=== PATIENT | female | born 1970 | race Caucasian/White ===

== ENCOUNTER → 2021-01-18 10:48 | Outpatient (CLI) | payer OTHER, SELFPAY ==
[2021-01-18 15:15] LABS: Absolute Lymphocyte Count 1.33 X10^3/uL (0.83-4.51); Absolute Neutrophil Count 3.1 X10^3/uL (2.0-7.7); Basophil# 0.05 X10^3/uL; Eosinophil# 0.17 X10^3/uL; Eosinophils% 3.4 % (0-5); Hematocrit 44.2 % (37-47); Hemoglobin 14.8 g/dL (12.0-15.0); Lymphocyte # 1.33 X10^3/ul (0.83-4.51); Lymphocyte % 26.8 % (19-41); Mean Corp Hgb Conc 33.5 g/dL (32-36); Mean Corpuscular Hgb 28.4 pg (27.0-32.0); Mean Corpuscular Volume 84.8 fL (81-99); Monocyte# 0.35 X10^3/uL; Monocyte% 7.1 % (0-10); NRBC Flagged by Analyzer 0 % (0-5); Neutrophil # 3.05 X10^3/uL (2.7-7.7); Neutrophil % 61.5 % (47-70); Platelet Count 230 K/mm3 (150-450); RBC Distribution Width CV 12.6 % (11.6-14.6); RBC Distribution Width SD 38.3 fl (35.1-43.9); Red Blood Count 5.21 M/mm3 (4.2-5.4)
== END ==
PROVIDERS: Referring Provider Internal Medicine Pulmonary Disease; Visit Provider Internal Medicine Pulmonary Disease
DX: G47.09 Other insomnia (principal); R53.83 Other fatigue
CPT/HCPCS: 36415; 85025

== ENCOUNTER → 2021-02-22 10:28 | Outpatient (CLI) | payer OTHER, SELFPAY ==
--- NOTE | 2021-02-22 10:31 | RAD_ITS ---
EXAM: XR CHEST, 2 VIEWS CLINICAL INDICATION: HYPOXEMIA TECHNIQUE: Frontal and lateral views of the chest. This report was created using [employer] report generation technology. COMPARISON: None. FINDINGS: LUNGS AND PLEURAL SPACES: Unremarkable. No consolidation or edema. No pneumothorax. No effusion. HEART: Unremarkable. Cardiac silhouette not enlarged. MEDIASTINUM: Central airways and mediastinal contour are unremarkable. BONES/JOINTS: Unremarkable. SOFT TISSUES: Unremarkable. RAD/Chest PA and Lateral IMPRESSION: No radiographic evidence of acute cardiopulmonary disease. Electronically Signed: Jerzy Mckeon MD at 3:34 EST Tel , Service support ,
== END ==
PROVIDERS: Referring Provider Internal Medicine Pulmonary Disease; Visit Provider Internal Medicine Pulmonary Disease
DX: R06.02 Shortness of breath (principal)
CPT/HCPCS: 71046

== ENCOUNTER 2021-03-23 11:20 | Outpatient (CLI) | payer OTHER, SELFPAY | END 2021-03-23 23:59 | disposition short-term general hospital (02) | PROVIDERS: Referring Provider Internal Medicine Pulmonary Disease; Visit Provider Internal Medicine Pulmonary Disease | DX: U07.1 COVID-19 (principal) | CPT/HCPCS: 87635; C9803; U0003; U0005 ==

== ENCOUNTER 2021-03-24 09:10 | Outpatient (CLI) | payer OTHER, SELFPAY ==
[2021-03-24 09:24] VITALS: BP 133/81; PULSE 126; RESP 18; TEMP 37.1; O2SAT 97; BMI 32.1
[2021-03-24 10:22] VITALS: BP 104/71; PULSE 101; RESP 16; TEMP 37.4; O2SAT 100
[2021-03-24 11:09] VITALS: BP 111/72; PULSE 102; RESP 16; TEMP 37.3; O2SAT 97
== END 2021-03-24 23:59 | disposition home or self-care (01) ==
LOC: MS3OUT 09:10 → MS3 09:11
PROVIDERS: Referring Provider Internal Medicine Pulmonary Disease; Visit Provider Internal Medicine Pulmonary Disease
DX: U07.1 COVID-19 (principal)
CPT/HCPCS: J7050; M0243; Q0240

== ENCOUNTER 2021-03-26 21:52 | Emergency (ER) | payer OTHER, SELFPAY ==
[2021-03-26 21:53] VITALS: BP 76/64; PULSE 96; RESP 15; TEMP 36.3; O2SAT 93; BMI 33.2
[2021-03-26 22:11] VITALS: BP 103/89; PULSE 92; RESP 22; O2SAT 92; O2SAT 95
--- NOTE | 2021-03-26 22:36 | CT_ITS ---
STUDY: CTA CHEST REASON FOR EXAM: Female, 50 years old patient with hypoxia. RADIATION DOSAGE (If Supplied By Facility): CTDIvol = ( 13.73 ) mGy, DLP = ( 498.80 ) mGycm TECHNIQUE: The examination was performed with the intravenous administration of 100 mL of Isovue-370. Post-processing of the angiographic images was performed, with multiplanar reformation and 3D reconstruction. Individualized dose optimization techniques were used for this CT. COMPARISON: None. FINDINGS: Normal enhancement of the main pulmonary artery and right and left pulmonary arteries. Normal enhancement of the bilateral peripheral pulmonary arteries. There is no demonstrated pulmonary embolism. Normal thoracic aorta and visualized great vessels. There is no demonstrated aortic dissection. Normal heart and pericardium. Normal mediastinum. There are mildly prominent right-sided lymph nodes. Normal visualized trachea and bronchi. The lungs are under expanded. There are multifocal areas of airspace consolidation and groundglass attenuation primarily within the periphery of the lower lobes. There is also patchy ground glass attenuation within the upper lobes Normal pleura. Normal chest wall structures. There are degenerative changes of thoracic spine. There is hepatic steatosis. CT/CTA Chest W/WO Contrast IMPRESSION: 1. No CTA demonstrated pulmonary embolism or arterial dissection. 2. Bilateral multifocal pneumonia. Electronically Signed: Kia Lewis MD at 0:16 EST , Service support ,
--- NOTE | 2021-03-26 22:37 | EKG12_ITS ---
Test Reason : SOB Blood Pressure : / mmHG Vent. Rate : 090 BPM Atrial Rate : 090 BPM P-R Int : 160 ms QRS Dur : 070 ms QT Int : 352 ms P-R-T Axes : 020 025 030 degrees QTc Int : 430 ms Normal sinus rhythm Low voltage QRS Borderline ECG Confirmed by MELANY MEIER, ELIF ([id number]), acquisition editor SIERRA MABRY ([id number]) on 03/31/2021 11:26:35 AM Referred By: KAILEY Confirmed By:ELIF MOSLEY MD
[2021-03-26] MEDS: dexAMETHasone 10 MG/ML Vial IV (23:04)
[2021-03-26 23:07] VITALS: BP 111/62; PULSE 97; RESP 22; O2SAT 96
--- NOTE | 2021-03-26 23:08 | EX.ED.DYSGE1 ---
HPI History of Present Illness Chief Complaint: Cough Narrative Narrative: Patient is a 50-year-old female who is approximately 7 days into her Covid diagnosis. She states that she developed the illness from her who is also positive. She states she has no history of lung disorder or smoking history or need for supplemental oxygen. She reports she did receive her monoclonal antibody therapy 2 days ago. She states that today she was feeling increased shortness of breath and placed a pulse ox on her finger at home and it was reading only 75 to 80%. She states she readjusted the machine but the reading was still low and secondary to this comes to the hospital for evaluation. PFSH PFS Medical History no medical history Home Medications guaifenesin [Mucinex] 1,200 mg PO Q12H PRN 03/24/21 [History Last Taken Unknown] mirtazapine 7.5 mg PO QHS PRN 03/26/21 [History Last Taken Unknown] dexamethasone [Decadron] 6 mg PO DAILY 10 Days #10 tab 03/27/21 [Rx Last Taken Unknown] Allergy/AdvReac Type Severity Reaction Status Date / Time cephalexin Allergy Hives Verified 03/26/21 22:18 Surgical History no surgical history Social History Smoking Status: Never smoker [facility] ED Constitutional Constitutional ED: Denies chills or fever(s) ENT ENT ED: Reports rhinorrhea and sore throat Cardiovascular Cardiovascular: Denies chest pain, palpitations or racing heartbeat Respiratory/Chest Respiratory/Chest: Reports cough and dyspnea Gastrointestinal Gastrointestinal: Denies abdominal pain, diarrhea, nausea or vomiting Genitourinary Genitourinary ED: Denies dysuria Musculoskeletal Musculoskeletal: Reports myalgias Integumentary Denies rash Neurologic Neurologic: Reports weakness; Denies headache(s) Hematologic/Lymphatic Hematologic/Lymphatic: Denies easy bleeding or easy bruising EXAM Physical Exam Const Vital Signs: 03/26/21 21:53 03/26/21 22:11 03/26/21 23:07 Temperature 97.4 F L Temperature Source Temporal Pulse Rate 96 92 97 Respiratory Rate 15 22 H 22 H Respiratory Effort Normal Non-Labored Respiratory Depth Normal Respiratory Pattern Tachypnea Blood Pressure 76/64 L 103/89 H 111/62 Blood Pressure Mean 68 93 78 Pulse Ox 93 92 96 Oxygen Delivery Method Room Air Room Air Room Air 03/27/21 01:10 Temperature Temperature Source Pulse Rate Respiratory Rate 18 Respiratory Effort Respiratory Depth Respiratory Pattern Blood Pressure 134/80 H Blood Pressure Mean 98 Pulse Ox 97 Oxygen Delivery Method Room Air Positive well nourished and well developed General Appearance ED: well developed HEENT Reports moist mucous membranes HEENT Narrative: Cobblestoning the posterior pharynx consistent with sinus drainage but no tongue or lip swelling no oral lesions no airway edema or compromise Eyes PERRL and EOMs intact bilaterally Neck supple and no JVD Neck Narrative: Positive anterior cervical lymphadenopathy noted Resp normal respiratory effort Resp Narrative: Breath sounds are diminished throughout with diffuse rhonchi noted. However no nasal flaring retractions tachypnea or accessory muscle use Cardio regular rate and regular rhythm GI normal to inspection, nondistended, normoactive bowel sounds, non-tender, non-distended and no masses Auscultation: normoactive bowel sounds Palpation: soft Extremity normal to inspection Extremity Narrative: No asymmetric edema no pitting edema negative Homans' sign bilaterally Neuro oriented x3 and CN's II-XII intact bilaterally Sensorium / Orientation: alert Motor Exam: strength 5/5 throughout Psych mental status grossly normal Skin no rashes or lesions noted MDM MDM MDM Narrative Medical decision making narrative: Patient arrived to the ER afebrile and was satting 93 to 95% on room air. She has known Covid and is approximately 7 days into her illness. With her report of a pulse ox in the 70s to 80s at home I did elect to perform a CT scan to check for Covid pneumonia and pulmonary embolus as well as cardiac damage. The blood work showed a normal troponin with normal sinus rhythm EKG. she has no anemia or signs of acute kidney damage. Her CTA reveals no PE but does show bilateral multifocal infiltrates consistent with Covid. The patient was ambulated and her pulse ox went from 95% down to 94% on room air. Therefore at this time as she is not hypoxic at rest or with ambulation and she does not have pulmonary emboli or signs of cardiac damage I do not feel she needs to be kept in the hospital and is safe for discharge. Lab Data Attestation: I reviewed the patient's lab results. Labs: Laboratory Results - last 24 hr 03/26/21 03/26/21 03/26/21 23:00 23:00 23:00 WBC 3.2 L RBC 4.26 Hgb 12.2 Hct 35.7 L MCV 83.8 MCH 28.6 MCHC 34.2 RDW Std Deviation 38.9 RDW Coeff of Jaylen 12.7 Plt Count 190 MPV 8.8 Immature Gran % (Auto) 2.200 H Neut % (Auto) 63.5 Lymph % (Auto) 26.2 [place] % (Auto) 7.2 Eos % (Auto) 0.6 Baso % (Auto) 0.3 Absolute Neuts (auto) 2.0 Absolute Lymphs (auto) 0.84 Nucleated RBC % 0.6 PT 12.9 INR 1.0 APTT 28.2 Sodium 139 Potassium 3.3 L Chloride 103 Carbon Dioxide 29.0 Anion Gap 7 BUN 11 Creatinine 0.69 Estim Creat Clear Calc 84.23 Est GFR (MDRD) Af Amer 116 Est GFR (MDRD) Non-Af 96 BUN/Creatinine Ratio 15.9 Glucose 99 Calcium 8.7 Magnesium 2.2 Troponin I High Sens 7 Radiography Diagnostic Testing: Clinical Impression(s) from Imaging Studies Chest CTA 03/26/21 22:36 IMPRESSION: 1. No CTA demonstrated pulmonary embolism or arterial dissection. 2. Bilateral multifocal pneumonia. Electronically Signed: Kia Lewis MD at 0:16 EST , Service support , Discharge Plan Triage Chief Complaint: Cough ED Provider: Jerzy Miller Dx/Rx/DC Orders Clinical Impression: Pneumonia due to 2019 novel coronavirus Prescriptions: New dexamethasone [Decadron] 6 mg tablet 6 mg PO DAILY 10 Days Qty: 10 RF: 0 No Action guaifenesin [Mucinex] 600 mg Tablet Extended Release 12hr 1,200 mg PO Q12H PRN (Reason: Congestion) RF: 0 mirtazapine 7.5 mg tablet 7.5 mg PO QHS PRN (Reason: Insomnia) RF: 0 Primary Care Provider: Care Physician,No Primary Referrals: Louise Ortega MD [STAFF PHYSICIAN] - 3-5 Days if not improving Care Physician,No Primary [Primary Care Provider] - Disposition Disposition: Home, Self Care Discharge Date/Time: 03/27/21 01:16
[2021-03-26 23:28] LABS: Partial Thromboplast Time 28.2 Seconds (24.1-36.2); Prothrombin Time (Protime)PT. 12.9 SECONDS (11.7-14.9)
[2021-03-26 23:32] LABS: Anion Gap 7 (5-15); BUN 11 mg/dL (7-18); BUN/Creat Ratio 15.9 RATIO (10-20); Calcium,Total 8.7 mg/dL (8.5-10.1); Chloride 103 mmol/L (98-107); Creatinine, Serum 0.69 mg/dL (0.55-1.02); EST Glomerular Filtration Rate 96 mL/min (>60); Est Glom Filt Rate - Afr Amer 116 mL/min (>60); Estimated Creatinine Clearance 84.23 ml/min; Glucose 99 mg/dL (74-106); Magnesium 2.2 mg/dL (1.6-2.6); Potassium 3.3 mmol/L (3.5-5.1); Sodium Level 139 mmol/L (136-145); Troponin-I HS 7 pg/mL (3.0-54.0)
[2021-03-26 23:35] LABS: Absolute Lymphocyte Count 0.84 X10^3/uL (0.83-4.51); Basophil# 0.01 X10^3/uL; Basophil% 0.3 % (0-1); Eosinophil# 0.02 X10^3/uL; Eosinophils% 0.6 % (0-5); Hematocrit 35.7 % (37-47); Hemoglobin 12.2 g/dL (12.0-15.0); Lymphocyte # 0.84 X10^3/ul (0.83-4.51); Lymphocyte % 26.2 % (19-41); Mean Corp Hgb Conc 34.2 g/dL (32-36); Mean Corpuscular Hgb 28.6 pg (27.0-32.0); Mean Corpuscular Volume 83.8 fL (81-99); Mean Platelet Vol. 8.8 fl (6.2-12.0); Monocyte# 0.23 X10^3/uL; Monocyte% 7.2 % (0-10); NRBC Flagged by Analyzer 0.6 % (0-5); Neutrophil # 2.04 X10^3/uL (2.7-7.7); Neutrophil % 63.5 % (47-70); POSITIVE MORPHOLOGY YES; Platelet Count 190 K/mm3 (150-450); RBC Distribution Width CV 12.7 % (11.6-14.6); RBC Distribution Width SD 38.9 fl (35.1-43.9); Red Blood Count 4.26 M/mm3 (4.2-5.4); White Blood Count 3.2 K/mm3 (4.4-11.0)
[2021-03-27 00:42] VITALS: O2SAT 95
[2021-03-27 01:10] VITALS: BP 134/80; RESP 18; O2SAT 97
[2021-03-27 01:29] LABS: Differential Indicated SCAN CRITERIA MET
== END 2021-03-27 01:16 | disposition home or self-care (01) ==
PROVIDERS: Emergency Provider Emergency Medicine; Visit Provider Emergency Medicine
DX: U07.1 COVID-19 (principal); J12.82 Pneumonia due to coronavirus disease 2019; R06.02 Shortness of breath
CPT/HCPCS: 71275; 80048; 83735; 84484; 85025; 85610; 85730; 93005; 96374; 99282; J7040; Q9967

== ENCOUNTER 2021-04-12 10:04 | Outpatient (CLI) | payer OTHER, SELFPAY ==
--- NOTE | 2021-04-12 10:08 | RAD_ITS ---
EXAM: XR CHEST, 2 VIEWS : 1970 CLINICAL INDICATION: COVID TECHNIQUE: Frontal and lateral views of the chest. This report was created using [employer] report generation technology. COMPARISON: 02/22/2021 FINDINGS: LUNGS AND PLEURAL SPACES: Unremarkable. No consolidation or edema. No pneumothorax. No effusion. HEART: Unremarkable. Cardiac silhouette not enlarged. MEDIASTINUM: Central airways and mediastinal contour are unremarkable. BONES/JOINTS: Unremarkable. SOFT TISSUES: Unremarkable. RAD/Chest PA and Lateral IMPRESSION: No radiographic evidence of acute cardiopulmonary disease. at 1813 Reported and signed by: Peña Lal MD Electronically Signed: Peña Lal MD at 18:12 EST Tel , Service support ,
== END 2021-04-12 23:59 | disposition short-term general hospital (02) ==
LOC: MTRAD 10:05
PROVIDERS: PCP Nurse Practitioner Primary Care; Referring Provider Internal Medicine Pulmonary Disease; Visit Provider Internal Medicine Pulmonary Disease
DX: U07.1 COVID-19 (principal)
CPT/HCPCS: 71046

== ENCOUNTER 2021-12-15 11:00 | Outpatient (RCR) | payer OTHER, SELFPAY | END 2021-12-17 23:59 | LOC: NS 11:00 | PROVIDERS: PCP Nurse Practitioner Primary Care; Referring Provider Nurse Practitioner Primary Care; Visit Provider Nurse Practitioner Primary Care | DX: Z71.3 Dietary counseling and surveillance (principal); E66.9 Obesity, unspecified; Z68.34 Body mass index [BMI] 34.0-34.9, adult | CPT/HCPCS: 97802; 97803 ==

== ENCOUNTER 2022-01-03 09:52 | Outpatient (RCR) | payer OTHER, SELFPAY | END 2022-01-17 23:59 | LOC: NS 09:52 | PROVIDERS: PCP Nurse Practitioner Primary Care; Referring Provider Nurse Practitioner Primary Care; Visit Provider Nurse Practitioner Primary Care | DX: Z71.3 Dietary counseling and surveillance (principal); E66.9 Obesity, unspecified; Z68.34 Body mass index [BMI] 34.0-34.9, adult | CPT/HCPCS: 97803 ==

== ENCOUNTER → 2022-01-26 | Outpatient (CLI) | payer OTHER, SELFPAY ==
--- NOTE | 2022-01-26 11:14 | RAD_ITS ---
STUDY: X-RAY - LUMBAR SPINE REASON FOR EXAM: Female, 51 years old. Bilateral hip pain. TECHNIQUE: 5 view(s) of the lumbar spine were obtained. COMPARISON: None FINDINGS: Normal lumbar lordosis. Mild rotatory levoscoliosis. There is a normal alignment of the vertebrae. Diffuse facet sclerosis. Diffuse intervertebral disc space narrowing with small osteophytes, most marked at L2-3 and L3-4. Phleboliths and calcified uterine fibroids. RAD/L/S Spine Min 4 Views IMPRESSION: Levoscoliosis with diffuse mild lumbosacral spondylosis. Uterine fibroids. No acute abnormality, evidence of erosive changes or fusion. Electronically Signed: Kt Garcia, at 15:55 EST ,
--- NOTE | 2022-01-26 11:29 | RAD_ITS ---
STUDY: X-RAY - PELVIS AND BILATERAL HIPS REASON FOR EXAM: Female, 51 years old. Pain. TECHNIQUE: AP view of the pelvis.? 2 views of the right hip, and 2 views of the left hip were obtained. COMPARISON: None. FINDINGS: There is a non-specific bowel gas pattern. Calcified fibroids. Phleboliths. Mild bilateral SI joint arthrosis. Normal bilateral superior and inferior pubic rami. Normal pubic symphysis. Normal bilateral ischial tuberosities. Normal visualized right femoral head. Normal right acetabulum. Normal right hip joint. Normal visualized left femoral head. Normal left acetabulum. Normal left hip joint. 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 Calcified fibroids. No acute abnormality, evidence of erosive changes or fusion. Electronically Signed: Kt Garcia, at 15:43 EST ,
== END | disposition home or self-care (01) ==
PROVIDERS: PCP Nurse Practitioner Primary Care; Referring Provider Nurse Practitioner Primary Care; Visit Provider Nurse Practitioner Primary Care
DX: M25.551 Pain in right hip (principal)
CPT/HCPCS: 72110; 73521

== ENCOUNTER 2022-02-07 08:30 | Outpatient (RCR) | payer OTHER, SELFPAY | END 2022-02-16 23:59 | LOC: NS 08:30 | PROVIDERS: PCP Nurse Practitioner Primary Care; Referring Provider Nurse Practitioner Primary Care; Visit Provider Nurse Practitioner Primary Care | DX: Z71.3 Dietary counseling and surveillance (principal); E66.9 Obesity, unspecified; Z68.34 Body mass index [BMI] 34.0-34.9, adult | CPT/HCPCS: 97803 ==

== ENCOUNTER 2022-03-01 10:28 | Outpatient (RCR) | payer OTHER, SELFPAY | END 2022-03-19 23:59 | LOC: NS 10:28 | PROVIDERS: PCP Nurse Practitioner Primary Care; Referring Provider Nurse Practitioner Primary Care; Visit Provider Nurse Practitioner Primary Care | DX: Z71.3 Dietary counseling and surveillance (principal); E66.9 Obesity, unspecified; Z68.34 Body mass index [BMI] 34.0-34.9, adult | CPT/HCPCS: 97803 ==

== ENCOUNTER 2022-04-12 11:00 | Outpatient (RCR) | payer OTHER, SELFPAY | END 2022-04-19 23:59 | LOC: NS 11:00 | PROVIDERS: PCP Nurse Practitioner Primary Care; Referring Provider Nurse Practitioner Primary Care; Visit Provider Nurse Practitioner Primary Care | DX: Z71.3 Dietary counseling and surveillance (principal); E66.9 Obesity, unspecified; Z68.34 Body mass index [BMI] 34.0-34.9, adult | CPT/HCPCS: 97803 ==

== ENCOUNTER 2022-05-02 10:02 | Outpatient (RCR) | payer OTHER, SELFPAY | END 2022-05-17 23:59 | LOC: NS 10:02 | PROVIDERS: PCP Nurse Practitioner Primary Care; Referring Provider Nurse Practitioner Primary Care; Visit Provider Nurse Practitioner Primary Care | DX: Z71.3 Dietary counseling and surveillance (principal); E66.9 Obesity, unspecified; Z68.34 Body mass index [BMI] 34.0-34.9, adult | CPT/HCPCS: 97803 ==

== ENCOUNTER 2022-06-13 10:00 | Outpatient (RCR) | payer OTHER, SELFPAY ==
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
--- NOTE | 2022-10-28 13:53 | HP.PT.NRP ---
Patient Information Patient Information: TELMA SCHULER was seen in my office for initial evaluation on 06/06/22. The following Plan of Care was established for this patient: POC Established Initial Frequency: 1x/Week Initial Duration: 4-6 Weeks Anticipated Interventions Patient/Client Instruction: Educate patient on: Condition and Plan of Care For the Purpose of:: To decrease pain, To improve muscle performance and motor function, To reduce risk of recurrence and To improve safety For the Purpose of:: To increase tolerance to activity/condition/position, To improve ability of physical actions for home/community/work/leisure and To improve gait and locomotor functions Last Seen Last Seen: This patient was last seen in our office 06/13/22. Pertinent comments regarding their Physical therapy will appear below: Pt seen 3 visits of POC and was 80% better. she was to f/u one month later but did not schedule or attend. At this point, i will discontinue her as it has been months since last attended session. At this point I will be discontinuing this patient from physical therapy. I would be happy to see this patient again in the future if found appropriate by the physician. Thank you! Larry Lucero, DPT, OCS, CSCS Balance/Gait/Functional tests Balance/Special Test Scores Functional Gait Assessment Score: 29 % Disability: 3.3400 CATSIB Score (Max score 120 seconds): 120 Dizziness Score: 52
== END 2022-06-13 19:00 | disposition home or self-care (01) ==
LOC: PT 10:00
PROVIDERS: PCP Nurse Practitioner Primary Care; Referring Provider Physician Assistant Medical; Visit Provider Physician Assistant Medical
DX: R42 Dizziness and giddiness (principal)
CPT/HCPCS: 97162; 97530

== ENCOUNTER 2022-10-05 17:01 | Emergency (ER) | payer OTHER, SELFPAY ==
[2022-10-05 17:03] VITALS: BP 140/95; PULSE 113; RESP 17; TEMP 36.6; O2SAT 99; BMI 31.4
--- NOTE | 2022-10-05 17:31 | EX.ED.VIS.HA ---
HPI History of Present Illness Chief Complaint: Headache Informant: patient Onset/Context/Timing Onset: Yesterday Context: Gradual Timing: Waxes and wanes Narrative Narrative: Patient presents secondary to migraine symptoms. She was diagnosed with vestibular migraines earlier this year. Late last evening she started to get migraine symptoms. She woke at 6:00 this morning with migraine and took 2 migraine Excedrin tabs. After taking a nap she felt the headache was better, however she continues to have some motion sickness symptoms with near syncope. She states she has had this in the past with her migraines. She denies chest pain or palpitations. She has had nausea but no vomiting. She had paresthesias in the bilateral arms and hands earlier today but that is resolved at this time. [facility] Medical History (Updated 10/05/22 @ 19:[address] Karla Doherty MD) Vestibular migraine Home Medications guaifenesin 600 mg tablet, extended release 12 hr (Mucinex) 1,200 mg PO Q12H PRN Congestion 03/24/21 [History Last Taken Unknown] mirtazapine 7.5 mg tablet 7.5 mg PO QHS PRN Insomnia 03/26/21 [History Last Taken Unknown] dexamethasone 6 mg tablet (Decadron) 6 mg PO DAILY 10 days #10 tabs 03/27/21 [Rx Last Taken Unknown] Allergy/AdvReac Type Severity Reaction Status Date / Time cephalexin Allergy Hives Verified 10/05/22 17:03 Social History Smoking Status: Never smoker ROS ROS ED Constitutional Constitutional ED: Denies chills or fever(s) Eyes Eyes: Denies change in vision or discharge from eye(s) ENT ENT ED: Denies discharge from eye(s), rhinorrhea or sore throat Cardiovascular Cardiovascular: Denies chest pain or palpitations Respiratory/Chest Respiratory/Chest: Denies cough or dyspnea Gastrointestinal Gastrointestinal: Reports nausea; Denies abdominal pain or vomiting Genitourinary Genitourinary ED: Denies dysuria Musculoskeletal Musculoskeletal: Denies back pain or extremity pain Integumentary Denies Abrasions or rash Neurologic Neurologic: Reports headache(s) and paresthesias; Denies weakness Psychiatric Psychiatric: Denies anxiety or depression Allergic/Immunologic Allergic/Immunologic ED: Denies lip swelling or urticaria EXAM Physical Exam Const Vital Signs: 10/05/22 17:03 Temperature 97.8 F Temperature Source Temporal Pulse Rate 113 H Respiratory Rate 17 Blood Pressure 140/95 H Blood Pressure Mean 110 Pulse Ox 99 Oxygen Delivery Method Room Air Positive well nourished and well developed General Appearance ED: well developed HEENT Reports moist mucous membranes Eyes PERRL and EOMs intact bilaterally Neck no lymphadenopathy Resp normal respiratory effort and clear to auscultation bilaterally Cardio regular rate and regular rhythm GI non-tender Extremity normal to inspection Neuro oriented x3 and no sensory deficits noted Motor Exam: strength 5/5 throughout Psych mental status grossly normal MDM MDM MDM Narrative Medical decision making narrative: Patient was given Toradol, Compazine, Benadryl, IV fluids. 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 EKG Initial EKG: Attestation: I personally reviewed and interpreted this EKG as follows: Interpretation: Sinus Rhythm (Sinus 81 with no acute ischemia.) Treatment and Re-Evaluation Narrative: On repeat evaluation patient feels much improved. She was able to ambulate down the [place] to the restroom and back without feeling dizzy. She will be discharged home with her at this time. Discharge Plan Triage Chief Complaint: Headache ED Provider: Karla Doherty Dx/Rx/DC Orders Clinical Impression: Migraine Instructions: ED, Migraine (Classical) Prescriptions: No Action guaifenesin [Mucinex] 600 mg Tablet Extended Release 12hr 1,200 mg PO Q12H PRN (Reason: Congestion) mirtazapine 7.5 mg tablet 7.5 mg PO QHS PRN (Reason: Insomnia) dexamethasone [Decadron] 6 mg tablet 6 mg PO DAILY 10 Days Qty: 10 0RF Primary Care Provider: Ada Martinez NP Referrals: Ada Martinez NP, OCCUPATIONAL HEALTH AND SAFETY OFFICER-C [Primary Care Provider] - As Needed Disposition Disposition: Home, Self Care
[2022-10-05] MEDS: proCHLORPERazine 10 MG/2 ML Vial IV (17:37)
[2022-10-05] MEDS: DiphenhydrAMINE 50 MG/ML Syringe 25 MG IV (17:37)
[2022-10-05] MEDS: 0.9% Normal Saline 1,000 ML 999 ML IV (17:37)
[2022-10-05] MEDS: Ketorolac 30 MG/ML Syringe IV (17:37)
== END 2022-10-05 19:46 | disposition home or self-care (01) ==
PROVIDERS: Emergency Provider Emergency Medicine; PCP Nurse Practitioner Primary Care; Visit Provider Emergency Medicine
DX: G43.909 Migraine, unspecified, not intractable, without status migrainosus (principal); R55 Syncope and collapse
CPT/HCPCS: 93005; 96361; 96374; 96375; 99284; J7030

== ENCOUNTER 2022-12-12 20:13 | Emergency (ER) | payer OTHER, SELFPAY ==
[2022-12-12] VITALS (23 sets, daily range): BP systolic 51–158; BP diastolic 17–110; PULSE 66–91; RESP 12–20; TEMP 36.3; O2SAT 98–100; BMI 30.9
--- NOTE | 2022-12-12 20:37 | RAD_ITS ---
We are attempting to reach an attending provider to discuss findings. An addendum with communication details will be sent when the communication is complete. INDICATION: chest pain EXAMINATION/TECHNIQUE: X-RAY - XR Chest 1 View COMPARISON: 04/12/2021 FINDINGS: LINES/DEVICES: None. LUNGS: No consolidation, edema or effusion. No pneumothorax. MEDIASTINUM AND CARDIOVASCULAR STRUCTURES: Cardiac silhouette not enlarged. Central airways and mediastinal contour are unremarkable. BONES AND SOFT TISSUES: No acute bony abnormality. Extensive free air below the diaphragm. RAD/Chest 1 View (Portable) IMPRESSION: Pneumoperitoneum. Possible perforated viscus if there is been no recent abdominal surgery. No acute cardiopulmonary disease. Electronically Signed: Julio Ch MD at 21:05 EDT ,
--- NOTE | 2022-12-12 21:19 | ED.VIS.CHEST ---
HPI History of Present Illness Chief Complaint: Chest Pain [facility] Medical History Chronic vertigo Duodenitis without mention of hemorrhage Esophagitis Essential (primary) hypertension Fibromyalgia Hx of spinal stenosis Sleep apnea Vestibular migraine Home Medications guaifenesin 600 mg tablet, extended release 12 hr (Mucinex) 1,200 mg PO Q12H PRN Congestion 03/24/21 [History Last Taken Unknown] calcium carbonate 600 mg calcium (1,500 mg) tablet 1,200 mg PO DAILY 12/06/22 [History Last Taken Unknown] coenzyme Q10 60 mg tablet 100 mg PO DAILY 12/06/22 [History Last Taken Unknown] diazepam 5 mg tablet 5 mg PO Q6H PRN 12/06/22 [History Last Taken Unknown] duloxetine 30 mg capsule,delayed release 60 mg PO DAILY 12/06/22 [History Last Taken Unknown] loratadine 10 mg tablet (Allergy Relief (loratadine)) 10 mg PO DAILY PRN 12/06/22 [History Last Taken Unknown] riboflavin (vitamin B2) 100 mg tablet 100 mg PO BID 12/06/22 [History Last Taken Unknown] sumatriptan succinate 50 mg tablet 100 mg PO PRN 12/06/22 [History Last Taken Unknown] zolpidem 6.25 mg tablet,extended release,multiphase (Ambien CR) 6.25 mg PO QHS 12/06/22 [History Last Taken Unknown] fluticasone propionate 50 mcg/actuation nasal spray,suspension 1 spray intranasal BID PRN 12/07/22 [History Last Taken Unknown] gabapentin 100 mg capsule mg PO QHS 12/07/22 [History Last Taken Unknown] Allergy/AdvReac Type Severity Reaction Status Date / Time cephalexin Allergy Hives Verified 12/12/22 21:02 topiramate [From Topamax] AdvReac Intermediate headaches/d Verified 12/12/22 21:02 izziness Family History (Updated 12/07/22 @ 09:07 by Luba Barry RN) Mother Hypertension Grandfather Heart disease Grandmother Heart disease Social History (Updated 12/07/22 @ 09:08 by Luba Barry RN) Smoking Status: Never smoker alcohol intake: never substance use type: does not use caffeine: Yes (energy drinks) Type: other EXAM Physical Exam Const Vital Signs: 12/12/22 20:14 12/12/22 21:02 12/12/22 21:03 Temperature 97.3 F L Temperature Source Oral Pulse Rate 91 Respiratory Rate 15 Respiratory Effort Normal Non-Labored Blood Pressure 134/87 H Blood Pressure Mean 102 Pulse Ox 100 98 Oxygen Delivery Method Room Air Room Air 12/12/22 21:36 12/12/22 22:00 12/12/22 23:11 Temperature Temperature Source Pulse Rate 81 83 68 Respiratory Rate 14 16 14 Respiratory Effort Blood Pressure 137/110 H 137/110 H 131/91 H Blood Pressure Mean 119 119 104 Pulse Ox Oxygen Delivery Method Room Air Room Air Room Air MDM MDM MDM Narrative Medical decision making narrative: HISTORY OF PRESENT ILLNESS: 51-year-old female here with concern for chest pain. She states she developed cute onset epigastric/chest pain just prior to arrival. She notes pain radiates to both shoulders into her upper abdomen notes pain is exacerbated by movement. She further states she had no history of abdominal surgeries. No vomiting. No nausea. Last bowel movement yesterday. No melena medic easier. She still passing gas. She denies any urinary complaints. The patient denies recent surgery in the last 4 weeks or immobilization in the last 3 days, denies previous diagnosis of DVT or PE, hemoptysis, unilateral leg swelling or malignancy with treatment the last 6 months or palliative. No estrogen use noted. Patient denies sudden onset of pain, no tearing sensation, no migratory symptoms, no new numbness, weakness or loss of sensation. Patient denies family history or personal history of Connective tissue disorders (Marfan's Syndrome, Lionel Danlos etc) REVIEW OF SYSTEMS: Pertinent positives: Abdominal pain, chest pain Pertinent negatives: Syncope PHYSICAL EXAM: Nursing triage notes reviewed, Vital signs reviewed Constitutional: please see mdm HENT: MMM Eyes: Pupils equal round and reactive to light, Extraocular muscles intact Neck: No stridor, no JVD, full neck ROM Lungs: Clear to auscultation, No wheezing or rales. No increased work of breathing, no conversational dyspnea, no accessory muscle use, no nasal flaring. No respiratory distress noted Heart: Regular rate and rhythm, No murmurs, No rubs and No gallops, 2+ distal pulses (radial, femoral, posterior tibial) in all extremities Abdomen: Soft, mild diffuse tenderness, there is no rigidity, rebound or guarding, no obvious peritoneal signs, no palpable pulsatile abdominal masses, no auscultated abdominal bruit : No CVAT Extremities: No edema Neuro: No focal neurological deficits, cranial nerves II through XII intact, 5/5 strength in all extremities. Intact sensation to light touch in all extremities, 2+ reflexes bilateral patella tendons. Normal gait. No ataxia. Skin: No rash or lesions noted MEDICAL DECISION MAKING: Chief Complaint: Epigastric abdominal pain, chest pain External records reviewed: Last ED visit in September 2022 for migraine, no abdominal surgical history Factors affecting care: Fibromyalgia, hypertension, vertigo and migraine Social determinants of health: Denies smoking drinking alcohol use History obtained from others: Patient's Consults: General surgery here at [place] Dr. Johnston. General Surgery at [facility] (Dr. Jimenez). Surgical ICU (Dr. Joel) MDM Narrative: Patient was initially hemodynamically stable, afebrile, I considered the following differential diagnosis: ACS, arrhythmia, anemia, PE, pancreatitis, intra-abdominal pathologies as perforation, obstruction ALL IMAGES (IF OBTAINED) HAVE BEEN PERSONALLY REVIEWED AND INTERPRETED BY MYSELF. Chest x-ray was read and interpreted myself with no obvious intrathoracic pathology however there was free air under the diaphragm concerning for perforated viscus. EKG with normal sinus rhythm, normal axis, no intervals, no STEMI CT scan showed evidence of a perforated gastrum, as well as concerning thickening for malignancy Troponin is negative, no evidence of myocardial ischemia x2 BMP without evidence of significant electrolyte abnormalities, no anion gap, no acute kidney injury. LFTs show no evidence of hepatobiliary pathology. The amalgamation the patient's labs images were concerning for perforated viscus. Given report of abnormal gastric as well as diaphragmatic thickening our surgeon Dr. Johnston recommended transferring the patient to higher level of care he mentioned [facility] as a potential destination. I called [facility] and spoke to Dr. Jimenez (general surgery) who agreed except the patient to the surgical ICU patient is here in the emergency department awaiting a bed. She is hemodynamically stable but in guarded condition. She was treated with IV Zosyn for antimicrobial prophylaxis, IV fluids, Zofran and morphine. Patient family updated. The patient and/or family, caregivers express understanding. The patient and/or family, caregivers agrees with the plan. Shared decision making: I will have a discussion with the patient and or visitors regarding risk/benefits of further testing or admission. They will be made aware of of the risk/benefits inherent in this decision they will be given the opportunity to voice understanding. Total critical care time today provided was at least 60 minutes. This excludes separately billable procedures. Critical care time (if documented) is secondary to the patient having high probability of clinically significant/life threatening deterioration in the patient's condition which required my urgent intervention. Impression: 1. Perforated viscus 2. Acute abdominal pain Dispo: Transfer to [facility] Lab Data Labs: Laboratory Results - last 24 hr 12/12/22 12/12/22 12/12/22 20:35 20:35 21:30 WBC Cancelled 6.3 Corrected WBC Cancelled RBC Cancelled 4.66 Hgb Cancelled 13.3 Hct Cancelled 41.2 MCV Cancelled 88.4 MCH Cancelled 28.5 MCHC Cancelled 32.3 RDW Std Deviation Cancelled 42.8 RDW Coeff of Jaylen Cancelled 13.3 Plt Count Cancelled 253 MPV Cancelled 9.5 Immature Gran % (Auto) Cancelled 0.300 Neut % (Auto) Cancelled 61.0 Lymph % (Auto) Cancelled 25.0 [place] % (Auto) Cancelled 8.8 Eos % (Auto) Cancelled 4.1 Baso % (Auto) Cancelled 0.8 Absolute Neuts (auto) Cancelled 3.9 Absolute Lymphs (auto) Cancelled 1.58 Total Counted Cancelled Neutrophils % (Manual) Cancelled Band Neutrophils % Cancelled Lymphocytes % (Manual) Cancelled Monocytes % (Manual) Cancelled Eosinophils % (Manual) Cancelled Basophils % (Manual) Cancelled Metamyelocytes % Cancelled Myelocytes % Cancelled Promyelocytes % Cancelled Blast Cells % Cancelled Plasma Cell % (Manual) Cancelled Other Cells % Cancelled Nucleated RBC % Cancelled 0 Nucleated RBCs/100 WBC Cancelled Differential Comment Cancelled Diff Path Review Cancelled Hypersegmented Neuts Cancelled Atypical Lymphocytes Cancelled Reactive Lymphocytes Cancelled Smudge Cells Cancelled Toxic Granulation Cancelled Toxic Vacuolation Cancelled Dohle Bodies Cancelled Regan Rods Cancelled Platelet Estimate Cancelled Plt Morphology Comment Cancelled RBC Morphology Cancelled Cancelled Polychromasia Cancelled Hypochromasia Cancelled Poikilocytosis Cancelled Basophilic Stippling Cancelled Anisocytosis Cancelled Microcytosis Cancelled Macrocytosis Cancelled Spherocytes Cancelled Sickle Cells Cancelled Target Cells Cancelled Tear Drop Cells Cancelled Ovalocytes Cancelled Stomatocytes Cancelled [place] Bodies Cancelled Amairani Cells Cancelled Bite Cells Cancelled Crenated Cell Cancelled Acanthocytes (Spur) Cancelled Rouleaux Cancelled Schistocytes Cancelled Sodium 139 Potassium 4.7 Chloride 107 Carbon Dioxide 28.0 Anion Gap 4 L BUN 23 H Creatinine 0.95 Estim Creat Clear Calc 57.95 Est GFR (MDRD) Af Amer 79 Est GFR (MDRD) Non-Af 66 BUN/Creatinine Ratio 24.2 H Glucose 95 Calcium 9.1 Total Bilirubin Direct Bilirubin AST ALT Alkaline Phosphatase Troponin I High Sens 4 Total Protein Albumin Globulin Lipase Blood Type Antibody Screen 12/12/22 12/12/22 12/12/22 21:58 22:21 22:58 WBC Corrected WBC RBC Hgb Hct MCV MCH MCHC RDW Std Deviation RDW Coeff of Jaylen Plt Count MPV Immature Gran % (Auto) Neut % (Auto) Lymph % (Auto) [place] % (Auto) Eos % (Auto) Baso % (Auto) Absolute Neuts (auto) Absolute Lymphs (auto) Total Counted Neutrophils % (Manual) Band Neutrophils % Lymphocytes % (Manual) Monocytes % (Manual) Eosinophils % (Manual) Basophils % (Manual) Metamyelocytes % Myelocytes % Promyelocytes % Blast Cells % Plasma Cell % (Manual) Other Cells % Nucleated RBC % Nucleated RBCs/100 WBC Differential Comment Diff Path Review Hypersegmented Neuts Atypical Lymphocytes Reactive Lymphocytes Smudge Cells Toxic Granulation Toxic Vacuolation Dohle Bodies Regan Rods Platelet Estimate Plt Morphology Comment RBC Morphology Polychromasia Hypochromasia Poikilocytosis Basophilic Stippling Anisocytosis Microcytosis Macrocytosis Spherocytes Sickle Cells Target Cells Tear Drop Cells Ovalocytes Stomatocytes [place] Bodies [place] Cells Bite Cells Crenated Cell Acanthocytes (Spur) Rouleaux Schistocytes Sodium Potassium Chloride Carbon Dioxide Anion Gap BUN Creatinine Estim Creat Clear Calc Est GFR (MDRD) Af Amer Est GFR (MDRD) Non-Af BUN/Creatinine Ratio Glucose Calcium Total Bilirubin 0.30 Direct Bilirubin 0.10 AST 18 ALT 30 Alkaline Phosphatase 73 Troponin I High Sens 4 Total Protein 7.5 Albumin 3.8 Globulin 3.7 Lipase 34 Blood Type Cancelled A POSITIVE Antibody Screen Cancelled NEGATIVE Radiography Diagnostic Testing: Clinical Impression(s) from Imaging Studies Chest X-Ray 12/12/22 20:37 IMPRESSION: Pneumoperitoneum. Possible perforated viscus if there is been no recent abdominal surgery. No acute cardiopulmonary disease. Electronically Signed: Julio Ch MD at 21:05 EDT , ADDENDUM: 12/12/222125 IMPRESSION: Pneumoperitoneum. Possible perforated viscus if there is been no recent abdominal surgery. No acute cardiopulmonary disease. N.B. : The above Results were Read Back by Julio Ch MD to Spike Galan MD, and understanding confirmed on 12/12/2022 21:20:03 (ET). Electronically Signed: Julio Ch MD at 21:05 EDT , Abdomen CT 12/12/22 21:20 IMPRESSION: 1. Large amount of free intraperitoneal air in the abdomen. 2. No significant diverticulosis or evidence of diverticulitis or appendicitis. 3. Suspicion of perforated ulcer or mass involving the gastric fundus adjacent to the diaphragm, there is irregular wall thickening of the gastric fundus measuring at least 2.1 cm craniocaudal by 1.3 cm, with adjacent irregular soft tissue stranding and gas bubbles between the fundus and the diaphragm. 4. Trace perisplenic fluid. 5. No intrapelvic fluid. 6. Uterine fibroids. 7. 3.1 cm presumed left ovarian cyst. Not particularly suspicious by size criteria, presumed perimenopausal patient. 8. Suspicion of small fat-containing ovarian right 1.2 cm dermoid, not well seen. Electronically Signed: Ophelia Barboza MD at 23:08 EDT , ADDENDUM: 12/12/22 2321 IMPRESSION: 1. Large amount of free intraperitoneal air in the abdomen. 2. No significant diverticulosis or evidence of diverticulitis or appendicitis. 3. Suspicion of perforated ulcer or mass involving the gastric fundus adjacent to the diaphragm, there is irregular wall thickening of the gastric fundus measuring at least 2.1 cm craniocaudal by 1.3 cm, with adjacent irregular soft tissue stranding and gas bubbles between the fundus and the diaphragm. 4. Trace perisplenic fluid. 5. No intrapelvic fluid. 6. Uterine fibroids. 7. 3.1 cm presumed left ovarian cyst. Not particularly suspicious by size criteria, presumed perimenopausal patient. 8. Suspicion of small fat-containing ovarian right 1.2 cm dermoid, not well seen. N.B. : The above Results were Read Back by Ophelia Barboza MD to Dr. Spike Sinha MD, and understanding confirmed on 12/12/2022 23:14:39 (ET). Electronically Signed: Ophelia Barboza MD at 23:08 EDT , Pelvis CT 12/12/22 21:21 IMPRESSION: 1. Large amount of free intraperitoneal air in the abdomen. 2. No significant diverticulosis or evidence of diverticulitis or appendicitis. 3. Suspicion of perforated ulcer or mass involving the gastric fundus adjacent to the diaphragm, there is irregular wall thickening of the gastric fundus measuring at least 2.1 cm craniocaudal by 1.3 cm, with adjacent irregular soft tissue stranding and gas bubbles between the fundus and the diaphragm. 4. Trace perisplenic fluid. 5. No intrapelvic fluid. 6. Uterine fibroids. 7. 3.1 cm presumed left ovarian cyst. Not particularly suspicious by size criteria, presumed perimenopausal patient. 8. Suspicion of small fat-containing ovarian right 1.2 cm dermoid, not well seen. Electronically Signed: Ophelia Barboza MD at 23:23 EDT , Discharge Plan Triage Chief Complaint: Chest Pain ED Provider: Spike Sinha Dx/Rx/DC Orders Prescriptions: No Action gabapentin 100 mg capsule PO QHS diazepam 5 mg tablet 5 mg PO Q6H PRN duloxetine 30 mg capsule,delayed release(DR/EC) 60 mg PO DAILY Patient Comments: TAKE 1 CAPSULE BY MOUTH ONCE DAILY zolpidem [Ambien CR] 6.25 mg tablet,ext release multiphase 6.25 mg PO QHS coenzyme Q10 60 mg tablet 100 mg PO DAILY riboflavin (vitamin B2) 100 mg tablet 100 mg PO BID calcium carbonate 600 mg calcium (1,500 mg) tablet 1,200 mg PO DAILY sumatriptan succinate 50 mg tablet 100 mg PO PRN Patient Comments: TAKE 1 TABLET BY MOUTH NEEDED AT ONSET OF HEADACHE MAY REPEAT AFTER 2 HOURS loratadine [Allergy Relief (loratadine)] 10 mg tablet 10 mg PO DAILY PRN fluticasone propionate 50 mcg/actuation spray,suspension 1 spray intranasal BID PRN guaifenesin [Mucinex] 600 mg Tablet Extended Release 12hr 1,200 mg PO Q12H PRN (Reason: Congestion) Primary Care Provider: Ada Martinez NP Referrals: Ada Martinez NP, [employer] [Primary Care Provider] -
[2022-12-12 21:20] LABS: Anion Gap 4 (5-15); BUN 23 mg/dL (7-18); BUN/Creat Ratio 24.2 RATIO (10-20); Calcium,Total 9.1 mg/dL (8.5-10.1); Chloride 107 mmol/L (98-107); Creatinine, Serum 0.95 mg/dL (0.55-1.02); EST Glomerular Filtration Rate 66 mL/min (>60); Est Glom Filt Rate - Afr Amer 79 mL/min (>60); Estimated Creatinine Clearance 57.95 ml/min; Glucose 95 mg/dL (74-106); Potassium 4.7 mmol/L (3.5-5.1); Sodium Level 139 mmol/L (136-145); Troponin-I HS (w/2H Reflex) 4 pg/mL (3.0-54.0)
--- NOTE | 2022-12-12 21:20 | CT_ITS ---
We are attempting to reach an attending provider to discuss findings. An addendum with communication details will be sent when the communication is complete. EXAM: CT ABDOMEN AND PELVIS WITH INTRAVENOUS CONTRAST CLINICAL INDICATION: free air under the diaphragm TECHNIQUE: Helically acquired images were obtained of the abdomen and pelvis with intravenous contrast. This CT exam was performed using one or more of the following dose reduction techniques: automated exposure control, adjustment of the mA and/or kV according to patient size, and/or use of iterative reconstruction technique. CONTRAST: IV 100mL Isovue-370 RADIATION DOSE: CTDIvol = 21.65 mGy, DLP = 1664.98 mGy-cm. COMPARISON: No relevant prior studies available. FINDINGS: LOWER THORAX: Minimal atelectasis in the lung bases. No posterior mediastinal pneumatosis is visible. No cardiomegaly. No significant pericardial effusion. ABDOMEN: LIVER: Large amount of free intraperitoneal air anterior to the liver, throughout the upper-mid abdomen, and several small additional bubbles near the gastric fundus and mid left hemidiaphragm, a few bubbles around the liver, multiple bubbles at the anterior lower abdomen. GALLBLADDER AND BILE DUCTS: Unremarkable. No calcified gallstones. No gallbladder distention or wall edema. No intra- or extrahepatic biliary ductal dilation. PANCREAS: Unremarkable. No focal cystic or solid mass. SPLEEN: Trace fluid spleen. ADRENALS: Unremarkable. No nodules. KIDNEYS AND URETERS: Unremarkable opacified ureters and ureteral jets in the bladder on delayed scan through the pelvis. Normal renal size and position. No hydronephrosis. STOMACH AND BOWEL: No significant diverticular disease is seen. PELVIS: APPENDIX: Mildly dense inspissated material in the appendix but it otherwise contains gas with no surrounding free air in proximal appendix 5 mm sagittal images, mid appendix 5 mm. BLADDER: See above. REPRODUCTIVE: Calcified uterine fibroids, at least 2 or 3, the largest roughly 2.3 cm. ABDOMEN and PELVIS: INTRAPERITONEAL SPACE: See above. BONES/JOINTS: Cystic structure of roughly 3.1 cm x 1.9 cm x 2.2 cm in the left iliac fossa, presumably ovarian cyst, it appears fairly simple. No suspicious lytic or blastic abnormality. SOFT TISSUES: Moderate stool in much of the ascending and descending colon. Moderate gas redundant sigmoid. Moderate stool in the rectum. Some soft tissue stranding between the thickened irregular posterior gastric fundus and the adjacent diaphragm may indicate perforated ulcer or mass. No discrete abdominal or pelvic wall hernia. VASCULATURE: Unremarkable. Abdominal aorta is non-dilated. LYMPH NODES: Unremarkable. No enlarged lymph nodes. OTHER FINDINGS: Marked disc space narrowing at L3-4, milder disc space narrowing at L4-5 and L5-S1. No evidence of high-grade spinal stenosis. CT/Abdomen WITH IV Contrast IMPRESSION: 1. Large amount of free intraperitoneal air in the abdomen. 2. No significant diverticulosis or evidence of diverticulitis or appendicitis. 3. Suspicion of perforated ulcer or mass involving the gastric fundus adjacent to the diaphragm, there is irregular wall thickening of the gastric fundus measuring at least 2.1 cm craniocaudal by 1.3 cm, with adjacent irregular soft tissue stranding and gas bubbles between the fundus and the diaphragm. 4. Trace perisplenic fluid. 5. No intrapelvic fluid. 6. Uterine fibroids. 7. 3.1 cm presumed left ovarian cyst. Not particularly suspicious by size criteria, presumed perimenopausal patient. 8. Suspicion of small fat-containing ovarian right 1.2 cm dermoid, not well seen. Electronically Signed: Ophelia Barboza MD at 23:08 EDT ,
--- NOTE | 2022-12-12 21:21 | CT_ITS ---
EXAM: CT ABDOMEN AND PELVIS WITH INTRAVENOUS CONTRAST CLINICAL INDICATION: free air under the diaphragm TECHNIQUE: Helically acquired images were obtained of the abdomen and pelvis with intravenous contrast. This CT exam was performed using one or more of the following dose reduction techniques: automated exposure control, adjustment of the mA and/or kV according to patient size, and/or use of iterative reconstruction technique. CONTRAST: IV 100mL Isovue-370 RADIATION DOSE: CTDIvol = 21.65 mGy, DLP = 1664.98 mGy-cm. COMPARISON: No relevant prior studies available. FINDINGS: LOWER THORAX: Minimal atelectasis in the lung bases. No posterior mediastinal pneumatosis is visible. No cardiomegaly. No significant pericardial effusion. ABDOMEN: LIVER: Unremarkable. GALLBLADDER AND BILE DUCTS: Unremarkable. No calcified gallstones. No gallbladder distention or wall edema. No intra- or extrahepatic biliary ductal dilation. PANCREAS: Unremarkable. No focal cystic or solid mass. SPLEEN: Trace perisplenic fluid. ADRENALS: Unremarkable. No nodules. KIDNEYS AND URETERS: Unremarkable opacified ureters and ureteral jets in the bladder on delayed scan through the pelvis. Normal renal size and position. No hydronephrosis. STOMACH AND BOWEL: No significant diverticular disease is seen. PELVIS: APPENDIX: Mildly dense inspissated material in the appendix but it otherwise contains gas with no surrounding free air in proximal appendix 5 mm sagittal images, mid appendix 5 mm. BLADDER: See above. REPRODUCTIVE: Calcified uterine fibroids, at least 2 or 3, the largest roughly 2.3 cm. Cystic structure of roughly 3.1 cm x 1.9 cm x 2.2 cm in the left iliac fossa, presumably ovarian cyst, it appears fairly simple. Small fat density possible dermoid in the right adnexa. ABDOMEN and PELVIS: INTRAPERITONEAL SPACE: Large amount of free intraperitoneal air anterior to the liver, throughout the upper-mid abdomen, and several small additional bubbles near the gastric fundus and mid left hemidiaphragm, a few bubbles around the liver, multiple bubbles at the anterior lower abdomen. Trace perisplenic fluid. BONES/JOINTS: Degenerative spine changes. No suspicious lytic or blastic abnormality. SOFT TISSUES: Moderate stool in much of the ascending and descending colon. Moderate gas redundant sigmoid. Moderate stool in the rectum. Some soft tissue stranding between the thickened irregular posterior gastric fundus and the adjacent diaphragm may indicate perforated ulcer or mass. No discrete abdominal or pelvic wall hernia. VASCULATURE: Unremarkable. Abdominal aorta is non-dilated. LYMPH NODES: Unremarkable. No enlarged lymph nodes. OTHER FINDINGS: Marked disc space narrowing at L3-4, milder disc space narrowing at L4-5 and L5-S1. No evidence of high-grade spinal stenosis. CT/Pelvis WITH IV Contrast IMPRESSION: 1. Large amount of free intraperitoneal air in the abdomen. 2. No significant diverticulosis or evidence of diverticulitis or appendicitis. 3. Suspicion of perforated ulcer or mass involving the gastric fundus adjacent to the diaphragm, there is irregular wall thickening of the gastric fundus measuring at least 2.1 cm craniocaudal by 1.3 cm, with adjacent irregular soft tissue stranding and gas bubbles between the fundus and the diaphragm. 4. Trace perisplenic fluid. 5. No intrapelvic fluid. 6. Uterine fibroids. 7. 3.1 cm presumed left ovarian cyst. Not particularly suspicious by size criteria, presumed perimenopausal patient. 8. Suspicion of small fat-containing ovarian right 1.2 cm dermoid, not well seen. Electronically Signed: Ophelia Barboza MD at 23:23 EDT ,
[2022-12-12 21:52] LABS: Absolute Lymphocyte Count 1.58 X10^3/uL (0.83-4.51); Absolute Neutrophil Count 3.9 X10^3/uL (2.0-7.7); Basophil# 0.05 X10^3/uL; Basophil% 0.8 % (0-1); Eosinophil# 0.26 X10^3/uL; Eosinophils% 4.1 % (0-5); Hematocrit 41.2 % (37-47); Hemoglobin 13.3 g/dL (12.0-15.0); Lymphocyte # 1.58 X10^3/ul (0.83-4.51); Mean Corp Hgb Conc 32.3 g/dL (32-36); Mean Corpuscular Hgb 28.5 pg (27.0-32.0); Mean Corpuscular Volume 88.4 fL (81-99); Mean Platelet Vol. 9.5 fl (6.2-12.0); Monocyte# 0.56 X10^3/uL; Monocyte% 8.8 % (0-10); NRBC Flagged by Analyzer 0 % (0-5); Neutrophil # 3.86 X10^3/uL (2.7-7.7); Platelet Count 253 K/mm3 (150-450); RBC Distribution Width CV 13.3 % (11.6-14.6); RBC Distribution Width SD 42.8 fl (35.1-43.9); Red Blood Count 4.66 M/mm3 (4.2-5.4); White Blood Count 6.3 K/mm3 (4.4-11.0)
[2022-12-12 22:25] LABS: Lipase 34 U/L (13-75)
[2022-12-12 22:40] LABS: AST(SGOT) 18 U/L (15-37); Alanine Aminotransfer ALT/SGPT 30 U/L (13-56); Albumin, Serum 3.8 g/dL (3.2-5.0); Alkaline Phosphatase 73 U/L (45-117); Globulin 3.7 g/dL (2.2-4.2); Protein, Total 7.5 g/dL (6.4-8.2)
[2022-12-12 22:44] LABS: Reflex Troponin-HS? (from REC) Y
[2022-12-12 23:29] LABS: Troponin-I HS 4 pg/mL (3.0-54.0)
[2022-12-13] VITALS (12 sets, daily range): BP systolic 119–145; BP diastolic 83–91; PULSE 65–88; RESP 11–21; O2SAT 98
[2022-12-13] MEDS: Ondansetron 4 MG/2 ML Vial IV (00:07)
[2022-12-13] MEDS: Piperacil/Tazobactam 4.5 GM in 0.9% Normal Saline (100mL MB+) 100 ML IV (00:07)
[2022-12-13] MEDS: Morphine 4 MG/ML Syringe IV (00:08)
[2022-12-13] MEDS: 0.9% Normal Saline (500mL Bag) 500 ML 999 ML IV (00:08)
== END 2022-12-13 01:45 | disposition short-term general hospital (02) ==
PROVIDERS: Emergency Provider Emergency Medicine; PCP Nurse Practitioner Primary Care; Visit Provider Emergency Medicine
DX: R07.9 Chest pain, unspecified (principal); R10.9 Unspecified abdominal pain; I10 Essential (primary) hypertension; R42 Dizziness and giddiness; G43.909 Migraine, unspecified, not intractable, without status migrainosus; M79.7 Fibromyalgia; R19.8 Other specified symptoms and signs involving the digestive system and abdomen
CPT/HCPCS: 71045; 72193; 74160; 80048; 80076; 83690; 84484; 85025; 86850; 86900; 86901; 93005; 96365; 96375; 99285; Q9967; A4216; J2405

== ENCOUNTER → 2023-01-06 | Outpatient (CLI) | payer OTHER, SELFPAY ==
--- NOTE | 2023-01-06 12:51 | ECHOD_ITS ---
Reason For Study: SYNCOPE AND COLLAPSE Procedure This was a 2D Doppler, Color Flow transthoracic echocardiogram. Exam performed in department. Left Ventricle Normal size and thickness. Apical false tendon noted. The left ventricular ejection fraction is 60 %. Stage 1 diastolic dysfunction. Right Ventricle Normal right ventricle. Atria The left and right atria are normal. Mitral Valve Trivial mitral valve insufficiency. Tricuspid Valve Trivial tricuspid valve insufficiency. Unable to estimate RV systolic pressure due to insufficient tricuspid regurgitant envelope. Aortic Valve Trisinus/trileaflet aortic valve. Pulmonic Valve The pulmonic valve is not well visualized. Trivial pulmonic valve insufficiency. Great Vessels Normal sized aortic root. Pericardium/Pleural No pericardial effusion. MMode/2D Measurements & Calculations LVIDd: 4.1 cm IVSd: 0.59 cm Ao root diam: 2.9 cm LVIDs: 2.8 cm LVPWd: 0.77 cm RVDd: 2.9 cm FS: 33.1 % LAV(MOD-bp): 36.8 ml LVAd ap4: 23.8 cm2 SV(MOD-sp4): 37.2 ml LAV(MOD-bp) Indexed: 20.0 ml/m2 LVLd ap4: 7.4 cm LAV(MOD-sp2): 32.7 ml EDV(MOD-sp4): 62.1 ml LAV(MOD-sp4): 36.5 ml EDV(sp4-el): 64.9 ml LVAs ap4: 13.0 cm2 LVLs ap4: 5.6 cm ESV(MOD-sp4): 24.8 ml ESV(sp4-el): 25.4 ml EF(MOD-sp4): 60.0 % EF(sp4-el): 60.9 % SV(sp4-el): 39.5 ml LA A4 area: 15.8 cm2 LA dimension(2D): 3.0 cm RA A4 area: 12.7 cm2 Time Measurements MV dec time: 0.20 sec Doppler Measurements & Calculations MV E max wojciech: 55.7 cm/sec Lat Peak E' Wojciech: 11.6 cm/sec Med Peak E' Wojciech: 9.1 cm/sec MV A max wojciech: 74.5 cm/sec E/E' lat: 4.8 E/E' med: 6.1 MV E/A: 0.75 Ao V2 max: 118.5 cm/sec LV V1 max: 88.6 cm/sec PA V2 max: 88.8 cm/sec Ao max P.6 mmHg LV V1 max P.1 mmHg TR max wojciech: 219.0 cm/sec TR max P.2 mmHg ECHO/Echo Complete Interpretation Summary The left ventricular ejection fraction is 60 %. Stage 1 diastolic dysfunction. Ordering Physician: Daniel Trotter Referring Physician: DEMI ORTIZ Performed By: Erinn Renteria RDCS
== END | disposition home or self-care (01) ==
LOC: CVS 12:50
PROVIDERS: PCP Nurse Practitioner Primary Care; Referring Provider Internal Medicine Cardiovascular Disease; Visit Provider Internal Medicine Cardiovascular Disease
DX: R42 Dizziness and giddiness (principal); R55 Syncope and collapse; I10 Essential (primary) hypertension; G47.30 Sleep apnea, unspecified
CPT/HCPCS: 93225; 93226; 93306

== ENCOUNTER → 2023-03-03 | Outpatient (CLI) | payer OTHER, SELFPAY ==
--- NOTE | 2023-03-03 12:00 | RAD_ITS ---
EXAM: XR CERVICAL SPINE, 4 OR 5 VIEWS CLINICAL INDICATION: CERVICAL PAIN TECHNIQUE: Frontal, lateral and bilateral oblique views of the cervical spine. COMPARISON: No relevant prior studies available. FINDINGS: VERTEBRAE: Loss of the normal cervical lordosis which may be due to muscle spasm or head positioning. No acute fracture or subluxation. Mild narrowing of the right C5-6 and left C6-7 neural foramina related to uncinate joint hypertrophy. DISC SPACES: Disc space narrowing and bony hypertrophy noted at the C5-6 and C6-7 levels. SOFT TISSUES: Normal. No prevertebral soft tissue widening. LUNG APICES: Clear. RAD/Cerv Spine 4 or 5 Views IMPRESSION: No acute fracture or subluxation. Spondylosis as described. Electronically Signed: Hay Hummel MD at 16:54 EST ,
== END | disposition home or self-care (01) ==
LOC: MTRAD 11:54
PROVIDERS: PCP Nurse Practitioner Adult Health; Referring Provider Clinical Nurse Specialist Adult Health; Visit Provider Clinical Nurse Specialist Adult Health
DX: M50.30 Other cervical disc degeneration, unspecified cervical region (principal)
CPT/HCPCS: 72050

== ENCOUNTER 2023-05-10 05:50 | Emergency (ER) | payer OTHER, SELFPAY ==
[2023-05-10 05:51] VITALS: BP 142/85; PULSE 107; RESP 16; TEMP 36.8; O2SAT 99; BMI 33.9
[2023-05-10 05:53] VITALS: BP 142/85; PULSE 110; RESP 19; TEMP 36.8; O2SAT 99
--- NOTE | 2023-05-10 06:35 | US_ITS ---
HISTORY: Abdominal pain, severe nausea. TECHNIQUE: Watson scale and color doppler imaging was performed of the right upper quadrant. 63 images. COMPARISON: CT 12/12/2022. FINDINGS: LIVER: 17.6 cm in length. Mildly echogenic without focal lesion demonstrated. No intrahepatic ductal dilatation. MAIN PORTAL VEIN: Patent with hepatopedal flow. COMMON BILE DUCT: 3 mm in diameter. GALLBLADDER: No gallstones. 2 mm wall thickness, within normal limits. No pericholecystic fluid. Sonographic Lepe sign negative. PANCREAS: Not well visualized due to overlying bowel gas. RIGHT KIDNEY: 10.7 cm in length with a cortical thickness of 1.3 cm. No hydronephrosis or gross renal mass demonstrated. US/Gallbladder IMPRESSION: No sonographic evidence of cholelithiasis. Mild hepatomegaly with hepatic steatosis. Electronically Signed: Cristine Rider MD at 8:43 EST ,
--- OUTSIDE RECORDS SUMMARY | 2023-05-10 06:43 | XMS RPT_ITS | CCD ---
Author Name Unknown Address [address] [place] [address] Organization [facility] Care Team Providers Care Laboratory Chief Name Role Phone [employer]IT SALES LEADER-SONAR WATCHSTANDER, DEMI Primary Care Physician Manisha Parks Primary Care Provider Se[employer]IT SALES LEADER.SONAR WATCHSTANDER, Demi Primary Care Provider MISTY DÍAZ, DR CARTER Attending Unavailable SEFFENS [employer]IT SALES LEADER-SONAR WATCHSTANDER, DEMI Primary Care Unavai lable DR EMMA JAY DO Referring Unavailable CINDY REVELES MD Attending Unavailable SEFFENS [employer]IT SALES LEADER-SONAR WATCHSTANDER, DEMI Primary Care Unavai lable [employer]ENS [employer]IT SALES LEADER-SONAR WATCHSTANDER, DEMI Attending Unavai lable [employer]ENS [employer]IT SALES LEADER-SONAR WATCHSTANDER, DEMI Primary Care Unavai lable SE[employer]IT SALES LEADER-SONAR WATCHSTANDER, DEMI Attending Unavai lable SEFFENS [employer]IT SALES LEADER-SONAR WATCHSTANDER, DEMI Primary Care Unavai lable SE[employer]IT SALES LEADER-SONAR WATCHSTANDER, DEMI Attending Unavai lable SEFFENS [employer]IT SALES LEADER-SONAR WATCHSTANDER, DEMI Primary Care Unavai lable [employer]IT SALES LEADER-SONAR WATCHSTANDER, DEMI Attending Unavai lable [employer]IT SALES LEADER-SONAR WATCHSTANDER, DEMI Primary Care Unavai lable [employer]IT SALES LEADER-SONAR WATCHSTANDER, DEMI Primary Care Unavai lable LUBA MONROE Attending Unavailabl LUBA Rowland Referring Unavailabl e VANESSA DRAKE Admitting Unavailable VANESSA DRAKE Attending Unavailable ANGEL, DEMI Primary Care Unavailable LUBA MONROE Referring Unavailable LUBA MONROE Attending Unavailable SEERWIN, DEMI Primary Care Unavailable LUBA MONROE Attending Unavailable SEFFENS, DEMI Primary Care Unavailable TOSHIA LUBA Attending Unavailable SEFFENS, DEMI Referring Unavailable SEFFENS, DEMI Primary Care Unavailable SEFFENS, DEMI Primary Care Unavailable LESLI HARRIS Referring Unavailable ORALIA HEREDIA Attending Unavailable CB LIZARRAGA Admitting Unavailable SEFFENS, DEMI Primary Care Unavailable ORALIA HEREDIA Referring Unavailable Magalie Bustillo Attending Unavailable SEFFENS, DEMI Primary Care Unavailable TOSHIA LUBA Attending Unavailable SEFFENS, DEMI Primary Care Unavailable REINA MONTOYA Attending Unavailable SEFFENS, DEMI Primary Care Unavailable LUBA MONROE Referring Unavailable LUBA MONROE Attending Unavailable SEFFENS, DEMI Primary Care Unavailable Allergies Allergy Classification Reported Allergen(s) Allergy Type Date of Onset Reaction(s) Facility (20 sources) Cephalexin; Translations: [cephalexin] Drug Allergy 8 Eruption of skin (disorder), GI Upset [facility] (3 sources) topiramate; Translations: [topiramate] Drug Allergy 3 Dizziness (finding), Other: See Comments [facility] Medications Current Medications Medication Drug Class(es) Dates Sig (Normalized) Sig (Original) Budesonide (20 sources) Corticosteroid Start: 05-10-2021 budesonide 0.5 mg/2 mL inhalation suspension 0 Refill(s) Start Date: 05/10/21 Status: Ordered Completed/Discontinued Medications Medication Drug Class(es) Dates Sig (Normalized) Sig (Original) Ca carb-Ca gluc-Mg ox-Mg gluco (CALCIUM MAGNESIUM) 500 mg calcium -250 mg tab (8 sources) Ca carb-Ca gluc- Mg ox-Mg gluco (CALCIUM MAGNESIUM) 500 mg calcium -250 mg tab Take by mouth. 500 mg at night 0 Active Problems Active Problems Problem Classification Problem Date Documented Da te Episodic/Chronic Abdominal pain (4 sources) Right upper quadrant pain 05-06-2022 Episodic Acute and chronic tonsillitis (1 source) Amygdalolith 05-16-2022 Chronic Gastroduodenal ulcer (except hemorrhage) (1 source) Chronic or unspecified gastric ulcer with perforation; Translations: [Gastric perforation (HCC)] Onset: 12-13-2022 Chronic Genitourinary symptoms and ill-defined conditions (20 sources) Genuine stress incontinence; Translations: [Stress incontinence (female) (male)] Onset: 05-21-2021 Chronic Headache; including migraine (14 sources) Migraine; Translations: [Migraine without aura, not refractory ] Onset: 11-16-2022 05-10-2021 Chronic Menstrual disorders (20 sources) Disorder of female genital organs; Translations: [Irregular menstruation, unspecified] Onset: 01-21-2010 01-21-2010 Chronic Nausea and vomiting (1 source) Nausea; Translations: [Nausea] Episodic Other connective tissue disease (4 sources) H/O: musculoskeletal disease 01-26-2022 Episodic Other connective tissue disease (1 source) Musculoskeletal symptom; Translations: [Other symptoms and signs involving the musculoskeletal system] Episodic Other gastrointestinal disorders (4 sources) Diarrhea 11-12-2021 Episodic Other gastrointestinal disorders (1 source) Pneumoperitoneum; Translations: [Other specified disorders of peritoneum] Onset: 12-14-2022 12-14-2022 Episodic Other nutritional; endocrine; and metabolic disorders (5 sources) Body mass index 30+ - obesity 05-10-2021 Chronic Other screening for suspected conditions (not mental disorders or infectious disease) (1 source) Patient encounter status; Translations: [Encounter for screening for malignant neoplasm of colon] Episodic Prolapse of female genital organs (20 sources) Midline cystocele; Translations: [Cystocele, midline] Onset: 05-21-2021 Chronic Residual codes; unclassified (5 sources) Sleep apnea 05-10-2021 Chronic Spondylosis; intervertebral disc disorders; other back problems (2 sources) Neck pain; Translations: [Cervicalgia] Episodic Syncope (1 source) Syncope and collapse; Translations: [Near syncope] Onset: 09-16-2022 Episodic Past or Other Problems Problem Classification Problem Date Documented Da te Episodic/Chronic Benign neoplasm of uterus (20 sources) Uterine leiomyoma; Translations: [Leiomyoma of uterus, unspecified] Onset: 01-21-2010 01-21-2010 Episodic Conditions associated with dizziness or vertigo (8 sources) Dizziness; Translations: [Dizziness and giddiness] Onset: 09-16-2022 Episodic Esophageal disorders (20 sources) Esophagitis; Translations: [Esophagitis, unspecified] Onset: 05-24-2012 05-24-2012 Episodic Gastritis and duodenitis (20 sources) Acute gastritis; Translations: [Acute gastritis without bleeding] Onset: 05-24-2012 05-24-2012 Episodic Results Test Name Value Interpretation Reference Range Facil ity Vital Signs Date Time Vital Sign Value Performing Clinician Amador robertson 11-16-2022 11:08-0400 Body weight 79.38 kg Lubaluisa Gastoner PA-C Work Phone: [facility] 11-16-2022 11:08-0400 Diastolic blood pressure 77 mm[Hg] Luba Queener PA-C Work Phone: [facility] 11-16-2022 11:08-0400 Heart rate 94 /min Luba Queener PA-C Work Phone: [facility] 11-16-2022 11:08-0400 Respiratory rate 16 /min Luba Queener PA-C Work Phone: [facility] 11-16-2022 11:08-0400 SaO2% (BldA) [Mass fraction] 99 % Luba Queener PA-C Work Phone: [facility] 11-16-2022 11:08-0400 Systolic blood pressure 111 mm[Hg] Luba Queener PA-C Work Phone: [facility] 07-27-2022 12:19-0400 Body weight 79.38 kg Luba Queener PA-C Work Phone: [facility] 07-27-2022 12:19-0400 Diastolic blood pressure 88 mm[Hg] Luba Queener PA-C Work Phone: [facility] 07-27-2022 12:19-0400 Heart rate 92 /min Luba Queener PA-C Work Phone: [facility] 07-27-2022 12:19-0400 Respiratory rate 18 /min Luba Queener PA-C Work Phone: [facility] 07-27-2022 12:19-0400 SaO2% (BldA) [Mass fraction] 99 % Luba Queener PA-C Work Phone: [facility] 07-27-2022 12:19-0400 Systolic blood pressure 132 mm[Hg] Luba Gastoner PA-C Work Phone: [facility] 05-31-2022 10:39-0400 Body temperature 98.29 [degF] Luba Queener PA-C Work Phone: [facility] 05-31-2022 10:39-0400 Body weight 81.38 kg Luba Queener PA-C Work Phone: [facility] 05-31-2022 10:39-0400 Diastolic blood pressure 82 mm[Hg] Luba Gastoner PA-C Work Phone: [facility] 05-31-2022 10:39-0400 Heart rate 93 /min Luba Queener PA-C Work Phone: [facility] 05-31-2022 10:39-0400 Respiratory rate 18 /min Luba Queener PA-C Work Phone: [facility] 05-31-2022 10:39-0400 SaO2% (BldA) [Mass fraction] 99 % Luba Gastoner PA-C Work Phone: [facility] 05-31-2022 10:39-0400 Systolic blood pressure 113 mm[Hg] Luba Gastoner PA-C Work Phone: [facility] 05-18-2022 09:31-0500 Body temperature 98.49 [degF] Luba Gastoner PA-C Work Phone: [facility] 05-18-2022 09:31-0500 Body weight 82.1 kg Luba Queener PA-C Work Phone: [facility] 05-18-2022 09:31-0500 Respiratory rate 18 /min Luba Queener PA-C Work Phone: [facility] 05-18-2022 09:31-0500 SaO2% (BldA) [Mass fraction] 98 % Luba Gastoner PA-C Work Phone: [facility] 07-30-2021 09:10-0400 Diastolic blood pressure 74 mm[Hg] Alicia Guerrero MD Work Phone: [facility] 07-30-2021 09:10-0400 Heart rate 57 /min Alicia Guerrero MD Work Phone: [facility] 07-30-2021 09:10-0400 Respiratory rate 16 /min Alicia Guerrero MD Work Phone: [facility] 07-30-2021 09:10-0400 SaO2% (BldA) [Mass fraction] 97 % Alicia Guerrero MD Work Phone: [facility] 07-30-2021 09:10-0400 Systolic blood pressure 111 mm[Hg] Alicia Guerrero MD Work Phone: [facility] 07-30-2021 07:39-0400 Body temperature 97.7 [degF] Alicia Guerrero MD Work Phone: [facility] 07-30-2021 07:39-0400 Body weight 88.5 kg Alicia Guerrero MD Work Phone: [facility] Encounters Encounter Date Encounter Type Care Provider Facility Start: 04-14-2023 End: 04-14-2023 ambulatory [facility] Facility:[facility] Start: 12-23-2022 Telephone encounter Gurdeep Torrez RN NOC Procedures Date Procedure Procedure Detail Performing Clinician Start: 12-13-2022 Antibody screen [facility] Plan of Treatment Date Care Activity Detail Author Start: 07-31-2031 Colonoscopy COLONOSCOPY [facility] Start: 07-31-2031 COLORECTAL CANCER SCREENING COLORECTAL CANCER SCREENING [facility] Start: 04-26-2026 HPV TESTING HPV TESTING [facility] Start: 04-26-2026 PAP TESTING PAP TESTING [facility] Start: 12-15-2025 Diabetes Screening Diabetes Screening [facility] Start: 11-18-2022 Influenza vaccination [facility] Start: 07-30-2022 Colonoscopy COLONOSCOPY [facility] Start: 07-30-2022 COLORECTAL CANCER SCREENING COLORECTAL CANCER SCREENING [facility] Start: 04-26-2022 Mammography [facility] Start: 03-20-2022 DEPRESSION ASSESSMENT DEPRESSION ASSESSMENT [facility] Start: 11-18-2021 Influenza vaccination [facility] Start: 2020 SHINGRIX VACCINE (1 of 2) SHINGRIX VACCINE (1 of 2) [facility] Start: 11-18-2020 Influenza vaccination INFLUENZA (#1) [facility] Start: 11-24-2016 Lipid 1996 panel - Serum or Plasma Lipid Screening [facility] Start: 11-24-2016 LIPID SCREEN LIPID SCREEN [facility] Start: 12-21-2015 COLOGUARD (FIT-DNA) COLOGUARD (FIT-DNA) [facility] Start: 12-21-2015 Colonoscopy COLONOSCOPY [facility] Start: 12-21-2015 COLORECTAL CANCER SCREENING COLORECTAL CANCER SCREENING [facility] Start: 12-21-[address] COLONOGRAPHY [facility] Start: 12-21-2015 DIABETES SCREEN DIABETES SCREEN [facility] Start: 12-21-2015 FECAL OCCULT BLOOD FECAL OCCULT BLOOD [facility] Start: 12-21-2015 SIGMOIDOSCOPY SIGMOIDOSCOPY [facility] Start: 1989 Urine microalbumin profile [facility] Start: 1988 HEPATITIS C SCREENING HEPATITIS C SCREENING [facility] Start: 1988 HIV SCREENING HIV SCREENING [facility] Start: 1982 Adult depression screening assessment DEPRESSION SCREENING [facility] Start: 12-21-1975 COVID-19 VACCINE (#1) COVID-19 VACCINE (#1) [facility] Start: 12-21-1975 COVID-19 VACCINE (1) COVID-19 VACCINE (1) [facility] Start: 06-21-1971 COVID-19 VACCINE (#1) COVID-19 VACCINE (#1) [facility] Start: 1970 HEPATITIS B (1 of 3 - 3-dose series) HEPATITIS B (1 of 3 - 3-dose series) [facility] Start: 1970 Hepatitis B Vaccine (1 of 3 - 3-dose series) Hepatitis B Vaccine (1 of 3 - 3-dose series) [facility] Cardiovascular funct ion eval w/tilt table w/mntr TILT TABLE EVALUATION Cardiology Routine Postural dizziness with presyncope Ordered: 07/27/2022 [facility] Work Phone: Payers Date Payer Category Payer Private Health Insurance RAVIN[employer] OAP [id number] 2020-Present [phone] [address] [place] [address] Open Access [id number] 2020 Private Health Insurance [employer]IN[employer] O[employer] [id number] 2020-Present [phone] [address] [place] [address] Open Access [id number] 2020 Private Health Insurance [id number] 1970 Unknown [id number] 1970 Unknown [id number] 1970 Unknown [id number] 1970 Unknown [id number] 1970 Unknown [id number] 1970 Unknown [id number] 1970 Unknown [id number] Social History Date Type Detail Facility Start: 05-10-2021 End: 05-18-2022 Never smoked tobacco (finding) [facility] Sex Assigned At [facility] Start: 04-26-2021 End: 11-16-2022 Alcohol intake Current non-drinker of alcohol (finding) [facility] Start: 09-10-2015 History SDOH Alcohol Comment Non-drinker [facility] Start: 1970 Sex Assigned At Not on file C [facility] Start: 05-22-2021 End: 07-30-2021 Exposure to SARS-CoV-2 (event) Not sure [facility] Work Phone: Start: 05-18-2022 Tobacco use and exposure Smokeless tobacco non-user [facility] Start: 07-27-2022 End: 12-13-2022 History of Social function [facility] Start: 07-27-2022 End: 12-13-2022 Tobacco use panel [facility] Adult Depression Screening Assessment 4 [facility] How hard is it for y ou to pay for the very basics like food, housing, medical care, and heating Not very hard [facility] (I/We) worried debra er (my/our) food would run out before (I/we) got money to buy more. Never true [facility] In the past 12 month s, was there a time when you were not able to pay the mortgage or rent on time? No [facility] Functional Status Date Assessment Result Facility 05-27-2022 Functional Status Home Living Ad ditional Information Objective: Cardiovascular Screen: BP:102/70 HR: 92 BPM O2 sat: 94% Observation: Mild excess thoracic kyphosis. Mild forward head posture Cervical AROM: Flex: mod loss Ext: min loss Retraction: min loss Rotation: R: min loss L: mod loss Thoracic AROM: Flex: no loss Ext: mod loss Rotation: R: mod loss L: mod loss MMT: see chart Special Tests: Negative hoffmans and negative inverted supinator sign bilat. Sensation: grossly intact and symmetrical light touch bilat UE's Reflexes1+ bilat biceps and triceps Other: [facility] Clinical Notes 06-11-2021 to 04-14-2023 Telephone Encounter - Gurdeep Torrez RN - 12/23/2022 10:07 AM EDTPatient Luba Buckley PA-C - 11/16/2022 11:03 AM EDTTelephone Encounter - Manisha Toribio - 09/27/2022 1:39 PM EDT Note Date & Type Note Facility 04-14-2023 Note HNO ID: [id number] Author: ROSETTE HALLMAN MA Service: ? Author Type: Entry Level Machine Operator Type: Progress Notes Filed: 04/14/2023 13:34 Note Text: Hepatitis B Vaccine(1 of 3 - 3-dose series) Never done Covid-19 Vaccine(1) Never done Hepatitis C Screening Never done HIV Screening Never done DTaP,Tdap,Td Vaccine(1 - Tdap) Never done Lipid Screening due on 11/24/2016 Shingrix Vaccine(1 of 2) Never done Mammogram Screening due on 04/26/2022 Influenza Vaccine(1) Never done Depression Assessment Never done Last 3 Encounter BP Readings: Date: BP: 04/14/2023 102/78 04/14/2023 110/79 12/12/2022 118/81 No results found for: LDL HBA1C: No results found for: HBA1C No results found for: UALBCR , UPROT , UCR , UCRR , UALB Diabetic Foot and Retinal Eye Exam not Overdue [facility] 04-14-2023 Note HNO ID: [id number] Author: LUBA MONROE PA-C Service: ? Author Type: Physician Risk Control Product Liability Director Type: Progress Notes Filed: 04/14/2023 13:34 Note Text: [facility] Follow up CC: Headache Follow up Last Visit: 11/16/22 ASSESSMENT/PLAN: 1. Vestibular migraine - ICD9: 346.80, ICD10: G43.809 (primary diagnosis) 2. Chronic migraine without aura without status migrainosus, not intractable - ICD9: 346.70, ICD10: G43.709 Patient notes continued improvement with her headaches, about 4-8 headaches a month. Usually well controlled with Imitrex or Excedrin. However, primary concern today is worsening of her motion sickness especially when driving. States that the Cymbalta was originally very effective in managing this, but it seems to be worsening to the point. Previously did discuss starting gabapentin patient like to try this now. Patient also notes that she will be switching from second shift to first shift and is concerned about changing her sleeping schedule. Discussed that gabapentin may also help with regulating her sleep, patient is eager to try this. Discussed starting with 100 mg at night and slowly increasing as needed to 3 times a day. Discussed common side effects andpatient is agreeable we will continue Cymbalta 60 mg as well. Regarding abortive therapy, patient is comfortable with Imitrex 100 mg and Excedrin as needed for headaches. Patient having less than 8 headaches a month on average, well controlled with these abortive therapies. No new symptoms of headaches, no red flag signs or symptoms that would warrant additional imaging at this time. 3. Positional lightheadedness - ICD9: 780.4, ICD10: R42 4. Lightheaded - ICD9: 780.4, ICD10: R42 Patient was severe bout of positional lightheadedness causing presyncope as month. Was sent to the ER, work-up was negative. Notes that her lightheadedness with position changes significantly improved since last appointment. Tilt table test was negative. However, due to patient's vague presyncope sensation, will have her see cardiology to rule out any cardiac cause of patient's symptoms include arrhythmia. Patient agreeable will schedule that appointment. Patient denying any palpitations or chest pain, no shortness of breath. Agreeable to treatment plan of care at this time, all questions were answered. Patient to follow-up in 4 months or sooner should any symptoms change or worsen. Luba Monroe PA-C Plan: All options for treatment discussed. Preventative:Cymbalta and Gabapentin Abortive: Imitrex Follow-up: 4 months Today: Patient is here for headache/migraine follow up. Last seen 11/16/22 for vestibular migraines. Still endorsing motion sickness when driving. Cymbalta was originally very helpful. 4-8 REYNA a month. Started gabapentin 100mg tid. Mavatart message reporting dizziness on 02/21/23 and seeing cardiology with no etiology, gabapentin may be causing dizziness. Switched to maxalt as well. Since last visit headaches have improved. She was admitted on 12/13/22 for gastric irritation due to NSAID use. Doing well since discharge, not taking NSAIDs regularly. Since last visit, headaches have continued to improve. Getting about 2-3 migraines a month and notes overall severity of the headaches has decreased as well. Only gets nausea with severe migraines, not regularly. Attributes this change to medications, elimination diet and switching her shift to first shift. Notes that she is currently gluten-free right now and feels this is really helped her, next week she is trying to decrease her dairy intake. No new symptoms or concerns. Notes that she did have a period where she was very motion sick in the car for about a week, took Dramamine and yaw with improvement in this. 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 Still getting episodes of dizziness on a daily basis, but is less severe. Again, only when in the car and denies any room spinning dizziness or lightheaded feeling. Is only taking the gabapentin at night as it caused her to be dizzy throughout the day. Does note that since taking it she no longer gets headaches at nighttime. Was given Maxalt for abortive and notes this is not beneficial. Has been taking Tylenol and Benadryl for rescue. Also noting some left-sided neck pain, did receive an injection for this without any benefit. Has follow-up for this scheduled. Current Headache treatment Preventative: Cymbalta 60mg, Gabapentin Abortive: Maxalt 10mg Medications effective? no # of doses of abortive medications per month: few Total headache days per month: 2 per month Total headache attacks per month: 2 per month Headache free days: Yes Duration of attacks: 15 min to hours. Severity of headaches? Less severe Location: moves all over. Some tightness in the left shoulders Aura: None Accompanying (more content not included)... [facility] 04-14-2023 Note HNO ID: [id number] Author: REINA MONTOYA APRN.SONAR WATCHSTANDER Service: ? Author Type: Nurse Practitioner Type: Progress Notes Filed: 04/14/2023 07:38 Note Text: Chacha is a 52 year old who presents for an annual gynecologic exam with complaints, burning and itching after intercourse for the past several months. Postmenopausal: Yes since age 48 HRT use: No. Last Pap: 05/03/2021 normal HPV: 04/29/2021 negative History of abnormal pap: Yes 2014 ASCUS Last mammogram: 2021 normal History of abnormal mammogram: No Sexually active: Yes Patient concerns for STD exposure: No. Pain with intercourse: Yes, during and after Postcoital bleeding: No Hot flashes: Yes Night sweats: No Vaginal dryness: Yes, lubricant use Exercise: walking OB History T0 L2 SAB0 IAB0 Ectopic0 Multiple0 Live Births0 Card Hanger History LMP: 01/08/2018, Postmenopausal Age at Menarche: Age at First : Age at Menopause: Card Hanger History Comments: Sexual Activity: Yes; Male; HAD VASECTOMY Contraception: Vasectomy PAST MEDICAL HISTORY Diagnosis Date Abdominal pain, left upper quadrant Duodenitis without mention of hemorrhage Esophagitis, unspecified Fibroids Hypertension Irregular menstrual bleeding Menopausal and postmenopausal disorder Menopause Other malaise and fatigue fibramyalgia PAST SURGICAL HISTORY Procedure Laterality Date COLONOSCOPY 07/30/2021 repeat in 10 years COLONOSCOPY FLX DX W/COLLJ SPEC WHEN PFRMD 06/23/2008 EMBOLIZATION UTERINE FIBROID 03/20/2010 ENDOMETRIAL BIOPSY 12/01/2009 Irregular Menstrual Bleeding and Fibroids ESOPHAGOGASTRODUODENOSCOPY TRANSORAL DIAGNOSTIC 05/24/2012 EGD FAMILY HISTORY Problem Relation Age of Onset Hyperlipidemia Mother Stroke Maternal Grandmother Hyperlipidemia Maternal Grandmother other (Heart disease) Maternal Grandmother other (Cancer - other) Maternal Grandmother Hypertension Maternal Grandfather Cancer Paternal Grandfather BONE No Known Problems Daughter No Known Problems Son SOCIAL HISTORY Social History Tobacco Use Smoking status: Never Smokeless tobacco: Never Vaping Use Vaping Use: Never used Substance Use Topics Alcohol use: No Comment: Non-drinker Drug use: No REVIEW OF SYSTEMS Abdomen: No abdominal pain, nausea, vomiting, diarrhea, or constipation. No bloating, early satiety, indigestion, or increased flatulence. Bladder: No dysuria, gross hematuria, urinary frequency, urinary urgency, or incontinence Breast: No breast lumps, nipple d/c, overlying skin changes, redness or skin retraction Allergies and current medication updated:Yes EXAM: BP 102/78 Ht 5' 3 (1.60m) Wt 190 lb (86.2kg) LMP 01/08/2018 BMI 33.67 kg/(m2). GENERAL: pleasant, female in no apparent distress HEENT: Normocephalic, atraumatic, mucus membranes moist, and no lesions NECK: Supple, full range of motion, no adenopathy, and thyroid normal DERMATOLOGY: Normal, without lesions, non-icteric, and non-hirsute BREAST: soft, non-tender, symmetric, no dominant mass, normal nipple-areolar complex, no lymphadenopathy, and no nipple discharge CHEST: Normal inspiratory effort ABDOMEN: soft, non-tender, and no masses PELVIC: external genitalia normal, normal Bartholin's glands, urethra, [place]'s glands, no vulvar lesions, no cervical lesions, good vaginal support, physiologic discharge present, normal appearing perineal body and perianal region + mild atrophy BIMANUAL: uterus normal size, shape and consistency, no adnexal masses, and non-tender RECTOVAGINAL: deferred. NEURO: alert and oriented x3,exam grossly non-focal EXTREMITIES: normal ASSESSMENT/PLAN: 1) Health maintenance: Pap/HPV up to date 2021. Deferred until 2026. Mammogram ordered Nutrition, exercise and routine health maintenance exams reviewed. Calcium/Vitamin D supplementation information provided. Colon cancer screening: Up to date TSH/lipids/glucose: followed by PCP 2) Follow up one year or sooner as needed PROBLEM Vaginal itching - ICD9: 698.1, ICD10: N89.8 Vaginal burning - ICD9: 625.8, ICD10: N94.9 Vaginal atrophy - ICD9: 627.3, ICD10: N95.2 - JHOANA/TRICHOMONAS NAAT - BACTERIAL VAGINOSIS NAAT - ESTRADIOL 0.01% (0.1 MG/GRAM) VAGINAL CREAM - R/B/A reviewed. Local absorption reviewed - Reviewed atrophy and its symptoms - Follow up in 4-6 weeks to evaluate efficacy Reina Montoya APRN.SONAR WATCHSTANDER Medical Decision Making: Problems: Moderate: New problem with uncertain prognosis Data: Unique test(s) ordered: 1 Risk: Low: Low risk from testing/treatment Moderate: Drug management Medical Decision Making Level: 4 - Moderate [facility] 12-31-2022 Note HNO ID: [id number] Author: Note, Interface Service: ? Author Type: ? Type: Progress Notes Filed: 12/31/2022 1:55 AM Note Text: Epic Scheduled Downtime: 12/31/2022 1:00:00 AM to 12/31/2022 1:28:00 AM [facility] 12-23-2022 Miscellaneous Notes PATIENT INFORMATION Record ID: [id number] Patient Name: [facility]: [facility] [place]: [facility] [place] Attending: Oralia Heredia Center: General Surgery INSTRUCTIONS SN to remind patient of appointment date, time, location All Clear All Clear SURVEY INFORMATION Medical/Nurse Risk Control Product Liability Director: Gurdeep Torrez 1. Your discharge instructions are important in guiding you through the recovery process. Is there anything I could help you clarify on your discharge instructions? (Standard Question) No, All clear 2. Do you have a follow up appointment related to your hospital stay scheduled within the next 30 days? (Standard Question) Yes 3. Do you have any of the following new symptoms related to your wound?; Creamy white or foul smelling drainage Increasing redness or swelling, Increasing pain (Red Flag Question) No, no concerns at all 4. Are you tolerating your pain with your current medication? (Red Flag Question) Yes, I can tolerate my pain 5. Many patients have concerns about their medications once they are home. Do you have any questions about getting or taking your medications? (Standard Question) No 6. Do you have any new or different symptoms? (Standard Question) No documented in this encounter [facility] 12-15-2022 Note HNO ID: [id number] Author: Vera Trujillo RN Service: Care Management Author Type: Registered Nurse Type: Care Mgt Progress Note Filed: 12/15/2022 1:27 PM Note Text: CARE MANAGEMENT DISCHARGE NOTE SERVICE DATE: 12/15/2022 SERVICE TIME: 1:25 PM LOS: 2 days Needs Prior to Discharge: Ready for Discharge DISCHARGE PLAN Date/Time: Today, 12/16 Disposition: home Transport: family Other Concerns: Discharge has been confirmed for today. No CM facilitated needs have currently been identified for this patient. Please contact CM if discharge needs/concerns arise. SIGNATURE: Vera Trujillo RN PATIENT NAME: Chacha Contreras DATE: December 15, 2022 TIME: 1:25 PM PAGER/CONTACT #: [phone] [facility] 12-15-2022 Note HNO ID: [id number] Author: Ashley Vidal MD Service: General Surgery Author Type: Resident Type: Progress Notes Filed: 12/15/2022 8:52 AM Note Text: GENERAL SURGERY PROGRESS NOTE PATIENT NAME: Chacha Contreras AGE: [age] year old : 1970 SEX: female Subjective NAEON Afebrile, hemodynamically stable Continues to feel better No nausea/vomiting Objective VITAL SIGNS: BP 106/71 Pulse 81 Temp (Src) 98 (Oral) Resp 22 Ht 5' 3.504 (1.61m) Wt 182 lb 1.6 oz (82.6kg) SpO2 98% LMP 01/08/2018 BMI 31.75 kg/(m2). O2 Therapy: Room Air, Liters: 1 PHYSICAL EXAM: GENERAL: Resting comfortably, not in acute distress. CARDIOVASCULAR: Regular rate and rhythm. LUNG: Nonlabored respirations on RA, no accessory muscle use, good respiratory effort. ABDOMEN: Soft, non-tender, non-distended LABS: CBC, Coags, BMP, Mg, Phos Recent Labs 12/15/22 0036 12/14/22 0004 12/13/22 0326 WBC 7.02 5.52 7.34 HB 12.9 12.2 12.6 HCT 38.6 38.1 36.4 PLT 215 199 226 INR 1.1 1.0 1.1 APTT 21.8* 24.2 -- NA 143 143 143 K 4.2 4.1 3.9 CHLOR 107* 106* 108* CO2 24 20* 24 BUN 10 12 17 CREAT 0.85 0.92 0.89 GLUC 89 82 91 CA 9.4 8.9 9.0 MG 1.9 2.3 1.9 P 3.8 5.0* 3.2 Liver Function, Amylase, AND Lipase Recent Labs 12/15/22 0036 12/14/22 0004 12/13/22 0326 TPROT 6.7 6.2* 6.4 ALB 3.9 3.8* 4.0 ALT 15 15 18 AST 23 18 18 ALKPHOS 63 63 61 TBILI 0.4 0.4 0.4 I/O PAST 24HRS: Intake/Output Summary (Last 24 hours) at 12/15/2022 0852 Last data filed at 12/14/20221999 Gross per 24 hour Intake 1480 ml Output 1900 ml Net -420 ml LINE, DRAINS AND AIRWAY: Lines, Drains, and Airways Line Duration Peripheral 12/13/22 0400 [facility] Right Forearm 20 Gauge 2 days Peripheral 12/13/22 0430 [facility] Left Forearm 20 Gauge 2 days SURGERY/PROCEDURE: * Surgery not found * Assessment/Plan Ms. Contreras is a 51 year old female with a PMHx of vestibular migraines, fibromyalgia that was transferred to [facility] due to concern of pneumoperitoneum. CT scan at OSH demonstrated large amount free intraperitoneal air with suspicion of perforated ulcer or mass involving gastric fundus adjacent to the diaphragm. Spoke with radiology today who confirmed there was no fundal mass or obvious source of perforation on her most recent imaging. Her abdominal exam is completely benign at this time. EGD on 12/13 revealed Grade B Esophagitis, Normal stomach, No evidence of perforation. And No evidence of mass in fundus, Duodenal bulb erosions. Normal D2. Pt tolerating clear liquid diet without issues. -Advance to GIS, may DC if patient tolerates diet -Continue PPI PO daily Plan to be discussed with Staff, MD Ashley Kidd MD General Surgery, PGY-1 Personal Pager/ Service Pager: [phone] (Acute Care Surgery) For weekday evenings (6PM-6AM) or weekends/holidays, please page [phone] (Night Float) [facility] 12-15-2022 Note HNO ID: [id number] Author: Víctor Castro MD Service: Critical Care Author Type: Fellow Type: Progress Notes Filed: 12/15/2022 8:29 AM Note Text: Attestation signed by Leslie Ardon MD at 12/15/2022 3:26 PM SURGICAL ICU STAFF ADDENDUM I have reviewed and verified the recent history and physical examination obtained and documented by the resident physician and I personally participated in the dorsey components. I have discussed the case and management of the patient's care, exclusive of separately billed procedures which fulfilled the standards for LEVEL 2. Pt admitted with spontaneous pneumoperitoneum. CT with gastric wall thickening. Workup with EGD, UGI series negative for gastric perforation/ mass Over last 48 hrs, pt is HD stable, no abdominal pain, non peritonitic. Labs - no leucocytosis, no lactic acidosis Plan -tolerating diet. Continue GI soft diet Continue PPI Discharge home, FOLLOW UP PER SURGICAL TEAM SIGNATURE: Leslie Yang MD DATE: 12/15/2022 TIME: 3:18 PM SERVICE DATE: 12/15/2022 SERVICE TIME: 8:29 AM SURGICAL INTENSIVE CARE UNIT PROGRESS NOTE BRIEF HPI: 51 year old female transferred from [facility] with concern for gastric perforation. History of vestibular migraines on duloxetine. Remote history of uterine fibroids s/p embolization. Presented 12/12/22 with acute onset of left then right shoulder pain and crushing chest pain. LA evaluation noncontributory. CXR demonstrated large amounts of free air under the diaphragm. CT A/P with the same, also demonstrating irregular wall thickening of the gastric fundus. Afebrile, hemodynamics and respiration stable. Currently has minimal pain. Started on piperacillin-tazobactam and IV fluid resuscitation at [facility]. On admission to [facility] SICU, still remarkably stable. Zosyn continued and started on fluconazole for UGI perforation. 12/14: NAEON. Patient states she is feeling better today. 12/15: NAEON: currently eating GIS breakfast Subjective INTERVAL EVENTS: Improved Objective MEDICATIONS: Current medications and allergies reviewed. Recommended/planned medication changes discussed in detail in the A/P section below. Please refer to [facility] for list of inpatient medications. VITAL SIGNS: BP 120/65 Pulse 67 Temp 36.7 ?C (98 ?F) (Oral) Resp 13 Ht 161.3 cm (5' 3.5 ) Wt 82.6 kg (182 lb 1.6 oz) LMP 01/08/2018 SpO2 98% BMI 31.75 kg/m? Current Weight: Weight: 82.6 kg (182 lb 1.6 oz) Admission Weight: Weight: 82.6 kg (182 lb 1.6 oz) Physical Exam Vitals and nursing note reviewed. Constitutional: General: She is not in acute distress. Appearance: Normal appearance. She is not ill-appearing, toxic-appearing or diaphoretic. HENT: Head: Normocephalic and atraumatic. Eyes: General: No scleral icterus. Right eye: No discharge. Left eye: No discharge. Extraocular Movements: Extraocular movements intact. Cardiovascular: Rate and Rhythm: Normal rate and regular rhythm. Heart sounds: Normal heart sounds. Pulmonary: Effort: Pulmonary effort is normal. Breath sounds: Normal breath sounds. Abdominal: General: Abdomen is flat. Bowel sounds are normal. There is no distension. Palpations: Abdomen is soft. There is no mass. Tenderness: There is no abdominal tenderness. Skin: General: Skin is warm and dry. Neurological: Mental Status: She is alert. Psychiatric: Mood and Affect: Mood normal. Behavior: Behavior normal. DATA: Diagnostic tests reviewed for today's visit: Most recent labs and imaging results. ICU Checklist Last Documented/Reviewed time: 12/14/2022 12:25 PM A= Assess, Prevent, Manage Pain Pain adequately controlled?: Yes C= Choice of Sedation and Analgesia RASS at Goal?: Yes B= Both Spontaneous Awakening and Breathing Trials Ventilator: None D= Delirium: Assess, Prevent and Manage ICU Delirium Status: CAM Negative - no action required Sleep adequate?: Yes Restraint Status: None E= Early Mobility/Excercise ICU Mobility: ICU Mobility-Pt Has Been Out of Bed: Yes F= Family Engagement and Empowerment ICU plan of care visit at bedside in last 24 hours: Yes, Provider, RN, Patient/ designee ICU Disposition: ICU Disposition- Is Patient Clinically Ready to Transfer to [facility] or SDU?: Yes, transfer to SDU or RNF today Discharge Planning: To be determined Prevention: Line Status: None Downing Status: None Pressure Injury Status: None GI/Stress Ulcer Prophylaxis: PPI Nutrition is at Goal: Advancing to goal VTE Prophylaxis: Chemoprophylaxis: No chemoprophylaxis Mechanical Prophylaxis: Knee high SCD No Chemoprop (more content not included)... [facility] 12-14-2022 Note HNO ID: [id number] Author: Maykel Alberto DO Service: Critical Care Author Type: Resident Type: Progress Notes Filed: 12/14/2022 12:33 PM Note Text: Attestation signed by Leslie Ardon MD at 12/14/2022 1:45 PM SURGICAL ICU STAFF ADDENDUM I have reviewed and verified the recent history and physical examination obtained and documented by the resident physician and I personally participated in the dorsey components. I have discussed the case and management of the patient's care, exclusive of separately billed procedures which fulfilled the standards for LEVEL 2. Pt admitted with spontaneous pneumoperitoneum. CT with gastric wall thickening Workup with EGD, UGI series negative for gastric perforation/ mass Pt remains HD stable, no pain, abdomen exam benign ad non peritonitic. Labs stable without leucocytosis, no lactic acidosis Plan - Dc Antibiotics, continue PPI CLD, advance diet as tolerated Monitor for change in abdominal exam or vitals. Stable for transfer to floor Ambulate, IS SIGNATURE: Leslie Yang MD DATE: 12/14/2022 TIME: 1:32 PM SERVICE DATE: 12/14/2022 SERVICE TIME: 12:32 PM SURGICAL INTENSIVE CARE UNIT PROGRESS NOTE BRIEF HPI: 51 year old female transferred from [facility] with concern for gastric perforation. History of vestibular migraines on duloxetine. Remote history of uterine fibroids s/p embolization. Presented 12/12/22 with acute onset of left then right shoulder pain and crushing chest pain. LA evaluation noncontributory. CXR demonstrated large amounts of free air under the diaphragm. CT A/P with the same, also demonstrating irregular wall thickening of the gastric fundus. Afebrile, hemodynamics and respiration stable. Currently has minimal pain. Started on piperacillin-tazobactam and IV fluid resuscitation at [facility]. On admission to [facility] SICU, still remarkably stable. Zosyn continued and started on fluconazole for UGI perforation. 12/14: NAEON. Patient states she is feeling better today. Subjective INTERVAL EVENTS: Improved Objective MEDICATIONS: Current medications and allergies reviewed. Recommended/planned medication changes discussed in detail in the A/P section below. Please refer to [facility] for list of inpatient medications. VITAL SIGNS: BP 113/70 Pulse 92 Temp 36.6 ?C (97.9 ?F) (Oral) Resp 19 Ht 161.3 cm (5' 3.5 ) Wt 82.6 kg (182 lb 1.6 oz) LMP 01/08/2018 SpO2 96% BMI 31.75 kg/m? Current Weight: Weight: 82.6 kg (182 lb 1.6 oz) Admission Weight: Weight: 82.6 kg (182 lb 1.6 oz) Physical Exam Vitals and nursing note reviewed. Constitutional: General: She is not in acute distress. Appearance: Normal appearance. She is not ill-appearing, toxic-appearing or diaphoretic. HENT: Head: Normocephalic and atraumatic. Eyes: General: No scleral icterus. Right eye: No discharge. Left eye: No discharge. Extraocular Movements: Extraocular movements intact. Cardiovascular: Rate and Rhythm: Normal rate and regular rhythm. Heart sounds: Normal heart sounds. Pulmonary: Effort: Pulmonary effort is normal. Breath sounds: Normal breath sounds. Abdominal: General: Abdomen is flat. Bowel sounds are normal. There is no distension. Palpations: Abdomen is soft. There is no mass. Tenderness: There is no abdominal tenderness. Skin: General: Skin is warm and dry. Neurological: Mental Status: She is alert. Psychiatric: Mood and Affect: Mood normal. Behavior: Behavior normal. DATA: Diagnostic tests reviewed for today's visit: Most recent labs and imaging results. ICU Checklist Last Documented/Reviewed time: 12/14/2022 12:25 PM A= Assess, Prevent, Manage Pain Pain adequately controlled?: Yes C= Choice of Sedation and Analgesia RASS at Goal?: Yes B= Both Spontaneous Awakening and Breathing Trials Ventilator: None D= Delirium: Assess, Prevent and Manage ICU Delirium Status: CAM Negative - no action required Sleep adequate?: Yes Restraint Status: None E= Early Mobility/Excercise ICU Mobility: ICU Mobility-Pt Has Been Out of Bed: Yes F= Family Engagement and Empowerment ICU plan of care visit at bedside in last 24 hours: Yes, Provider, RN, Patient/ designee ICU Disposition: ICU Disposition- Is Patient Clinically Ready to Transfer to [facility] or SDU?: Yes, transfer to SDU or [facility] today Discharge Planning: To be determined Prevention: Line Status: None Downing Status: None Pressure Injury Status: None GI/Stress Ulcer Prophylaxis: PPI Nutrition is at Goal: Advancing to goal VTE Prophylaxis: Chemoprophylaxis: No chemoprophylaxis Mechanical Prophylaxis: Knee (more content not included)... [facility] 12-14-2022 Note HNO ID: [id number] Author: Ashley Vidal MD Service: General Surgery Author Type: Resident Type: Progress Notes Filed: 12/15/2022 8:51 AM Note Text: GENERAL SURGERY PROGRESS NOTE PATIENT NAME: Chacha Contreras AGE: [age] year old : 1970 SEX: female Subjective NAEON Afebrile, hemodynamically stable Continues to feel better No nausea/vomiting Objective VITAL SIGNS: BP 126/70 Pulse 66 Temp (Src) 97.9 (Oral) Resp 16 Ht 5' 3.504 (1.61m) Wt 182 lb 1.6 oz (82.6kg) SpO2 98% LMP 01/08/2018 BMI 31.75 kg/(m2). O2 Therapy: Nasal Cannula, Liters: 1 PHYSICAL EXAM: GENERAL: Resting comfortably, not in acute distress. CARDIOVASCULAR: Regular rate and rhythm. LUNG: Nonlabored respirations on RA, no accessory muscle use, good respiratory effort. ABDOMEN: Soft, non-tender, non-distended LABS: CBC, Coags, BMP, Mg, Phos Recent Labs 12/14/22 0004 12/13/22 0326 WBC 5.52 7.34 HB 12.2 12.6 HCT 38.1 36.4 PLT 199 226 INR 1.0 1.1 APTT 24.2 -- NA 143 143 K 4.1 3.9 CHLOR 106* 108* CO2 20* 24 BUN 12 17 CREAT 0.92 0.89 GLUC 82 91 CA 8.9 9.0 MG 2.3 1.9 P 5.0* 3.2 Liver Function, Amylase, AND Lipase Recent Labs 12/14/22 0004 12/13/22 0326 TPROT 6.2* 6.4 ALB 3.8* 4.0 ALT 15 18 AST 18 18 ALKPHOS 63 61 TBILI 0.4 0.4 I/O PAST 24HRS: Intake/Output Summary (Last 24 hours) at 12/14/2022 0549 Last data filed at 12/13/20221999 Gross per 24 hour Intake 836 ml Output 2850 ml Net -2013 ml LINE, DRAINS AND AIRWAY: Lines, Drains, and Airways Line Duration Peripheral 12/13/22 0400 [facility] Right Forearm 20 Gauge 1 day Peripheral 12/13/22 0430 [facility] Left Forearm 20 Gauge 1 day SURGERY/PROCEDURE: * Surgery not found * Assessment/Plan Ms. Contreras is a 51 year old female with a PMHx of vestibular migraines, fibromyalgia that was transferred to [facility] due to concern of pneumoperitoneum. CT scan at OSH demonstrated large amount free intraperitoneal air with suspicion of perforated ulcer or mass involving gastric fundus adjacent to the diaphragm. Spoke with radiology today who confirmed there was no fundal mass or obvious source of perforation on her most recent imaging. Her abdominal exam is completely benign at this time. EGD on 12/13 revealed Grade B Esophagitis, Normal stomach, No evidence of perforation. And No evidence of mass in fundus, Duodenal bulb erosions. Normal D2. Pt tolerating clear liquid diet without issues. -Advance to CLD -Continue PPI PO daily Plan to be discussed with Staff, MD Ashley Kidd MD General Surgery, PGY-1 Personal Pager/ Service Pager: [phone] (Acute Care Surgery) For weekday evenings (6PM-6AM) or weekends/holidays, please page [phone] (Night Float) [facility] 12-13-2022 Note Q3 Patient Name: Chacha Contreras Procedure Date: 12/13/2022 4:13 PM Date of : 1970 Admit Type: Inpatient Age: 51 Gender: Female Note Status: Finalized Attending MD: Magalie Bustillo MD Procedure: Upper GI endoscopy Indications: Abnormal CT of the GI tract Providers: Magalie Bustillo MD Referring Physician: Oralia Heredia (Referring MD) Medicines: Fentanyl 50 micrograms IV, Midazolam 2 mg IV, Benzocaine spray Complications: No immediate complications. Requesting Provider: Procedure: Pre-Anesthesia Assessment: - ASA Grade Assessment: II - A patient with mild systemic disease. After obtaining informed consent, the endoscope was passed under direct vision. Throughout the procedure, the patient's blood pressure, pulse, and oxygen saturations were monitored continuously. The Endoscope was introduced through the mouth, and advanced to the second part of duodenum. The upper GI endoscopy was accomplished without difficulty. The patient tolerated the procedure well. Moderate Sedation: The administration of moderate sedation was initiated at 16:20 PM. Moderate (conscious) sedation was administered by the endoscopy nurse and supervised by the endoscopist. The patient's oxygen saturation, heart rate, blood pressure and response to care were monitored. Findings: The Z-line was regular and was found 35 cm from the incisors. LA Grade B (one or more mucosal breaks greater than 5 mm, not extending between the tops of two mucosal folds) esophagitis with no bleeding was found. The entire examined stomach was normal. There is no endoscopic evidence of mucosal abnormalities, ulceration or mass in the entire examined stomach. A few erosions without bleeding were found in the first portion of the duodenum and in the second portion of the duodenum. Impression: - Z-line regular, 35 cm from the incisors. - LA Grade B erosive esophagitis with no bleeding. - Normal stomach. - Duodenal erosions without bleeding. - No specimens collected. Estimated Blood Loss: Estimated blood loss: none. Recommendation: - Advance diet as tolerated today. - Patient has a contact number available for emergencies. The signs and symptoms of potential delayed complications were discussed with the patient. Return to normal activities tomorrow. Written discharge instructions were provided to the patient. Procedure Code(s): --- Professional --- 28787, Esophagogastroduodenoscopy, flexible, transoral; diagnostic, including collection of specimen(s) by brushing or washing, when performed (separate procedure) CPT copyright 2020 [employer]. All rights reserved. Attending Participation: I was present and participated during the entire procedure, including non-dorsey portions. I was present and participated during the entire procedure, including non-dorsey portions, and during the administration and monitoring of Moderate Sedation. Scope In: 4:17:49 PM Scope Out: 4:23:56 PM MD Magalie Escalante MD 12/13/2022 4:26:11 PM This report has been signed electronically by Magalie Bustillo MD Number of Addenda: 0 Note Initiated On: 12/13/2022 4:13 PM [facility] 12-13-2022 Note HNO ID: [id number] Author: Vera Trujillo RN Service: Care Management Author Type: Registered Nurse Type: Care Mgt Initial Assessment Filed: 12/13/2022 11:06 AM Note Text: CARE MANAGEMENT: ASSESSMENT AND DISCHARGE PLAN SERVICE DATE: December 13, 2022 SERVICE TIME: 11:01 AM PCP: Demi Ortiz NP, [employer] SALES [employer]IT SALES LEADER.SONAR WATCHSTANDER Primary Contact: Extended Emergency Contact Information Primary Emergency Contact: Eyal Contreras Address: [address] [place] [address] [facility] Mobile Relation: Spouse Secondary Emergency Contact: Hari Wong Relation: Father Curriculum Advisory Teacher needed? No Admission Status: Inpatient Insurance Provider: [employer] OAP Discharge Planning requested by: Per Department Practice Potential Transition Plans To Be Determined;Home Advance Directives Current Advance Directive: None Nurse Head Attempted to Assist with AD Completion: Yes Action: Education Provided Current Living Arrangements and Support Lives with: Spouse/significant other Type of Residence: Mobile Home Does the patient have to climb stairs at home?: Yes Support: Spouse/significant other How do you manage to accomplish the following: Independent: Transportation to [facility]/community;Ambulatio n;Bathe/Shower;Dress;Meals/Meal Prep;Going to the bathroom;Medication Management Current Services/Equipment Current Post-Acute Service(s): None Discharge Planning Patient Goal(s): General wellness [place] of Choice Explained: [place] of [place] Given: No Reason Not Given: No placements necessary Are you interested in bedside delivery of your medications? Yes Discharge Planning Participant(s): Spouse/significant other Patient/Family Comments: Caregiver Assessment: Caregiver is ready, willing and able to meet the patient's needs as recommended by the inter-professional team: No Caregiver needed Transport at Discharge: Transportation Arrangements: Car Needs Prior to Discharge: Needs Prior to Discharge: To Be Determined;OT/PT Evaluation Post-Acute Discharge Plan: Per EMR, 51 year old female transferred from [facility] with concern for gastric perforation. History of vestibular migraines on duloxetine. Remote history of uterine fibroids s/p embolization. Presented 12/12/22 with acute onset of left then right shoulder pain and crushing chest pain. LA evaluation noncontributory. CXR demonstrated large amounts of free air under the diaphragm. CT A/P with the same, also demonstrating irregular wall thickening of the gastric fundus. Afebrile, hemodynamics and respiration stable. Currently has minimal pain. Started on piperacillin-tazobactam and IV fluid resuscitation at [facility]. On admission to [facility] SICU, still remarkably stable. Zosyn continued and started on fluconazole for UGI perforation. CM met with patient at the bedside today. Introduced myself and explained my role as the CM. Patient was alert and oriented and willing to participate in CM assessment. Mrs. Contreras tells CM that she was independent with ADLs and iADLs prior to admission. Patient lives in a mobile home located in [place], [place] with her spouse Eyal. Patient is not active with home care and does not require use of DME at home. Patient is employed and drives. Skilled needs and final dispo are TBD pending course of hospitalization. Patients spouse Eyal will provide discharge transport. CM will continue to follow this patient for transition of care/discharge planning. SIGNATURE: Vera Trujillo RN PATIENT NAME: Chacha Contreras DATE: December 13, 2022 TIME: 11:01 AM CONTACT #: [phone] [facility] 12-13-2022 Note HNO ID: [id number] Author: Bailey Bai RT(R) Service: Radiology Author Type: Technologist Type: Progress Notes Filed: 12/13/2022 10:57 AM Note Text: Radiology Service Progress Note PATIENT NAME: Chacha Contreras DATE OF SERVICE: December 13, 2022 TIME: 10:57 AM PATIENT IDENTITY VERIFICATION COMPLETED USING TWO (2) IDENTIFIERS: Name and Date of confirmed by patient verbally. FALL SCREENING: Has the patient had 2 falls in the last year or 1 fall with injury or currently using an Ambulatory Assistive Device (Walker, Cane, Wheelchair, Crutches, etc.)? Inpatient: Screened on floor PATIENT GENDER DATA: Female. status: : No status: N/A PATIENT RELEVANT IMPLANT DATA REVIEWED: Yes RADIOLOGY DEPARTMENT: General X-ray: Exam(s) Completed: GI/ Procedure(s): UGI w/ water soluble contrast. PERIPHERAL IV DATA: Not applicable SIGNED BY: RT Kevan(R) December 13, 2022 10:57 AM [facility] 12-13-2022 Note HNO ID: [id number] Author: Juan Shields MD Service: General Surgery Author Type: Resident Type: Progress Notes Filed: 12/13/2022 8:50 AM Note Text: GENERAL SURGERY PROGRESS NOTE PATIENT NAME: Chacha Contreras AGE: [age] year old : 1970 SEX: female Subjective Patient continues to deny any worsening abdominal pain Denies any nausea/vomiting Afebrile, hemodynamically stable She did mention she had a left lower back nerve ablation at an outside facility last Monday (12/09) and developed her acute pain 3 days later Objective VITAL SIGNS: BP 120/59 Pulse 86 Temp (Src) 99.9 (Oral) Resp 24 Ht 5' 3.504 (1.61m) Wt 182 lb 1.6 oz (82.6kg) SpO2 96% LMP 01/08/2018 BMI 31.75 kg/(m2). O2 Therapy: Room Air PHYSICAL EXAM: GENERAL: Resting comfortably, not in acute distress. CARDIOVASCULAR: Regular rate and rhythm. LUNG: Nonlabored respirations on RA, no accessory muscle use, good respiratory effort. ABDOMEN: Soft, non-tender, non-distended LABS: CBC, Coags, BMP, Mg, Phos Recent Labs 12/13/22 0326 WBC 7.34 HB 12.6 HCT 36.4 PLT 226 INR 1.1 NA 143 K 3.9 CHLOR 108* CO2 24 BUN 17 CREAT 0.89 GLUC 91 CA 9.0 MG 1.9 P 3.2 Liver Function, Amylase, AND Lipase Recent Labs 12/13/22 0326 TPROT 6.4 ALB 4.0 ALT 18 AST 18 ALKPHOS 61 TBILI 0.4 I/O PAST 24HRS: Intake/Output Summary (Last 24 hours) at 12/13/2022 0839 Last data filed at 12/13/2022 0700 Gross per 24 hour Intake -- Output 800 ml Net -800 ml LINE, DRAINS AND AIRWAY: Lines, Drains, and Airways Line Duration Peripheral Left Antecubital 20 Gauge -- days Peripheral 12/13/22 0400 [facility] Right Forearm 20 Gauge <1 day Peripheral 12/13/22 0430 [facility] Left Forearm 20 Gauge <1 day SURGERY/PROCEDURE: * Surgery not found * Assessment/Plan Ms. Contreras is a 51 year old female with a PMHx of vestibular migraines, fibromyalgia that was transferred to [facility] due to concern of pneumoperitoneum. CT scan at OSH demonstrated large amount free intraperitoneal air with suspicion of perforated ulcer or mass involving gastric fundus adjacent to the diaphragm. Spoke with radiology today who confirmed there was no fundal mass or obvious source of perforation on her most recent imaging. Her abdominal exam is completely benign at this time. - Discuss with MIS team regarding potential EGD given that her last one was over 30 years ago. Will consider potential biopsy if needed. -Rest of care per SICU Plan to be discussed with Staff, MD Juan Kidd MD General Surgery, PGY-1 Personal Pager/ Service Pager: [phone] (Acute Care Surgery) For weekday evenings (6PM-6AM) or weekends/holidays, please page [phone] (Night Float) [facility] 11-16-2022 Note HNO ID: [id number] Author: Luba Monroe PA-C Service: ? Author Type: Physician Risk Control Product Liability Director Type: Progress Notes Filed: 11/16/2022 12:19 PM Note Text: [facility] for General Neurology Follow up CC: Headache Follow up Last Visit: 07/27/22 Impression: Migraine: 1.1 Migraine without aura Patient with significant improvement in her dizziness and headaches after titrating up to Cymbalta 60 mg. Does note that it seems to wear off after 3 weeks every month, unclear etiology as to this. Discussed that it is unlikely that this is the medication or some sort of metabolism issue as patient suspected, suspect this may be some sort of hormonal issue or external trigger. Patient also taking Imitrex as needed for headache, but states that she does not want a waste it so she waits until the headache has progressed and is severe. Patient has not yet been on Cymbalta for 3 months, discussed continue this medication for at least 3 months and reassessing. Discussed that because this was so beneficial for her dizziness, may add an additional medication onto her current regiment, considering gabapentin as many of her headaches start in the neck. Also discussed Botox and injectables, patient would like to hold off on this for now. Regarding abortive therapy, discussed that it is important to take with the onset of headache, patient agrees understands, when she does take it she does not get full benefit and will increase to 100 mg. Patient also endorsing some lightheadedness, notes history of severe low blood pressure in the past, chronic for many years. Lightheadedness comes on with laughing, long periods of standing, and occasionally with quick position changes. Will obtain tilt table test to evaluate for any orthostatic hypotension or delayed orthostatic hypertension. Recent MRA of the head and neck was without any signs of occlusion or stenosis. Instructed patient to continue with water intake, increase salt, wear compression, as well as have slow transitions from sitting to standing. No history of diabetes, no signs of neuropathy on exam. Patient agrees and understands. Discussed red flag signs and symptoms that would warrant emergent evaluation emergency department, patient agrees and understands. Patient to follow-up in 3 months or sooner should any symptoms change or worsen. Patient agreeable to treatment plan of care at this time, questions were answered. Plan: All options for treatment discussed. Preventative: Cymbalta 60 mg Abortive: Imitrex 100 mg Follow-up: 3 months Today: Patient is here for headache/migraine follow up. Cymbalta helped and was having 8-12 headaches a month. New lightheadedness reported at last appointment- tilt was normal. MRA of the head and neck were normal. LH is positional in nature. Discussed starting gabapenitn as well but deferred. Did have a severe episode of lightheadedness and went to ER. EKG was normal and labs were WNL. Since last visit headaches have continued to improve. Patient does recall the episode of lightheadedness she had when she went to the ER, has not had any of those episodes since. Notes that her primary concern today is generalized motion sickness when she is driving. This was her original concern when she was originally seen and notes that it is slowly worsening and going back to what it was. Notes that the Cymbalta originally was very helpful with this symptom, but it slowly seems to be going back. Notes that it will fluctuate, some days better than others. Has not been missing work from this. States that she is no longer getting lightheaded with standing. Describes it more of a motion sick feeling with occasional presyncope. Notes that she did increase her water intake and she does not drink as much water her symptoms feel worse. Patient denies any palpitations or chest pain. Notes that she is having about 1-2 headaches a week. Takes Imitrex and this usually helps, but when it does not she takes Excedrin. No new symptoms with headaches, otherwise stable. Current Headache treatment Preventative: Cymbalta 60mg Abortive: Imitrex 100mg Medications effective? sometimes # of doses of abortive medications per month: 8 Total headache days per month: 4-8 Total headache attacks per month: 4-8 Headache free days: Yes Duration of attacks: full day Severity of headaches? moderate Location: neck, temples either side. Aura: None Accompanying symptoms: photophobia, phonophobia, nausea, vertigo. Quality:sharp and dull. Worse with activity: Yes Pain today: 0/10 Triggers: bright lights, odors, sleep- too little, fasting/hunger, and dehydration. Prodrome:none. Tobacco Use: No. Alcohol Use: No Caffeine:Yes: 20 ounces in a week Water- 60+ ounces Prior Therapies Topamax Cymbalta Imitrex The patient's prior records were reviewed including and lab testing, imaging, and procedures done (more content not included)... [facility] 11-16-2022 Instructions Luba Monroe PA-C - 11/16/2022 11:44 AM EDT Start taking Gabapentin 100mg three times a day along with cymbalta 60mg for symptoms Take imitrex as needed (let me know if you want to switch) Consult to cardiology Follow up in 4 months documented in this encounter [facility] 11-16-2022 History of Presen t illness Narrative Images from the original note were not included. [facility] for General Neurology Follow up CC: Headache Follow up Last Visit: 07/27/22 Impression: Migraine: 1.1 Migraine without aura Patient with significant improvement in her dizziness and headaches after titrating up to Cymbalta 60 mg. Does note that it seems to wear off after 3 weeks every month, unclear etiology as to this. Discussed that it is unlikely that this is the medication or some sort of metabolism issue as patient suspected, suspect this may be some sort of hormonal issue or external trigger. Patient also taking Imitrex as needed for headache, but states that she does not want a waste it so she waits until the headache has progressed and is severe. Patient has not yet been on Cymbalta for 3 months, discussed continue this medication for at least 3 months and reassessing. Discussed that because this was so beneficial for her dizziness, may add an additional medication onto her current regiment, considering gabapentin as many of her headaches start in the neck. Also discussed Botox and injectables, patient would like to hold off on this for now. Regarding abortive therapy, discussed that it is important to take with the onset of headache, patient agrees understands, when she does take it she does not get full benefit and will increase to 100 mg. Patient also endorsing some lightheadedness, notes history of severe low blood pressure in the past, chronic for many years. Lightheadedness comes on with laughing, long periods of standing, and occasionally with quick position changes. Will obtain tilt table test to evaluate for any orthostatic hypotension or delayed orthostatic hypertension. Recent MRA of the head and neck was without any signs of occlusion or stenosis. Instructed patient to continue with water intake, increase salt, wear compression, as well as have slow transitions from sitting to standing. No history of diabetes, no signs of neuropathy on exam. Patient agrees and understands. Discussed red flag signs and symptoms that would warrant emergent evaluation emergency department, patient agrees and understands. Patient to follow-up in 3 months or sooner should any symptoms change or worsen. Patient agreeable to treatment plan of care at this time, questions were answered. Plan: All options for treatment discussed. Preventative: Cymbalta 60 mg Abortive: Imitrex 100 mg Follow-up: 3 months Today: Patient is here for headache/migraine follow up. Cymbalta helped and was having 8-12 headaches a month. New lightheadedness reported at last appointment- tilt was normal. MRA of the head and neck were normal. LH is positional in nature. Discussed starting gabapenitn as well but deferred. Did have a severe episode of lightheadedness and went to ER. EKG was normal and labs were WNL. Since last visit headaches have continued to improve. Patient does recall the episode of lightheadedness she had when she went to the ER, has not had any of those episodes since. Notes that her primary concern today is generalized motion sickness when she is driving. This was her original concern when she was originally seen and notes that it is slowly worsening and going back to what it was. Notes that the Cymbalta originally was very helpful with this symptom, but it slowly seems to be going back. Notes that it will fluctuate, some days better than others. Has not been missing work from this. States that she is no longer getting lightheaded with standing. Describes it more of a motion sick feeling with occasional presyncope. Notes that she did increase her water intake and she does not drink as much water her symptoms feel worse. Patient denies any palpitations or chest pain. Notes that she is having about 1-2 headaches a week. Takes Imitrex and this usually helps, but when it does not she takes Excedrin. No new symptoms with headaches, otherwise stable. Current Headache treatment Preventative: Cymbalta 60mg Abortive: Imitrex 100mg Medications effective? sometimes # of doses of abortive medications per month: 8 Total headache days per month: 4-8 Total headache attacks per month: 4-8 Headache free days: Yes Duration of attacks: full day Severity of headaches? moderate Location: neck, temples either side. Aura: None Accompanying symptoms: photophobia, phonophobia, nausea, vertigo. Quality:sharp and dull. Worse with activity: Yes Pain today: 0/10 Triggers: bright lights, odors, sleep- too little, fasting/hunger, and dehydration. Prodrome:none. Tobacco Use: No. Alcohol Use: No Caffeine:Yes: 20 ounces in a week Water- 60+ ounces Prior Therapies Topamax Cymbalta Imitrex The patient's prior records were reviewed including and lab testing, imaging, and procedures done since their last visit with me. Review of symptoms including constitutional, eyes, ENT, neck, respiratory, cardiovascular, GI, , musculoskeletal, hematologic, oncologic, endocrine, and psychiatric categories is unchanged. No new details in the family history or social history were offered by the patient. PAST MEDICAL HISTORY Diagnosis Date Abdominal pain, left upper quadrant Duodenitis without mention of hemorrhage Esophagitis, unspecified Fibroids Hypertension Irregular menstrual bleeding Menopausal and postmenopausal disorder Menopause Other malaise and fatigue fibramyalgia PAST SURGICAL HISTORY Procedure Laterality Date COLONOSCOPY 07/30/2021 repeat in 10 years COLONOSCOPY FLX DX W/COLLJ SPEC WHEN PFRMD 06/23/2008 EMBOLIZATION UTERINE FIBROID 03/20/2010 ENDOMETRIAL BIOPSY 12/01/2009 Irregular Menstrual Bleeding and Fibroids ESOPHAGOGASTRODUODENOSCOPY TRANSORAL DIAGNOSTIC 05/24/2012 EGD ALLERGIES Allergen Reactions Cephalexin cramping in stomach Current Medications: zolpidem (AMBIEN CR) 6.25 mg CR tablet Take 6.25 mg by mouth at bedtime as needed. DULoxetine (CYMBALTA) 60 mg capsule Take 1 capsule by mouth once daily. coenzyme Q10 (COENZYME Q-10) 100 mg cap capsule Take 100 mg by mouth once daily. riboflavin, vitamin B2, (VITAMIN B2) 100 mg tab Take 100 mg by mouth twice daily. calcium carbonate (CALTRATE) 600 mg calcium (1,500 mg) tab Take 1,200 mg by mouth. Ca carb-Ca gluc-Mg ox-Mg gluco (CALCIUM MAGNESIUM) 500 mg calcium -250 mg tab Take by mouth. 500 mg at night SUMAtriptan (IMITREX) 100 mg tablet Take 1 tablet by mouth as needed. No more than 10 doses a month loratadine (CLARITIN) 10 mg tablet Take 10 mg by mouth as needed. topiramate (TOPAMAX) 25 mg tablet Take 25 mg by mouth once daily. (Patient not taking: Reported on 05/31/2022) topiramate (TOPAMAX) 25 mg tablet 25 mg(1 tab) at bed x 2 wks, then 50 mg at bed(2 tabs) x 2 wks, then 75 mg at bed(3 tabs) x 2 wks (Patient not taking: Reported on 05/31/2022) topiramate (TOPAMAX) 100 mg tablet Take 1 tablet by mouth daily at bedtime. (Patient not taking: Reported on 05/31/2022) ondansetron (ZOFRAN) 8 mg tablet Take 1 tablet by mouth once daily as needed for nausea/vomiting (for nausea.). (Patient not taking: Reported on 07/27/2022) budesonide (PULMICORT) 0.5 mg/2 mL nebulizer solution (Patient not taking: Reported on 05/18/2022) Mirtazapine (REMERON) 7.5 mg tablet Studies to Review: Tilt table test * FINAL IMPRESSIONS * - The test was completed per protocol at 30 minutes of 70 degree tilt. - Systolic blood pressures increased from 114 mmHg at start to 132 mmHg at end of tilt. - Diastolic blood pressures increased from 73 mmHg at start to 80 mmHg at end of tilt. - Blood pressure upon return to supine position was 121/64 mmHg. - Heart rates remained stable from 87 bpm at start to 85 bpm at end of tilt. - Heart rate upon return to supine position was 70 bpm. - ECGs showed: NO asystole was seen. - Patient signs/symptoms included: LIGHTHEADED. - Syncope/impending syncope was NOT induced. - Overall: The test is negative for syncope. Overall stable blood pressures and heart rates were seen during upright tilt. New Health Issues: No New Social History: No New Family History: Mother with possible dementia REVIEW OF SYSTEMS: Sleep: Ambien, transitioning to first shift Mood: normal, Energy: Normal - stable, Stress: High GENERAL:No weight loss, malaise or fevers. HEENT:no changes to hearing or vision NECK:negative for neck pain, swelling. RESPIRATORY: Negative for cough, wheezing or shortness of breath. CARDIOVASCULAR: Negative for chest pain, leg swelling or palpitations. GASTROINTESTINAL: Negative for abdominal discomfort, blood in stools or black stools or change in bowel habits GENITOURINARY: No history of dysuria, frequency or incontinence MUSKULOSKELETAL: Negative for joint pain or swelling, back pain or muscle pain. SKIN:Negative for lesions, rash, and itching. HEMATOLOGIC/LYMPHATIC/IMMUNOLOGI C:Negative for prolonged bleeding, bruising easily or swollen nodes. ENDOCRINE: Negative for cold or heat intolerance, polyuria, polydipsia NEUROLOGIC:See HPI PHYSICAL EXAMINATION: BP 111/77 Pulse 94 Resp 16 Wt 79.4 kg (175 lb) LMP 01/08/2018 SpO2 99% BMI 30.51 kg/m General: well appearing, in no acute distress, alert, HEENT: Normocephalic/atraumatic., Skin: Color, texture, turgor normal. No rashes or lesions, Lungs: breathing comfortably, Neurological Examination: Cognition: The patient is alert and oriented times three Lucid and organized in conversation Able to tell detailed medical hx Speech is Normal in fluency volume and clarity Content and Syntax: Normal Comprehension: Normal, able to follow several step commands Cranial Nerves: Pupils are equal and reactive to light. Pupils normal in size Extraocular movements are grossly intact Good saccades and pursuits No nystagmus Hearing intact Good upgaze Facial, motor is symmetric No dysarthria SCM and trapezius are full. Shoulder shrug intact Normal tone and strength. Normal coordination. DTRs not tested Normal gait. Impression: ASSESSMENT/PLAN: 1. Vestibular migraine - ICD9: 346.80, ICD10: G43.809 (primary diagnosis) 2. Chronic migraine without aura without status migrainosus, not intractable - ICD9: 346.70, ICD10: G43.709 Patient notes continued improvement with her headaches, about 4-8 headaches a month. Usually well controlled with Imitrex or Excedrin. However, primary concern today is worsening of her motion sickness especially when driving. States that the Cymbalta was originally very effective in managing this, but it seems to be worsening to the point. Previously did discuss starting gabapentin patient like to try this now. Patient also notes that she will be switching from second shift to first shift and is concerned about changing her sleeping schedule. Discussed that gabapentin may also help with regulating her sleep, patient is eager to try this. Discussed starting with 100 mg at night and slowly increasing as needed to 3 times a day. Discussed common side effects and patient is agreeable we will continue Cymbalta 60 mg as well. Regarding abortive therapy, patient is comfortable with Imitrex 100 mg and Excedrin as needed for headaches. Patient having less than 8 headaches a month on average, well controlled with these abortive therapies. No new symptoms of headaches, no red flag signs or symptoms that would warrant additional imaging at this time. 3. Positional lightheadedness - ICD9: 780.4, ICD10: R42 4. Lightheaded - ICD9: 780.4, ICD10: R42 Patient was severe bout of positional lightheadedness causing presyncope as month. Was sent to the ER, work-up was negative. Notes that her lightheadedness with position changes significantly improved since last appointment. Tilt table test was negative. However, due to patient's vague presyncope sensation, will have her see cardiology to rule out any cardiac cause of patient's symptoms include arrhythmia. Patient agreeable will schedule that appointment. Patient denying any palpitations or chest pain, no shortness of breath. Agreeable to treatment plan of care at this time, all questions were answered. Patient to follow-up in 4 months or sooner should any symptoms change or worsen. Luba Monroe PA-C Plan: All options for treatment discussed. Preventative:Cymbalta and Gabapentin Abortive: Imitrex Follow-up: 4 months I spent a total of 40 minutes on the date of the service which included preparing to see the patient, [id number] patient care, completing clinical documentation, obtaining and/or reviewing separately obtained history, performing a medically appropriate examination, counseling and educating the patient/family/caregiver, and ordering medications, tests, or procedures. Luba Monroe PA-C General Neurology [address] [place] [address]. [id number] Appointment: [phone] documented in this encounter [facility] 10-19-2022 Miscellaneous Notes MC message sent to pt to let her know she can come to the office to pick her forms up from -October 20. Isadora Wharton LPN documented in this encounter [facility] 10-05-2022 Miscellaneous Notes JESS 07/27/22 with MQ NOV 11/16/22 with MQ Refill 05/31/22 with qty: 30 and 3 refills Isadora Wharton LPN JESS Assessment/Plan Impression: Migraine: 1.1 Migraine without aura Patient with significant improvement in her dizziness and headaches after titrating up to Cymbalta 60 mg. Does note that it seems to wear off after 3 weeks every month, unclear etiology as to this. Discussed that it is unlikely that this is the medication or some sort of metabolism issue as patient suspected, suspect this may be some sort of hormonal issue or external trigger. Patient also taking Imitrex as needed for headache, but states that she does not want a waste it so she waits until the headache has progressed and is severe. Patient has not yet been on Cymbalta for 3 months, discussed continue this medication for at least 3 months and reassessing. Discussed that because this was so beneficial for her dizziness, may add an additional medication onto her current regiment, considering gabapentin as many of her headaches start in the neck. Also discussed Botox and injectables, patient would like to hold off on this for now. Regarding abortive therapy, discussed that it is important to take with the onset of headache, patient agrees understands, when she does take it she does not get full benefit and will increase to 100 mg. Patient also endorsing some lightheadedness, notes history of severe low blood pressure in the past, chronic for many years. Lightheadedness comes on with laughing, long periods of standing, and occasionally with quick position changes. Will obtain tilt table test to evaluate for any orthostatic hypotension or delayed orthostatic hypertension. Recent MRA of the head and neck was without any signs of occlusion or stenosis. Instructed patient to continue with water intake, increase salt, wear compression, as well as have slow transitions from sitting to standing. No history of diabetes, no signs of neuropathy on exam. Patient agrees and understands. Discussed red flag signs and symptoms that would warrant emergent evaluation emergency department, patient agrees and understands. Patient to follow-up in 3 months or sooner should any symptoms change or worsen. Patient agreeable to treatment plan of care at this time, questions were answered. Plan: All options for treatment discussed. Preventative: Cymbalta 60 mg Abortive: Imitrex 100 mg Follow-up: 3 months documented in this encounter [facility] 09-27-2022 Miscellaneous Notes The provider's template changed. The patient needs to come in 15 minutes sooner than she was scheduled. The appointment was changed and is correct. Left the patient a voice message and sent 3dplusme message about the time change. documented in this encounter [facility] 09-14-2022 Miscellaneous Notes Respirator form completed and faxed to [facility]. Sent for scanning. documented in this encounter [facility] 08-23-2022 Miscellaneous Notes Form completed and faxed back to number provided. Isadora Wharton LPN Type of form: Physical Therapy Orders Form received via fax When form is completed, Fax form to Mateo Wilcox at [phone] Form has been forwarded to Physician Desk: SAE Pedroza OCCA documented in this encounter [facility] 07-27-2022 Note HNO ID: [id number] Author: Luba Monroe PA-C Service: ? Author Type: Physician Risk Control Product Liability Director Type: Progress Notes Filed: 07/27/2022 1:33 PM Note Text: [facility] Follow up CC: Headache Follow up Last Visit: 05/31/22 ASSESSMENT/PLAN: 1. Vestibular migraine - ICD9: 346.80, ICD10: G43.809 (primary diagnosis) 2. Chronic migraine without aura without status migrainosus, not intractable - ICD9: 346.70, ICD10: G43.709 Patient with persistent vestibular migraines. At last appointment, started Topamax, but patient did not tolerate this well and had severe brain fog. She stopped this medication, also tried meclizine and Benadryl for abortive therapies for her symptoms. These abortive therapies were not effective. At this time, discussed other preventatives including SSRIs, TCAs, beta-blockers and patient states that she does have history of constipation and would like to refrain from dribbling, does have history of low blood pressure and would like to refrain from beta-blockers. We will try Cymbalta taper to 60 mg for preventative measures for her vestibular migraines. Regarding abortive therapy, patient without any history of stroke or heart attack, does not smoke and is not on estrogen therapy. We will start sumatriptan 50 mg for abortive therapy, discussed common side effects, discussed taking this with onset of symptoms and to not take more than 10 doses in a month. Patient acknowledges and understands these instructions and side effects. Previous imaging reassuring, no new red flag signs or symptoms to warrant further imaging at this time. Red flag signs and symptoms that would warrant emergent evaluation emergency department were discussed, patient agrees and understands. Patient follow-up in 2 months or sooner should any symptoms change or worsen. We will fill out [facility] paperwork. Luba Monroe PA-C Today: Patient is here for headache/migraine follow up. Since last visit headaches have significantly improved. Patient states that her dizziness and headaches have significantly improved since starting Cymbalta, titrating up to 60 mg. States that her dizziness has fully resolved, and she now only suffers from 8-12 migraines a month. Headaches are associated with photophobia, phonophobia, osmophobia, nausea and neck pain. Had tried and failed physical therapy in the past, still doing at home exercises with mild to moderate improvement. Still, believes that most of her headaches start from the neck, very in locations. No side effects with the medications, but notes that after about 3 weeks with each new bottle of Cymbalta, she has more dizziness and believes its not working as well. Patient is not menstruating, does have occasional hot flashes. Patient also endorsing some episodes of lightheadedness, this is a new. States that she feels as if she is going to pass out, this only occurs when sitting or standing, occasionally with quick position changes. Denies any actual syncope but states she is been close. Notes that she has had this issue for a long time, has noted low blood pressures in the past, as low as 50 mmHg systolic. Drinks more than 60 ounces of water a day, but does not salt her foods. No leg swelling, no signs of neuropathy, no paresthesias, no weakness. She notes that this lightheaded sensation lasts for seconds, estimating about 10 seconds, and is relieved with sitting and resting. She notes other triggers include laughing and being excited. Recent MRA of the head and neck were without any signs of stenosis or occlusion. Patient does not eat big meals, not worse after eating. Denies any palpitations. Denies any falls, no bowel bladder incontinence, no saddle anesthesia. Current Headache treatment Preventative: cymbalta 60mg Abortive: Imitrex 50mg Medications effective? yes # of doses of abortive medications per month: 9 Total headache days per month: 8-12 Total headache attacks per month: 8-12 Headache free days: Yes Duration of attacks: One hour to all day Severity of headaches? -02/26 Location: move all over. Aura: None Accompanying symptoms: photophobia, phonophobia, osmophobia, nausea, language disturbance, confusion, neck pain. Quality:sharp, dull, throbbing, aching , and pressure. Worse with activity: No Pain today: 10 Triggers: sitting in certain positions, chemicals. Prodrome:none. Tobacco Use: No. Alcohol Use: No Caffeine:Yes: tramaine chan Prior Therapies Topamax Cymbalta Imitrex The patient's prior records were reviewed including and lab testing, imaging, and procedures done since their last visit with me. Review of symptoms including constitutional, eyes, ENT, neck, respiratory, cardiovascular, GI, , musculoskeletal, hematologic, oncologic, endocrine, and psychiatric categories is unchanged. No new details in the family history or social history were offered by (more content not included)... [facility] 07-27-2022 Instructions Luba Monroe PA-C - 07/27/2022 1:12 PM EDT Tilt table test Increase imitrex to 100mg, take with ONSET of headache When feeling light headed find seating or pull arms and legs together, keep up water intake, increase salt, compression stocking. Follow up in three months documented in this encounter [facility] 07-27-2022 History of Presen t illness Narrative Images from the original note were not included. [facility] Follow up CC: Headache Follow up Last Visit: 05/31/22 ASSESSMENT/PLAN: 1. Vestibular migraine - ICD9: 346.80, ICD10: G43.809 (primary diagnosis) 2. Chronic migraine without aura without status migrainosus, not intractable - ICD9: 346.70, ICD10: G43.709 Patient with persistent vestibular migraines. At last appointment, started Topamax, but patient did not tolerate this well and had severe brain fog. She stopped this medication, also tried meclizine and Benadryl for abortive therapies for her symptoms. These abortive therapies were not effective. At this time, discussed other preventatives including SSRIs, TCAs, beta-blockers and patient states that she does have history of constipation and would like to refrain from dribbling, does have history of low blood pressure and would like to refrain from beta-blockers. We will try Cymbalta taper to 60 mg for preventative measures for her vestibular migraines. Regarding abortive therapy, patient without any history of stroke or heart attack, does not smoke and is not on estrogen therapy. We will start sumatriptan 50 mg for abortive therapy, discussed common side effects, discussed taking this with onset of symptoms and to not take more than 10 doses in a month. Patient acknowledges and understands these instructions and side effects. Previous imaging reassuring, no new red flag signs or symptoms to warrant further imaging at this time. Red flag signs and symptoms that would warrant emergent evaluation emergency department were discussed, patient agrees and understands. Patient follow-up in 2 months or sooner should any symptoms change or worsen. We will fill out [facility] paperwork. Luba Monroe PA-C Today: Patient is here for headache/migraine follow up. Since last visit headaches have significantly improved. Patient states that her dizziness and headaches have significantly improved since starting Cymbalta, titrating up to 60 mg. States that her dizziness has fully resolved, and she now only suffers from 8-12 migraines a month. Headaches are associated with photophobia, phonophobia, osmophobia, nausea and neck pain. Had tried and failed physical therapy in the past, still doing at home exercises with mild to moderate improvement. Still, believes that most of her headaches start from the neck, very in locations. No side effects with the medications, but notes that after about 3 weeks with each new bottle of Cymbalta, she has more dizziness and believes its not working as well. Patient is not menstruating, does have occasional hot flashes. Patient also endorsing some episodes of lightheadedness, this is a new. States that she feels as if she is going to pass out, this only occurs when sitting or standing, occasionally with quick position changes. Denies any actual syncope but states she is been close. Notes that she has had this issue for a long time, has noted low blood pressures in the past, as low as 50 mmHg systolic. Drinks more than 60 ounces of water a day, but does not salt her foods. No leg swelling, no signs of neuropathy, no paresthesias, no weakness. She notes that this lightheaded sensation lasts for seconds, estimating about 10 seconds, and is relieved with sitting and resting. She notes other triggers include laughing and being excited. Recent MRA of the head and neck were without any signs of stenosis or occlusion. Patient does not eat big meals, not worse after eating. Denies any palpitations. Denies any falls, no bowel bladder incontinence, no saddle anesthesia. Current Headache treatment Preventative: cymbalta 60mg Abortive: Imitrex 50mg Medications effective? yes # of doses of abortive medications per month: 9 Total headache days per month: 8-12 Total headache attacks per month: 8-12 Headache free days: Yes Duration of attacks: One hour to all day Severity of headaches? -02/26 Location: move all over. Aura: None Accompanying symptoms: photophobia, phonophobia, osmophobia, nausea, language disturbance, confusion, neck pain. Quality:sharp, dull, throbbing, aching , and pressure. Worse with activity: No Pain today: 03/29 Triggers: sitting in certain positions, chemicals. Prodrome:none. Tobacco Use: No. Alcohol Use: No Caffeine:Yes: mountain dew Prior Therapies Topamax Cymbalta Imitrex The patient's prior records were reviewed including and lab testing, imaging, and procedures done since their last visit with me. Review of symptoms including constitutional, eyes, ENT, neck, respiratory, cardiovascular, GI, , musculoskeletal, hematologic, oncologic, endocrine, and psychiatric categories is unchanged. No new details in the family history or social history were offered by the patient. PAST MEDICAL HISTORY Diagnosis Date Abdominal pain, left upper quadrant Duodenitis without mention of hemorrhage Esophagitis, unspecified Fibroids Hypertension Irregular menstrual bleeding Menopausal and postmenopausal disorder Menopause Other malaise and fatigue fibramyalgia PAST SURGICAL HISTORY Procedure Laterality Date COLONOSCOPY 07/30/2021 repeat in 10 years COLONOSCOPY FLX DX W/COLLJ SPEC WHEN PFRMD 06/23/2008 EMBOLIZATION UTERINE FIBROID 03/20/2010 ENDOMETRIAL BIOPSY 12/01/2009 Irregular Menstrual Bleeding and Fibroids ESOPHAGOGASTRODUODENOSCOPY TRANSORAL DIAGNOSTIC 05/24/2012 EGD ALLERGIES Allergen Reactions Cephalexin cramping in stomach Current Medications: coenzyme Q10 (COENZYME Q-10) 100 mg cap capsule Take 100 mg by mouth once daily. riboflavin, vitamin B2, (VITAMIN B2) 100 mg tab Take 100 mg by mouth twice daily. calcium carbonate (CALTRATE) 600 mg calcium (1,500 mg) tab Take 1,200 mg by mouth. Ca carb-Ca gluc-Mg ox-Mg gluco (CALCIUM MAGNESIUM) 500 mg calcium -250 mg tab Take by mouth. 500 mg at night SUMAtriptan (IMITREX) 50 mg tablet Take 1 tablet by mouth as needed. at onset of headache. May repeat after 2 hours. DULoxetine (CYMBALTA) 60 mg capsule Take 1 capsule by mouth once daily. loratadine (CLARITIN) 10 mg tablet Take 10 mg by mouth as needed. DULoxetine (CYMBALTA) 30 mg capsule Take 1 capsule by mouth once daily. (Patient not taking: Reported on 07/27/2022) topiramate (TOPAMAX) 25 mg tablet Take 25 mg by mouth once daily. (Patient not taking: Reported on 05/31/2022) topiramate (TOPAMAX) 25 mg tablet 25 mg(1 tab) at bed x 2 wks, then 50 mg at bed(2 tabs) x 2 wks, then 75 mg at bed(3 tabs) x 2 wks (Patient not taking: Reported on 05/31/2022) topiramate (TOPAMAX) 100 mg tablet Take 1 tablet by mouth daily at bedtime. (Patient not taking: Reported on 05/31/2022) ondansetron (ZOFRAN) 8 mg tablet Take 1 tablet by mouth once daily as needed for nausea/vomiting (for nausea.). (Patient not taking: Reported on 07/27/2022) budesonide (PULMICORT) 0.5 mg/2 mL nebulizer solution (Patient not taking: Reported on 05/18/2022) Mirtazapine (REMERON) 7.5 mg tablet Studies to Review: No New Health Issues: No New Social History: No New Family History: No REVIEW OF SYSTEMS: Sleep: Insomnia, Mood: normal, Energy: Normal - stable, Stress: Normal GENERAL:No weight loss, malaise or fevers. HEENT:no changes to hearing or vision NECK:negative for neck pain, swelling. RESPIRATORY: Negative for cough, wheezing or shortness of breath. CARDIOVASCULAR: Negative for chest pain, leg swelling or palpitations. GASTROINTESTINAL: Negative for abdominal discomfort, blood in stools or black stools or change in bowel habits GENITOURINARY: No history of dysuria, frequency or incontinence MUSKULOSKELETAL: Negative for joint pain or swelling, back pain or muscle pain. SKIN:Negative for lesions, rash, and itching. HEMATOLOGIC/LYMPHATIC/IMMUNOLOGI C:Negative for prolonged bleeding, bruising easily or swollen nodes. ENDOCRINE: Negative for cold or heat intolerance, polyuria, polydipsia NEUROLOGIC:See HPI PHYSICAL EXAMINATION: BP 132/88 Pulse 92 Resp 18 Wt 79.4 kg (175 lb) LMP 01/08/2018 SpO2 99% BMI 30.51 kg/m General: well appearing, in no acute distress, alert, HEENT: Normocephalic/atraumatic., Skin: Color, texture, turgor normal. No rashes or lesions, Lungs: breathing comfortably, Neurological Examination: Cognition: The patient is alert and oriented times three Lucid and organized in conversation Able to tell detailed medical hx Speech is Normal in fluency volume and clarity Content and Syntax: Normal Comprehension: Normal, able to follow several step commands Cranial Nerves: Pupils are equal and reactive to light. Pupils normal in size Extraocular movements are grossly intact Good saccades and pursuits No nystagmus Hearing intact Good upgaze Visual santiago are full to confrontation. Facial, motor and sensory exam is symmetric Equal v1,V2, V3 Tongue is in midline. No tongue fasciculation. Palate is upgoing bilaterally SCM and trapezius are full. Shoulder shrug intact Normal tone and strength. Normal coordination. DTRs are intact and symmetric bilaterally. Normal gait. Sensory exam normal to pinprick, temperature, vibration Impression: Migraine: 1.1 Migraine without aura Patient with significant improvement in her dizziness and headaches after titrating up to Cymbalta 60 mg. Does note that it seems to wear off after 3 weeks every month, unclear etiology as to this. Discussed that it is unlikely that this is the medication or some sort of metabolism issue as patient suspected, suspect this may be some sort of hormonal issue or external trigger. Patient also taking Imitrex as needed for headache, but states that she does not want a waste it so she waits until the headache has progressed and is severe. Patient has not yet been on Cymbalta for 3 months, discussed continue this medication for at least 3 months and reassessing. Discussed that because this was so beneficial for her dizziness, may add an additional medication onto her current regiment, considering gabapentin as many of her headaches start in the neck. Also discussed Botox and injectables, patient would like to hold off on this for now. Regarding abortive therapy, discussed that it is important to take with the onset of headache, patient agrees understands, when she does take it she does not get full benefit and will increase to 100 mg. Patient also endorsing some lightheadedness, notes history of severe low blood pressure in the past, chronic for many years. Lightheadedness comes on with laughing, long periods of standing, and occasionally with quick position changes. Will obtain tilt table test to evaluate for any orthostatic hypotension or delayed orthostatic hypertension. Recent MRA of the head and neck was without any signs of occlusion or stenosis. Instructed patient to continue with water intake, increase salt, wear compression, as well as have slow transitions from sitting to standing. No history of diabetes, no signs of neuropathy on exam. Patient agrees and understands. Discussed red flag signs and symptoms that would warrant emergent evaluation emergency department, patient agrees and understands. Patient to follow-up in 3 months or sooner should any symptoms change or worsen. Patient agreeable to treatment plan of care at this time, questions were answered. Plan: All options for treatment discussed. Preventative: Cymbalta 60 mg Abortive: Imitrex 100 mg Follow-up: 3 months I spent a total of 45 minutes on the date of the service which included preparing to see the patient, [id number] patient care, completing clinical documentation, obtaining and/or reviewing separately obtained history, performing a medically appropriate examination, counseling and educating the patient/family/caregiver, and ordering medications, tests, or procedures. Luba Monroe PA-C General Neurology [address] [place] [address]. [id number] Appointment: [phone] documented in this encounter [facility] 07-20-2022 Miscellaneous Notes Spoke with the patient and scheduled an appointment with the provider. Will offer appointment to pt for next week to discuss. Isadora Wharton LPN Please see other TC dated 07-19-22. Isadora Wharton LPN documented in this encounter [facility] 06-03-2022 Miscellaneous Notes [facility] returned call and provided fax [phone]. OV notes faxed as requested and patient notified through . ELISA Gardner TC to [facility] to get fax number to send OV notes. Left VM to return call. Will wait for return call. ELISA Gardner documented in this encounter [facility] 06-02-2022 Miscellaneous Notes Orders sent to [facility] per patients request. Steph Stallworth LPN documented in this encounter [facility] 06-01-2022 Miscellaneous Notes [employer] message sent to pt regarding questions about tests. Vestibular test order sent to [facility]. Isadora Wharton LPN documented in this encounter [facility] 05-31-2022 Note HNO ID: [id number] Author: Luba Monroe PA-C Service: ? Author Type: Physician Risk Control Product Liability Director Type: Progress Notes Filed: 05/31/2022 12:50 PM Note Text: ESTABLISHED PATIENT VISIT Last visit: 05/18/22 Assessment AND Plan: Chacha Contreras is a 51 year old right-handed female with a history of esophagitis. Her examination demonstrates rightward nystagmus on exam, negative hints exam. Tenderness to the bilateral paraspinals, tenderness to the bilateral trapezius muscles. Patient diaphoretic on exam, no fever appreciated, patient notes that she is having a hot flash. Patient with over 1 month of lightheadedness/dizziness, difficult to describe. History of vertigo in the past, unlike this. Chronic history of migraines, headaches have worsened and are approximately presents with lightheaded exacerbations 50% of the time. Also associated with nausea. Triggers for exacerbations are similar to migrainous triggers including bright lights, weather changes, not sleeping enough, etc. MRI of the brain without any intracranial abnormality, MRA of the head and neck without any vascular etiology of patient's symptoms. Patient has been evaluated by ENT, was not believed to be an inner ear issue. Patient did have audiology testing, per patient this was normal. Patient did not receive any vestibular battery testing, will send referral for this testing to identify if in fact her symptoms are secondary to a central versus peripheral cause. At this time, patient is likely experiencing vestibular migraines. She has been on Topamax for 2 weeks, but only 25 mg, will increase this dose by taper up to 100 mg. Instructions of this taper as well as common side effects were discussed with patient and . Patient without any history of kidney stones, glaucoma. Additionally, discussed using supplements to both decrease headaches and vestibular symptoms, including magnesium, B2, co-Q10. Discussed common side effects of the supplements, patient and agree and understand this. Discussed abortive therapies including Benadryl, meclizine and patient will try this. Did discuss the use of benzodiazepines, patient deferred this at this time because she does not want to be too fatigued to work. Patient also with some nausea, no history of heart rhythm abnormality, will prescribe Zofran to take as needed for nausea. Additionally, patient with increase in her migraine headaches, headaches stemming from the neck and radiating forward. Patient notes some musculoskeletal pain, will refer to physical therapy for further management of this. Discussed red flag signs and symptoms that would warrant emergent evaluation in the emergency department, patient agrees and understands this. Patient and agreeable to treatment plan of care at this time, all questions have been answered. Patient to follow-up in 3 months or sooner should any symptoms change or worsen. CHIEF COMPLAINT: follow up HISTORY OF PRESENT ILLNESS: Chacha Contreras is a 51 year old female, There were no vitals taken for this visit. with a PMH significant for esophagitis. Patient presents for follow-up, last seen in the office 05-20-2022. Patient with history and presentation consistent with vestibular migraines. She was started on Topamax at last visit, but did not tolerate this well and had significant side effects. Notes that she has had almost daily episodes of severe dizziness, motion sickness with occasional headaches. She has not yet had vestibular battery testing, ordered at last appointment. Has been going to physical therapy, notes that she is going Monday. Patient denies any new symptoms, otherwise doing well. Does need her FMLA paperwork filled out, unsure of how many days she needs. Patient does note history of constipation, does have low blood pressure. Past therapies: Topiramate- brain fog REVIEW OF SYSTEMS GENERAL:No weight loss, malaise or fevers. HEENT:Negative for frequent or significant headaches, No changes in hearing or vision, no nose bleeds or other nasal problems NECK:Negative for lumps, goiter, pain and significant neck swelling RESPIRATORY: Negative for cough, wheezing or shortness of breath. CARDIOVASCULAR: Negative for chest pain, leg swelling or palpitations. GASTROINTESTINAL: Negative for abdominal discomfort, blood in stools or black stools or change in bowel habits GENITOURINARY: No history of dysuria, frequency or incontinence MUSCULOSKELETAL: Negative for joint pain or swelling, back pain or muscle pain. NEUROLOGIC:Negative for focal numbness or weakness, headaches and dizziness or syncope, vision changes, speech/languag changes - EXCEPT that as per HPI above. SKIN:Negative for lesions, rash, and itching. PSYCHIATRIC: Negative for sleep disturbance, mood disorder and recent psychosocial stressors. HEMATOLOGIC/LYMPHATIC/IMMUNOLOGI C:Negative for prolonged bleeding, bruising easily or sw (more content not included)... [facility] 05-31-2022 Instructions Luba Monroe PA-C - 05/31/2022 10:54 AM EDT Preventative: Start Cymbalta 30 mg daily for 4 weeks then 60 mg daily, common side effects that may occur are nausea, sleepiness, headache, and sometimes paradoxically depression. Abortive: Sumatriptan 50mg take with the start of your symptoms (can take up to two pills in one day, no more than 10 doses in a month) Vestibular battery testing Follow up in 3 months documented in this encounter [facility] 05-31-2022 History of Presen t illness Narrative ESTABLISHED PATIENT VISIT Last visit: 05/18/22 Assessment & Plan: Chacha Contreras is a 51 year old right-handed female with a history of esophagitis. Her examination demonstrates rightward nystagmus on exam, negative hints exam. Tenderness to the bilateral paraspinals, tenderness to the bilateral trapezius muscles. Patient diaphoretic on exam, no fever appreciated, patient notes that she is having a hot flash. Patient with over 1 month of lightheadedness/dizziness, difficult to describe. History of vertigo in the past, unlike this. Chronic history of migraines, headaches have worsened and are approximately presents with lightheaded exacerbations 50% of the time. Also associated with nausea. Triggers for exacerbations are similar to migrainous triggers including bright lights, weather changes, not sleeping enough, etc. MRI of the brain without any intracranial abnormality, MRA of the head and neck without any vascular etiology of patient's symptoms. Patient has been evaluated by ENT, was not believed to be an inner ear issue. Patient did have audiology testing, per patient this was normal. Patient did not receive any vestibular battery testing, will send referral for this testing to identify if in fact her symptoms are secondary to a central versus peripheral cause. At this time, patient is likely experiencing vestibular migraines. She has been on Topamax for 2 weeks, but only 25 mg, will increase this dose by taper up to 100 mg. Instructions of this taper as well as common side effects were discussed with patient and . Patient without any history of kidney stones, glaucoma. Additionally, discussed using supplements to both decrease headaches and vestibular symptoms, including magnesium, B2, co-Q10. Discussed common side effects of the supplements, patient and agree and understand this. Discussed abortive therapies including Benadryl, meclizine and patient will try this. Did discuss the use of benzodiazepines, patient deferred this at this time because she does not want to be too fatigued to work. Patient also with some nausea, no history of heart rhythm abnormality, will prescribe Zofran to take as needed for nausea. Additionally, patient with increase in her migraine headaches, headaches stemming from the neck and radiating forward. Patient notes some musculoskeletal pain, will refer to physical therapy for further management of this. Discussed red flag signs and symptoms that would warrant emergent evaluation in the emergency department, patient agrees and understands this. Patient and agreeable to treatment plan of care at this time, all questions have been answered. Patient to follow-up in 3 months or sooner should any symptoms change or worsen. CHIEF COMPLAINT: follow up HISTORY OF PRESENT ILLNESS: Chacha Contreras is a 51 year old female, There were no vitals taken for this visit. with a PMH significant for esophagitis. Patient presents for follow-up, last seen in the office 05-20-2022. Patient with history and presentation consistent with vestibular migraines. She was started on Topamax at last visit, but did not tolerate this well and had significant side effects. Notes that she has had almost daily episodes of severe dizziness, motion sickness with occasional headaches. She has not yet had vestibular battery testing, ordered at last appointment. Has been going to physical therapy, notes that she is going Monday. Patient denies any new symptoms, otherwise doing well. Does need her FMLA paperwork filled out, unsure of how many days she needs. Patient does note history of constipation, does have low blood pressure. Past therapies: Topiramate- brain fog REVIEW OF SYSTEMS GENERAL:No weight loss, malaise or fevers. HEENT:Negative for frequent or significant headaches, No changes in hearing or vision, no nose bleeds or other nasal problems NECK:Negative for lumps, goiter, pain and significant neck swelling RESPIRATORY: Negative for cough, wheezing or shortness of breath. CARDIOVASCULAR: Negative for chest pain, leg swelling or palpitations. GASTROINTESTINAL: Negative for abdominal discomfort, blood in stools or black stools or change in bowel habits GENITOURINARY: No history of dysuria, frequency or incontinence MUSCULOSKELETAL: Negative for joint pain or swelling, back pain or muscle pain. NEUROLOGIC:Negative for focal numbness or weakness, headaches and dizziness or syncope, vision changes, speech/languag changes - EXCEPT that as per HPI above. SKIN:Negative for lesions, rash, and itching. PSYCHIATRIC: Negative for sleep disturbance, mood disorder and recent psychosocial stressors. HEMATOLOGIC/LYMPHATIC/IMMUNOLOGI C:Negative for prolonged bleeding, bruising easily or swollen nodes. ENDOCRINE: Negative for cold or heat intolerance, polyuria, polydipsia and goiter. The remainder of the ROS was reviewed and is negative. LAB/IMAGING: Those performed since patient's last visit have been reviewed. None since last visit MEDICATIONS: ondansetron (ZOFRAN) 8 mg tablet Take 1 tablet by mouth once daily as needed for nausea/vomiting (for nausea.). loratadine (CLARITIN) 10 mg tablet Take 10 mg by mouth as needed. SUMAtriptan (IMITREX) 50 mg tablet Take 1 tablet by mouth as needed. at onset of headache. May repeat after 2 hours. DULoxetine (CYMBALTA) 30 mg capsule Take 1 capsule by mouth once daily. DULoxetine (CYMBALTA) 60 mg capsule Take 1 capsule by mouth once daily. topiramate (TOPAMAX) 25 mg tablet Take 25 mg by mouth once daily. (Patient not taking: Reported on 05/31/2022) topiramate (TOPAMAX) 25 mg tablet 25 mg(1 tab) at bed x 2 wks, then 50 mg at bed(2 tabs) x 2 wks, then 75 mg at bed(3 tabs) x 2 wks (Patient not taking: Reported on 05/31/2022) topiramate (TOPAMAX) 100 mg tablet Take 1 tablet by mouth daily at bedtime. (Patient not taking: Reported on 05/31/2022) budesonide (PULMICORT) 0.5 mg/2 mL nebulizer solution (Patient not taking: Reported on 05/18/2022) Mirtazapine (REMERON) 7.5 mg tablet HISTORIES PAST MEDICAL HISTORY Diagnosis Date Abdominal pain, left upper quadrant Duodenitis without mention of hemorrhage Esophagitis, unspecified Fibroids Hypertension Irregular menstrual bleeding Menopausal and postmenopausal disorder Menopause Other malaise and fatigue fibramyalgia FAMILY HISTORY Problem Relation Age of Onset Hyperlipidemia Mother Stroke Maternal Grandmother Hyperlipidemia Maternal Grandmother other (Heart disease) Maternal Grandmother other (Cancer - other) Maternal Grandmother Hypertension Maternal Grandfather Cancer Paternal Grandfather BONE No Known Problems Daughter No Known Problems Son SOCIAL HISTORY Social History Tobacco Use Smoking status: Never Smokeless tobacco: Never Vaping Use Vaping Use: Never used Substance Use Topics Alcohol use: No Comment: Non-drinker Drug use: No PHYSICAL EXAMINATION BP 113/82 Pulse 93 Temp 36.8 C (98.3 F) Resp 18 Wt 81.4 kg (179 lb 6.4 oz) LMP 01/08/2018 SpO2 99% BMI 31.28 kg/m GENERAL EXAM: General appearance: NAD, pleasant. HEENT: NC/AT, nasal congestion absent, no oral lesions, membranes moist. NECK: No masses, supple. Lungs: Breathing comfortably Extr: Moves all extremities without difficulty Skin: Cool to touch. No rash. NEUROLOGICAL EXAM: General: Awake, alert, oriented x3 (person,place,time), speech fluent, no dysarthria; comprehension, naming, repetition intact. Short and half-way memory intact. CN: PERRL, EOMI and with 3-4 beat nystagmus with rightward gaze, VFF to confrontation, facial sensation and strength are normal and symmetric, hearing is intact to finger rub bilaterally, palate and tongue movements are intact and symmetric. SCM and trapezius strength normal. Motor: Normal tone, bulk and strength (5/5) bilaterally (throughout extremities x4). Reflexes: 2/4 and symmetric Coordination: FNF intact. No tremors. Sensation: LT No evidence of neglect. Gait: Narrow based and stable with normal stride and arm swing. Difficulty with tandem, leaned to left. Romberg normal. Assessment and Plan: ASSESSMENT/PLAN: 1. Vestibular migraine - ICD9: 346.80, ICD10: G43.809 (primary diagnosis) 2. Chronic migraine without aura without status migrainosus, not intractable - ICD9: 346.70, ICD10: G43.709 Patient with persistent vestibular migraines. At last appointment, started Topamax, but patient did not tolerate this well and had severe brain fog. She stopped this medication, also tried meclizine and Benadryl for abortive therapies for her symptoms. These abortive therapies were not effective. At this time, discussed other preventatives including SSRIs, TCAs, beta-blockers and patient states that she does have history of constipation and would like to refrain from dribbling, does have history of low blood pressure and would like to refrain from beta-blockers. We will try Cymbalta taper to 60 mg for preventative measures for her vestibular migraines. Regarding abortive therapy, patient without any history of stroke or heart attack, does not smoke and is not on estrogen therapy. We will start sumatriptan 50 mg for abortive therapy, discussed common side effects, discussed taking this with onset of symptoms and to not take more than 10 doses in a month. Patient acknowledges and understands these instructions and side effects. Previous imaging reassuring, no new red flag signs or symptoms to warrant further imaging at this time. Red flag signs and symptoms that would warrant emergent evaluation emergency department were discussed, patient agrees and understands. Patient follow-up in 2 months or sooner should any symptoms change or worsen. We will fill out [facility] paperwork. Luba Monroe PA-C I spent a total of 30 minutes on the date of the service which included preparing to see the patient, [id number] patient care, completing clinical documentation, obtaining and/or reviewing separately obtained history, performing a medically appropriate examination, counseling and educating the patient/family/caregiver, and ordering medications, tests, or procedures. This document has been created with the use of voice recognition technology. It may contain inaccuracies: (e.g. misspellings, inaccurate syntax or word sense) that have escaped review. documented in this encounter [facility] 05-25-2022 Miscellaneous Notes Brain fog is a common side effect of topiramate, patient can stop this medication if not tolerated and we can discuss other medication options at follow up appointment. Thank you. TC back to patient who verbalizes understanding and will stop taking the Topamax. Pt now scheduled for OV with provider in soonest available appointment. ELISA Gardner TC to patient to give providers message below: Please call patient and have her schedule a follow up with me if she would like to discuss other treatment options. If she is not tolerating the topiramate, she can stop this medication. If she is taking anything over 25mg, she will need to taper geo n by 25mg a week. Thank you. Patient states she is currently taking 25 mg. She was instructed to take 25 mg for two weeks and then slowly move up to 100 mg. Patient is asking if as she is on the medication longer and takes larger doses will the brain fog dissipate. If so, she would like to try staying on the medication. However if this is not the case, she would like to try other options. Please advise. Thank you. ELISA Gardner Please call patient and let her know the supplements and topiramate will take 4-6 weeks to work, topiramate can also cause brain fog. If she has any new symptoms associated with her headache or worst headache of her life she should go to the emergenc y department. Thank you. Luba Monroe PA-C Pt called and is notified of providers message and instructions. Pt voices understanding. She wanted to know if there is anything else she could add or if the brain fog will decrease. She was asking if there was anything else to switched to that would decrease the nausea and brain fog. She was also asking if this goes beyond FMLA is there anything the provider could do or write, so she wouldn't lose her job. Please call and advise. Bailey Díaz RN Pt called in and reports she was diagnosed with vestibular migraines. She states she has started all the medications and supplements the provider told her to and she feels not different.She reports she started the Magnesium , started the Tramadol and another med Monday. She states she still feels nauseous and has the headache. She states she hasn't oneyda to work last week or this week. Now she has brain fog as well. She says she has tried taking Dramamine. She is asking if she needs to give it more time, or what else she should do, but she feels like she should be able to be getting back to work by now. Please call and advise. documented in this encounter [facility] 05-20-2022 Miscellaneous Notes Received disc in office for transfer of images to chart 05/20/22. Will forward via blue envelope to [facility] radiology ATTN: Kacie. Please send back to patient's home by mail. Isadora Wharton LPN documented in this encounter [facility] 05-18-2022 Note HNO ID: [id number] Author: Luba Monroe PA-C Service: ? Author Type: Physician Risk Control Product Liability Director Type: Progress Notes Filed: 05/18/2022 12:45 PM Note Text: Neurology Outpatient Clinic Date: May 18, 2022 Patient Name: Chacha Contreras Referring provider: Demi Ortiz NP [address] [place] [address] Consult requested for dizziness by Demi Ortiz CNP. Recommendations will be communicated via shared medical record or US mail. Primary provider: Demi Ortiz NP [address] [place] [address] Reason for Evaluation: Dizziness Subjective HPI Chacha Contreras is a 51 year old right-handed female with history of esophagitis who presents for evaluation of dizziness. Demi Ortiz NP, [employer] SAL[employer] LEAD[employer] WATCHSTANDER is the PCP and referring provider. Chart review: Patient with chronic dizziness, treated with vestibular therapy, no relief. Recently started on Topiramate 25mg. Patient presents for evaluation of dizziness onset April 09 2022. This has been continuous, will fluctuate in nature. She describes the sensation as an unsteadiness, lightheadedness however with no presyncope, syncope. She notes that she had vertigo in June 2021, did experience room spinning with that, but this quickly resolved and she has not had recurrence with this. Fall this sensation has been continuous, she will get exacerbations with moving her head, mostly to the left, driving, lights, flashing lights, and weather changes. She notes that she may have worsening of her dizziness/lightheadedness with exertion, but it is not brought on with any Valsalva. Associated with the symptoms she has increased fatigue, increase in her migraines, fullness around the ears but denies any outright ear pain. These exacerbations can last anywhere from a few minutes to many hours. She was started on Topamax by her primary care, but only tried 25 mg, did not notice any improvement, however was only trying this for a few weeks. She has also tried Dramamine, but notes that it makes her too fatigued. Has tried Benadryl without any improvement as well as meclizine. She has tried a benzodiazepine, and while this worked, it made her too fatigued and unable to work. Through primary care, she has had audiology testing, this was normal. She saw ENT 3 weeks ago, no diagnosis was made and was told that it was not due to her inner ear. She has been through vestibular therapy, with no improvement in her symptoms. Patient does note some occasional blurred vision, did have a dilated exam without any abnormalities visualized. Patient denies any double vision, vision loss, hearing changes. Patient reports a history of migraine headaches in the past, would typically get these once a week and will resolve with Excedrin Migraine. Now she notes she gets headaches every few days with associated photophobia, phonophobia, nausea. The headache typically starts from the neck and radiates across the head, typically on the right side. These headaches can last half hour to many hours. Not brought on by Valsalva, not brought on with exertion, not positional. They are similar to previous migraines, however they have just increased in occurrence. She has never been on any preventative in the past for her headaches. Patient does note some associated neck pain, worse with her headaches. 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 Patient drinks 60 ounces of water a day, drinks less than 8 ounces of coffee in a day. Denies any substance use, no alcohol use. Do you have to be up to have the dizziness or can you have the dizziness when seated or lying down? Any position Do you feel like things are moving in when you know they are actually still? Maybe slightly Do you have otalgia? no Do you have tinnitus? Yes, chronic Do you get dizzy turning your head? Not always Do you have trouble with dizziness getting up from a chair or from a seat? Not consistently Have you had falls? no Is there any vision change with the dizziness? EYEs check Monday- adjusting glasses, does feel blurry occasionally, no other associated symptoms Do you have headache associated with the dizziness? Yes, not always Have you had hearing loss with your dizziness: no Onset with valsalva: no (canal dehiscence), may be with exertion Worse in crowds, end of day or standing: no Nausea: not always associated but does have new nausea Labs/Imaging (only interpretations not imaging) MRI brain W and WO 05/10/22 Normal other than mastoid effusions noted MRA brain and carotid W and WO 05/10/22 Normal Medications: Current Outpatient Medications Medication Sig Dispense Refill loratadine (CLARITIN) 10 mg tablet Take 10 mg by mouth as needed. topiramate (TOPAMAX) 25 mg tablet Take 25 mg by mouth once daily. topiramate (TOPAMAX) 25 mg tab (more content not included)... [facility] 05-18-2022 Instructions Luba Monroe PA-C - 05/18/2022 10:15 AM EST Preventative: Topiramate taper noted below Topamax Dosing Schedule Take at bedtime Increase dose every 2 weeks until goal dose of 100 mg Stop at any dose that reasonably treats headache Week 1-2: 25 mg each evening (1 tab) Week 3-4: 50 mg each evening (2 tabs) Week 5-6: 75 mg each evening (3 tabs) SNAKER NEW SCRIPT 100 mg each evening (1 tab) Potential side effects: numbness and tingling, kidney stones (calcium phosphate) word finding difficulties and other cognitive side effects, loss off appetite, change in taste with sodas or reversible glaucoma. . If you develop numbness and tinglng , buy Potassium 99 mg over the counter and use 1 or 2 /day. Abortive: Benadryl as needed. Zofran 8mg as needed for nausea Vestibular battery testing Get disc of MRI and MRA and send to neurology Physical therapy for neck pain Follow up in three months Headache Preventive Treatment: Please keep in mind that it takes 4-6 weeks for the medication to start working well and 2-3 months at the appropriate dose before deciding if it will be useful or not. If it is not helping at all by this time, then we will discuss other medications to try. Supplements may take 3-6 months until you see full effect. Natural supplements: Magnesium Oxide 500 mg at bed Coenzyme Q10 300 mg in AM Vitamin B2- 200 mg twice a day Feverfew 50 mg twice a day Vitamins and herbs that show potential Magnesium: Magnesium (250 mg twice a day or 500 mg at bed) has a relaxant effect on smooth muscles such as blood vessels. Individuals suffering from frequent or daily headache usually have low magnesium levels which can be increase with daily supplementation of 400-750 mg. Three trials found 40-90% average headache reduction when used as a preventative. Magnesium also demonstrated the benefit in menstrually related migraine. Magnesium is part of the messenger system in the serotonin cascade and it is a good muscle relaxant. It is also useful for constipation which can be a side effect of other medications used to treat migraine. Good sources include nuts, whole grains, and tomatoes. Magnesium comes in many different forms: Magnesium glycinate is a good choice for those with a sensitive stomach who have gastrointestinal side effects such as diarrhea with other forms of magnesium. It is anecdotally also helpful with anxiety and sleep. Magnesium threonate also has low risk of gastrointestinal side effects and anecdotally helpful with cognitive function and brain fog symptoms. Magnesium malate has low gastrointestinal side effects and is reportedly more energizing and anecdotally often helpful in fibromyalgia and chronic fatigue syndrome. Magnesium citrate is one of the most studied, popular, and well-absorbed forms of magnesium. It can also be mixed easily with liquids if you can't take pills. However, it comes with a higher risk of diarrhea and gastrointestinal side effects, although this could be helpful for those with constipation. Magnesium oxide is also well studied, cheap, and often used for heartburn and indigestion. However, it is not well absorbed and can have some laxative side effects as well, so can also be helpful for constipation. Riboflavin (vitamin B 2) 200 mg twice a day. This vitamin assists nerve cells in the production of ATP a principal energy storing molecule. It is necessary for many chemical reactions in the body. There have been at least 3 clinical trials of riboflavin using 400 mg per day all of which suggested that migraine frequency can be decreased. All 3 trials showed significant improvement in over half of migraine sufferers. The supplement is found in bread, cereal, milk, meat, and poultry. Most Americans get more riboflavin than the recommended daily allowance, however riboflavin deficiency is not necessary for the supplements to help prevent headache. Feverfew: Feverfew is a common garden herb [place] to [place] and popular in [place] as a treatment for disorders typically controlled by aspirin. The mechanism of action is unknown but is believed to be related to a chemical called parthenolide which helps the body use serotonin more effectively. Serotonin helps prevent migraine and assists with resolution when it occurs. Parthenolide also inhibits the release of histamine which is linked to pain and inflammation. Consistency of active ingredients in different products can be a problem. Some formulations don't have the active ingredient (parthenolide) that prevents migraine. A parthenolide content of 0.2% is generally recommended. Typical dosage is one capsule 3 times a day. Coenzyme Q10: This is present in almost all cells in the body and is critical component for the conversion of energy. Recent studies have shown that a nutritional supplement of CoQ10 can reduce the frequency of migraine attacks by improving the energy production of cells as with riboflavin. Doses of 150 mg twice a day have been shown to be effective. Melatonin: Increasing evidence shows correlation between melatonin secretion and headache conditions. Melatonin supplementation has decreased headache intensity and duration. It is widely used as a sleep aid. Sleep is natures way of dealing with migraine. A dose of 3 mg is recommended to start for headaches including cluster headache. Higher doses up to 15 mg has been reviewed for use in Cluster headache and have been used. The rationale behind using melatonin for cluster is that many theories regarding the cause of Cluster headache center around the disruption of the normal circadian rhythm in the brain. This helps restore the normal circadian rhythm. Yaw: Yaw has a small amount of antihistamine and anti-inflammatory action which may help headache. It is primarily used for nausea and may aid in the absorption of other medications. HEADACHE DIET: Foods and beverages which may trigger migraine Note that only 20% of headache patients are food sensitive. You will know if you are food sensitive if you get a headache consistently 20 minutes to 2 hours after eating a certain food. Only cut out a food if it causes headaches, otherwise you might remove foods you enjoy! What matters most for diet is to eat a well balanced healthy diet full of vegetables and low fat protein, and to not miss meals. Chocolate, other sweets ALL cheeses except cottage and cream cheese Dairy products, yogurt, sour cream, ice cream Liver Meat extracts (Bovril, Marmite, meat tenderizers) Meats or fish which have undergone aging, fermenting, pickling or smoking. These include: Hotdogs,salami,Lox,sausage, mortadellas,smoked salmon, pepperoni, Pickled wong Pods of broad kiran ([place] Helenian beans, Serbian pea pods, Yi (rebeka) beans, yang and navy beans Ripe avocado, ripe banana Yeast extracts or active yeast preparations such as Walker's or Teddy's (commercial bakes goods are permitted) Tomato based foods, pizza (lasagna, etc.) MSG (monosodium glutamate) is disguised as many things; look for these common aliases: Monopotassium glutamate Autolysed yeast Hydrolysed protein Sodium caseinate flavorings all natural preservatives Nutrasweet Avoid all other foods that convincingly provoke headaches. Headache Prevention Strategies: 1. Maintain a headache diary; learn to identify and avoid triggers. Common triggers include: Emotional triggers: Emotional/Upset family or friends Emotional/Upset occupation Business reversal/success Anticipation anxiety Crisis-serious Post-crisis periodNew job/position Physical triggers: Vacation Day Weekend Strenuous Exercise High Altitude Location New Move Menstrual Day Physical Illness Oversleep/Not enough sleep Weather changes Light: Photophobia or light sesnitivity treatment involves a balance between desensitization and reduction in overly strong input. Use dark polarized glasses outside, but not inside. Avoid bright or fluorescent light, but do not dim environment to the point that going into a normally lit room hurts. Consider FL-41 tint lenses, which reduce the most irritating wavelengths without blocking too much light. These can be obtained at [employer] or [employer]: see list above. 2. Limit use of acute treatments (zqjt-vye-reorjkj medications, triptans, etc.) to no more than 2 days per week or 10 days per month to prevent medication overuse headache (rebound headache). 3. Follow a regular schedule (including weekends and holidays): Don't skip meals. Eat a balanced diet. 8 hours of sleep nightly. Minimize stress. Exercise 30 minutes per day. Being overweight is associated with a 5 times increased risk of chronic migraine. Keep well hydrated and drink 6-8 glasses of water per day. 4. Initiate non-pharmacologic measures at the earliest onset of your headache. Rest and quiet environment. Relax and reduce stress. [id number] is a free ke that can instruct you on some simple relaxtion and breathing techniques. Http://[employer].Zulu is a free website that provides teaching videos on relaxation. Also, there are many apps that can be downloaded for mindful relaxation. An ke called YOGA NIDRA will help walk you through mindfulness. Cold compresses. 5. Don't wait!! Take the maximum allowable dosage of prescribed medication at the first sign of migraine. 6. Compliance: Take prescribed medication regularly as directed and at the first sign of a migraine. 7. Communicate: Call your physician when problems arise, especially if your headaches change, increase in frequency/severity, or become associated with neurological symptoms (weakness, numbness, slurred speech, etc.). 8. Headache/pain management therapies: Consider various complementary methods, including medication, behavioral therapy, psychological counselling, biofeedback, massage therapy, acupuncture, dry needling, and other modalities. Such measures may reduce the need for medications. Counseling for pain management, where patients learn to function and ignore/minimize their pain, seems to work very well. 9. Recommend changing family's attention and focus away from patient's headaches. Instead, emphasize daily activities. If first question of day is 'How are your headaches/Do you have a headache today?', then patient will constantly think about headaches, thus making them worse. Goal is to re-direct attention away from headaches, toward daily activities and other distractions. 10. Helpful Websites: www.AmericanHeadacheSociety.org www.migrainetrust.org www.headaches.org www.migraine.org.uk www.achenet.org 11. HEADACHE EXPECTATIONS: There are many types of headaches, and only a rare few in which complete relief can be expected. In general, there is no cure for headache, especially migraine based headaches. There is nothing available that completely prevents headaches from occurring, breaking through, or having periodic flare-ups and fluctuations. Regardless of what you are using on a daily basis for prevention, episodic headaches should still be expected, and periods where frequency may escalate and fluctuate are unavoidable. There is no quick fix for most headaches. Furthermore, the longer you have had high frequency headaches (such as chronic daily headache), the longer it will likely take to expect any improvement. In fact, some people will never improve, regardless of how many medications or other treatments we try. Our treatment strategy is to evaluate for possible causes of your headache, although testing is usually always normal, even in cases of daily continuous headaches for years. Most types of headache such as migraine are electrical brain disorders (similar to how epilepsy is an electrical brain disorders). Therefore, there is no testing that will reveal this dysfunctional electrical circuitry such on MRI, or other testing. We try to find a medication that may help lessen the frequency and/or severity of your headaches. The goal is not to completely stop them from happening, although if that happens, great! Different people respond to different medications, and some people just don't respond to anything, so it's usually a matter of trying different options. We can not predict if or when exactly you will respond to a treatment that we provide. Preventive headache medications take 4-6 weeks to start working, and 2-3 months to see full effect, assuming you reach an effective dose. Therefore, calling or messaging frequently because you have a headache flare prior to the 3 month jamin is unlikely to change anything, and unfortunately there is nothing available that will expedite this, so please try to avoid this. Our recommendation will generally be to give it adequate time first. If you are unable to wait it out for medications to work, we can also try IV infusions for some temporary relief. O In general, the best that preventive medications or other treatments (including Botox) are able to offer in migraine management (variable in other headache types) is a 50% improvement in frequency and/or severity of headache. That is our goal, and any additional benefit is considered a bonus. Some people do significantly better than this, others do not get close to this. Therefore, if your headaches are not improving by at least 3 months on your preventive strategy, contact us and we can discuss further adjustments. Keep in mind that complete headache cure is not a realistic expectation. Our Team: The nursing staff, and medical assistants are a major part of YOUR TREATMENT TEAM and will be handling your phone calls, 3dplusme Messages and inquiries, if any. Unless explicitly told otherwise at the time of your office visit, your study results and ensuing treatment plans will be released via 3dplusme and discussed during your follow-up appointment. Faraday Bicycleshart: Please ask the schedulers to give you an activation code. The main way of communication is by [employer] rather than phone lines, so if you have not signed up, please do so. Faraday Bicycleshart is also the way that you can review your labs and testing. We are not able to contact everyone to tell them results are normal. If you do not hear back from us regarding testing you have had, it should be considered normal or within normal range. If you have any questions about the results, you are free to message us. [employer]hart is meant for simple questions regarding medications, possible side effects, or other simple straight forward questions in limited sentences, rather than multiple paragraphs of discussion. [employer] is not meant for, or efficient for these complex questions, extensive questions, extensive medication adjustments, complex new symptoms or concerns. These issues beyond simple questions require a follow up visit with myself, one of our physician assistants, nurse practitioners, or a Virtual Visit via computer or smart phone, as detailed further down. Refills: Please pay attention to when your refills will need to be renewed. Due to the volume of phone calls daily, this could potentially take a few days, although we certainly try to honor your refill requests as soon as we can. You should call at least 1 week in advance of needing a refill to ensure you do not run out of medication. Keep in mind that refill requests on Fridays may not be filled until the following week. In regards to blood work, testing, and radiology reports these are released automatically to the patients. We do not comment on most testing on [employer] in a message or commentary unless there is a concern. You will not receive a message from me of the result unless there is a specific concern of the result I need you to address further in care with us or your primary medical team. Make sure to check your my chart email or ke. As an international referral center for syncope, autonomic dysfunction, general neurology, headache care, neuromuscular disease, and other related conditions, seeing patients from across the world, we do not have the resource of time or staffing to address inquiries for accommodations. As such, we do not provide or complete requests for work accommodations, FMLA, disability, or other such forms. We recommend seeking guidance through your primary care provider for these requests. We are happy to provide our office notes from your visits and other tests or evaluations performed through our clinic, which can be made available upon request to assist you with this process. documented in this encounter [facility] 05-18-2022 History of Presen t illness Narrative Images from the original note were not included. Neurology Outpatient Clinic Date: May 18, 2022 Patient Name: Chacha Contreras Referring provider: Demi Ortiz NP [address] [facility] [id number] Consult requested for dizziness by Demi Ortiz CNP. Recommendations will be communicated via shared medical record or US mail. Primary provider: Demi Ortiz NP [address] [place] [address] Reason for Evaluation: Dizziness Subjective HPI Chacha Contreras is a 51 year old right-handed female with history of esophagitis who presents for evaluation of dizziness. Demi Ortiz NP, [employer] SALES LEADER.ROSIO is the PCP and referring provider. Chart review: Patient with chronic dizziness, treated with vestibular therapy, no relief. Recently started on Topiramate 25mg. Patient presents for evaluation of dizziness onset April 09 2022. This has been continuous, will fluctuate in nature. She describes the sensation as an unsteadiness, lightheadedness however with no presyncope, syncope. She notes that she had vertigo in June 2021, did experience room spinning with that, but this quickly resolved and she has not had recurrence with this. Fall this sensation has been continuous, she will get exacerbations with moving her head, mostly to the left, driving, lights, flashing lights, and weather changes. She notes that she may have worsening of her dizziness/lightheadedness with exertion, but it is not brought on with any Valsalva. Associated with the symptoms she has increased fatigue, increase in her migraines, fullness around the ears but denies any outright ear pain. These exacerbations can last anywhere from a few minutes to many hours. She was started on Topamax by her primary care, but only tried 25 mg, did not notice any improvement, however was only trying this for a few weeks. She has also tried Dramamine, but notes that it makes her too fatigued. Has tried Benadryl without any improvement as well as meclizine. She has tried a benzodiazepine, and while this worked, it made her too fatigued and unable to work. Through primary care, she has had audiology testing, this was normal. She saw ENT 3 weeks ago, no diagnosis was made and was told that it was not due to her inner ear. She has been through vestibular therapy, with no improvement in her symptoms. Patient does note some occasional blurred vision, did have a dilated exam without any abnormalities visualized. Patient denies any double vision, vision loss, hearing changes. Patient reports a history of migraine headaches in the past, would typically get these once a week and will resolve with Excedrin Migraine. Now she notes she gets headaches every few days with associated photophobia, phonophobia, nausea. The headache typically starts from the neck and radiates across the head, typically on the right side. These headaches can last half hour to many hours. Not brought on by Valsalva, not brought on with exertion, not positional. They are similar to previous migraines, however they have just increased in occurrence. She has never been on any preventative in the past for her headaches. Patient does note some associated neck pain, worse with her headaches. 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 Patient drinks 60 ounces of water a day, drinks less than 8 ounces of coffee in a day. Denies any substance use, no alcohol use. Do you have to be up to have the dizziness or can you have the dizziness when seated or lying down? Any position Do you feel like things are moving in when you know they are actually still? Maybe slightly Do you have otalgia? no Do you have tinnitus? Yes, chronic Do you get dizzy turning your head? Not always Do you have trouble with dizziness getting up from a chair or from a seat? Not consistently Have you had falls? no Is there any vision change with the dizziness? EYEs check Monday- adjusting glasses, does feel blurry occasionally, no other associated symptoms Do you have headache associated with the dizziness? Yes, not always Have you had hearing loss with your dizziness: no Onset with valsalva: no (canal dehiscence), may be with exertion Worse in crowds, end of day or standing: no Nausea: not always associated but does have new nausea Labs/Imaging (only interpretations not imaging) MRI brain W and WO 05/10/22 Normal other than mastoid effusions noted MRA brain and carotid W and WO 05/10/22 Normal Medications: Current Outpatient Medications Medication Sig Dispense Refill loratadine (CLARITIN) 10 mg tablet Take 10 mg by mouth as needed. topiramate (TOPAMAX) 25 mg tablet Take 25 mg by mouth once daily. topiramate (TOPAMAX) 25 mg tablet 25 mg(1 tab) at bed x 2 wks, then 50 mg at bed(2 tabs) x 2 wks, then 75 mg at bed(3 tabs) x 2 wks 84 tablet 0 topiramate (TOPAMAX) 100 mg tablet Take 1 tablet by mouth daily at bedtime. 30 tablet 3 ondansetron (ZOFRAN) 8 mg tablet Take 1 tablet by mouth once daily as needed for nausea/vomiting (for nausea.). 15 tablet 3 budesonide (PULMICORT) 0.5 mg/2 mL nebulizer solution (Patient not taking: Reported on 05/18/2022) Mirtazapine (REMERON) 7.5 mg tablet No current facility-administered medications for this visit. ROS ROS: Her ROS was positive for that mentioned in the HPI. Otherwise a 10-point ROS was completed and was negative. ALLERGIES Allergen Reactions Cephalexin cramping in stomach Past Medical History: PAST MEDICAL HISTORY Diagnosis Date Abdominal pain, left upper quadrant Duodenitis without mention of hemorrhage Esophagitis, unspecified Fibroids Hypertension Irregular menstrual bleeding Menopausal and postmenopausal disorder Menopause Other malaise and fatigue fibramyalgia Family History: FAMILY HISTORY Problem Relation Age of Onset Hyperlipidemia Mother Stroke Maternal Grandmother Hyperlipidemia Maternal Grandmother other (Heart disease) Maternal Grandmother other (Cancer - other) Maternal Grandmother Hypertension Maternal Grandfather Cancer Paternal Grandfather BONE No Known Problems Daughter No Known Problems Son Also includes: sibling with brain tumor (benign). 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 Head: Normocephalic Pulm: Breathing comfortably Neck: Supple full range of motion, no midline tenderness. Patient with tenderness to the paraspinals bilaterally, tenderness to the trapezius muscles bilaterally. Psych: Cooperative, appropriate affect Skin: Patient with diaphoresis throughout, no fever noted Neurological Examination: Mental Status: Alert and Oriented to Place, Person, Time and Situation and Patient follows commands.. Language: Is intact to Comprehension, Fluency and Repetition Cranial Nerves: CNII: Visual acuity normal, visual santiago full to confrontation CNIII, IV, : Pupils equal, round and reactive to light, full extraoccular movements, with horizontal nystagmus with rightward gaze. Negative HINTS CN V: Facial sensation intact bilaterally to fine touch CN VII: Facial muscles symmetric and strong CN VIII: Hears finger rub well bilaterally CN IX: Gag Reflex not examined CN X: Palate elevates symmetrically CN XI: Full strength shoulder shrug bilaterally CN XII: Tongue protrusion full and midline Non-Dilated Fundiscopic Examination: No papilledema Motor Exam: Tone - Normal Tone noted in all extremities Bulk - Normal bulk noted in all muscles tested. Inspection - Normal, no fasciculations or tremors noted. Power: MUSCLES Upper Extremity RIGHT LEFT Deltoid 5/5 5/5 Biceps 5/5 5/5 Triceps 5/5 5/5 Wrist Extension 5/5 5/5 Wrist Flexion 5/5 5/5 Finger Flexion 5/5 5/5 Finger Extension 5/5 5/5 Finger Abd 5/5 5/5 Finger Add 5/5 5/5 MUSCLES Lower Extremity RIGHT LEFT Hip Flexion 5/5 5/5 Hip Extension 5/5 5/5 BiFem (Knee Flex) 5/5 5/5 Quads (Knee Ext) 5/5 5/5 Gastroc (Plantflx) 5/5 5/5 TibAnt (Dorsiflx) 5/5 5/5 FlxHLong (Toe Flex) 5/5 5/5 ExtHLong (Toe Ext) 5/5 5/5 Sensory Examination Sensation is intact to light touch Reflexes Right Left Bicep 2/4 2/4 Tricep 2/4 2/4 BrRad 2/4 2/4 Knee 2/4 1/4 Ankle 2/4 2/4 Coordination: finger-to- nose-finger intact bilaterally and [id number] intact bilaterally. Gait: Patient's gait is normal, can heel and toe walk and can tandem walk Romberg: Negative DATA REVIEWED Actual films/image/tracing reviewed and summarized as follows: MRI/MRA brain and carotid. Old records reviewed and summarized as follows: Primary care Assessment/Plan Assessment & Plan: Chacha Contreras is a 51 year old right-handed female with a history of esophagitis. Her examination demonstrates rightward nystagmus on exam, negative hints exam. Tenderness to the bilateral paraspinals, tenderness to the bilateral trapezius muscles. Patient diaphoretic on exam, no fever appreciated, patient notes that she is having a hot flash. Patient with over 1 month of lightheadedness/dizziness, difficult to describe. History of vertigo in the past, unlike this. Chronic history of migraines, headaches have worsened and are approximately presents with lightheaded exacerbations 50% of the time. Also associated with nausea. Triggers for exacerbations are similar to migrainous triggers including bright lights, weather changes, not sleeping enough, etc. MRI of the brain without any intracranial abnormality, MRA of the head and neck without any vascular etiology of patient's symptoms. Patient has been evaluated by ENT, was not believed to be an inner ear issue. Patient did have audiology testing, per patient this was normal. Patient did not receive any vestibular battery testing, will send referral for this testing to identify if in fact her symptoms are secondary to a central versus peripheral cause. At this time, patient is likely experiencing vestibular migraines. She has been on Topamax for 2 weeks, but only 25 mg, will increase this dose by taper up to 100 mg. Instructions of this taper as well as common side effects were discussed with patient and . Patient without any history of kidney stones, glaucoma. Additionally, discussed using supplements to both decrease headaches and vestibular symptoms, including magnesium, B2, co-Q10. Discussed common side effects of the supplements, patient and agree and understand this. Discussed abortive therapies including Benadryl, meclizine and patient will try this. Did discuss the use of benzodiazepines, patient deferred this at this time because she does not want to be too fatigued to work. Patient also with some nausea, no history of heart rhythm abnormality, will prescribe Zofran to take as needed for nausea. Additionally, patient with increase in her migraine headaches, headaches stemming from the neck and radiating forward. Patient notes some musculoskeletal pain, will refer to physical therapy for further management of this. Discussed red flag signs and symptoms that would warrant emergent evaluation in the emergency department, patient agrees and understands this. Patient and agreeable to treatment plan of care at this time, all questions have been answered. Patient to follow-up in 3 months or sooner should any symptoms change or worsen. Chacha was seen today for new patient. Diagnoses and all orders for this visit: Dizziness - VESTIBULAR TEST BATTERY Nausea - ondansetron (ZOFRAN) 8 mg tablet; Take 1 tablet by mouth once daily as needed for nausea/vomiting (for nausea.). Cervicalgia - CONSULT TO PHYSICAL THERAPY; Future Chronic migraine without aura without status migrainosus, not intractable Other orders - topiramate (TOPAMAX) 25 mg tablet; 25 mg(1 tab) at bed x 2 wks, then 50 mg at bed(2 tabs) x 2 wks, then 75 mg at bed(3 tabs) x 2 wks - topiramate (TOPAMAX) 100 mg tablet; Take 1 tablet by mouth daily at bedtime. She should return to see me in 3 months. I spent a total of 55 minutes on the date of the service which included preparing to see the patient, [id number] patient care, completing clinical documentation, obtaining and/or reviewing separately obtained history, performing a medically appropriate examination, counseling and educating the patient/family/caregiver, and ordering medications, tests, or procedures. Luba Monroe PA-C [facility] Neurology This document has been created with the use of voice recognition technology. It may contain inaccuracies: (e.g. misspellings, inaccurate syntax or word sense) that have escaped review. documented in this encounter [facility] 07-30-2021 Nurse Note Pt received in PACU. Pt slightly drowsy, but awake. Denies pain or nausea. Abd soft and non distended. Estella Macias RN documented in this encounter [facility] 07-30-2021 History and physical note UPDATED PROCEDURAL SEDATION HISTORY AND PHYSICAL EXAMINATION SERVICE DATE: 07/30/2021 SERVICE TIME: 8:22 PHYSICAL EXAM MUST BE COMPLETED ON ADMISSION PROCEDURE: colonoscopy, possible biopsies Procedure Indications: screening for colon cancer The History and Physical (completed in the past 30 days) has been reviewed and the patient has been examined. The contents accurately reflect the patient's condition with the following additions or revisions since the H&P was completed. ASA Class: ASA Class:: Patient with mild systemic disease Examination indicates no changes. AIRWAY: Airway Visualization of Uvula: Yes Mouth opening greater than 2 fingerbreadths: Yes Neck Full Range of Motion: Yes LUNGS: Lungs clear to auscultation CARDIAC: Regular rhythm,Regular rate Provisional Diagnosis/Treatment Plan: colonoscopy, possible biopsies SEDATION GOAL: Moderate This H&P can be found in the Electronic Medical Record . SIGNATURE: Alicia Guerrero MD PATIENT NAME: Chacha Contreras DATE: July 30, 2021 TIME: 8:23 AM HISTORY AND PHYSICAL Chacha Contreras 1970 REFERRING PHYSICIAN: Manisha Bateman APRN.SONAR WATCHSTANDER CHIEF COMPLAINT: No chief complaint on file. HPI: The patient is a 50 year old female presents for screening for colon cancer via colonoscopy The patient denies blood in stools, denies abdominal pain, and denies changes in bowel habits. The patient notes no colon cancer in immediate family. The patient has had previous colonoscopy > 10 y ago. PAST MEDICAL HISTORY Diagnosis Date Abdominal pain, left upper quadrant Duodenitis without mention of hemorrhage Esophagitis, unspecified Fibroids Hypertension Irregular menstrual bleeding Menopausal and postmenopausal disorder Menopause Other malaise and fatigue fibramyalgia PAST SURGICAL HISTORY Procedure Laterality Date COLONOSCOPY FLX DX W/COLLJ SPEC WHEN PFRMD 06/23/08 EMBOLIZATION UTERINE FIBROID 03/2010 ENDOMETRIAL BIOPSY 12/01/2009 Irregular Menstrual Bleeding and Fibroids ESOPHAGOGASTRODUODENOSCOPY TRANSORAL DIAGNOSTIC 05/24/2012 EGD Current Outpatient Medications Medication Sig budesonide (PULMICORT) 0.5 mg/2 mL nebulizer solution Mirtazapine (REMERON) 7.5 mg tablet loratadine (CLARITIN) 10 mg tablet Take 10 mg by mouth. ALLERGIES: Cephalexin PERSONAL HISTORY: Social History Tobacco Use Smoking status: Never Smoker Smokeless tobacco: Never Used Vaping Use Vaping Use: Never used Substance Use Topics Alcohol use: No Comment: Non-drinker Drug use: No FAMILY HISTORY Problem Relation Age of Onset Hyperlipidemia Mother Stroke Maternal Grandmother Hyperlipidemia Maternal Grandmother other (Heart disease) Maternal Grandmother other (Cancer - other) Maternal Grandmother Hypertension Maternal Grandfather Cancer Paternal Grandfather BONE No Known Problems Daughter No Known Problems Son REVIEW OF SYSTEMS: General - denies fevers HEENT - denies trauma/infections Resp - denies coughing up blood, denies breathing difficulties Cardiac - denies chest pain GI - denies abdominal pain, denies blood in stools, denies vomiting up of blood - denies blood in urine Endocrine - denies diabetes Psych - denies hallucinations PHYSICAL EXAMINATION: General: The patient is 50 year old female, well nourished, well hydrated in no acute distress. The patient is oriented to time, place, and person. VITALS: Blood pressure 136/86, pulse 73, temperature 36.5 C (97.7 F), temperature source Temporal Artery, resp. rate 16, weight 88.5 kg (195 lb 1.7 oz), last menstrual period 01/08/2018, SpO2 96 %. Body mass index is 34.02 kg/m . General WD/WN WF in no apparent distress, alert and oriented Head Normocephalic. EOM intact with sclera clear. Mouth with mucus membranes moist. Neck - supple with no jugular venous distention noted. Trachea is midline. Lungs clear to auscultation. Normal breath sounds. No rales/rhonchi/wheezing noted. Heart normal heart sounds. No rubs/clicks/murmurs noted. Regular rate. Abdomen soft and benign. Extremities no pitting edema noted. Skin Normal skin integrity. Neurological non focal Psych calm and appropriate Impression: screening for colon cancer, Discussion/Plan/Recommendations: I have discussed the above with the patient. I have offered colonoscopy possible biopsies I have explained the procedure to the patient. I have counseled the patient as to the risks of the procedure, including but not limited to: infection, bleeding, injury to any intrabdominal organs such as liver/spleen, perforation of the GI tract, inability to complete the procedure, complications of anesthesia, etc. the patient understands. The patient was offered a surgery/procedure at a [facility] facility. The provider and patient have discussed in detail the risk of exposure to and/or potential harm posed by the COVID-19 virus with having a surgery/procedure at this time versus the risk of delaying the surgery/procedure. It is not possible to know either the risk of delaying the surgery or procedure or chance of getting an infection with perfect accuracy, but a joint decision was made between the patient and the provider to proceed at this time with the scheduled surgery/procedure. The patient wishes to proceed. I have answered all questions to the patient s satisfaction and the patient has no further questions. Alicia Guerrero MD documented in this encounter [facility] 06-15-2021 History of Presen t illness Narrative Episode Visit Count: 4 Therapist That Will Oversee The Plan Of Care: Marly Walker Start of Care Date: 05/21/21 Onset Date: 05/21/16 Patient Identified by Name and Date of : Yes [facility] PHYSICAL THERAPY TREATMENT NOTE ASSESSMENT: Chacha Contreras tolerated the session with no issues. She demonstrated improvements in ability to empty bladder. The patient will continue to benefit from ongoing skilled physical therapy to progress toward set goals. PLAN FOR NEXT VISIT: reassessment SUBJECTIVE: Patient Reason for Visit: Pt reports good compliance with HEP, minimal UI, not much change the past couple days. Pt reports no difficulty emptying bladder. Pain: Pain Pain Level: 0 Post Treatment Pain Post Treatment Pain Level: 0 OBJECTIVE MEASURES WITH LEVEL OF FUNCTION: Pelvic Floor Incomplete emptying: No Daytime Frequency (hours): 4 TREATMENT: Therapeutic Exercise: 1: kegal holds, 7sec hold with 3sec rest, 1x10 2: posterior pelvic tilt, 1x10 3: *posterior pelvic tilt with alternating marches, 2x10 4: *prone hip extension, 2x10 each 5: *quadruped TA bracing, 2x10 6: Reviewed functional kegals Skilled Intervention: Patient was educated in proper exercise technique and purpose for exercises. Reviewed and educated patient on additions/changes for home exercise program as above (*). Skilled judgment was provided in selection of appropriate interventions. Provided written instruction for home exercise program to facilitate proper performance and compliance. Billing Therapeutic Exercise Treatment Minutes: 42 Total Treatment Time Minutes (timed and untimed codes) : 42 Marly Walker PT documented in this encounter [facility] 06-11-2021 History of Presen t illness Narrative Episode Visit Count: 3 Therapist That Will Oversee The Plan Of Care: Marly Walker Start of Care Date: 05/21/21 Onset Date: 05/21/16 Patient Identified by Name and Date of : Yes [facility] PHYSICAL THERAPY TREATMENT NOTE ASSESSMENT: Chacha Contreras tolerated the session with no issues. She demonstrated some improvements in urinary incontinence and ability to empty bladder per patient report. The patient will continue to benefit from ongoing skilled physical therapy to progress toward set goals. PLAN FOR NEXT VISIT: continue to progress exercises SUBJECTIVE: Patient Reason for Visit: Pt reports slight improvement in UI, happens a little less often. Pt reports less volume of leakage, feels less wet by the end of the day. Pt reports some improvement in emptying bladder. Pt reports good compliance with HEP. Pain: Pain Pain Level: 0 Post Treatment Pain Post Treatment Pain Level: 0 OBJECTIVE MEASURES WITH LEVEL OF FUNCTION: Pelvic Floor Incomplete emptying: Sometimes ( better ) Urgency: No Daytime Frequency (hours): 4 TREATMENT: Therapeutic Exercise: 1: kegal holds, 6sec hold with 3sec rest, 1x10 2: bridge with glute activation, 1x10 3: *posterior pelvic tilt, 2x10 4: *clamshells, 2x10 each 5: *sidelying hip abduction, 2x10 each Skilled Intervention: Patient was educated in proper exercise technique and purpose for exercises. Reviewed and educated patient on additions/changes for home exercise program as above (*). Skilled judgment was provided in selection of appropriate interventions. Provided written instruction for home exercise program to facilitate proper performance and compliance. Billing Therapeutic Exercise Treatment Minutes: 39 Total Treatment Time Minutes (timed and untimed codes) : 39 Marly Walker PT documented in this encounter [facility] Evaluation + Plan note Future Appointments Appointment Date:08/09/2021 09:00:00 AM Scheduled Provider:DEMI ORTIZ Location:[facility] [place] Appointment Type:PC OV Follow Up Diagnostic Tests PendingCortisol Drawn in AM 05/22/21 [facility] Evaluation + Plan note Future Appointments Appointment Date:05/16/2022 09:00:00 AM Scheduled Provider:DEMI ORTIZ Location:[facility] [place] Appointment Type: Wellness Annual Future Scheduled TestsMRA Head w/ + w/o Contrast 05/06/22MRA Neck w/ + w/o Contrast 05/06/22MRI Brain w/ + w/o Contrast 05/06/22 [facility] Evaluation + Plan note Future Appointments Appointment Date:05/16/2022 09:00:00 AM Scheduled Provider:DEMI ORTIZ Location:[facility] [place] Appointment Type:PC Wellness Annual [facility] Evaluation + Plan note Future Appointments Appointment Date:01/06/2023 10:30:00 AM Scheduled Provider:DEMI ORTIZ Location:[facility] [place] Appointment Type:PC OV Follow Up [facility] documented in this encounter [facility] note* Diagnosis Stress incontinence- Primary Female stress incontinence Cystocele, midline [facility] Diagnosis Special screening for malignant neoplasms, colon documented in this encounter [facility] note* Diagnosis Dizziness- Primary Dizziness and giddiness Nausea Nausea alone Cervicalgia Chronic migraine without aura without status migrainosus, not intractable Chronic migraine without aura, without mention of intractable migraine without mention of status migrainosus documented in this encounter [facility] note* Diagnosis Vestibular migraine- Primary Chronic migraine without aura without status migrainosus, not intractable Chronic migraine without aura, without mention of intractable migraine without mention of status migrainosus documented in this encounter [facility] note* Diagnosis Postural dizziness with presyncope- Primary [facility] Vestibular migraine- Primary Lightheaded Dizziness and giddiness Positional lightheadedness Dizziness and giddiness Chronic migraine without aura without status migrainosus, not intractable Chronic migraine without aura, without mention of intractable migraine without mention of status migrainosus documented in this encounter [facility] course Narrative No data available for this section [facility] Hospital Discharge instructions No data available for this section [facility] Progress note No data available for this section [facility] Reason for referral (narrative)* Outpatient Procedure (Routine) - Closed Specialty Diagnoses / Procedures Referred By Josias muse Referred To Contact [facility] Diagnoses Special screening for malignant neoplasms, colon Procedures COLONOSCOPY SCREENING COLONOSCOPY FLX DX W/COLLJ SPEC WHEN Manisha Chávez APRN.CNP [address] [place] [address] [facility] Disease [address] [place] [address] Referral ID Status Reason Start Date Expiration Date V isits Requested Visits Authorized Closed Auto-Generate d Referral 04/26/2021 04/26/2022 1 1 [facility] for visit Narrative* Outpatient Procedure (Routine) - Closed Specialty Diagnoses / Procedures Referred By Josias muse Referred To Contact [facility] Diagnoses Special screening for malignant neoplasms, colon Procedures COLONOSCOPY SCREENING COLONOSCOPY FLX DX W/COLLJ SPEC WHEN Manisha Chávez APRN.CNP [address] [place] [address] [address] Referral ID Status Reason Start Date Expiration Date V isits Requested Visits Authorized Closed Auto-Generate d Referral 04/26/2021 04/26/2022 1 1 [facility] Medications Administered Section Inactive Administered Medications - up to 3 most recent administrations Medication Order MAR Action Action Date Dose Rate Site diphenhydrAMINE 12.5-50 mg injection (BENADRYL) 12.5-50 mg, INTRAVENOUS, DIRECTED, Starting on Mon07/30/21 at 0830, Until Mon07/30/21 at 1229, DOSING DIRECTED BY PHYSICIAN FOR PROCEDURAL SEDATION ONLY, Intraprocedure Given 07/30/2021 8:28 AM EDT 50 mg fentaNYL 50 mcg/mL 25-100 mcg injection (SUBLIMAZE) 25-100 mcg, INTRAVENOUS, DIRECTED, Starting on Mon07/30/21 at 0830, Until Mon07/30/21 at 1229, DOSING DIRECTED BY PHYSICIAN FOR PROCEDURAL SEDATION ONLY, Intraprocedure Given 07/30/2021 8:26 AM EDT 50 mcg lactated ringers iv infusion 75 mL/hr, INTRAVENOUS, CONTINUOUS, Starting on Mon07/30/21 at 0800, Until Mon07/30/21 at 0852, Preprocedure New Bag/Syringe/Art le 07/30/2021 7:47 AM EDT 75 mL/hr 75 mL/hr Hand, Right midazolam (PF) 1-5 mg injection (VERSED) 1-5 mg, INTRAVENOUS, DIRECTED, Starting on Mon07/30/21 at 0830, Until Mon07/30/21 at 1229, DOSING DIRECTED BY PHYSICIAN FOR PROCEDURAL SEDATION ONLY, Intraprocedure Given 07/30/2021 8:26 AM EDT 3 mg Advance Directives No Advanced Directives Records FoundDocuments on File Type Date Recorded 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 Advance Directive(s) 07/30/2021 7:23 AM Advance Directive(s) 07/12/2021 7:20 PM Reason for Referral Specialty Diagnoses / Procedures Referred By Josias muse Referred To Contact Cardiology Diagnoses Lightheaded Positional lightheadedness Procedures CONSULT TO CARDIOLOGY OFFICE/OUTPATIENT [facility] 60-74 MINUTES Luba Monroe PA-C [address] [place] [id number] Referral ID Status Reason Start Date Expiration Date Visits Requested Visits Authorized [id number] Authorized PCP Requested Referral 11/16/2022 11/16/2023 1 1 Specialty Diagnoses / Procedures Referred By Josias muse Referred To Contact [facility] Diagnoses Cervicalgia Procedures CONSULT TO PHYSICAL THERAPY PHYSICAL THERAPY EVALUATION [facility] 45 MINS Luba Monroe PA-C [address] [place] [address] [facility] [place] [address] [place] [address] Referral ID Status Reason Start Date Expiration Date Visits Requested Visits Authorized [id number] Pending Review Auto-Generat ed Referral 05/18/2022 05/18/2023 1 1 Summary Purpose Family History No Family History Records FoundNo Family History Records FoundNo Family History Records Found Additional Source Comments Source Comments (unrecognize d section and content) In the event this informatio n is protected by the Federal Confidentiality of Alcohol and Drug Abuse Patient Records regulations: The Federal rules restrict any use of the information to criminally investigate or prosecute any alcohol or drug abuse patient.[facility] the event this information is protected by the Federal Confidentiality of Alcohol and Drug Abuse Patient Records regulations: The Federal rules restrict any use of the information to criminally investigate or prosecute any alcohol or drug abuse patient.[facility] the event this information is protected by the Federal Confidentiality of Alcohol and Drug Abuse Patient Records regulations: The Federal rules restrict any use of the information to criminally investigate or prosecute any alcohol or drug abuse patient.[facility] the event this information is protected by the Federal Confidentiality of Alcohol and Drug Abuse Patient Records regulations: The Federal rules restrict any use of the information to criminally investigate or prosecute any alcohol or drug abuse patient.[facility] the event this information is protected by the Federal Confidentiality of Alcohol and Drug Abuse Patient Records regulations: The Federal rules restrict any use of the information to criminally investigate or prosecute any alcohol or drug abuse patient.[facility] the event this information is protected by the Federal Confidentiality of Alcohol and Drug Abuse Patient Records regulations: The Federal rules restrict any use of the information to criminally investigate or prosecute any alcohol or drug abuse patient.[facility] the event this information is protected by the Federal Confidentiality of Alcohol and Drug Abuse Patient Records regulations: The Federal rules restrict any use of the information to criminally investigate or prosecute any alcohol or drug abuse patient.[facility] the event this information is protected by the Federal Confidentiality of Alcohol and Drug Abuse Patient Records regulations: The Federal rules restrict any use of the information to criminally investigate or prosecute any alcohol or drug abuse patient.[facility] the event this information is protected by the Federal Confidentiality of Alcohol and Drug Abuse Patient Records regulations: The Federal rules restrict any use of the information to criminally investigate or prosecute any alcohol or drug abuse patient.[facility] the event this information is protected by the Federal Confidentiality of Alcohol and Drug Abuse Patient Records regulations: The Federal rules restrict any use of the information to criminally investigate or prosecute any alcohol or drug abuse patient.[facility] Hospital[facility] the event this information is protected by the Federal Confidentiality of Alcohol and Drug Abuse Patient Records regulations: The Federal rules restrict any use of the information to criminally investigate or prosecute any alcohol or drug abuse patient.[facility] Hospital[facility] the event this information is protected by the Federal Confidentiality of Alcohol and Drug Abuse Patient Records regulations: The Federal rules restrict any use of the information to criminally investigate or prosecute any alcohol or drug abuse patient.[facility] Hospital[facility] the event this information is protected by the Federal Confidentiality of Alcohol and Drug Abuse Patient Records regulations: The Federal rules restrict any use of the information to criminally investigate or prosecute any alcohol or drug abuse patient.[facility] Hospital[facility] the event this information is protected by the Federal Confidentiality of Alcohol and Drug Abuse Patient Records regulations: The Federal rules restrict any use of the information to criminally investigate or prosecute any alcohol or drug abuse patient.[facility] Hospital[facility] the event this information is protected by the Federal Confidentiality of Alcohol and Drug Abuse Patient Records regulations: The Federal rules restrict any use of the information to criminally investigate or prosecute any alcohol or drug abuse patient.[facility] Hospital[facility] the event this information is protected by the Federal Confidentiality of Alcohol and Drug Abuse Patient Records regulations: The Federal rules restrict any use of the information to criminally investigate or prosecute any alcohol or drug abuse patient.[facility] Hospital[facility] the event this information is protected by the Federal Confidentiality of Alcohol and Drug Abuse Patient Records regulations: The Federal rules restrict any use of the information to criminally investigate or prosecute any alcohol or drug abuse patient.[facility] Hospital[facility] the event this information is protected by the Federal Confidentiality of Alcohol and Drug Abuse Patient Records regulations: The Federal rules restrict any use of the information to criminally investigate or prosecute any alcohol or drug abuse patient.[facility] Hospital[facility] the event this information is protected by the Federal Confidentiality of Alcohol and Drug Abuse Patient Records regulations: The Federal rules restrict any use of the information to criminally investigate or prosecute any alcohol or drug abuse patient.[facility] HospitalIn the event this information is protected by the Federal Confidentiality of Alcohol and Drug Abuse Patient Records regulations: The Federal rules restrict any use of the information to criminally investigate or prosecute any alcohol or drug abuse patient.[facility] HospitalIn the event this information is protected by the Federal Confidentiality of Alcohol and Drug Abuse Patient Records regulations: The Federal rules restrict any use of the information to criminally investigate or prosecute any alcohol or drug abuse patient.[facility] HospitalIn the event this information is protected by the Federal Confidentiality of Alcohol and Drug Abuse Patient Records regulations: The Federal rules restrict any use of the information to criminally investigate or prosecute any alcohol or drug abuse patient.[facility] Reason for Visit (unrecogniz ed section and content) Specialty Diagnoses / Procedures Referred By Josias muse Referred To Contact [facility] Diagnoses Stress incontinence Cystocele, midline Procedures CONSULT TO PHYSICAL THERAPY PHYSICAL THERAPY EVALUATION HIGH COMPLEX 45 MINS Manisha Bateman APRN.SONAR WATCHSTANDER [address] [place] [address] [facility] [place] [address] [place] [place] [address] Referral ID Status Reason Start Date Expiration Date Visits Requested Visits Authorized [id number] Authorized Auto-Generat ed Referral 03/20/2021 03/19/2022 20 20 Reason Comments New Patient Reason Comments Received Outside Medical Records Transfe r disc to chart. Reason Comments Patient Update Patient Question Reason Comments Follow Up Reason Comments Follow Up Increased headaches averaging 2 a week, moving from Topamax to Cymbalta noticed that motion sickness was decreased but started experiencing increase motion sickness so increased form 30 mg to 60 mg and it helped, not is on the 60 mg ans is having motion sickness again, noticing more at the end of each month Reason Comments Forms Reason Comments Respirator Clearance Reason Comments Appointment Reason Onset Date Comments Refill Request 10/05/2022 Reason Comments Patient Update Reason Comments Follow Up Reason Comments Follow Up Phone Call All Clear Care Teams (unrecognized sec tion and content) Laboratory Chief Relationship Specialty Start Date End Date Manisha Parks [address] [facility] [address] [place] [address] PCP - General 06/18/03 Laboratory Chief Relationship Specialty Start Date End Date Manisha Parks [address] [facility] [address] [place] [address] PCP - General 06/18/03 Laboratory Chief Relationship Specialty Start Date End Date Demi Ortiz APRN.SONAR WATCHSTANDER [address] [place] [address] PCP - General Family Medicine 05/17/22 Laboratory Chief Relationship Specialty Start Date End Date Demi Ortiz APRN.SONAR WATCHSTANDER [address] [place] [address] PCP - General Family Medicine 05/17/22 Laboratory Chief Relationship Specialty Start Date End Date Demi Ortiz APRN.SONAR WATCHSTANDER [address] [place] [id number] PCP - General Family Medicine 05/17/22 Laboratory Chief Relationship Specialty Start Date End Date Demi Ortiz APRN.SONAR WATCHSTANDER [address] [place] [address] PCP - General Family Medicine 05/17/22 Laboratory Chief Relationship Specialty Start Date End Date Demi Ortiz APRN.SONAR WATCHSTANDER [address] [place] [address] PCP - General Family Medicine 05/17/22 Laboratory Chief Relationship Specialty Start Date End Date Demi Ortiz APRN.SONAR WATCHSTANDER [address] [place] [address] PCP - General Family Medicine 05/17/22 Laboratory Chief Relationship Specialty Start Date End Date Demi Ortiz APRN.SONAR WATCHSTANDER [address] [place] [address] PCP - General Family Medicine 05/17/22 Laboratory Chief Relationship Specialty Start Date End Date Demi Ortiz APRN.SONAR WATCHSTANDER [address] [place] [address] PCP - General Family Medicine 05/17/22 Laboratory Chief Relationship Specialty Start Date End Date Demi Ortiz APRN.SONAR WATCHSTANDER [address] [place] [address] PCP - General Family Medicine 05/17/22 Laboratory Chief Relationship Specialty Start Date End Date Demi Ortiz APRN.SONAR WATCHSTANDER [address] [place], [place] [id number] PCP - General Family Medicine 05/17/22 Laboratory Chief Relationship Specialty Start Date End Date Demi Ortiz APRN.CNP [address] [place] [address] PCP - General Family Medicine 05/17/22 Laboratory Chief Relationship Specialty Start Date End Date Demi Ortiz APRN.SONAR WATCHSTANDER [address] [place] [address] PCP - General Family Medicine 05/17/22 Laboratory Chief Relationship Specialty Start Date End Date Demi Ortiz APRN.CNP [address] [place] [address] PCP - General Family Medicine 05/17/22 Laboratory Chief Relationship Specialty Start Date End Date Demi Ortiz APRN.CNP [address] [place] [address] PCP - General Family Medicine 05/17/22 Care Team (unrecognized sect ion and content) Care Team Personnel Name: DEMI ORTIZ APRN-SONAR WATCHSTANDER Position: P4 Advanced Practice Nurse Member Role: Primary Care Physician Address: Address: [address] [place] [address]- Care Team Related Persons Name: EYAL CONTRERAS Care Team Personnel Name: DEMI ORTIZ APRN-SONAR WATCHSTANDER Position: P4 Advanced Practice Nurse Member Role: Primary Care Physician Address: Address: [address] [place] [address]- Care Team Related Persons Name: EYAL CONTRERAS Care Team Personnel Name: DEMI ORTIZ APRN-SONAR WATCHSTANDER Position: P4 Advanced Associate Media Planner Member Role: Primary Care Physician Address: Address: [address] [place] [address] [place] [address]- Care Team Related Persons Name: EYAL CONTRERAS INFORMATION SOURCE (unrecogn ized section and content) DATE CREATED AUTHOR AUTHOR'S KERRY ATION 09/17/2022 [facility] DATE CREATED AUTHOR AUTHOR'S ORGANIZ ATION 04/20/2023 [facility] FOR RECORDS PERTAINING TO PATIENTS WHO ARE OR HAVE BEEN ENROLLED IN A CHEMICAL DEPENDENCY/SUBSTANCEABUSE PROGRAM, SOME INFORMATION MAY BE OMITTED. This clinical summary was aggregated from multiple sources. Caution should be exercised in using it in the provision of clinical care. This summary normalizes information from multiple sources, and as a consequence, information in this document may materially change the coding, format and clinical context of patient data. In addition, data may be omitted in some cases. CLINICAL DECISIONS SHOULD BE BASED ON THE PRIMARY CLINICAL RECORDS. [employer] provides no warranty or guarantee of the accuracy or completeness of information in this document.
[2023-05-10 06:45] LABS: Absolute Lymphocyte Count 1.27 X10^3/uL (0.83-4.51); Basophil# 0.05 X10^3/uL; Eosinophil# 0.19 X10^3/uL; Eosinophils% 3.9 % (0-5); Hematocrit 46.6 % (37-47); Hemoglobin 15.1 g/dL (12.0-15.0); Lymphocyte # 1.27 X10^3/ul (0.83-4.51); Lymphocyte % 26.1 % (19-41); Mean Corp Hgb Conc 32.4 g/dL (32-36); Mean Corpuscular Hgb 28.5 pg (27.0-32.0); Mean Corpuscular Volume 88.1 fL (81-99); Mean Platelet Vol. 9.6 fl (6.2-12.0); Monocyte# 0.38 X10^3/uL; Monocyte% 7.8 % (0-10); NRBC Flagged by Analyzer 0 % (0-5); Neutrophil # 2.97 X10^3/uL (2.7-7.7); Platelet Count 252 K/mm3 (150-450); RBC Distribution Width CV 13.6 % (11.6-14.6); RBC Distribution Width SD 43.8 fl (35.1-43.9); Red Blood Count 5.29 M/mm3 (4.2-5.4); White Blood Count 4.9 K/mm3 (4.4-11.0)
[2023-05-10] MEDS: Ondansetron 4 MG/2 ML Vial IV (06:51)
[2023-05-10] MEDS: 0.9% Normal Saline (1000mL) 1,000 ML 999 ML IV (06:51)
[2023-05-10] MEDS: Morphine 4 MG/ML Syringe IV (06:52)
[2023-05-10 06:58] LABS: Red Blood Cells-Urine 0 SEEN /hpf (0-5); White Blood Cells 0 SEEN /hpf (0-5)
[2023-05-10 06:58] LABS: Anion Gap 7 (5-15); BUN 13 mg/dL (7-18); Calcium,Total 10.1 mg/dL (8.5-10.1); Chloride 110 mmol/L (98-107); Creatinine, Serum 1.08 mg/dL (0.55-1.02); EST Glomerular Filtration Rate 57 mL/min (>60); Est Glom Filt Rate - Afr Amer 68 mL/min (>60); Estimated Creatinine Clearance 63.64 ml/min; Glucose 92 mg/dL (74-106); Lipase 33 U/L (13-75); Potassium 3.8 mmol/L (3.5-5.1); Sodium Level 143 mmol/L (136-145)
[2023-05-10 06:59] LABS: Color, Urine Yellow (Yellow); Glucose, Dipstick Normal (Normal); Ketone-Dipstick Negative (Negative); Leukocyte Esterase-Dipstick Negative /ul (Negative); Nitrite-Dipstick Negative (Negative); Occult Blood-Urine Negative /ul (Negative); Protein-Dipstick Negative (Negative); Urine Bilirubin Dipstick Negative (Negative); Urine Clarity Clear (Clear); Urine Urobilinogen Normal (Normal)
[2023-05-10 07:05] LABS: AST(SGOT) 27 U/L (15-37); Alanine Aminotransfer ALT/SGPT 35 U/L (13-56); Albumin, Serum 3.8 g/dL (3.2-5.0); Alkaline Phosphatase 69 U/L (45-117); Bilirubin, Direct 0.12 mg/dL (0.00-0.30); Globulin 3.8 g/dL (2.2-4.2); Protein, Total 7.6 g/dL (6.4-8.2)
--- NOTE | 2023-05-10 07:08 | EX.ED.DYSGE1 ---
HPI History of Present Illness Chief Complaint: Abd Pain Informant: patient and family Narrative Narrative: Patient is a 52-year-old female with past medical history of hypertension fibromyalgia and vestibular migraine. She states over the past few years she has had intermittent bouts of abdominal pain with nausea and has had her gallbladder worked up with ultrasounds and HIDA scans that have not revealed any obvious cause of her symptoms. She states over the past 5 days she has been having increasing right upper quadrant midepigastric discomfort with worsening nausea. She states that the medication she takes to normally control her symptoms is no longer functioning and therefore the worsening symptoms comes in for evaluation. She states despite the severe nausea she is not having bouts of vomiting. She also denies any sick symptoms such as fevers or chills dysuria or diarrhea [facility] Medical History Chronic vertigo Duodenitis without mention of hemorrhage Esophagitis Essential (primary) hypertension Fibromyalgia Hx of spinal stenosis Sleep apnea Vestibular migraine Home Medications calcium carbonate 600 mg calcium (1,500 mg) tablet 1,200 mg PO DAILY 12/06/22 [History Last Taken Unknown] diazepam 5 mg tablet 5 mg PO Q6H PRN 12/06/22 [History Last Taken Unknown] riboflavin (vitamin B2) 100 mg tablet 100 mg PO BID 12/06/22 [History Last Taken Unknown] fluticasone propionate 50 mcg/actuation nasal spray,suspension 1 spray intranasal BID PRN 12/07/22 [History Last Taken Unknown] coenzyme Q10 100 mg tablet 100 mg PO DAILY 03/03/23 [History Last Taken Unknown] duloxetine 60 mg capsule,delayed release 60 mg PO DAILY 03/03/23 [History Last Taken Unknown] gabapentin 100 mg capsule 100 mg PO QHS 03/03/23 [History Last Taken Unknown] rizatriptan 10 mg tablet 10 mg PO ONCE PRN 03/03/23 [History Last Taken Unknown] zolpidem 6.25 mg tablet,extended release,multiphase (Ambien CR) 6.25 mg PO QHS PRN 03/03/23 [History Last Taken Unknown] ondansetron 4 mg disintegrating tablet 4 mg PO TID PRN nausea and vomiting #21 tabs 05/10/23 [Rx Last Taken Unknown] Allergy/AdvReac Type Severity Reaction Status Date / Time cephalexin Allergy Hives Verified 05/10/23 05:50 topiramate [From Topamax] AdvReac Intermediate headaches/d Verified 05/10/23 05:50 izziness Family History Mother Hypertension Grandfather Heart disease Grandmother Heart disease Surgical History History of uterine fibroid (~04/2010) Social History Smoking Status: Never smoker alcohol intake: never substance use type: does not use caffeine: Yes (energy drinks) Type: other ROS ROS ED Constitutional Constitutional ED: Denies chills or fever(s) Eyes Eyes: Denies change in vision ENT ENT ED: Denies rhinorrhea or sore throat Cardiovascular Cardiovascular: Denies chest pain Respiratory/Chest Respiratory/Chest: Denies cough or dyspnea Gastrointestinal Gastrointestinal: Reports abdominal pain and nausea; Denies diarrhea or vomiting Genitourinary Genitourinary ED: Denies dysuria or hematuria Musculoskeletal Musculoskeletal: Denies back pain or myalgias Integumentary Denies rash Neurologic Neurologic: Reports headache(s) Hematologic/Lymphatic Hematologic/Lymphatic: Denies easy bleeding or easy bruising EXAM Physical Exam Const Vital Signs: 05/10/23 05:51 05/10/23 05:53 Temperature 98.3 F 98.3 F Temperature Source Oral Oral Pulse Rate 107 H 110 H Respiratory Rate 16 19 H Blood Pressure 142/85 H 142/85 H Blood Pressure Mean 104 104 Pulse Ox 99 99 Oxygen Delivery Method Room Air Room Air Positive well nourished, well developed and obese General Appearance ED: well developed; Negative for pallor Nutritional Appearance: obese HEENT Reports moist mucous membranes HEENT Narrative: No signs of infection noted in the posterior pharynx No airway edema or compromise Eyes PERRL and EOMs intact bilaterally General Eye ED: Negative for scleral icterus Neck supple Neck Narrative: No nuchal rigidity or meningeal signs noted Resp normal respiratory effort and clear to auscultation bilaterally Cardio regular rhythm Rate: tachycardic and other Other Details: Tachycardic rate with regular rhythm. No murmurs rubs or gallops noted Radial and carotid pulses equal and symmetric GI non-distended GI Narrative: Abdomen is soft and nondistended with hyperactive bowel sounds. There is pain on palpation in the midepigastric and right upper quadrant region but greatest in the right upper quadrant. There is slight guarding at the site but negative Lepe sign. No pulsatile mass Auscultation: hyperactive bowel sounds Palpation: soft Back/Spine no CVA tenderness Extremity normal to inspection Neuro oriented x3, CN's II-XII intact bilaterally and no sensory deficits noted Sensorium / Orientation: alert Motor Exam: strength 5/5 throughout Psych mental status grossly normal Skin no rashes or lesions noted and skin turgor normal General Skin Exam: Negative for jaundice or pallor MDM MDM MDM Narrative Medical decision making narrative: Patient arrived to the ER mildly hypertensive otherwise with stable vitals. She reported intermittent abdominal discomfort and nausea for the past 5 days. Demential diagnosis is for biliary colic versus acute cholecystitis versus pancreatitis versus gastritis versus ileus versus gastroenteritis. As patient denies any sick symptoms concern for viral infection is low and I do not feel the need for influenza or COVID swab. Basic labs to be obtained to check for elevation to the lipase concerning for pancreatitis for potential UTI/pyelonephritis or blood for potential kidney stone. Laboratory studies revealed no elevation to the white count and liver enzymes are normal and lipase is normal as well going against pancreatitis. Patient is urine sample also shows no sign of infection and there is no blood present suggest kidney stone. After treatment with morphine and Zofran IV hydration the patient reported feeling better and had improvement and near resolution of symptoms. The ultrasound of her right upper quadrant revealed no signs of gallbladder wall thickening gallstones polyp or acute cholecystitis. Therefore at this time with overall negative workup stable vitals and improvement of symptoms I do not feel there is need for emergent general surgery consult. Patient can be discharged with symptomatic care and can follow-up with family doctor to discuss further outpatient testing such as repeat HIDA scan versus abdominal MRI versus referral to GI or general surgeon. History & Record Review Discussion w/independent historian: Patient Lab Data Attestation: I reviewed the patient's lab results. Labs: Laboratory Results - last 24 hr 05/10/23 05/10/23 06:04 06:54 WBC 4.9 RBC 5.29 Hgb 15.1 H Hct 46.6 MCV 88.1 MCH 28.5 MCHC 32.4 RDW Std Deviation 43.8 RDW Coeff of Jaylen 13.6 Plt Count 252 MPV 9.6 Immature Gran % (Auto) 0.200 Neut % (Auto) 61.0 Lymph % (Auto) 26.1 [place] % (Auto) 7.8 Eos % (Auto) 3.9 Baso % (Auto) 1.0 Absolute Neuts (auto) 3.0 Absolute Lymphs (auto) 1.27 Nucleated RBC % 0 Sodium 143 Potassium 3.8 Chloride 110 H Carbon Dioxide 26.0 Anion Gap 7 BUN 13 Creatinine 1.08 H Estim Creat Clear Calc 63.64 Est GFR (MDRD) Af Amer 68 Est GFR (MDRD) Non-Af 57 L BUN/Creatinine Ratio 12.0 Glucose 92 Calcium 10.1 Total Bilirubin 0.50 Direct Bilirubin 0.12 AST 27 ALT 35 Alkaline Phosphatase 69 Total Protein 7.6 Albumin 3.8 Globulin 3.8 Lipase 33 Urine Color Yellow Urine Clarity Clear Urine pH 8.0 Ur Specific [place] 1.010 Urine Protein Negative Urine Glucose (UA) Normal Urine Ketones Negative Urine Occult Blood Negative Urine Nitrite Negative Urine Bilirubin Negative Urine Urobilinogen Normal Ur Leukocyte Esterase Negative Urine RBC 0 SEEN Urine WBC 0 SEEN Ur Squamous Epith Cells 0-5 SEEN Urine Bacteria RARE Urine Mucus RARE Discharge Plan Triage Chief Complaint: Abd Pain ED Provider: Jerzy Miller Dx/Rx/DC Orders Clinical Impression: Intermittent right upper quadrant abdominal pain, Nausea Instructions: ED Abdominal Pain Unkn Cause Fem Prescriptions: New ondansetron 4 mg tablet,disintegrating 4 mg PO TID PRN (Reason: nausea and vomiting) Qty: 21 1RF No Action gabapentin 100 mg capsule 100 mg PO QHS diazepam 5 mg tablet 5 mg PO Q6H PRN riboflavin (vitamin B2) 100 mg tablet 100 mg PO BID calcium carbonate 600 mg calcium (1,500 mg) tablet 1,200 mg PO DAILY fluticasone propionate 50 mcg/actuation spray,suspension 1 spray intranasal BID PRN zolpidem [Ambien CR] 6.25 mg tablet,ext release multiphase 6.25 mg PO QHS PRN coenzyme Q10 100 mg tablet 100 mg PO DAILY duloxetine 60 mg capsule,delayed release(DR/EC) 60 mg PO DAILY rizatriptan 10 mg tablet 10 mg PO ONCE PRN Stand Alone Forms: ED Work / School Excuse Primary Care Provider: BRI ANGELA Referrals: BRI ANGELA CRNP [Primary Care Provider] - Activity Restrictions/Additional Instructions: Please follow-up with your family doctor to discuss potential repeat outpatient HIDA scan testing versus abdominal MRI or referral to a GI doctor or general surgeon to further assess the cause of your symptoms. You may take both the Phenergan which was called in later today and or the Zofran as needed for improved nausea control. Disposition Disposition: Home, Self Care
[2023-05-10 07:26] LABS: Bacteria RARE /hpf (None Seen); Mucous, Urine RARE /hpf (<or=2+); Squamous Epithelial Cells - UA 0-5 SEEN /hpf (5-10)
[2023-05-10 09:18] VITALS: BP 119/73; PULSE 79; RESP 18; TEMP 36.4; O2SAT 99
== END 2023-05-10 09:19 | disposition home or self-care (01) ==
PROVIDERS: Emergency Provider Emergency Medicine; PCP Nurse Practitioner Adult Health; Visit Provider Emergency Medicine
DX: R10.11 Right upper quadrant pain (principal); R11.0 Nausea; I10 Essential (primary) hypertension; M79.7 Fibromyalgia; R51.9 Headache, unspecified; E66.9 Obesity, unspecified
CPT/HCPCS: 76705; 80048; 80076; 81001; 83690; 85025; 96361; 96374; 96375; 99283; J7030; A4216; J2405

== ENCOUNTER → 2023-12-22 | Outpatient (CLI) | payer OTHER, SELFPAY ==
[2023-12-22 09:03] LABS: Erythrocyte Sedimentation Rate 8 mm/hr (0-30)
[2023-12-22 09:15] LABS: Absolute Lymphocyte Count 1.05 X10^3/uL (0.83-4.51); Absolute Neutrophil Count 2.9 X10^3/uL (2.0-7.7); Basophil# 0.05 X10^3/uL; Eosinophil# 0.25 X10^3/uL; Eosinophils% 5.2 % (0-5); Hematocrit 41.7 % (37-47); Hemoglobin 13.7 g/dL (12.0-15.0); Lymphocyte # 1.05 X10^3/ul (0.83-4.51); Mean Corp Hgb Conc 32.9 g/dL (32-36); Mean Corpuscular Hgb 29.1 pg (27.0-32.0); Mean Corpuscular Volume 88.5 fL (81-99); Mean Platelet Vol. 9.4 fl (6.2-12.0); Monocyte# 0.45 X10^3/uL; Monocyte% 9.4 % (0-10); NRBC Flagged by Analyzer 0 % (0-5); Neutrophil # 2.94 X10^3/uL (2.7-7.7); Neutrophil % 61.6 % (47-70); Platelet Count 239 K/mm3 (150-450); RBC Distribution Width CV 12.8 % (11.6-14.6); RBC Distribution Width SD 41.8 fl (35.1-43.9); Red Blood Count 4.71 M/mm3 (4.2-5.4); White Blood Count 4.8 K/mm3 (4.4-11.0)
[2023-12-22 09:33] LABS: ALB/GLOB Ratio 0.9 RATIO (0.9-2.4); AST(SGOT) 26 U/L (15-37); Alanine Aminotransfer ALT/SGPT 41 U/L (13-56); Albumin, Serum 3.5 g/dL (3.2-5.0); Alkaline Phosphatase 71 U/L (45-117); Anion Gap 2 (5-15); BUN 11 mg/dL (7-18); BUN/Creat Ratio 12.3 RATIO (10-20); CRP 4.27 mg/L (0.0-3.0); Calcium,Total 9.5 mg/dL (8.5-10.1); Chloride 111 mmol/L (98-107); EST Glomerular Filtration Rate 70 mL/min (>60); Est Glom Filt Rate - Afr Amer 85 mL/min (>60); Free T3 2.5 pg/mL (2.18-3.98); Globulin 3.7 g/dL (2.2-4.2); Glucose 68 mg/dL (74-106); LDH 181 U/L (84-246); Potassium 4.2 mmol/L (3.5-5.1); Protein, Total 7.2 g/dL (6.4-8.2); Sodium Level 141 mmol/L (136-145); T4 Free Direct 0.85 ng/dL (0.76-1.46); Thyroid Stim Hormone (TSH) 0.722 uIU/mL (0.358-3.740)
[2023-12-25 14:09] LABS: Anti-Centromere B Ab <0.2 AI (0.0-0.9); Anti-Chromatin 0.4 AI (0.0-0.9); Anti-Jo <0.2 AI (0.0-0.9); Anti-Scleroderma-70 AB <0.2 AI (0.0-0.9); Anti-dsDNA Ab <1 IU/mL (0-9); Beef <0.10 kU/L (Class 0); Chocolate <0.10 kU/L (Class 0); Codfish <0.10 kU/L (Class 0); Corn <0.10 kU/L (Class 0); Egg, Whole 0.21 kU/L (Class 0/I); Milk (Cow) <0.10 kU/L (Class 0); Mussels <0.10 kU/L (Class 0); Peanut 0.11 kU/L (Class 0/I); Pork <0.10 kU/L (Class 0); RNP Ab <0.2 AI (0.0-0.9); SJOGREN'S Anti-SS-A test < 0.2 AI (0.0-0.9); SJOGREN'S Anti-SS-B test < 0.2 AI (0.0-0.9); Salmon <0.10 kU/L (Class 0); Shrimp <0.10 kU/L (Class 0); Smith Ab <0.2 AI (0.0-0.9); Soybean <0.10 kU/L (Class 0); Tuna <0.10 kU/L (Class 0); Wheat <0.10 kU/L (Class 0)
[2023-12-26 09:09] LABS: ACCA 0 units (0-90); ALCA 55 units (0-60); AMCA 241 units (0-100); Albumin 3.9 g/dL (2.9-4.4); Alpha-1-Globulins 0.2 g/dL (0.0-0.4); Alpha-2-Globulins 0.7 g/dL (0.4-1.0); Cytoplasmic Ab (C-ANCA) <1:20 titer (Neg:<1:20); Endomysial Antibody IgA Negative (Negative); Immunoglobulin A 177 mg/dL (87-352); Immunoglobulin E 29 IU/mL (6-495); Immunoglobulin G 1069 mg/dL (586-1602); Immunoglobulin M 80 mg/dL (26-217); PROEL- TOTAL PROTEIN 6.8 g/dL (6.0-8.5); Perinuclear Ab (P-ANCA) <1:20 titer (Neg:<1:20); gASCA 28 units (0-50); t-Transglutaminase IgA <2 U/mL (0-3)
== END | disposition home or self-care (01) ==
LOC: LAB 08:29
PROVIDERS: PCP Nurse Practitioner Adult Health
DX: K58.9 Irritable bowel syndrome, unspecified (principal); K21.9 Gastro-esophageal reflux disease without esophagitis
CPT/HCPCS: 36415; 80053; 82784; 82785; 83516; 83615; 84165; 84439; 84443; 84481; 85025; 85652; 86003; 86005; 86036; 86037; 86140; 86225; 86235; 86255; 86334; 86671

== ENCOUNTER → 2023-12-29 | Outpatient (CLI) | payer OTHER, SELFPAY ==
[2024-01-01 02:07] LABS: Pancreatic Elastase, Fecal > 800 (>200)
[2024-01-02 17:07] LABS: Calprotectin, Stool 81 ug/g (0-120)
== END | disposition home or self-care (01) ==
LOC: LABSPEC 11:29
PROVIDERS: PCP Nurse Practitioner Adult Health
DX: K58.9 Irritable bowel syndrome, unspecified (principal); K21.9 Gastro-esophageal reflux disease without esophagitis
CPT/HCPCS: 82653; 83630; 83993

== ENCOUNTER → 2024-02-02 | Outpatient (CLI) | payer OTHER, SELFPAY ==
--- NOTE | 2024-02-02 10:16 | NM_ITS ---
CLINICAL: 53-year-old female with history of chronic nausea and early satiety. SEMI-SOLID PHASE 99m Tc SULFUR COLLOID GASTRIC EMPTYING STUDY COMPARISON: None available FINDINGS: The patient was administered 1.1 mCi of 99m Tc sulfur colloid mixed with oatmeal and consumed per os. Image acquisitions in the anterior-posterior projections were obtained for 60 minutes. There is prompt visualization of the stomach. There is no gastroesophageal reflux identified. First order kinetics are maintained throughout the duration of the acquisitions. The T ? linear fit was not calculable (> 150 minutes). (Normal: 12-56 minutes). NM/Gastric Emptying Study IMPRESSION: 1. ABNORMAL 99m Tc sulfur colloid semi-solid phase (oatmeal) gastric emptying imaging examination. A. There is delayed semi-solid phase gastric emptying compared to normal controls. (Marlys et al, J Nucl Med Tech 38: 186, 2010). Electronically Signed: Juan Stevenson DO at 10:47 EST ,
== END | disposition home or self-care (01) ==
LOC: NM 10:13
PROVIDERS: PCP Nurse Practitioner Adult Health
DX: K21.9 Gastro-esophageal reflux disease without esophagitis (principal); K58.9 Irritable bowel syndrome, unspecified
CPT/HCPCS: 78264; A9541

== ENCOUNTER 2024-02-09 05:21 | Day surgery (SDC) | payer OTHER, SELFPAY ==
[2024-02-09] VITALS (9 sets, daily range): BP systolic 84–112; BP diastolic 52–81; PULSE 75–86; RESP 16; TEMP 36.6–37; O2SAT 95–98; BMI 34.2
--- NOTE | 2024-02-09 06:29 | PCM.PRE.AN2 ---
ASA Classification* ASA Classification ASA Classification: 2 Assessment & Plan Anesthesia* Anesthesia Assessment Anesthesia Assessment: Discussed sedation and/or anesthesia options, risks, benefits, and alternatives with patient/parents/legal guardian/POA. Questions invited. The patient/parents/legal guardian/POA seems to understand and agrees to proceed with anesthesia plan. Reviewed the physical assessment, medical history, allergy history and patient home medications list prior to surgery/procedure/anesthetic and documented any changes. Performed airway and anesthesia risk assessments. Anesthesia Type Anesthesia Type: MAC History Source History Obtained from:: Patient and Chart Anesthesia Focused Assessment* Temperature: 97.8 F Pulse Rate: 86 Blood Pressure: 112/81 Respiratory Rate: 16 Pulse Ox: 95 Airway Assessment Mouth opens: >3 cm Mallampati Score: II Teeth Condition: Intact Neck Range of motion (ROM): Full ROM Focused Labs Anesthesia Preop lab: CBC WBC 4.8 K/mm3 (4.4-11.0) 12/22/23 08:34 RBC 4.71 M/mm3 (4.2-5.4) 12/22/23 08:34 Hgb 13.7 g/dL (12.0-15.0) 12/22/23 08:34 Hct 41.7 % (37-47) 12/22/23 08:34 Plt Count 239 K/mm3 (150-450) 12/22/23 08:34 CHEMISTRY Potassium 4.2 mmol/L (3.5-5.1) 12/22/23 08:34 Sodium 141 mmol/L (136-145) 12/22/23 08:34 Magnesium 2.2 mg/dL (1.6-2.6) 03/26/21 23:00 BUN 11 mg/dL (7-18) 12/22/23 08:34 Creatinine 0.90 mg/dL (0.55-1.02) 12/22/23 08:34 Glucose 68 mg/dL (74-106) L 12/22/23 08:34 TSH 0.722 uIU/mL (0.358-3.740) 12/22/23 08:34 COAG PT 12.9 SECONDS (11.7-14.9) 03/26/21 23:00 Pre-Assessment Diagnosis/Proposed Procedure Planned Operative Procedure(s): egd, cscope Anesthesia History Anesthesia History - human performance technologist: Anesthesia History - human performance technologist Hx Hospitalization Yes: stomach rupturing - 02/07/24 12:40 2022 Any Problems With Anesthesia No 02/07/24 12:40 Cholinesterase deficiency You/Your Family Experience No 02/07/24 12:40 fever (hyperthermia) with Relationship Recent Exposure to Contagious No 02/09/24 05:48 Disease Does patient have nerve No 02/07/24 12:40 stimulator Patient instructed to have device shut off --Does patient have Pacemaker No 02/09/24 05:48 or ICD? When Was Last Pacemaker Check QUESTION #4 FULL TEXT: You/Your Family Experience fever (hyperthermia) with Anesthesia Last Oral Intake Last Oral intake: Last Oral Intake NPO since 03:30 02/09/24 05:48 Meds taken in AM with sips of water? Meds patient instructed to take am of surgery PONV PONV - human performance technologist: PONV - human performance technologist Female Yes 02/07/24 12:40 HX of Motion Sickness Yes 02/07/24 12:40 HX of N/V After Surgery Yes 02/07/24 12:40 Non-Smoker Yes 02/07/24 12:40 Duration of Surgery greater No 02/07/24 12:40 than 60 minutes Number of Risk Factors 4 02/07/24 12:40 PONV Score Severe Risk 02/07/24 12:40 Height & Weight Height & Weight: Anesthesia: Height & Weight Height 5 ft 3 in 02/09/24 05:48 Weight: 87.6 kg 02/09/24 05:48 Body Mass Index (BMI) 34.2 02/09/24 05:48 Respiratory Assessment Respiratory Assessment - human performance technologist: Respiratory Tract Infection Hx - human performance technologist Hx Respiratory Tract Infection No 02/07/24 12:40 STOP Sleep Apnea STOP Sleep Apnea - human performance technologist: STOP Sleep Apnea - human performance technologist Hx Hypertension No 02/07/24 12:40 Hx Sleep Apnea Yes 02/07/24 12:40 CPAP Yes 02/07/24 12:40 BIPAP No 02/07/24 12:40 Do you snore loudly (louder than talking or can be heard Do you often feel tired/ fatigued/ sleepy during daytime? Has anyone observed you stop breathing during sleep? STOP Results Positive 02/07/24 12:40 QUESTION #5 FULL TEXT : Do you snore loudly (louder than talking or can be heard through closed doors)? 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 Specify any problems Hx of Preganancy in last 3 N/A 02/07/24 12:40 Months Nurse Filling Out Transfusion NBUCHER 02/07/24 12:40 & Questions: Date: 02/07/24 02/07/24 12:40 Time: 12:42 02/07/24 12:40 Patient unable to answer at this time (ie. confused, unrespo /Reproduction History /Reproductive History - human performance technologist: /Reproductive Hx- human performance technologist Hx Now No 02/07/24 12:40 Gestational Age (in weeks): EDC: Hx Hx Para Hx Section SAB No 02/07/24 12:40 PFSH Medical History History of echocardiogram Post-menopausal Wears glasses Depression Arthritis Fatty liver Easy bruising Restless legs Dietary restriction History of IBS Non-smoker CPAP (continuous positive airway pressure) dependence Cardiology follow-up encounter Chest pain Fibromyalgia Essential (primary) hypertension Esophagitis Duodenitis without mention of hemorrhage Sleep apnea Hx of spinal stenosis Chronic vertigo Vestibular migraine Home Medications ?Medication ?Instructions ?Recorded ?Last Taken ?Type diazepam 5 mg tablet 5 mg PO Q6H PRN migraines 12/06/22 Unknown History fluticasone propionate 50 1 spray intranasal BID PRN allergy 12/07/22 Unknown History mcg/actuation nasal symptoms spray,suspension coenzyme Q10 100 mg tablet 100 mg PO DAILY 03/03/23 Unknown History duloxetine 60 mg capsule,delayed 60 mg PO DAILY 03/03/23 Unknown History release zolpidem 6.25 mg tablet,extended 6.25 mg PO QHS PRN sleep 03/03/23 Unknown History release,multiphase (Ambien CR) ascorbic acid (vitamin C) 500 mg 500 mg PO QDAY 12/21/23 Unknown History tablet calcium carbonate 1,200 mg PO BID 12/21/23 Unknown History riboflavin (vitamin B2) 100 mg 100 mg PO QDAY 12/21/23 Unknown History tablet rimegepant 75 mg disintegrating 75 mg PO ONCE PRN migraine headache 12/21/23 Unknown History tablet prochlorperazine maleate 5 mg 5 mg PO BID PRN nausea and 12/22/23 Unknown Rx tablet vomiting #20 tabs rabeprazole 20 mg tablet,delayed 20 mg PO QDAY 12/22/23 Unknown History release ondansetron 4 mg disintegrating 4 mg PO TID PRN nausea and 12/29/23 Unknown Rx tablet vomiting #45 tabs Allergy/AdvReac Type Severity Reaction Status Date / Time cephalexin Allergy Hives Verified 02/09/24 05:49 topiramate (From Topamax) AdvReac Intermediate headaches/d Verified 02/09/24 05:49 izziness Family History Mother Hypertension Grandfather Heart disease Grandmother Heart disease Surgical History History of colonoscopy History of esophagogastroduodenoscopy (EGD) History of uterine fibroid (~04/2010) Social History Smoking Status: Never smoker alcohol intake: never substance use type: does not use caffeine: Yes (energy drinks) Type: other Review of Systems (Anesthesia) ROS Narrative System reviewed and no additional complaints, except as documented.
--- NOTE | 2024-02-09 06:30 | IMM_PTH ---
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 Fabian Mclean DO : 1970 BED: DIS: 02/09/2024 SPEC #: [id number] RECD: 02/09/24 13:52 STATUS: BREN REQ #: [id number] JAMESON: 02/09/24 06:[address]: Fabian Mclean DEPT: IMMUNOHISTOCHEMISTRY RECD BY: Scout Brar ENTERED: 02/09/24 13:52 SP TYPE: IMMUNO OTHR DR: DIEGO JUDGE Tissues: B - Gastric mucous membrane Procedures: H Pylori (initial) PHYSICIAN & INSTITUTION [place] [id number] SPECIMEN INFORMATION: Tissue Source: B- Gastric body biopsy Clinical Info: GE reflux disease, irritable bowel syndrome Specimen Number: [id number] CPT code: 36701 METHODOLOGY: Deparaffinized sections of prefer/formalin-fixed tissue or PAP/DQ stained slides are incubated with monoclonal/polyclonal antibodies/oligonucleotide probes. Localization is made via biotin free immunoperoxidase method. Appropriate controls are performed and reacted as expected. Results on target cell population are indicated in the following table: RESULTS: ANTIBODY / CLONE RESULT Block B H Pylori (polyclonal) negative These tests were developed and their performance characteristics determined by [facility]. They may not have been cleared or approved by the U.S. Food and Drug Administration. The FDA has determined that such clearance or approval is not necessary. The above immunohistochemical/dualISH markers are ordered and reviewed by the Pathologist. INTERPRETATION: B. Gastric body, biopsy: Negative for Helicobacter pylori organisms. 02/12/2024
--- NOTE | 2024-02-09 06:30 | EGD_PTH ---
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 Fabian Mclean DO : 1970 BED: DIS: 02/09/2024 SPEC #: [id number] RECD: 02/09/24 12:06 STATUS: BREN REED #: [id number] JAMESON: 02/09/24 06:[address]: Fabian Mclean DEPT: SURGICAL PATHOLOGY RECD BY: Scout Brar ENTERED: 02/09/24 12:07 SP TYPE: EGD BIOPSY OT DR: DIEGO JUDGE Tissues: A - Duodenum, NOS B - Gastric mucous membrane C - Ileum, NOS D - COLON BIOPSY Procedures: Surgery Specimen Level IV HEADER OPERATION: Colonoscopy, EGD biopsy PRE-OP DIAGNOSIS: GE reflux disease, irritable bowel syndrome TISSUE SUBMITTED: A- Duodenum biopsy, B- Gastric body biopsy, C- Terminal ileum biopsy,D- Random colon biopsy MICROSCOPIC DIAGNOSIS A. Duodenum, biopsy: No pathologic change. B. Gastric body, biopsy: Mild chronic gastritis. See comment. C. Terminal ileum, biopsy: No pathologic change. D. Colon, random biopsy: No significant pathologic change. See comment. 02/12/2024 COMMENT B. The results of immunohistochemistry for Helicobacter pylori will be reported separately ([id number]). D. Rare eosinophils and neutrophils are seen in glandular epithelium. The significance of this is unclear. Clinical correlation is suggested. MICROSCOPIC DESCRIPTION Slides are reviewed. GROSS DESCRIPTION A. Received in fixative is one container labeled with the patient's name and designated Duodenum biopsy. The specimen consists of multiple irregular fragments of light r[place] soft tissue that in aggregate measure 1.5 x 0.3 x 0.1 cm. The specimen is totally submitted in one cassette. B. Received in fixative is one container labeled with the patient's name and designated Gastric body biopsy. The specimen consists of multiple irregular fragments of light r[place] soft tissue that in aggregate measure 1.5 x 0.6 x 0.1 cm. The specimen is totally submitted in one cassette. C. Received in fixative is one container labeled with the patient's name and designated Terminal ileum biopsy. The specimen consists of one irregular fragment of light r[place] soft tissue that measures 0.4 x 0.3 x 0.1 cm. The specimen is totally submitted in one cassette. D. Received in fixative is one container labeled with the patient's name and designated Random colon biopsy. The specimen consists of multiple irregular fragments of light [place] soft tissue that in aggregate measure 2.0 x 0.5 x 0.1 cm. The specimen is totally submitted in one cassette. SJ.mr 02/09/2024 TC:2 CPT:23721w4
--- NOTE | 2024-02-09 06:44 | HP.PCM_ITS ---
History and Physical Date of Admission: 02/09/24 TELMA SCHULER, is a 53 F who presents to the office today for establishment with [facility] for complaints of increasing nausea and abdominal pain. She reports daily nausea and eats small meals due to early satiety and bloated feeling. She states that she avoids gluten due to it triggering headaches and migraines. Denies other food sensitivities that she's aware of. She reports having had an EGD this August 2023 and was told she has a small floating hiatal hernia and GERD. She was prescribed rabeprazole but has noticed that is much less effective now fo reducing heartburn. She reports her last colonoscopy was July 2022 where they only found a rectal fissure. She reports daily sm incomplete BMs, complete evacuation occurs every 1-3 days with hematochezia rarely. She denies difficulty chewing, swallowing, vomiting, and melena. She denies fever, chills, drinking from new water source, or recent travel. ROS Const Constitutional: Positive for anorexia, fatigue and headache(s); No fever(s) or weight change Eyes Eyes: No change in vision ENT ENT: Positive for headache(s); No abnormal hearing or difficulty swallowing Cardio Cardiology: Positive for leg pain with exertion; No chest pain at rest or chest pain with exertion Gastro GI: Positive for abdominal pain, bloating, change in bowel habits, constipation, diarrhea, heartburn, excessive flatus and nausea/dyspepsia; No belching, change in stool character, coffee ground emesis, cramping, difficulty swallowing, feeling full early, incontinent of stools, Vomiting blood/hematemesis, Blood in stool, loose stools, Black,tarry stools, pain with swallowing, vomiting or other Genitourinary-Female: No difficulty urinating Musc Musculoskeletal: Positive for joint pain, back pain, muscle cramps, numbness, stiffness, tingling, Arthritis, restless legs and leg pain with exertion Skin Skin: Positive for dry skin; No yellowing of the eye or itchy eyes Neuro Neurology: Positive for headache(s), numbness, tingling and restless legs; No abnormal hearing Psych Psychiatric: No anxiety, No depression and Positive for hyperactivity Endo Endocrine: Positive for fatigue and heat intolerance; No cold intolerance or weight change Aller/Imm Allergy/Immunologic: Positive for food intolerance (gluten); No itchy eyes Herson/Lymp Hematologic/Lymphatic: Positive for easy bruising; No easy bleeding Exam Const General: cooperative, healthy appearing, comfortable and no acute distress Nutritional Appearance: overweight Orientation: alert [facility] Head: normal to inspection Ears: hearing grossly normal bilaterally Nose: external nose normal Face and sinus: normal facial exam and face symmetric Eyes General: appearance normal, both eyes and all related structures Sclera: sclerae normal Neck Neck: normal visual inspection and full ROM Neck mass: No Chest Chest palpation & inspection: normal inspection of the chest Resp Effort & Inspection: normal respiratory effort, able to speak in complete sentences and symmetric chest movement Skin General: no rashes or lesions noted Neuro General: patient alert, patient awake and patient oriented x3 Cognition: normal cognition Speech: speech normal Gait: normal gait Extrem General: full ROM Psych Appearance: well kempt Mental Status: mental status grossly normal Mood: congruent mood Affect: normal affect Speech and Movement: speech and movement normal Attitude: cooperative Thought Process: normal Assessment and Plan Assessment and Plan (1) Gastroesophageal reflux disease: Status: Acute Qualifiers: Esophagitis presence: without esophagitis Qualified Code(s): K21.9 - Gastro-esophageal reflux disease without esophagitis Plan: TELMA SCHULER, is a 53 F who presents to the office today for establishment with [facility] for complaints of increasing nausea and abdominal pain. Differential diagnoses include: GERD, gastric motility dysfunction, colonic motility dysfunction, SIBO, IBS, IBD, celiac disease, food allergies. * GET for early satiety and increasing heartburn * blood for IBS/D, thyroid * stool for enzymes, inflammatory markers * continue rabeprazole * add prochlorperazine 5mg PO BID PRN breakthrough nausea following ondansetron * call with results * office follow-up in 6 months(2) IBS (irritable bowel syndrome): Status: Acute Qualifiers: Irritable bowel syndrome type: with both diarrhea and constipation Qualified Code(s): K58.2 - Mixed irritable bowel syndrome Orders: Orders Gastric Emptying Study Today K21.9 - Gastro-esophageal reflux disease without esophagitis, K58.9 - Irritable bowel syndrome, unspecified Allergen, Food Profile 14 Today K21.9 - Gastro-esophageal reflux disease without esophagitis, K58.9 - Irritable bowel syndrome, unspecified Celiac Disease Profile Today K21.9 - Gastro-esophageal reflux disease without esophagitis, K58.9 - Irritable bowel syndrome, unspecified CRP Today K21.9 - Gastro-esophageal reflux disease without esophagitis, K58.9 - Irritable bowel syndrome, unspecified Immunoglobulins G/A/M/E Today K21.9 - Gastro-esophageal reflux disease without esophagitis, K58.9 - Irritable bowel syndrome, unspecified DARIN Comprehensive Panel Today K21.9 - Gastro-esophageal reflux disease without esophagitis, K58.9 - Irritable bowel syndrome, unspecified LDH Today K21.9 - Gastro-esophageal reflux disease without esophagitis, K58.9 - Irritable bowel syndrome, unspecified ANCA Today K21.9 - Gastro-esophageal reflux disease without esophagitis, K58.9 - Irritable bowel syndrome, unspecified Erythrocyte Sed Rate Today K21.9 - Gastro-esophageal reflux disease without esophagitis, K58.9 - Irritable bowel syndrome, unspecified Calprotectin, Stool Today K21.9 - Gastro-esophageal reflux disease without esophagitis, K58.9 - Irritable bowel syndrome, unspecified Free T3 Today K21.9 - Gastro-esophageal reflux disease without esophagitis, K58.9 - Irritable bowel syndrome, unspecified Pancreatic Elastase, Fecal Today K21.9 - Gastro-esophageal reflux disease without esophagitis, K58.9 - Irritable bowel syndrome, unspecified CBC W/Diff, Automated Today K21.9 - Gastro-esophageal reflux disease without esophagitis, K58.9 - Irritable bowel syndrome, unspecified Stool Lactoferrin/WBC Today K21.9 - Gastro-esophageal reflux disease without esophagitis, K58.9 - Irritable bowel syndrome, unspecified IBD Expanded Profile Today K21.9 - Gastro-esophageal reflux disease without esophagitis, K58.9 - Irritable bowel syndrome, unspecified T4 Free Direct Today K21.9 - Gastro-esophageal reflux disease without esophagitis, K58.9 - Irritable bowel syndrome, unspecified ROGER + Protein Elect, Serum Today K21.9 - Gastro-esophageal reflux disease without esophagitis, K58.9 - Irritable bowel syndrome, unspecified Thyroid Stim Hormone (TSH) Today K21.9 - Gastro-esophageal reflux disease without esophagitis, K58.9 - Irritable bowel syndrome, unspecified Comprehensive Metabolic Profil Today K21.9 - Gastro-esophageal reflux disease without esophagitis, K58.9 - Irritable bowel syndrome, unspecified Medications: New rifaximin 550 mg PO TID 2 weeks 42 tabs 2RF IBS prochlorperazine maleate May take in 1 hour if ondansetron ineffective. 5 mg PO BID PRN 20 tabs 0RF nausea and vomiting I have examined the patient and the H&P has been reviewed. There are no clinical changes since date of exam.
--- NOTE | 2024-02-09 07:21 | OP.EGD_ITS ---
Patient Name: Chacha Contreras Procedure Date: 02/09/2024 6:27 AM Date of : 1970 Age: 53 Procedure: Upper GI endoscopy Indications: Epigastric abdominal pain Providers: Fabian Mclean DO Referring MD: Zeeshan Vaughn Medicines: Monitored Anesthesia Care Patient Profile: This is a 53 year old female. Refer to note in patient chart for documentation of history and physical. Patient has symptoms of chronic abdominal cramping, chronic abdominal distention, acute epigastric abdominal pain and chronic epigastric abdominal pain. Complications: No immediate complications. Procedure: Pre-Anesthesia Assessment: - Prior to the procedure, a History and Physical was performed, and patient medications and allergies were reviewed. The patient is competent. The risks and benefits of the procedure and the sedation options and risks were discussed with the patient. All questions were answered and informed consent was obtained. Patient identification and proposed procedure were verified by the physician in the pre-procedure area. Mental Status Examination: alert and oriented. Airway Examination: normal oropharyngeal airway and neck mobility. Respiratory Examination: clear to auscultation. CV Examination: normal. Prophylactic Antibiotics: The patient does not require prophylactic antibiotics. Prior Anticoagulants: The patient has taken no anticoagulant or antiplatelet agents except for NSAID medication. ASA Grade Assessment: II - A patient with mild systemic disease. After reviewing the risks and benefits, the patient was deemed in satisfactory condition to undergo the procedure. The anesthesia plan was to use monitored anesthesia care (MAC). Immediately prior to administration of medications, the patient was re-assessed for adequacy to receive sedatives. The heart rate, respiratory rate, oxygen saturations, blood pressure, adequacy of pulmonary ventilation, and response to care were monitored throughout the procedure. The physical status of the patient was re-assessed after the procedure. After obtaining informed consent, the endoscope was passed under direct vision. Throughout the procedure, the patient's blood pressure, pulse, and oxygen saturations were monitored continuously. The Colonoscope was introduced through the mouth, and advanced to the second part of duodenum. The upper GI endoscopy was accomplished without difficulty. The patient tolerated the procedure well. Scope In: 6:52:54 AM Scope Out: 6:58:40 AM Total Procedure Duration Time 0 hours 5 minutes 46 seconds Findings: The examined esophagus was normal. Patchy mildly erythematous mucosa without bleeding was found in the gastric body. Biopsies were taken with a cold forceps for histology. Verification of patient identification for the specimen was done. Estimated blood loss was minimal. Biopsies were taken with a cold forceps for Helicobacter pylori testing. Verification of patient identification for the specimen was done. Estimated blood loss: none. Patchy mildly erythematous mucosa without active bleeding and with no stigmata of bleeding was found in the duodenal bulb and in the first portion of the duodenum. Biopsies were taken with a cold forceps for histology. Verification of patient identification for the specimen was done. Estimated blood loss was minimal. Impression: - Normal esophagus. - Erythematous mucosa in the gastric body. Biopsied. - Erythematous duodenopathy. Biopsied. Recommendation: - Discharge patient to home. - Resume previous diet. - Continue present medications. - Await pathology results. Procedure Code(s): --- Professional --- 38581, Esophagogastroduodenoscopy, flexible, transoral; with biopsy, single or multiple CPT copyright 2021 [employer]. All rights reserved. The codes documented in this report are preliminary and upon education professional review may be revised to meet current compliance requirements. Fabian Mclean DO 02/09/2024 7:20:38 AM This report has been signed electronically. Number of Addenda: 0 Note Initiated On: 02/09/2024 6:27 AM
--- NOTE | 2024-02-09 07:21 | OP.CCLET_ITS ---
02/09/2024 Zeeshan Vaughn Re : Upper GI endoscopy procedure for Chacha Contreras Dear Shari This procedure was performed on Friday, February 09, 2024. My impressions and recommendations are as follows: Impressions : - Normal esophagus. - Erythematous mucosa in the gastric body. Biopsied. - Erythematous duodenopathy. Biopsied. Recommendations : - Discharge patient to home. - Resume previous diet. - Continue present medications. - Await pathology results. My findings are described in the full procedure note, which is enclosed. If I can be of further assistance, please feel free to contact me at . Sincerely, Fabian Mclean, 02/09/2024 7:20:38 AM This report has been signed electronically.
--- NOTE | 2024-02-09 07:23 | OP.COLON_ITS ---
Patient Name: Chacha Contreras Procedure Date: 02/09/2024 6:58 AM Date of : 1970 Age: 53 Procedure: Colonoscopy Indications: Clinically significant diarrhea of unexplained origin Providers: Fabian Mclean DO Referring MD: Zeeshan Vaughn Medicines: Monitored Anesthesia Care Patient Profile: This is a 53 year old female. Refer to note in patient chart for documentation of history and physical. Patient has symptoms of chronic abdominal cramping, chronic abdominal distention, acute epigastric abdominal pain and chronic epigastric abdominal pain. Last Colonoscopy: date unknown. Unable to locate last colonoscopy report. Complications: No immediate complications. Procedure: Pre-Anesthesia Assessment: - Prior to the procedure, a History and Physical was performed, and patient medications and allergies were reviewed. The patient is competent. The risks and benefits of the procedure and the sedation options and risks were discussed with the patient. All questions were answered and informed consent was obtained. Patient identification and proposed procedure were verified by the physician in the pre-procedure area. Mental Status Examination: alert and oriented. Airway Examination: normal oropharyngeal airway and neck mobility. Respiratory Examination: clear to auscultation. CV Examination: normal. Prophylactic Antibiotics: The patient does not require prophylactic antibiotics. Prior Anticoagulants: The patient has taken no anticoagulant or antiplatelet agents except for NSAID medication. ASA Grade Assessment: II - A patient with mild systemic disease. After reviewing the risks and benefits, the patient was deemed in satisfactory condition to undergo the procedure. The anesthesia plan was to use monitored anesthesia care (MAC). Immediately prior to administration of medications, the patient was re-assessed for adequacy to receive sedatives. The heart rate, respiratory rate, oxygen saturations, blood pressure, adequacy of pulmonary ventilation, and response to care were monitored throughout the procedure. The physical status of the patient was re-assessed after the procedure. After I obtained informed consent, the scope was passed under direct vision. Throughout the procedure, the patient's blood pressure, pulse, and oxygen saturations were monitored continuously. The Colonoscope was introduced through the anus and advanced to the terminal ileum. The colonoscopy was performed without difficulty. The patient tolerated the procedure well. The quality of the bowel preparation was adequate. The terminal ileum, ileocecal valve, appendiceal orifice, and rectum were photographed. Scope In: 7:00:13 AM Scope Withdrawal Time 0 hours 11 minutes 47 seconds Scope Out: 7:15:44 AM Total Procedure Duration Time 0 hours 15 minutes 31 seconds Findings: The perianal and digital rectal examinations were normal. The colon (entire examined portion) appeared normal. Biopsies for histology were taken with a cold forceps from the right colon, left colon and rectum for evaluation of microscopic colitis. Verification of patient identification for the specimen was done. Estimated blood loss was minimal. The terminal ileum appeared normal. Biopsies were taken with a cold forceps for histology. Verification of patient identification for the specimen was done. Estimated blood loss was minimal. Impression: - The entire examined colon is normal. Biopsied. - The examined portion of the ileum was normal. Biopsied. Recommendation: - Discharge patient to home. - Resume previous diet. - Continue present medications. - Await pathology results. - Repeat colonoscopy in 10 years for screening purposes. Procedure Code(s): --- Professional --- 65275, Colonoscopy, flexible; with biopsy, single or multiple CPT copyright 2021 [employer]. All rights reserved. The codes documented in this report are preliminary and upon a r collections rep review may be revised to meet current compliance requirements. Fabian Mclean DO 02/09/2024 7:23:20 AM This report has been signed electronically. Number of Addenda: 0 Note Initiated On: 02/09/2024 6:58 AM
--- NOTE | 2024-02-09 07:24 | OP.CCLET_ITS ---
02/09/2024 Zeeshan Vaughn Re : Colonoscopy procedure for Chacha Contreras Dear Shari This procedure was performed on Friday, February 09, 2024. My impressions and recommendations are as follows: Impressions : - The entire examined colon is normal. Biopsied. - The examined portion of the ileum was normal. Biopsied. Recommendations : - Discharge patient to home. - Resume previous diet. - Continue present medications. - Await pathology results. - Repeat colonoscopy in 10 years for screening purposes. My findings are described in the full procedure note, which is enclosed. If I can be of further assistance, please feel free to contact me at . Sincerely, Fabian Mclean, 02/09/2024 7:23:20 AM This report has been signed electronically.
--- NOTE | 2024-02-09 07:29 | PCM.POST.ANE ---
Anesthesia: Postop Eval I Current Vital Signs Temperature: 98.6 F Pulse Rate: 77 Blood Pressure: 96/55 Respiratory Rate: 16 Pulse Ox: 96 Oxygen Delivery Method: Room Air Assessment Airway patent: Yes Spontaneous unlabored respirations: Yes Mental status: Asleep nausea: No Vomiting: No Anesthesia Complication: No Fluid Hydration Crystalloid volume administer (ml): 75 Total IV fluid infused: 75 Progress Note Anesthesia document: Postop Eval 1 completed: Yes
--- NOTE | 2024-02-09 09:11 | PCM.POSTANE2 ---
Anesthesia Postop Eval I Sum Postop Eval Completion status Anesthesia document: Postop Eval 1 completed: Yes Anesthesia Postop Eval I Summary Anesthesia Postop Eval I Summary: Anesthesia Postop Eval I: Assessment Summary Airway patent Yes 02/09/24 07:30 [email or web address] Spontaneous unlabored Yes 02/09/24 07:30 [email or web address] respirations Mental status Asleep 02/09/24 07:30 [email or web address] nausea No 02/09/24 07:30 [email or web address] Vomiting No 02/09/24 07:30 [email or web address] Anesthesia Postop Eval I: Fluid Summary Crystalloid volume administer 75 02/09/24 07:30 [email or web address] (ml) Colloids volume administered ( ml) Blood Product volume administered (ml) Total IV fluid infused 75 02/09/24 07:30 [email or web address] Anesthesia Postop Eval I: Summary Notes Anesthesia Complication No 02/09/24 07:30 [email or web address] Anesthesia Complication Comment: Post-operative progress note Anesthesia: Postop Eval II Evaluation Mental status: Awake Pain Level: 0 nausea: No Vomiting: No
== END 2024-02-09 08:45 | disposition home or self-care (01) ==
LOC: EN 05:22 → AC 05:23
PROVIDERS: PCP Nurse Practitioner Adult Health; Referring Provider Nurse Practitioner Adult Health; Visit Provider Internal Medicine Gastroenterology
PROC: 0DJD8ZZ Inspection of Lower Intestinal Tract, Via Natural or Artificial Opening Endoscopic (ICD-10-PCS; CPT 45378; principal; 2024-02-09 06:25)
DX: K29.50 Unspecified chronic gastritis without bleeding (principal); K21.9 Gastro-esophageal reflux disease without esophagitis; K58.9 Irritable bowel syndrome, unspecified; E66.3 Overweight; Z68.34 Body mass index [BMI] 34.0-34.9, adult; F32.A Depression, unspecified; M79.7 Fibromyalgia; M19.90 Unspecified osteoarthritis, unspecified site; G47.30 Sleep apnea, unspecified; Z88.1 Allergy status to other antibiotic agents; Z87.19 Personal history of other diseases of the digestive system; Z79.899 Other long term (current) drug therapy
CPT/HCPCS: 43239; 45380; 88305; 88342; A4216; J2405

== ENCOUNTER → 2024-02-29 | Outpatient (CLI) | payer OTHER, SELFPAY ==
--- NOTE | 2024-02-29 07:48 | NM_ITS ---
CLINICAL: 53-year-old female with history of clinical gastroparesis. SOLID PHASE 99m Tc SULFUR COLLOID GASTRIC EMPTYING STUDY COMPARISON: Previous semisolid phase gastric emptying examination dated 02/02/2024 FINDINGS: The patient was administered 1.2 mCi of 99m Tc sulfur colloid mixed with egg and consumed per os. Image acquisitions in the anterior-posterior projections for a total of 233 minutes following meal consumption. There is prompt visualization of the stomach. There is no gastroesophageal reflux identified. First order kinetics are maintained throughout the duration of the acquisitions. The T ? linear fit was calculated to be 68.62 minutes, (Normal 65-110 minutes). 98.0 % emptying and 2.0 % retention are defined at 4 hours post meal ingestion. NM/Gastric Emptying Study - 4 HR IMPRESSION: 1. NORMAL 99m Tc sulfur colloid solid phase gastric emptying imaging examination. A. There is normal and preserved solid phase gastric emptying compared to normal controls with maintained first order kinetics throughout all components of the examination. (Marquis et al, Gastroenterology 77: 75, 1979 Scarlet et al, Semin Nucl Med 12: 116, 1981 Marga et al, SNM Procedure Guidelines Adult Solid Meal Gastric Emptying Study 3.0 [email or web address]). B. Greater than 90% emptying of the initial gastric contents at 4 hours post dose is consistent with normal solid phase gastric emptying which correlates with the results of the T ? emptying calculation. (Artur et al, J Nucl Med 48: 568, 2007). C. Overall compared to the previous semisolid gastric emptying examination dated 02/02/2024, there is current normal solid phase emptying as defined above. Electronically Signed: Juan Stevenson DO at 10:32 EST ,
== END | disposition home or self-care (01) ==
PROVIDERS: PCP Nurse Practitioner Adult Health; Referring Provider Internal Medicine Gastroenterology; Visit Provider Internal Medicine Gastroenterology
DX: K31.84 Gastroparesis (principal)
CPT/HCPCS: 78264; A9541

== ENCOUNTER → 2025-02-01 | Outpatient (CLI) | payer OTHER, SELFPAY ==
--- OUTSIDE RECORDS SUMMARY | 2025-02-01 07:19 | XMS RPT_ITS | CCD ---
Author Organization [facility] Care Team Providers Care Electronic Development Technician Name Role Phone ANGEL MARIE-ESME AVELARSIE Primary Care Physician Manisha Parks Primary Care Provider Angel CUSTOMER CARE SPECIALIST.ROSIO Demi Primary Care Provider VANESSA DRAKE Admitting Unavailable VANESSA DRAKE Attending Unavailable DEMI ORTIZ Primary Care Unavailable Angel ENAMEL BURNER, ENAMEL BURNER-C Demi Primary Care Provider FRANCINE Austin Attending Provider Unavail able Angel ENAMEL BURNER, ENAMEL BURNER-C Demi Referring Provider [phone] Dr. Daniel Trotter Attending Provider [phone] Mesfin ARCINIEGA, ENAMEL BURNER-C Eli Attending Provider Angel ARCINIEGA, ENAMEL BURNER-C Demi Primary Care Provider FRANCINE Austin Attending Provider Unavail able Angel ENAMEL BURNER, ENAMEL BURNER-C Demi Referring Provider [phone] Dr. Daniel Trotter Attending Provider Dr. Daniel Trotter Referring Provider Mesfin ARCINIEGA, ENAMEL BURNER-C Eli Attending Provider Gregory ENAMEL BURNER, ENAMEL BURNER-C Rodolfo Ellsworth Attending Provider [phone] DIEGO ANGELA Primary Care Provider Angel ENAMEL BURNER, ENAMEL BURNER-C Demi Referring Provider [phone] DIEGO ANGELA Primary Care Provider Angel CUSTOMER CARE SPECIALISTANGELA Demi Primary Care Provider MAST CUSTOMER CARE SPECIALIST-ADVICE NURSE, BRI Attending Unavailabl e MAST CUSTOMER CARE SPECIALIST-ADVICE NURSE, BRI Primary Care Unavailabl e Seffens CUSTOMER CARE SPECIALIST.ADVICE NURSE, Demi Primary Care Provider Gandhi, Mi Referring Unavailable MAST, BRI Primary Care Unavailable Gandhi, Mi Attending Unavailable Friend, Fabian Referring Unavailable MAST, BRI Primary Care Unavailable Friend, Fabian Attending Unavailable Gandhi, Mi Attending Unavailable MAST, BRI Referring Unavailable MAST, BRI Primary Care Unavailable MAST, BRI Referring Unavailable MAST, BRI Primary Care Unavailable Friend, Fabian Consulting Unavailable Friend, Fabian Attending Unavailable Gandhi, Mi Attending Unavailable MAST, BRI Primary Care Unavailable MAST, BRI Referring Unavailable MAST, BRI Referring Unavailable MAST, BRI Primary Care Unavailable Friend, Fabian Attending Unavailable MAST, BRI Primary Care Unavailable Gandhi, Mi Referring Unavailable Gandhi, Mi Attending Unavailable MAST, BRI Primary Care Unavailable Gandhi, Mi Referring Unavailable Gandhi, Mi Attending Unavailable MAST CUSTOMER CARE SPECIALIST-ADVICE NURSE, BRI Primary Care Physician ([phone]) MAST CUSTOMER CARE SPECIALIST-ADVICE NURSE, BRI Attending Unavailabl e MAST CUSTOMER CARE SPECIALIST-ADVICE NURSE, BRI Primary Care Unavailabl e MANISHA GASCA Attending Unavailable SEFFENS, DEMI Primary Care Unavailable MANISHA GASCA Referring Unavailable SEFFENS, DEMI Primary Care Unavailable LUBA MONROE Attending Unavailable SEFFENS, DEMI Primary Care Unavailable Allergies Allergy Classification Reported Allergen(s) Allergy Type Date of Onset Reaction(s) Facility (20 sources) Cephalexin; Translations: [cephalexin] Drug Allergy 8 Eruption of skin (disorder), GI Upset [facility] (20 sources) topiramate; Translations: [topiramate] Drug Allergy 3 Dizziness (finding), Other: See Comments [facility] (1 source) Cephalexin Drug Allergy 5 [facility] (1 source) topiramate Drug Allergy 5 [facility] Medications Current Medications Medication Drug Class(es) Dates Sig (Normalized) Sig (Original) Ascorbic Acid (1 source) Vitamin C Start: 03-24-2023 Vitamin C qDay, 0 Refill(s) Start Date: 03/24/23 Status: Ordered Repeat number: 1 atogepant (QULIPTA) 60 mg tablet (2 sources) Start: 11-22-2024 take 1 tablet by mouth once daily atogepant (QULIPTA) 60 mg tablet Indications: Migraine without aura and without status migrainosus, not intractable , Vestibular migraine Take 1 tablet by mouth once daily. 30 tablet 2 11/22/2024 Active Budesonide (20 sources) Corticosteroid Start: 05-10-2021 budesonide 0.5 mg/2 mL inhalation suspension 0 Refill(s) Start Date: 05/10/21 Status: Ordered Start: 04-19-2021 budesonide (PU LMICORT) 0.5 mg/2 mL nebulizer solution Ca carb-Ca gluc-Mg ox-Mg glu co (CALCIUM MAGNESIUM) 500 mg calcium -250 mg tab (20 sources) Ca carb-Ca gluc- Mg ox-Mg gluco (CALCIUM MAGNESIUM) 500 mg calcium -250 mg tab Take by mouth. 500 mg at night Active Ca carb-Ca gluc- Mg ox-Mg gluco (CALCIUM MAGNESIUM) 500 mg calcium -250 mg tab Take by mouth. 500 mg at night 0 Active Comment on above: Take by mouth. 500 m g at night Calcium (1 source) Phosphate Binder, Calcium Start: 05-10-2021 calcium (as carbonate) 600 mg oral tablet Dose : 1,200 mg = 2 tab(s), Oral, TIDM, 0 Refill(s) Start Date: 05/10/21 Status: Ordered calcium carbonate 1500 mg oral tablet (20 sources) Start: 03-24-2023 calcium (as carbonate) 600 mg oral tablet Dose : 1,200 mg = 2 tab(s), Oral, TIDM, 0 Refill(s) Start Date: 03/24/23 Status: Ordered Repeat number: 1 Start: 05-10-2021 calcium carbon ate (CALTRATE) 600 mg calcium (1,500 mg) tab Take 1,200 mg by mouth. 05/10/2021 Active Comment on above: Take 1,200 mg by [facility]. Co Q-10 100 mg oral capsule (1 source) Start: 03-24-2023 Co Q-10 100 mg oral capsule Dose : 100 mg = 1 cap(s), Oral, Daily, 0 Refill(s) Start Date: 03/24/23 Status: Ordered Repeat number: 1 CPAP (20 sources) CPAP daily at be dtime. Active CPAP daily at be dtime. 0 Active Comment on above: daily at bedtime. diazePAM 5 mg oral tablet (7 sources) Benzodiazepine Start: 12-06-2022 take 5 mg by mouth every six hours Diazepam Active 5 MG PO EVERY 6 HOURS December 05, 2022 11:00pm Start: 05-02-2022 diazePAM 5 mg oral tablet Dose : 5 mg = 1 tab(s), Oral, q6h, PRN Dizziness, 81.8 Start Date: 05/02/22 Status: Ordered DULoxetine 60 mg delayed release oral capsule (20 sources) Serotonin and Norepinephrine Reuptake Inhibitor Start: 10-22-2024 take 1 capsule by mouth once daily DULoxetine DR (CYMBALTA) 60 mg capsule Take 1 capsule by mouth once daily. 30 capsule 11 10/22/2024 Active Start: 03-03-2023 End: 10-17-2024 take 1 capsule by mouth once daily DULoxetine (CYMBALTA) 60 mg capsule Take 1 capsule by mouth once daily. 30 capsule 11 10/19/2023 10/17/2024 Discontinued Start: 12-06-2022 End: 03-03-2023 take 60 mg by mouth once daily Duloxetine Discontinued 60 MG PO DAILY December 05, 2022 11:00pm March 03, 2023 9:00am Start: 05-31-2022 End: 10-05-2022 take 1 capsule by mouth once daily DULoxetine (CYMBALTA) 30 mg capsule Take 1 capsule by mouth once daily. 30 capsule 0 05/31/2022 10/05/2022 Discontinued Start: 05-31-2022 End: 02-10-2023 take 1 capsule by mouth once daily DULoxetine (CYMBALTA) 60 mg capsule Take 1 capsule by mouth once daily. 30 capsule 3 02/13/2023 Active Comment on above: Take 1 capsule by mo uth once daily. estradiol 0.1 mg/ml vaginal cream (20 sources) Estrogen Start: 08-16-2024 estradiol 0.1 mg/g vaginal cream 0 Refill(s) Start Date: 08/16/24 Status: Ordered Repeat number: 1 Start: 06-14-2024 End: 08-16-2025 estradiol (ESTRACE) 0.01 % ( 0.1 mg/gram) vaginal cream Indications: Vaginal atrophy Use 1 g vaginally two times a week. 42.5 g 2 08/16/2024 08/16/2025 Active Start: 04-14-2023 End: 06-14-2024 estradiol (ESTRACE) 0.01 % ( 0.1 mg/gram) vaginal cream Indications: Vaginal itching , Vaginal burning , Vaginal atrophy Use 1 g vaginally once daily. Use daily for 2 weeks. Then twice a week. 42.5 g 4 04/14/2023 06/14/2024 Discontinued Comment on above: Use 1 g vaginally on ce daily. Use daily for 2 weeks. Then twice a week. fluticasone propionate 0.05 mg/actuat metered dose nasal spray (10 sources) Corticosteroid Start: 12-06-2022 End: 12-07-2022 Fluticasone Propionate Active 1 SPRAY INTRANASAL TWICE A DAY December 07, 2022 8:04am Start: 04-15-2022 End: 04-29-2022 take 1 dose nasal route twice daily fluticasone proprionate NASAL 50 mcg/ spray Dose = 1 spray(s), Nostril, each, BID, # 16 gram(s), 0 Refill(s), Pharmacy: [id number], 160.3, cm, 04/15/22 13:02:00 EST, Height Start Date: 04/15/22 Stop Date: 04/29/22 Status: Ordered gabapentin 100 mg oral capsule (19 sources) Anti-epileptic Agent Start: 12-07-2022 End: 03-03-2023 take 1 mg by mouth at bedtime Gabapentin Discontinued MG PO AT BEDTIME December 06, 2022 11:00pm March 03, 2023 9:03am Start: 11-16-2022 End: 08-16-2024 gabapentin (NEURONTIN) 100 m g capsule Take 1 capsule by mouth as directed for 90 days. 90 capsule 2 11/16/2022 08/16/2024 Discontinued Comment on above: Take 1 capsule by [facility] as directed for 90 days. magnesium oxide 400 mg oral tablet (1 source) Start: 02-21-20 22 take 1 mg by mouth once daily magnesium oxide 400 mg oral tablet mg = tab(s), Oral, qDay, 0 Refill(s) Start Date: 05/10/21 Status: Ordered metoclopramide 5 mg oral tablet (9 sources) Dopamine-2 Receptor Antagonist Start: 04-29-19 metoclopramide HCl (REGLAN) 5 mg tablet Take 5 mg by mouth. 04/29/2024 Active naproxen 500 mg oral tablet (3 sources) Nonsteroidal Anti-inflammatory Drug Start: 04-15-19 take 1 tablet by mouth twice daily as needed naproxen 500 mg oral tablet TAKE 1 TABLET BY MOUTH TWICE DAILY NEEDED FOR 10 DAYS Start Date: 04/15/22 Status: Ordered ondansetron 4 mg disintegrating oral tablet (20 sources) Serotonin-3 Receptor Antagonist Start: 05-10-19 take 4 mg by mouth three times daily Ondansetron Active 4 MG PO THREE TIMES A DAY May 10, 2023 7:49am Start: 05-18-2022 take 1 tablet by alee th once daily as needed for nausea ondansetron (ZOFRAN) 8 mg tablet Indications: Nausea Take 1 tablet by mouth once daily as needed for nausea/vomiting (for nausea.). 15 tablet 3 05/18/2022 Active Start: 05-02-2022 ondansetron 4 mg oral tablet, disintegrating Dose : 4 mg = 1 tab(s), Oral, q8h, PRN as needed for nausea/vomiting Start Date: 05/02/22 Status: Ordered Comment on above: Take 1 tablet by alee th once daily as needed for nausea/vomiting (for nausea.). RABEprazole sodium 20 mg delayed release oral tablet (19 sources) Proton Pump Inhibitor Start: 09-24-19 take 1 tablet by mouth once daily at dinner RABEprazole (ACIPHEX) 20 mg tablet TAKE 1 TABLET BY MOUTH BEFORE EVENING MEAL DAILY 09/24/2023 Active riboflavin 100 mg oral tablet (20 sources) Start: 03-24-19 24 take 1 tablet by mouth once daily riboflavin 100 mg oral tablet fwe tab(s), Oral, qDay, 0 Refill(s) Start Date: 03/24/23 Status: Ordered Repeat number: 1 Start: 12-06-2022 take 100 mg by mouth twice daily Riboflavin (Vitamin B2) Active 100 MG PO TWICE A DAY December 05, 2022 11:00pm Comment on above: Take 100 mg by mouth twice daily. rimegepant 75 mg disintegrating oral tablet (20 sources) Start: End: take 1 tablet by mouth once daily as needed rimegepant (NURTEC ODT) 75 mg disintegrating tablet Indications: Migraine without aura and without status migrainosus, not intractable , Vestibular migraine Take 1 tablet by mouth once daily as needed. 8 tablet 11 10/22/2024 10/22/2025 Active Start: 04-14-2023 End: 10-17-2024 take 1 tablet by mouth once daily as needed rimegepant (NURTEC ODT) 75 mg disintegrating tablet Indications: Migraine without aura and without status migrainosus, not intractable , Vestibular migraine Take 1 tablet by mouth once daily as needed. 8 tablet 2 06/25/2024 10/17/2024 Discontinued Comment on above: Take 1 tablet by alee th once daily as needed. rizatriptan 10 mg oral tablet (4 sources) Serotonin-1b and Serotonin-1d Receptor Agonist Start: 03-03-2023 take 10 mg by mouth once Rizatriptan Active 10 MG PO ONCE March 03, 2023 12:00am Start: 12-21-2022 take 1 tablet by alee th every two hours as needed for headache rizatriptan (MAXALT) 10 mg tablet Take 1 tablet (10 mg) by mouth as needed (at onset of headache. May repeat after 2 hours.). Do not exceed 20 mg per day. Do not take more than 10 doses in a month. 10 tablet 2 12/21/2022 Active Comment on above: Take 1 tablet (10 mg ) by mouth as needed (at onset of headache. May repeat after 2 hours.). Do not exceed 20 mg per day. Do not take more than 10 doses in a month. ubidecarenone 100 mg oral tablet (20 sources) Start: 03-03-2023 Coenzyme Q10 Active 100 MG PO DAILY March 03, 2023 12:00am coenzyme Q10 (CO ENZYME Q-10) 100 mg cap capsule Take 100 mg by mouth once daily. Active Comment on above: Take 100 mg by mouth once daily. Vitamin C 1000 mg oral tablet (1 source) Start: 05-10-2021 take 1 mg by mouth twice daily Vitamin C 1000 mg oral tablet mg = tab(s), Oral, BID, 0 Refill(s) Start Date: 05/10/21 Status: Ordered Vitamin D3 125 mcg (5000 intl units) oral capsule (1 source) Start: 05-10-2021 Vitamin D3 125 mcg (5000 intl units) oral capsule Dose : 125 mcg = 1 cap(s), Oral, qDay, # 100 cap(s), 0 Refill(s) Start Date: 05/10/21 Status: Ordered zolpidem tartrate 6.25 mg extended release oral tablet (8 sources) gamma-Aminobutyric Acid-ergic Agonist Start: 12-06-2022 End: 03-03-2023 take 1 tablet by mouth at bedtime Zolpidem (Ambien Cr) 6.25 mg tablet,ext release multiphase Active 6.25 MG PO AT BEDTIME March 03, 2023 9:02am Comment on above: Take 6.25 mg by mout h at bedtime as needed. Completed/Discontinued Medications Medication Drug Class(es) Dates Sig (Normalized) Sig (Original) Coenzyme Q10 (3 sources) Start: 12-06-2022 End: 03-03-2023 Coenzyme Q10 Discontinued 100 MG PO DAILY December 05, 2022 11:00pm March 03, 2023 8:59am Start: 12-06-2022 Coenzyme Q10 A ctive 100 MG PO DAILY December 06, 2022 12:00am dexamethasone 6 mg oral tablet (11 sources) Corticosteroid Start: 03-27-2021 End: 12-06-2022 take 1 tablet by mouth once daily Dexamethasone (Decadron) 6 mg tablet Discontinued 6 MG PO DAILY 10 March 27, 2021 12:00am December 06, 2022 1:08pm 12 hr guaiFENesin 600 mg extended release oral tablet (11 sources) Start: 03-24-2021 End: 03-03-2023 take 2 tablets by mouth every twelve hours, then take 1 tablet by mouth every twelve hours Guaifenesin (Mucinex) 600 mg Tablet Extended Release 12hr Discontinued 1200 MG PO Q12March 24, 2021 12:00am March 03, 2023 9:01am loratadine 10 mg oral tablet (20 sources) Start: 12-06-2022 End: 03-03-2023 take 1 tablet by mouth once daily Loratadine (Allergy Relief (Loratadine)) 10 mg tablet Discontinued 10 MG PO DAILY December 05, 2022 11:00pm March 03, 2023 9:01am Comment on above: Take 10 mg by mouth. Take 10 mg by mouth as needed. mirtazapine 7.5 mg oral tablet (20 sources) Start: 01-19-2021 End: 12-07-2022 take 7.5 mg by mouth at bedtime Mirtazapine Discontinued 7.5 MG PO AT BEDTIME March 26, 2021 12:00am December 07, 2022 8:04am MiscMED Miscellaneous Medication (5 sources) Start: 01-25-2022 MiscMED Miscellaneous Medication See Instructions, takes Turbo Power Super Immunity. Liquid. Takes a capful. Not sure on the dose., 0 Refill(s), 89.6 Start Date: 01/25/22 Status: Ordered Repeat number: 1 Start: 01-25-2022 MiscMED Miscel laneous Medication See Instructions, takes Turbo Power Super Immunity. Liquid. Takes a capful. Not sure on the dose., 0 Refill(s), 89.6 Start Date: 01/25/22 Status: Ordered prochlorperazine 10 mg oral tablet (4 sources) Phenothiazine Start: 05-02-2022 End: 05-07-2022 take 1 tablet by mouth three times daily Compazine use prochlorperazine Dose : 10 mg =, Oral, TID, # 18 tab(s), 0 Refill(s), Cephalgia Start Date: 05/02/22 Stop Date: 05/07/22 Status: Ordered End: 05-18-2022 take 1 tablet by mouth every six hours as needed prochlorperazine (COMPAZINE) 10 mg tablet Take 10 mg by mouth every 6 hours as needed. 0 05/18/2022 Discontinued Comment on above: Take 10 mg by mouth every 6 hours as needed. SUMAtriptan 50 mg oral tablet (20 sources) Serotonin-1b and Serotonin-1d Receptor Agonist Start: 12-06-2022 End: 03-03-2023 Sumatriptan Succinate Discontinued 100 MG PO December 06, 2022 1:00pm March 03, 2023 9:01am Start: 12-06-2022 End: 12-06-2022 Sumatriptan Succinate Discon tinued 50 MG PO December 05, 2022 11:00pm December 06, 2022 1:01pm Start: 07-27-2022 take 1 tablet by alee th every month as needed SUMAtriptan (IMITREX) 100 mg tablet Take 1 tablet by mouth as needed. No more than 10 doses a month 10 tablet 3 07/27/2022 Active Start: 05-31-2022 End: 07-27-2022 take 1 tablet by mouth every two hours as needed for headache SUMAtriptan 50 mg oral tablet TAKE 1 TABLET BY MOUTH NEEDED AT ONSET OF HEADACHE MAY REPEAT AFTER 2 HOURS Start Date: 07/04/22 Status: Ordered Comment on above: Take 1 tablet by alee th as needed. at onset of headache. May repeat after 2 hours. Take 1 tablet by alee th as needed. No more than 10 doses a month topiramate 100 mg oral tablet (20 sources) Start: 3 End: 3 take 1 tablet by mouth once daily at bedtime topiramate (TOPAMAX) 100 mg tablet Take 1 tablet by mouth daily at bedtime. 30 tablet 3 05/18/2022 11/16/2022 Discontinued Start: 05-06-2022 End: 11-16-2022 topiramate (TOPAMAX) 25 mg t ablet 25 mg(1 tab) at bed x 2 wks, then 50 mg at bed(2 tabs) x 2 wks, then 75 mg at bed(3 tabs) x 2 wks 84 tablet 0 05/18/2022 11/16/2022 Discontinued Comment on above: Take 25 mg by mouth once daily. 25 mg(1 tab) at bed x 2 wks, then 50 mg at bed(2 tabs) x 2 wks, then 75 mg at bed(3 tabs) x 2 wks Take 1 tablet by alee th daily at bedtime. traZODone hydrochloride 50 mg oral tablet (7 sources) Serotonin Reuptake Inhibitor Start: 3 End: 3 take 25 mg by mouth at bedtime Trazodone Discontinued 25 MG PO AT BEDTIME December 05, 2022 11:00pm December 07, 2022 8:05am Start: 01-25-2022 take 0.5 tablet by m outh once daily as needed traZODone 50 mg oral tablet TAKE 1/2 (ONE-HALF) TABLET BY MOUTH ONCE A DAY AT NIGHT NEEDED Start Date: 01/25/22 Status: Ordered Problems Active Problems Problem Classification Problem Date Documented Da te Episodic/Chronic Abdominal pain (7 sources) Right upper quadrant pain; Translations: [Right upper quadrant pain] Onset: 03-09-2024 05-06-2022 Episodic Acute and chronic tonsillitis (2 sources) Amygdalolith 05-16-2022 Chronic Conditions associated with dizziness or vertigo (16 sources) Dizziness; Translations: [Dizziness and giddiness] Onset: 09-16-2022 Episodic Esophageal disorders (1 source) Gastro-esophageal reflux disease without esophagitis; Translations: [Gastro-esophageal reflux disease without esophagitis] Onset: 02-29-2024 Chronic Essential hypertension (3 sources) Essential hypertension; Translations: [Essential (primary) hypertension] 12-06-2022 Chronic Genitourinary symptoms and ill-defined conditions (20 sources) Genuine stress incontinence; Translations: [Stress incontinence (female) (male)] Onset: 05-21-2021 Chronic Headache; including migraine (20 sources) Migraine; Translations: [Migraine without aura, not refractory ] Onset: 12-13-2022 05-10-2021 Chronic Menopausal disorders (4 sources) Genitourinary syndrome of menopause; Translations: [Other specified menopausal and perimenopausal disorders] Onset: 08-16-2024 05-26-2023 Chronic Menstrual disorders (20 sources) Disorder of female genital organs; Translations: [Irregular menstruation, unspecified] Onset: 01-21-2010 01-21-2010 Chronic Mycoses (1 source) Candidiasis; Translations: [Candidiasis, unspecified] 05-26-2023 Episodic Nausea and vomiting (3 sources) Nausea; Translations: [Nausea] Episodic Other connective tissue disease (5 sources) H/O: musculoskeletal disease 01-26-2022 Episodic Other connective tissue disease (1 source) Musculoskeletal symptom; Translations: [Other symptoms and signs involving the musculoskeletal system] Episodic Other connective tissue disease (3 sources) Fibromyalgia; Translations: [Fibromyalgia] 12-06-2022 Episodic Other disorders of stomach and duodenum (1 source) Gastroparesis; Translations: [Gastroparesis] Onset: 04-02-2024 Episodic Other disorders of stomach and duodenum (1 source) Gastroparesis syndrome 08-16-2024 Episodic Other female genital disorders (1 source) Pruritus of vagina; Translations: [Other specified noninflammatory disorders of vagina] 06-14-2024 Episodic Other female genital disorders (1 source) Burning sensation of vagina; Translations: [Other specified conditions associated with female genital organs and menstrual cycle] 06-14-2024 Episodic Other gastrointestinal disorders (1 source) Irritable bowel syndrome without diarrhea; Translations: [Irritable bowel syndrome, unspecified] Onset: 01-22-2024 Chronic Other gastrointestinal disorders (5 sources) Diarrhea 11-12-2021 Episodic Other nutritional; endocrine; and metabolic disorders (6 sources) Body mass index 30+ - obesity 05-10-2021 Chronic Prolapse of female genital organs (20 sources) Midline cystocele; Translations: [Cystocele, midline] Onset: 05-21-2021 Chronic Residual codes; unclassified (9 sources) Sleep apnea; Translations: [Sleep apnea, unspecified] 05-10-2021 Chronic Spondylosis; intervertebral disc disorders; other back problems (2 sources) Neck pain; Translations: [Cervicalgia] Episodic Syncope (8 sources) Syncope and collapse; Translations: [Near syncope] Onset: 09-16-2022 12-07-2022 Episodic Viral infection (11 sources) COVID-19; Translations: [Pneumonia due to COVID-19 virus] 04-04-2021 Episodic Past or Other Problems Problem Classification Problem Date Documented Da te Episodic/Chronic Benign neoplasm of uterus (20 sources) Uterine leiomyoma; Translations: [Leiomyoma of uterus, unspecified] Onset: 01-21-2010 01-21-2010 Episodic Esophageal disorders (20 sources) Esophagitis; Translations: [Esophagitis, unspecified] Onset: 05-24-2012 05-24-2012 Episodic Gastritis and duodenitis (20 sources) Acute gastritis; Translations: [Acute gastritis without bleeding] Onset: 05-24-2012 05-24-2012 Episodic Other gastrointestinal disorders (20 sources) Pneumoperitoneum; Translations: [Other specified disorders of peritoneum] Onset: 12-14-2022 12-14-2022 Episodic Other screening for suspected conditions (not mental disorders or infectious disease) (7 sources) Patient encounter status; Translations: [Encounter for screening for malignant neoplasm of colon] Onset: 05-26-2023 Episodic Unclassified (7 sources) Patient encounter status 08-16-2024 Results Test Name Value Interpretation Reference Range Facility CNOVon 11-22-2024 CNOV Office Visit ([facility] ) CHACHA CONTRERAS ([id number]) 1970 F Date Time Provider Department 11/22/24 3:00 PM LUBA MONROE [facility] During your visit today, we recorded the following information about you: Pulse Blood pressure Weight Height 100/minute 116/79 89.4 kg 1.619 m Luba Monroe PA-C 11/22/2024 3:34 PM Signed [facility] Follow up CC: Headache Follow up Last Visit: 10/06/23 ASSESSMENT/PLAN: 1. Vestibular migraine - ICD9: 346.80, ICD10: G43.809 (primary diagnosis) 2. Lightheaded - ICD9: 780.4, ICD10: R42 3. Positional lightheadedness - ICD9: 780.4, ICD10: R42 4. Chronic migraine without aura without status migrainosus, not intractable - ICD9: 346.70, ICD10: G43.709 Patient stable, getting a few to up to 5 migraines a month, tolerating the cymbalta 60mg well. Did not feel gabapentin was helpful, stopped this. Taking nurtec as needed with good relief. No new symptoms or concerns, needs FMLA every 6 months but has not had to use it this year. Will continue with current regimen and follow up annually, sooner if needed. Plan: All options for treatment discussed. Preventative:Cymbalta 60mg Abortive: Nurtec 75mg Follow-up: 1 year Today: PT is here for headache/migraine follow up. Noting feeling like she is going to pass out on 11/15/24 and having worsening vestibular sxs. Last seen on 10/06/23 for vestibular migraine. On cymbalta 60mg and nurtec. Getting 5 mild episodes a month. Since last visit headaches have worsened. Getting at least 8 migraines a month, using all of her Nurtec monthly. Also notes that she is getting episodic dizziness throughout the day as well. Describes a lightheaded dizzy feeling when she is working and moves too quickly. Will also come on at rest,, driving, watching television or walking. Typically lasts seconds but can occur multiple times throughout the day. Has gotten worse over the last few months, no known trigger that she can think of, no no reason this is gotten worse. Has tried Nurtec for it and does not seem to help. Not necessarily associate with any other symptom. Current Headache treatment Preventative: cymbalta 60mg Abortive: nurtec 75mg Medications effective? yes # of doses of abortive medications per month: 8 Total headache days per month: 8 per month Total headache attacks per month: 8 per month Headache free days: Yes but not free of symptoms. Duration of attacks: 60 min with nurtec Severity of headaches? Mild to moderate Location: all over. Aura: None Accompanying symptoms: photophobia, phonophobia, vertigo. . Quality:sharp and dull. Worse with activity: Yes Pain today: 0/10 Triggers: bright lights, odors, sleep- too little, fasting/hunger, and dehydration. . Prodrome:none. Tobacco Use: No. Alcohol Use: No Caffeine:Yes: 20 ounce bottle a week Prior Therapies Topamax Cymbalta Imitrex Gabapentin Maxalt Nurtec The patient's prior records were reviewed including [...] without mention of hemorrhage Esophagitis, unspecified Fibroids Gastroparesis GERD (gastroesophageal reflux disease) Irregular menstrual bleeding Menopausal and postmenopausal disorder Menopause Other malaise and fatigue fibramyalgia Sleep apnea Vestibular migraine PAST SURGICAL HISTORY Procedure Laterality Date COLONOSCOPY 07/30/2021 repeat in 10 years COLONOSCOPY FLX DX W/COLLJ SPEC WHEN PFRMD 06/23/2008 COLONOSCOPY SCREENING 2023 normal - repeat in [address] Mclean [facility] EMBOLIZATION UTERINE FIBROID 03/20/2010 ENDOMETRIAL BIOPSY 12/01/2009 Irregular Menstrual Bleeding and Fibroids ESOPHAGOGASTRODUODENOSCOPY TRANSORAL DIAGNOSTIC 05/24/2012 EGD ALLERGIES Allergen Reactions Cephalexin GI Upset cramping in stomach Tolerates piperacillin-tazobactam Topamax [Topiramate] Other: See Comments Intense dizziness Current Medications: DULoxetine DR (CYMBALTA) 60 mg capsule Take 1 capsule by mouth once daily. rimegepant (NURTEC ODT) 75 mg disintegrating tablet Take 1 tablet by mouth once daily as needed. metoclopramide HCl (REGLAN) 5 mg tablet Take 5 mg by mouth. estradiol (ESTRACE) 0.01 % (0.1 mg/gram) vaginal cream Use 1 g vaginally two times a week. RABEprazole (ACIPHEX) 20 mg tablet TAKE 1 TABLET BY MOUTH BEFORE EVENING MEAL DAILY CPAP daily at bedtime. coenzyme Q10 (COENZYME Q-10) 100 mg cap capsule Take 100 mg by mouth once daily. (more content not included)... Normal [facility] 11-22-2024 [facility] Telephone ([facility]) CHACHA CONTRERAS ([id number]) 1970 F Date Time Provider Department 11/22/24 LUBA MONROE [facility] During your visit today, we recorded the following information about you: Luba Monroe PA-C 11/22/2024 4:09 PM Signed Accomodation forms filled out, please have sent to pt on [employer] and scanned. Allergies As of Date: 11/22/2024 Noted Allergy Reaction CEPHALEXIN 02/20/2008 8 - GI Upset Comments: cramping in stomach Tolerates piperacillin-tazobactam TOPAMAX (TOPIRAMATE) 12/13/2022 14 - Other: See Comments Comments: Intense dizziness Date Reviewed: 11/22/2024 Reviewed by: Luba Monroe PA-C - Fully Assessed Prescriptions as of 11/22/2024 - atogepant (QULIPTA) 60 mg tablet Take 1 tablet by mouth once daily. - DULoxetine DR (CYMBALTA) 60 mg capsule Take 1 capsule by mouth once daily. - rimegepant (NURTEC ODT) 75 mg disintegrating tablet Take 1 tablet by mouth once daily as needed. - metoclopramide HCl (REGLAN) 5 mg tablet Take 5 mg by mouth. - estradiol (ESTRACE) 0.01 % (0.1 mg/gram) vaginal cream Use 1 g vaginally two times a week. - RABEprazole (ACIPHEX) 20 mg tablet TAKE 1 TABLET BY MOUTH BEFORE EVENING MEAL DAILY - CPAP daily at bedtime. - coenzyme Q10 (COENZYME Q-10) 100 mg cap capsule Take 100 mg by mouth once daily. - riboflavin, vitamin B2, (VITAMIN B2) 100 mg tab Take 100 mg by mouth twice daily. - calcium carbonate (CALTRATE) 600 mg calcium (1,500 mg) tab Take 1,200 mg by mouth. - Ca carb-Ca gluc-Mg ox-Mg gluco (CALCIUM MAGNESIUM) 500 mg calcium -250 mg tab Take by mouth. 500 mg at night - loratadine (CLARITIN) 10 mg tablet Take 10 mg by mouth as needed. Meds Comments as of 05/24/2012: Prescription nasal spray (steroid and non-steroid; generic flonase). Prescription cough medication with Vicodin. Problem List As Of Date 11/22/2024 Noted Resolved Menstrual disorder [N92.6, N93.9] 01/21/2010 Leiomyoma of uterus, unspecified [D25.9] 01/21/2010 Acute gastritis without mention of hemorrhage [*05/24/2012 Dade grade B esophagitis [K20.80] 05/24/2012 Duodenitis [K29.80] 05/24/2012 Stress incontinence [N39.3] 05/21/2021 Cystocele, midline [N81.11] 05/21/2021 Migraine [G43.909] 12/13/2022 Pneumoperitoneum of unknown etiology [K66.8] 12/14/2022 Encounter Status:Closed by LUBA MONROE on 11/22/[address] [facility] 11-15-2024 [facility] CHACHA CONTRERAS ([id number]) 1970 F Date Time Provider Department 11/15/24 LUBA MONROE During your visit today, we recorded the following information about you: Vita Barry RN 11/15/2024 11:38 AM Signed Patient calls and states that she has been having issues where she feels like she is going to pass out. Patient states that she is having issues with her vestibular. Patient states that this is happening more frequently (every day) and it does not matter what she is doing it will happen. Patient has appointment with provider on 11/29 but she is not sure she can wait that long. Please review and advise, FRANCINE Dee Lori, LPN 11/15/2024 4:14 PM Signed Notified patient of provider's message and placed her on wait list. Patient voiced understanding. Britni Weller LPN Allergies As of Date: 11/15/2024 Noted Allergy Reaction CEPHALEXIN 02/20/2008 8 - GI Upset Comments: cramping in stomach Tolerates piperacillin-tazobactam TOPAMAX (TOPIRAMATE) 12/13/2022 14 - Other: See Comments Comments: Intense dizziness Date Reviewed: 08/16/2024 Reviewed by: Manisha Gasca APRN.ADVICE NURSE - Fully Assessed Reason for Visit: Patient Update [1234] Prescriptions as of 11/15/2024 - DULoxetine DR (CYMBALTA) 60 mg capsule Take 1 capsule by mouth once daily. - rimegepant (NURTEC ODT) 75 mg disintegrating tablet Take 1 tablet by mouth once daily as needed. - metoclopramide HCl (REGLAN) 5 mg tablet Take 5 mg by mouth. - estradiol (ESTRACE) 0.01 % (0.1 mg/gram) vaginal cream Use 1 g vaginally two times a week. - RABEprazole (ACIPHEX) 20 mg tablet TAKE 1 TABLET BY MOUTH BEFORE EVENING MEAL DAILY - CPAP daily at bedtime. - coenzyme Q10 (COENZYME Q-10) 100 mg cap capsule Take 100 mg by mouth once daily. - riboflavin, vitamin B2, (VITAMIN B2) 100 mg tab Take 100 mg by mouth twice daily. - calcium carbonate (CALTRATE) 600 mg calcium (1,500 mg) tab Take 1,200 mg by mouth. - Ca carb-Ca gluc-Mg ox-Mg gluco (CALCIUM MAGNESIUM) 500 mg calcium -250 mg tab Take by mouth. 500 mg at night - loratadine (CLARITIN) 10 mg tablet Take 10 mg by mouth as needed. Meds Comments as of 05/24/2012: Prescription nasal spray (steroid and non-steroid; generic flonase). Prescription cough medication with Vicodin. Problem List As Of Date 11/15/2024 Noted Resolved Menstrual disorder [N92.6, N93.9] 01/21/2010 Leiomyoma of uterus, unspecified [D25.9] 01/21/2010 Acute gastritis without mention of hemorrhage [*05/24/2012 Dade grade B esophagitis [K20.80] 05/24/2012 Duodenitis [K29.80] 05/24/2012 Stress incontinence [N39.3] 05/21/2021 Cystocele, midline [N81.11] 05/21/2021 Migraine [G43.909] 12/13/2022 Pneumoperitoneum of unknown etiology [K66.8] 12/14/2022 Encounter Status:Closed by BRITNI WELLER on 11/15/24 Normal [facility] DBT Breast - bilateral scree leah 08-30-2024 IMPRESSION: There is no mammographic evidence of malignancy in either breast. Routine screening mammogram is recommended. Annual mammogram will be due in 1 year. BI-RADS Category 1: Negative RISK: Based on the Tyrer-Cuzick (TC) risk assessment model, this patient has a 5.2% lifetime risk of developing breast cancer, meaning they are at average risk for developing breast cancer. However, this is only an estimate based on available history provided on the patient's questionnaire. We encourage all patients to talk with their providers about these results, further recommendations for managing breast health, and appropriate supplemental screening options if the patient has dense breast tissue. Interpreting Radiologist: Denzel Easton M.D. Electronically signed on: 08/30/2024 Seo Team Lead: MACKENZIE Transcribe Date/Time: Aug 30 2024 7:46A Dictated by: DENZEL EASTON MD This examination was interpreted and the report reviewed and electronically signed by: DENZEL EASTON MD on Aug 30 2024 11:58AM [facility] DIVISION OF RADIOLOGY * * *Final Report* * * DATE OF EXAM: Aug 30 2024 7:56AM [facility] 0582 - [place] SCREENING [place] / PROCEDURE REASON: multiple diagnoses * * * * Physician Interpretation * * * * RESULT: [place] [address] #[id number] - [facility] SCREENING W [place] HISTORY: 53 year-old patient presents for screening. Patient is asymptomatic in both breasts. Patient states no personal history of breast cancer. COMPARISON STUDIES: The present examination has been compared to prior imaging studies dated 03/16/2016 (mammogram), 03/07/2018 (mammogram), 04/26/2021 (mammogram) and 05/26/2023 (mammogram). MAMMOGRAM TECHNIQUE: The study was acquired using full field digital technology and interpreted from soft copy. Digital Breast Tomosynthesis (DBT) images were obtained and used to assist in the interpretation of this examination. MAMMOGRAM FINDINGS: There are scattered areas of fibroglandular density. No suspicious masses, calcifications or other abnormalities are seen in either breast. There are no significant interval changes. DIVISION OF RADIOLOGY Provider, [facility] - 08/30/2024 * * *Final Report* * * DATE OF EXAM: Aug 30 2024 7:56AM [facility] 0582 - [place] SCREENING [place] / PROCEDURE REASON: multiple diagnoses * * * * Physician Interpretation * * * * RESULT: [address] [address] [place] [address] #[id number] - [place] SCREENING W [place] HISTORY: 53 year-old patient presents for screening. Patient is asymptomatic in both breasts. Patient states no personal history of breast cancer. COMPARISON STUDIES: The present examination has been compared to prior imaging studies dated 03/16/2016 (mammogram), 03/07/2018 (mammogram), 04/26/2021 (mammogram) and 05/26/2023 (mammogram). MAMMOGRAM TECHNIQUE: The study was acquired using full field digital technology and interpreted from soft copy. Digital Breast Tomosynthesis (DBT) images were obtained and used to assist in the interpretation of this examination. MAMMOGRAM FINDINGS: There are scattered areas of fibroglandular density. No suspicious masses, calcifications or other abnormalities are seen in either breast. There are no significant interval changes. IMPRESSION IMPRESSION: There is no mammographic evidence of malignancy in either breast. Routine screening mammogram is recommended. Annual mammogram will be due in 1 year. BI-RADS Category 1: Negative RISK: Based on the Tyrer-Cuzick (TC) risk assessment model, this patient has a 5.2% lifetime risk of developing breast cancer, meaning they are at average risk for developing breast cancer. However, this is only an estimate based on available history provided on the patient's questionnaire. We encourage all patients to talk with their providers about these results, further recommendations for managing breast health, and appropriate supplemental screening options if the patient has dense breast tissue. Interpreting Radiologist: Denzel Easton M.D. Electronically signed on: 08/30/2024 Seo Team Lead: MACKENZIE Transcribe Date/Time: Aug 30 2024 7:46A Dictated by: DENZEL EASTON MD This examination was interpreted and the report reviewed and electronically signed by: DENZEL EASTON MD on Aug 30 2024 11:58AM EST [facility] Radiology Study observation (narrative) [facility] DBT Breast - bilateral scree ningOrdered By: [facility] Provider on 08-30-2024 [facility] SCREENING W TOMOon 08-30 [facility] SCREENING W [place] * * *Final Report* * * DATE OF EXAM: Aug 30 2024 7:56AM [facility] 0582 - [place] SCREENING W [place] / PROCEDURE REASON: multiple diagnoses * * * * Physician Interpretation * * * * RESULT: [facility] [address] [place] [address] #[id number] - [place] SCREENING [place] HISTORY: 53 year-old patient presents for screening. Patient is asymptomatic in both breasts. Patient states no personal history of breast cancer. COMPARISON STUDIES: The present examination has been compared to prior imaging studies dated 03/16/2016 (mammogram), 03/07/2018 (mammogram), 04/26/2021 (mammogram) and 05/26/2023 (mammogram). MAMMOGRAM TECHNIQUE: The study was acquired using full field digital technology and interpreted from soft copy. Digital Breast Tomosynthesis (DBT) images were obtained and used to assist in the interpretation of this examination. MAMMOGRAM FINDINGS: There are scattered areas of fibroglandular density. No suspicious masses, calcifications or other abnormalities are seen in either breast. There are no significant interval changes. IMPRESSION: There is no mammographic evidence of malignancy in either breast. Routine screening mammogram is recommended. Annual mammogram will be due in 1 year. BI-RADS Category 1: Negative RISK: Based on the Tyrer-Cuzick (TC) risk assessment model, this patient has a 5.2% lifetime risk of developing breast cancer, meaning they are at average risk for developing breast cancer. However, this is only an estimate based on available history provided on the patient's questionnaire. We encourage all patients to talk with their providers about these results, further recommendations for managing breast health, and appropriate supplemental screening options if the patient has dense breast tissue. Interpreting Radiologist: Denzel Easton M.D. Electronically signed on: 08/30/2024 Seo Team Lead: MACKENZIE Transcribe Date/Time: Aug 30 2024 7:46A Dictated by: DENZEL EASTON MD This examination was interpreted and the report reviewed and electronically signed by: DENZEL EASTON MD on Aug 30 2024 11:58AM EST [id number] Normal [facility] .Auto Diffon 08-27-2024 Basophil, Absolute 0.0 10 3/mcL Normal 0.0-0.3 [facility] Comment on above: Performed By: #### L IPID, ADIFF, CMP, CBC, ANEU, GFR #### [address] [address] Basophils/100 WBC (Bld) 0.8 % Normal 0.0-2.5 [facility] Comment on above: Performed By: #### L IPID, ADIFF, CMP, CBC, ANEU, GFR #### [address] [address] Eosinophil, Absolute 0.3 10 3/mcL Normal 0.0-0.7 [facility] Comment on above: Performed By: #### L IPID, ADIFF, CMP, CBC, ANEU, GFR #### [address] [address] Eosinophils/100 WBC (Bld) 4.7 % Normal 0.0-6.0 [facility] Comment on above: Performed By: #### L IPID, ADIFF, CMP, CBC, ANEU, GFR #### [address] [address] Lymphocyte, Absolute 1.4 10 3/mcL Normal 0.9-4.3 [facility] Comment on above: Performed By: #### L IPID, ADIFF, CMP, CBC, ANEU, GFR #### [address] [address] Lymphocytes/100 WBC (Bld) 25.6 % Normal 20.0-40.0 [facility] Comment on above: Performed By: #### L IPID, ADIFF, CMP, CBC, ANEU, GFR #### [address] [address] Monocyte, Absolute 0.6 10 3/mcL Normal 0.1-1.4 [facility] Comment on above: Performed By: #### L IPID, ADIFF, CMP, CBC, ANEU, GFR #### [address] [address] Monocytes/100 WBC (Bld) 10.3 % Normal 2.0-13.0 [facility] Comment on above: Performed By: #### L IPID, ADIFF, CMP, CBC, ANEU, GFR #### [id number] [place], [place] [address] Neutrophils/100 WBC (Bld) 58.6 % Normal 50.0-75.0 [facility] Comment on above: Performed By: #### L IPID, ADIFF, CMP, CBC, ANEU, GFR #### [address] [place], [place] [address] .GFRon 08-27-2024 Estimated Glomerular Filtration Rate 72 ml/min/1.73sqm Normal [facility] Comment on above: Result Comment: Stages of Chronic Kidney Disease (CKD) Stage Description eGFR(ml/min/1.73 sq.m.) CKD 1 Normal kidney function or >=90 normal kindney function with possible kidney damage (ex. Proteinuria) CKD 2 Kidney damage with mild loss 60-89 of kidney function CKD 3a Mild to moderate loss of kidney 45-59 function CKD 3b Moderate to severe loss of 30-44 of kindey function CKD 4 Severe loss of kidney function 15-29 CKD 5 Kidney failure <15 Note: (go live 2024) the eGFR calculation was updated to the 2020 CKD-EPI creatinine equation without a race factor to calculate the eGFR results. Performed By: #### L IPID, ADIFF, CMP, CBC, ANEU, GFR #### [address] [address] .NEUABSon 08-27-2024 Neutrophil, Absolute 3.1 10 3/mcL Normal 2.3-8.1 [facility] Comment on above: Performed By: #### L IPID, ADIFF, CMP, CBC, ANEU, GFR #### [id number] [place], [place] [address] CBCon 08-27-2024 Erythrocyte distribution width (RBC) [Ratio] 13.9 % Normal 11.5-15.5 [facility] Comment on above: Performed By: #### L IPID, ADIFF, CMP, CBC, ANEU, GFR #### [address] [address] Hematocrit (Bld) [Volume fraction] 40.2 % Normal 34.0-46.0 [facility] Comment on above: Performed By: #### L IPID, ADIFF, CMP, CBC, ANEU, GFR #### [address] [address] Hgb 13.7 G/dL Normal 12.0-16.0 [facility] Comment on above: Performed By: #### L IPID, ADIFF, CMP, CBC, ANEU, GFR #### [place] [address] MCH (RBC) [Entitic mass] 29.5 pg Normal 27.0-33.0 [facility] Comment on above: Performed By: #### L IPID, ADIFF, CMP, CBC, ANEU, GFR #### [place] [address] MCHC 34.0 G/dL Normal 32.0-36.0 [facility] Comment on above: Performed By: #### L IPID, ADIFF, CMP, CBC, ANEU, GFR #### [address] [address] MCV (RBC) [Entitic vol] 86.9 fL Normal 80.0-99.0 [facility] Comment on above: Performed By: #### L IPID, ADIFF, CMP, CBC, ANEU, GFR #### [address] [address] Platelet 209 10 3/mcL Normal 150-450 [facility] Comment on above: Performed By: #### L IPID, ADIFF, CMP, CBC, ANEU, GFR #### [address] [address] Platelet mean volume (Bld) [Entitic vol] 7.4 fL Normal 6.6-10.5 [facility] Comment on above: Performed By: #### L IPID, ADIFF, CMP, CBC, ANEU, GFR #### [address] [address] RBC 4.63 10 6/mcL Normal 4.10-5.30 [facility] Comment on above: Performed By: #### L IPID, ADIFF, CMP, CBC, ANEU, GFR #### [address] [address] WBC 5.4 10 3/mcL Normal 4.5-10.8 [facility] Comment on above: Performed By: #### L IPID, ADIFF, CMP, CBC, ANEU, GFR #### [address] [address] CMPon 08-27-2024 Albumin Level 3.5 G/dL Normal 3.5-5.0 [facility] Comment on above: Performed By: #### L IPID, ADIFF, CMP, CBC, ANEU, GFR #### [address] [place] [id number] Albumin/Globulin [Mass ratio] 1.1 {ratio} Normal 1.1-2.5 [facility] Comment on above: Performed By: #### L IPID, ADIFF, CMP, CBC, ANEU, GFR #### [address] [address] ALP [Catalytic activity/Vol] 65 U/L Normal 40-135 [facility] Comment on above: Performed By: #### L IPID, ADIFF, CMP, CBC, ANEU, GFR #### [address] [address] ALT [Catalytic activity/Vol] 26 U/L Normal 14-59 [facility] Comment on above: Performed By: #### L IPID, ADIFF, CMP, CBC, ANEU, GFR #### [address] [address] AST [Catalytic activity/Vol] 24 U/L Normal 10-40 [facility] Comment on above: Performed By: #### L IPID, ADIFF, CMP, CBC, ANEU, GFR #### [address] [address] Bili Total 0.5 mg/dL Normal 0.2-1.0 [facility] Comment on above: Result Comment: Use of this assay is not recommended for patients undergoing treatment with eltrombopag due to the potential for falsely elevated results. Performed By: #### L IPID, ADIFF, CMP, CBC, ANEU, GFR #### [place] [address] BUN/Creatinine Ratio 14 ratio Normal 7-27 [facility] Comment on above: Performed By: #### L IPID, ADIFF, CMP, CBC, ANEU, GFR #### [place] [address] Calcium [Mass/Vol] 8.9 mg/dL Normal 8.4-10.2 [facility] Comment on above: Performed By: #### L IPID, ADIFF, CMP, CBC, ANEU, GFR #### [place] [address] Chloride [Moles/Vol] 106 mmol/L Normal 98-107 [facility] Comment on above: Performed By: #### L IPID, ADIFF, CMP, CBC, ANEU, GFR #### [place] [address] CO2 [Moles/Vol] 28 mmol/L Normal 22-29 [facility] Comment on above: Performed By: #### L IPID, ADIFF, CMP, CBC, ANEU, GFR #### [place] [address] Creatinine [Mass/Vol] 0.95 mg/dL Normal 0.51-0.95 [facility] Comment on above: Performed By: #### L IPID, ADIFF, CMP, CBC, ANEU, GFR #### [place] [address] Electrolyte Balance 8.0 mEq/L Normal 4.0-15.0 [facility] Comment on above: Performed By: #### L IPID, ADIFF, CMP, CBC, ANEU, GFR #### [address] [address] Globulin 3.3 G/dL Normal 2.7-4.4 [facility] Comment on above: Performed By: #### L IPID, ADIFF, CMP, CBC, ANEU, GFR #### [address] [address] Glucose [Mass/Vol] 90 mg/dL Normal 70-105 [facility] Comment on above: Performed By: #### L IPID, ADIFF, CMP, CBC, ANEU, GFR #### [address] [address] Potassium [Moles/Vol] 4.2 mmol/L Normal 3.5-5.1 [facility] Comment on above: Performed By: #### L IPID, ADIFF, CMP, CBC, ANEU, GFR #### [address] [address] Sodium [Moles/Vol] 142 mmol/L Normal 136-145 [facility] Comment on above: Performed By: #### L IPID, ADIFF, CMP, CBC, ANEU, GFR #### [address] [address] Total Protein 6.8 G/dL Normal 6.4-8.2 [facility] Comment on above: Performed By: #### L IPID, ADIFF, CMP, CBC, ANEU, GFR #### [address] [address] Urea nitrogen [Mass/Vol] 13 mg/dL Normal 7-18 [facility] Comment on above: Performed By: #### L IPID, ADIFF, CMP, CBC, ANEU, GFR #### [address] [address] LABORATORYOrdered By: SYSTEM SYSTEM on 08-27-2024 Albumin BCP dye [Mass/Vol] 3.5 G/dL Normal 3.5 - 5.0 G/dL AO ADM SS Albumin/Globulin [Mass ratio] 1.1 {ratio} Normal 1.1 - 2.5 ratio AO ADM SS ALP [Catalytic activity/Vol] 65 U/L Normal 40 - 135 U/L AO ADM SS ALT With P-5'-P [Catalytic activity/Vol] 26 U/L Normal 14 - 59 U/L AO ADM SS AST With P-5'-P [Catalytic activity/Vol] 24 U/L Normal 10 - 40 U/L AO ADM SS Basophils (Bld) [#/Vol] 0.0 103/mcL Normal 0.0 - 0.3 10^3/mcL AO Workflow SS Basophils/100 WBC (Bld) 0.8 % Normal 0.0 - 2.5 % AO Workflow SS Bilirubin [Mass/Vol] 0.5 mg/dL Normal 0.2 - 1 .0 mg/dL AO ADM SS Comment on above: Interpretive Data: U se of this assay is not recommended for patients undergoing treatment with eltrombopag due to the potential for falsely elevated results. Calcium [Mass/Vol] 8.9 mg/dL Normal 8.4 - 10. 2 mg/dL AO ADM SS Chloride [Moles/Vol] 106 mmol/L Normal 98 - 10 7 mmol/L AO ADM SS CO2 [Moles/Vol] 28 mmol/L Normal 22 - 29 mmol/L AO ADM SS Creatinine [Mass/Vol] 0.95 mg/dL Normal 0.51 - 0.95 mg/dL AO ADM SS Electrolyte Balance 8.0 mEq/L Normal 4.0 - 15 .0 mEq/L AO ADM SS Eosinophil, Absolute 0.3 103/mcL Normal 0.0 - 0 .7 10^3/mcL AO Workflow SS Eosinophils/100 WBC (Bld) 4.7 % Normal 0.0 - 6.0 % AO Workflow SS Erythrocyte distribution width (RBC) [Ratio] 13.9 % Normal 11.5 - 15.5 % AO Workflow SS Estimated Glomerular Filtration Rate 72 ml/min/1.73sqm Invalid Interpretation Code AO Chemistry S Comment on above: Interpretive Data: Stages of Chronic Kidney Disease (CKD) Stage Description eGFR(ml/min/1.73 sq.m.) CKD 1 Normal kidney function or >=90 normal kindney function with possible kidney damage (ex. Proteinuria) CKD 2 Kidney damage with mild loss 60-89 of kidney function CKD 3a Mild to moderate loss of kidney 45-59 function CKD 3b Moderate to severe loss of 30-44 of kindey function CKD 4 Severe loss of kidney function 15-29 CKD 5 Kidney failure <15 Note: (go live 2024) the eGFR calculation was updated to the 2020 CKD-EPI creatinine equation without a race factor to calculate the eGFR results. Globulin 3.3 G/dL Normal 2.7 - 4.4 G/dL AO ADM SS Glucose [Mass/Vol] 90 mg/dL Normal 70 - 105 mg/dL AO ADM SS Hematocrit (Bld) [Volume fraction] 40.2 % Normal 34.0 - 46.0 % AO Workflow SS Hemoglobin (Bld) [Mass/Vol] 13.7 G/dL Normal 12.0 - 16.0 G/dL AO Workflow SS Lymphocytes (Bld) [#/Vol] 1.4 103/mcL Normal 0.9 - 4.3 10^3/mcL AO Workflow SS Lymphocytes/100 WBC (Bld) 25.6 % Normal 20.0 - 40.0 % AO Workflow SS MCH (RBC) [Entitic mass] 29.5 pg Normal 27.0 - 33.0 pg AO Workflow SS MCHC 34.0 G/dL Normal 32.0 - 36.0 G/dL AO Workflow SS MCV (RBC) [Entitic vol] 86.9 fL Normal 80.0 - 99.0 fL AO Workflow SS Monocytes (Bld) [#/Vol] 0.6 103/mcL Normal 0.1 - 1.4 10^3/mcL AO Workflow SS Monocytes/100 WBC (Bld) 10.3 % Normal 2.0 - 13.0 % AO Workflow SS Neutrophils (Bld) [#/Vol] 3.1 103/mcL Normal 2.3 - 8.1 10^3/mcL AO Workflow SS Neutrophils/100 WBC (Bld) 58.6 % Normal 50.0 - 75.0 % AO Workflow SS Platelet mean volume (Bld) [Entitic vol] 7.4 fL Normal 6.6 - 10.5 fL AO Workflow SS Platelets (Bld) [#/Vol] 209 103/mcL Normal 150 - 450 10^3/mcL AO Workflow SS Potassium [Moles/Vol] 4.2 mmol/L Normal 3.5 - 5.1 mmol/L AO ADM SS Protein [Mass/Vol] 6.8 G/dL Normal 6.4 - 8.2 G/dL AO ADM SS RBC (Bld) [#/Vol] 4.63 106/mcL Normal 4.10 - 5.30 10^6/mcL AO Workflow SS Sodium [Moles/Vol] 142 mmol/L Normal 136 - 145 mmol/L AO ADM SS Urea nitrogen [Mass/Vol] 13 mg/dL Normal 7 - 18 mg/dL AO ADM SS Urea nitrogen/Creatinine [Mass ratio] 14 ratio Normal 7 - 27 ratio AO ADM SS WBC (Bld) [#/Vol] 5.4 103/mcL Normal 4.5 - 10.8 10^3/mcL AO Workflow SS LABORATORYOrdered By: vIan Lepe on 08-27-2024 Cholesterol [Mass/Vol] 169 mg/dL Normal 0 - 2 00 mg/dL AO ADM SS Comment on above: Interpretive Data: C holesterol Reference Interval: Less than 200 Desirable 200-239 Borderline high risk 240 and above High risk Cholesterol in HDL [Mass/Vol] 59 mg/dL Normal 40 - 60 mg/dL AO ADM SS Cholesterol in LDL [Mass/Vol] 100 mg/dL Normal 0 - 130 mg/dL AO ADM SS Triglyceride [Mass/Vol] 50 mg/dL Normal 0 - 150 mg/dL AO ADM SS Comment on above: Interpretive Data: T riglyceride Reference Interval: Less than 150 Normal 150-199 Borderline high risk 200-499 High risk 500 or higher Very high risk LIPIDon 08-27-2024 Cholesterol [Mass/Vol] 169 mg/dL Normal 0-200 [facility] Comment on above: Result Comment: Chol esterol Reference Interval: Less than 200 Desirable 200-239 Borderline high risk 240 and above High risk Performed By: #### L IPID, ADIFF, CMP, CBC, ANEU, GFR #### [address] [address] Cholesterol in HDL [Mass/Vol] 59 mg/dL Normal 40-60 [facility] Comment on above: Performed By: #### L IPID, ADIFF, CMP, CBC, ANEU, GFR #### [address] [address] Cholesterol in LDL [Mass/Vol] 100 mg/dL Normal 0-130 [facility] Comment on above: Performed By: #### L IPID, ADIFF, CMP, CBC, ANEU, GFR #### [address] [place], [place] [address] Triglyceride [Mass/Vol] 50 mg/dL Normal 0-150 [facility] Comment on above: Result Comment: Trig lyceride Reference Interval: Less than 150 Normal 150-199 Borderline high risk 200-499 High risk 500 or higher Very high risk Performed By: #### L IPID, ADIFF, CMP, CBC, ANEU, GFR #### [id number] [place], [place] [address] CNOVon 08-16-2024 CNOV Office Visit (OBGYWM ) GANGACHACHA Muse ([id number]) 1970 F Date Time Provider Department 08/16/24 9:30 AM MANISHA GASCA During your visit today, we recorded the following information about you: Blood pressure Weight Height 134/88 88 kg 1.613 m Manisha Gasca APRN.CNP 08/16/2024 10:03 AM Signed Mysql Developer offered: Patient declines. Chacha is a 53 year old who presents for an annual gynecologic exam without complaints. Postmenopausal: Yes since age 48 HRT use: No. Last Pap: 04/26/2021 normal HPV: 04/26/2021 negative History of abnormal pap: Yes 2014 ASCUS Last mammogram: 2023 normal History of abnormal mammogram: No Sexually active: Yes Patient concerns for STD exposure: No. Time with current partner: 34 years Pain with intercourse: No Postcoital bleeding: No Hot flashes: Yes, mild occasional Night sweats: No Vaginal dryness: Yes, with SI, uses Estrace cream Documentation from previous visit of 04/26/2021 was copied and pasted, documentation has been reviewed and edited as necessary for today's visit. 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 History Comments: Sexual Activity: Yes; Male; HAD VASECTOMY Contraception: Vasectomy PAST MEDICAL HISTORY Diagnosis Date Abdominal pain, left upper quadrant Duodenitis without mention of hemorrhage Esophagitis, unspecified Fibroids Gastroparesis GERD (gastroesophageal reflux disease) Irregular menstrual bleeding Menopausal and postmenopausal disorder Menopause Other malaise and fatigue fibramyalgia Sleep apnea Vestibular migraine PAST SURGICAL HISTORY Procedure Laterality Date COLONOSCOPY 07/30/2021 repeat in 10 years COLONOSCOPY FLX DX W/COLLJ SPEC WHEN PFRMD 06/23/2008 EMBOLIZATION UTERINE FIBROID 03/20/2010 ENDOMETRIAL BIOPSY 12/01/2009 Irregular Menstrual Bleeding and Fibroids ESOPHAGOGASTRODUODENOSCOPY TRANSORAL DIAGNOSTIC 05/24/2012 EGD FAMILY HISTORY Problem Relation Age of Onset Hyperlipidemia Mother Dementia Mother Alzheimer's Disease Mother No Known Problems Father Diabetes Sister Obstructive Sleep Apnea Sister other (micro vascular) Sister Obstructive Sleep Apnea Brother Stroke Maternal Grandmother Hyperlipidemia Maternal Grandmother other (Heart disease) Maternal Grandmother other (Cancer - other) Maternal Grandmother Hypertension Maternal Grandfather Cancer Paternal Grandfather BONE No Known Problems Daughter No Known Problems Son SOCIAL HISTORY Social History Tobacco Use Smoking status: Never Smokeless tobacco: Never Vaping Use Vaping status: Never Used Substance Use Topics Alcohol use: No Comment: Non-drinker Drug use: No REVIEW OF SYSTEMS Abdomen: No abdominal pain, nausea, vomiting, diarrhea, or constipation. No bloating, early satiety, indigestion, or increased flatulence. Bladder: No dysuria, gross hematuria, urinary frequency, urinary urgency, or incontinence Breast: No breast lumps, nipple d/c, overlying skin changes, redness or skin retraction Allergies and current medication updated:Yes SENSITIVE EXAM: The sensitive examination was discussed with the Patient or Patient's Authorized Game Designer. As applicable, any other physician, advance practice provider, medical student, or other health professional student that will be observing or involved in the sensitive examination for educational or training purposes was discussed with the Patient or Authorized Game Designer. The Patient or Authorized Game Designer has agreed to proceed with the sensitive examination. (Sensitive examination includes inspection and/or palpation of the breasts, pelvis, prostate and anorectal regions). EXAM: BP 134/88 Ht 5' 3.5 (1.61m) Wt 194 lb (88.0kg) LMP 01/08/2018 BMI 33.82 kg/(m2). GENERAL: pleasant, female in no apparent [...] external genitalia normal, normal Bartholin's glands, urethra, Kapowsin's glands, no vulvar lesions, no cervical lesions, physiologic discharge present, normal appearing perineal body and perianal region BIMANUAL: uterus normal size, shape and consistency, no adnexal masses, and non-tender RECTOVAGINAL: deferred. NEURO: alert and oriented x3,exam grossly non-focal EXTREMITIES: normal ASSESSMENT/PLAN: 1) Heal (more content not included)... Normal [facility] Gastroenterology Visit Repor ton 06-21-2024 Gastroenterology Visit Report [facility] [address] [place] [place] [address] OFFICE VISIT Date of Service: 06/21/24 MR#: [id number] Acct: [id number] Name: CHACHA CONTRERAS Rep #: [id number] : 1970 Provider: FLYNN jimenez Age/Sex: 53/F Location[place] [email or web address] Status: Signed Intake Vital Signs 05/10/23 05:51 02/09/24 05:48 Height 5 ft 3 in 5 ft 3 in Intake Visit Reasons: 6 M FU Allergies cephalexin Allergy (Verified 06/21/24 08:00) Hives topiramate (From Topamax) Adverse Reaction (Intermediate, Verified 06/21/24 08:00) headaches/dizziness Medications ???Medication ???Instructions ???Recorded ???Confirmed ???Type diazepam 5 mg tablet 5 mg PO Q6H PRN migraines 12/06/22 06/21/24 History fluticasone propionate 50 1 spray intranasal BID PRN allergy 12/07/22 06/21/24 History mcg/actuation nasal symptoms spray,suspension coenzyme Q10 100 mg tablet 100 mg PO DAILY 03/03/23 06/21/24 History duloxetine 60 mg capsule,delayed 60 mg PO DAILY 03/03/23 06/21/24 H istory release zolpidem 6.25 mg tablet,extended 6.25 mg PO QHS PRN sleep 03/03/23 06/21/24 History release,multiphase (Ambien CR) ascorbic acid (vitamin C) 500 mg 500 mg PO QDAY 12/21/23 06/21/24 H istory tablet calcium carbonate 1,200 mg PO BID 12/21/23 06/21/24 History riboflavin (vitamin B2) 100 mg 100 mg PO QDAY 12/21/23 06/21/24 H istory tablet rimegepant 75 mg disintegrating 75 mg PO ONCE PRN migraine headach e 12/21/23 06/21/24 History tablet prochlorperazine maleate 5 mg 5 mg PO BID PRN nausea and 4 06/21/24 Rx tablet vomiting #20 tabs ondansetron 4 mg disintegrating 4 mg PO TID PRN nausea and 4 06/21/24 Rx tablet vomiting #45 tabs metoclopramide HCl 5 mg tablet 5 mg PO QAC #90 tabs 04/29/2407/12 Rx rabeprazole 20 mg tablet,delayed 20 mg PO QDAY #30 tabs 04/29/24 Rx release famotidine 20 mg tablet 20 mg PO QDAY #30 tabs 06/21/24 Rx PFSH Medical History History of echocardiogram Post-menopausal Wears glasses Depression Arthritis Fatty liver Easy bruising Restless legs Dietary restriction History of IBS Non-smoker CPAP (continuous positive airway pressure) dependence Cardiology follow-up encounter Chest pain Fibromyalgia Essential (primary) hypertension Esophagitis Duodenitis without mention of hemorrhage Sleep apnea Hx of spinal stenosis Chronic vertigo Vestibular migraine Surgical History History of colonoscopy History of esophagogastroduodenoscopy (EGD) History of uterine fibroid ( 04/2010) Family History Mother Hypertension Grandfather Heart disease Grandmother Heart disease Social History Smoking Status: Never smoker alcohol intake: never substance use type: does not use caffeine: Yes (energy drinks) Type: other HPI HPI Details: CHACHA CONTRERAS, is a 53 F who presents to the office today for FU regarding nausea/abdominal pain. She is on rabeprazole daily with breakthrough heartburn and reflux; ondansetron, prochlorperazine for breakthrough nausea; taking metoclopramide 5mg before meals has significantly reduced her epigastric pain and nausea, she denies tardive dyskinesia; 02/10 EGD:mild chronic gastritis/erythematous duodenum, H.pylori NEG; C-scope:normal, repeat 10yrs; Blood 12/22/23 indicative of Crohn's (AMCA 241, NEG stool calprotectin), allergy to peanut and whole eggs. She reports frequent throat clearing and mild sinus drainage as well. She denies difficulty chewing and swallowing, cough, nausea, abdominal pain, bloating, constipation, diarrhea, hematochezia, and melena. ROS Const Constitutional: No chills, fatigue, fever(s) or weight change Eyes Eyes: No blurry vision or change in vision ENT ENT: No abnormal hearing or difficulty swallowing Resp Respiratory: No cough Cardio Cardiology: No chest pain at rest, chest pain with exertion or leg pain with exertion Gastro GI: Positive for heartburn; No abdominal pain, belching, bloating, change in bowel habits, change in stool character, coffee ground emesis, constipation, cramping, diarrhea, difficulty swallowing, feeling full early, excessive flatus, incontinent of stools, Vomiting blood/hematemesis, Blood in stool, loose stools, Black,tarry stools, nausea/dyspepsia, pain with swallowing, vomiting or other Genitourinary-Female: No difficulty urinating Musc Musculoskeletal: No abnormal gait, joint pain or leg pain with exertion Skin Skin: No yellowing of the eye or itchy eyes Neuro Neurology: No abnormal gait or abnormal hearing P (more content not included)... Normal [facility] Gastric Emptying Study - 4 H Ottoniel 02-29-2024 Gastric Emptying Study - 4 HR [facility] Imaging Services [address] [place] [address] Gastric Emptying Study - 4 HR MR#: [id number] Acct: [id number] Name: CHACHA CONTRERAS Rep #: [id number] : 1970 F 53 From: Juan Eddy PCP: DIEGO VAUGHN Status: REG CLI Study: Gastric Emptying Study - 4 HR Date of Exam: Exam# [id number] Ordering Dr: Fabian Mclean DO [id number] CLINICAL: 53-year-old female with history of clinical gastroparesis. SOLID PHASE 99m Tc SULFUR COLLOID GASTRIC EMPTYING STUDY COMPARISON: Previous semisolid phase gastric emptying examination dated 02/02/2024 FINDINGS: The patient was administered 1.2 mCi of 99m Tc sulfur colloid mixed with egg and consumed per os. Image acquisitions in the anterior-posterior projections for a total of 233 minutes following meal consumption. There is prompt visualization of the stomach. There is no gastroesophageal reflux identified. First order kinetics are maintained throughout the duration of the acquisitions. The T ? linear fit was calculated to be 68.62 minutes, (Normal 65-110 minutes). 98.0 % emptying and 2.0 % retention are defined at 4 hours post meal ingestion. NM/Gastric Emptying Study - 4 HR IMPRESSION: 1. NORMAL 99m Tc sulfur colloid solid phase gastric emptying imaging examination. A. There is normal and preserved solid phase gastric emptying compared to normal controls with maintained first order kinetics throughout all components of the examination. (Marquis et al, Gastroenterology 77: 75, 1979 Scarlet et al, Semin Nucl Med 12: 116, 1981 Marga et al, SNM Procedure Guidelines Adult Solid Meal Gastric Emptying Study 3.0 [email or web address]). B. Greater than 90% emptying of the initial gastric contents at 4 hours post dose is consistent with normal solid phase gastric emptying which correlates with the results of the T ? emptying calculation. (Artur et al, J Nucl Med 48: 568, 2007). C. Overall compared to the previous semisolid gastric emptying examination dated 02/02/2024, there is current normal solid phase emptying as defined above. Electronically Signed: Juan Stevenson DO at 10:32 EST , CC: DIEGO VAUGHN; Fabian Mclean DO Seo Team Lead: Signed Normal [facility] Colonoscopy Reporton 024 Colonoscopy Report [facility] Medical Records Department [address] [place] [address] Colonoscopy Report MR#: [id number] Acct: [id number] Name: CHACHA CONTRERAS Rep #: [id number] : 1970 53 From: Fabian Mclean DO PCP: DIEGO VAUGHN Status[place] [facility] Patient Name: Chacha Contreras Procedure Date: 02/09/2024 6:58 AM Date of : 1970 Age: 53 Procedure: Colonoscopy Indications: Clinically significant diarrhea of unexplained origin Providers: Fabian Mclean DO Referring MD: Diego Vaughn Medicines: Monitored Anesthesia Care Patient Profile: This is a 53 year old female. Refer to note in patient chart for documentation of history and physical. Patient has symptoms of chronic abdominal cramping, chronic abdominal distention, acute epigastric abdominal pain and chronic epigastric abdominal pain. Last Colonoscopy: date unknown. Unable to locate last colonoscopy report. Complications: No immediate complications. Procedure: Pre-Anesthesia Assessment: - Prior to the procedure, a History and Physical was performed, and patient medications and allergies were reviewed. The patient is competent. The risks and benefits of the procedure and the sedation options and risks were discussed with the patient. All questions were answered and informed consent was obtained. Patient identification and proposed procedure were verified by the physician in the pre-procedure area. Mental Status Examination: alert and oriented. Airway Examination: normal oropharyngeal airway and neck mobility. Respiratory Examination: clear to auscultation. CV Examination: normal. Prophylactic Antibiotics: The patient does not require prophylactic antibiotics. Prior Anticoagulants: The patient has taken no anticoagulant or antiplatelet agents except for NSAID medication. ASA Grade Assessment: II - A patient with mild systemic disease. After reviewing the risks and benefits, the patient was deemed in satisfactory condition to undergo the procedure. The anesthesia plan was to use monitored anesthesia care (MAC). Immediately prior to administration of medications, the patient was re-assessed for adequacy to receive sedatives. The heart rate, respiratory rate, oxygen saturations, blood pressure, adequacy of pulmonary ventilation, and response to care were monitored throughout the procedure. The physical status of the patient was re-assessed after the procedure. After I obtained informed consent, the scope was passed under direct vision. Throughout the procedure, the patient's blood pressure, pulse, and oxygen saturations were monitored continuously. The Colonoscope was introduced through the anus and advanced to the terminal ileum. The colonoscopy was performed without difficulty. The patient tolerated the procedure well. The quality of the bowel preparation was adequate. The terminal ileum, ileocecal valve, appendiceal orifice, and rectum were photographed. Scope In: 7:00:13 AM Scope Withdrawal Time 0 hours 11 minutes 47 seconds Scope Out: 7:15:44 AM Total Procedure Duration Time 0 hours 15 minutes 31 seconds Findings: The perianal and digital rectal examinations were normal. The colon (entire examined portion) appeared normal. Biopsies for histology were taken with a cold forceps from the right colon, left colon and rectum for evaluation of microscopic colitis. Verification of patient identification for the specimen was done. Estimated blood loss was minimal. The terminal ileum appeared normal. Biopsies were taken with a cold forceps for histology. Verification of patient identification for the specimen was done. Estimated blood loss was minimal. Impression: - The entire examined colon is normal. Biopsied. - The examined portion of the ileum was normal. Biopsied. Recommendation: - Discharge patient to home. - Resume previous diet. - Continue present medications. - Await pathology results. - Repeat colonoscopy in 10 years for screening purposes. Procedure Code(s): --- Professional --- 44489, Colonoscopy, flexible; with biopsy, single or multiple CPT copyright 2021 [employer]. All rights reserved. The codes documented in this report are preliminary and upon hims coder review may be revised to meet current compliance requirements. Fabian Mclean DO 02/09/2024 7:23:20 AM This report has been signed electronically. Number of Addenda: 0 Note Initiated On: 02/09/2024 6:58 AM 02/09/24 0723 Date Fabian Adorno Signature: Date (if indicated) CC: DIEGO VAUGHN; Fabian Mclean DO Date Dictated: 02/09/2458 Date Transcribed: Seo Team Lead: ROSALIA Signed Normal [facility] EGD Reporton 02-09-2024 EGD Report [facility] Medical Records Department [address] [place] [address] EGD Report MR#: [id number] Acct: [id number] Name: CHACHA CONTRERAS Rep #: [id number] : 1970 53 From: Fabian Mclean DO PCP: DIEGO VAUGHN Status[place] [facility] Patient Name: Chacha Contreras Procedure Date: 02/09/2024 6:27 AM Date of : 1970 Age: 53 Procedure: Upper GI endoscopy Indications: Epigastric abdominal pain Providers: Fabian Mclean DO Referring MD: Diego Vaughn Medicines: Monitored Anesthesia Care Patient Profile: This is a 53 year old female. Refer to note in patient chart for documentation of history and physical. Patient has symptoms of chronic abdominal cramping, chronic abdominal distention, acute epigastric abdominal pain and chronic epigastric abdominal pain. Complications: No immediate complications. Procedure: Pre-Anesthesia Assessment: - Prior to the procedure, a History and Physical was performed, and patient medications and allergies were reviewed. The patient is competent. The risks and benefits of the procedure and the sedation options and risks were discussed with the patient. All questions were answered and informed consent was obtained. Patient identification and proposed procedure were verified by the physician in the pre-procedure area. Mental Status Examination: alert and oriented. Airway Examination: normal oropharyngeal airway and neck mobility. Respiratory Examination: clear to auscultation. CV Examination: normal. Prophylactic Antibiotics: The patient does not require prophylactic antibiotics. Prior Anticoagulants: The patient has taken no anticoagulant or antiplatelet agents except for NSAID medication. ASA Grade Assessment: II - A patient with mild systemic disease. After reviewing the risks and benefits, the patient was deemed in satisfactory condition to undergo the procedure. The anesthesia plan was to use monitored anesthesia care (MAC). Immediately prior to administration of medications, the patient was re-assessed for adequacy to receive sedatives. The heart rate, respiratory rate, oxygen saturations, blood pressure, adequacy of pulmonary ventilation, and response to care were monitored throughout the procedure. The physical status of the patient was re-assessed after the procedure. After obtaining informed consent, the endoscope was passed under direct vision. Throughout the procedure, the patient's blood pressure, pulse, and oxygen saturations were monitored continuously. The Colonoscope was introduced through the mouth, and advanced to the second part of duodenum. The upper GI endoscopy was accomplished without difficulty. The patient tolerated the procedure well. Scope In: 6:52:54 AM Scope Out: 6:58:40 AM Total Procedure Duration Time 0 hours 5 minutes 46 seconds Findings: The examined esophagus was normal. Patchy mildly erythematous mucosa without bleeding was found in the gastric body. Biopsies were taken with a cold forceps for histology. Verification of patient identification for the specimen was done. Estimated blood loss was minimal. Biopsies were taken with a cold forceps for Helicobacter pylori testing. Verification of patient identification for the specimen was done. Estimated blood loss: none. Patchy mildly erythematous mucosa without active bleeding and with no stigmata of bleeding was found in the duodenal bulb and in the first portion of the duodenum. Biopsies were taken with a cold forceps for histology. Verification of patient identification for the specimen was done. Estimated blood loss was minimal. Impression: - Normal esophagus. - Erythematous mucosa in the gastric body. Biopsied. - Erythematous duodenopathy. Biopsied. Recommendation: - Discharge patient to home. - Resume previous diet. - Continue present medications. - Await pathology results. Procedure Code(s): --- Professional --- 23543, Esophagogastroduodenoscopy, flexible, transoral; with biopsy, single or multiple CPT copyright 2021 [employer]. All rights reserved. The codes documented in this report are preliminary and upon hims coder review may be revised to meet current compliance requirements. Fabian Mclean DO 02/09/2024 7:20:38 AM This report has been signed electronically. Number of Addenda: 0 Note Initiated On: 02/09/2024 6:27 AM 02/09/24720 Date [facility] Signature: Date (if indicated) CC: DIEGO VAUGHN; Fabian Friend, DO Date Dictated: 02/09/24626 Date Transcribed: Seo Team Lead: ROSALIA Signed Normal [facility] H Pylori (initial)on H Pylori (initial) ------- Patient Age/Sex Location Account Attending Physician CHACHA CONTRERAS 53/F EN [id number] Fabian Mclean DO Specimen: [id number] Received: 02/09/24-4755 Status: BREN Hightower Num: [id number] Spec Type: IMMUNO Subm Dr: Fabian Mclean, PHYSICIAN INSTITUTION [address] [address] SPECIMEN INFORMATION: Tissue Source: B- Gastric body biopsy Clinical Info: GE reflux disease, irritable bowel syndrome Specimen Number: [id number] CPT code: 66812 METHODOLOGY: Deparaffinized sections of prefer/formalin-fixed tissue or PAP/DQ stained slides are incubated with monoclonal/polyclonal antibodies/oligonucleotide probes. Localization is made via biotin free immunoperoxidase method. Appropriate controls are performed and reacted as expected. Results on target cell population are indicated in the following table: RESULTS: ANTIBODY / CLONE RESULT Block B H Pylori (polyclonal) negative These tests were developed and their performance characteristics determined by [facility]. They may not have been cleared or approved by the U.S. Food and Drug Administration. The FDA has determined that such clearance or approval is not necessary. The above immunohistochemical/dualISH markers are ordered and reviewed by the Pathologist. INTERPRETATION: B. Gastric body, biopsy: Negative for Helicobacter pylori organisms. AM. 02/12/2024 Signed (signature on file) Dr. Cristobal Romero, 02/12/24 1310 Normal [facility] Comment on above: Performed By: #### L 7000.0700, M100.0605, L7000.0750 #### [facility] [address] [facility] [place], [address] MR/POSTOP.Ruthie 02-09-2024 MR/POSTOP.DALIA [facility] Medical Records Department [facility] [place] [address] Anesthesia Postop Eval I 02/09/24 07 MR#: [id number] Acct: [id number] Name: CHACHA CONTRERAS Rep #: [id number] : 1970 53 From: Kt Martel PCP: DIEGO VAUGHN Status:REG SD Y Race: C Location: [place] [address] Anesthesia: Postop Eval I Current Vital Signs Temperature: 98.6 F Pulse Rate: 77 Blood Pressure: 96/55 Respiratory Rate: 16 Pulse Ox: 96 Oxygen Delivery Method: Room Air Assessment Airway patent: Yes Spontaneous unlabored respirations: Yes Mental status: Asleep nausea: No Vomiting: No Anesthesia Complication: No Fluid Hydration Crystalloid volume administer (ml): 75 Total IV fluid infused: 75 Progress Note Anesthesia document: Postop Eval 1 completed: Yes 02/09/24729 Date Kt Lora Signature: Date CC: Signed Normal [facility] MR/KVYHATPS5in 02-09-2024 [facility] Medical Records Department [address] [place] [address] Anesthesia Postop Eval II 02/09/24 0911 MR#: [id number] Acct: [id number] Name: CHACHA CONTRERAS Rep #: [id number] : 1970 53 From: Smith Orozco MD PCP: DIEGO VAUGHN Status:DEP SEAN Y Race: C Location: [place] Anesthesia Postop Eval I Sum Postop Eval Completion status Anesthesia document: Postop Eval 1 completed: Yes Anesthesia Postop Eval I Summary Anesthesia Postop Eval I Summary: Anesthesia Postop Eval I: Assessment Summary Airway patent Yes 02/09/24 07:30 [email or web address] Spontaneous unlabored Yes 02/09/24 07:30 [email or web address] respirations Mental status Asleep 02/09/24 07:30 [email or web address] nausea No 02/09/24 07:30 [email or web address] Vomiting No 02/09/24 07:30 [email or web address] Anesthesia Postop Eval I: Fluid Summary Crystalloid volume administer 75 02/09/24 07:30 [email or web address] (ml) Colloids volume administered ( ml) Blood Product volume administered (ml) Total IV fluid infused 75 02/09/24 07:30 [email or web address] Anesthesia Postop Eval I: Summary Notes Anesthesia Complication No 02/09/24 07:30 [email or web address] Anesthesia Complication Comment: Post-operative progress note Anesthesia: Postop Eval II Evaluation Mental status: Awake Pain Level: 0 nausea: No Vomiting: No 02/09/24910 Date Smith Lora Signature: Date CC: Signed Normal [facility] Surgery Specimen Level Sabas 02-09-2024 Surgery Specimen Level IV Patient Age/Sex Location Account Attending Physician CHACHA CONTRERAS 53/F EN [id number] Fabian Mclean DO Specimen: [id number] Received: 02/09/24 Status: BREN Hightower Num: [id number] Spec Type: EGD BIOPSY Subm Dr: Fabian Mclean DO HEADER OPERATION: Colonoscopy, EGD biopsy PRE-OP DIAGNOSIS: GE reflux disease, irritable bowel syndrome TISSUE SUBMITTED: A- Duodenum biopsy, B- Gastric body biopsy, C- Terminal ileum biopsy,D- Random colon biopsy MICROSCOPIC DIAGNOSIS A. Duodenum, biopsy: No pathologic change. B. Gastric body, biopsy: Mild chronic gastritis. See comment. C. Terminal ileum, biopsy: No pathologic change. D. Colon, random biopsy: No significant pathologic change. See comment. AM. 02/12/2024 COMMENT B. The results of immunohistochemistry for Helicobacter pylori will be reported separately ([id number]). D. Rare eosinophils and neutrophils are seen in glandular epithelium. The significance of this is unclear. Clinical correlation is suggested. MICROSCOPIC DESCRIPTION Slides are reviewed. GROSS DESCRIPTION A. Received in fixative is one container labeled with the patient's name and designated Duodenum biopsy. The specimen consists of multiple irregular fragments of light ragsdale soft tissue that in aggregate measure 1.5 x 0.3 x 0.1 cm. The specimen is totally submitted in one cassette. B. Received in fixative is one container labeled with the patient's name and designated Gastric body biopsy. The specimen consists of multiple irregular fragments of light ragsdale soft tissue that in aggregate measure 1.5 x 0.6 x 0.1 cm. The specimen is totally submitted in one cassette. C. Received in fixative is one container labeled with the patient's name and designated Patient Age/Sex Location Account Attending Physician CHACHA CONTRERAS 53/F EN [id number] Fabian Mclean DO Terminal ileum biopsy. The specimen consists of one irregular fragment of light ragsdale soft tissue that measures 0.4 x 0.3 x 0.1 cm. The specimen is totally submitted in one cassette. D. Received in fixative is one container labeled with the patient's name and designated Random colon biopsy. The specimen consists of multiple irregular fragments of light ragsdale soft tissue that in aggregate measure 2.0 x 0.5 x 0.1 cm. The specimen is totally submitted in one cassette. 02/09/2024 TC:2 CPT:03346f7 Patient Age/Sex Location Account Attending Physician CHACHA CONTRERAS 53/F EN [id number] Fabian Mclean DO Signed (signature on file) Dr. Cristobal Romero DO 02/12/24 1217 Normal [facility] Comment on above: Performed By: #### L 7000.0700, M100.0605, L7000.0750 #### [facility] [address] [place], [address] Gastric Emptying Study Gastric Emptying Study [facility] Imaging Services [address] [place] [address] Gastric Emptying Study MR#: [id number] Acct: [id number] Name: CHACHA CONTRERAS Rep #: [id number] : 1970 F 53 From: Juan Eddy PCP: DIEGO VAUGHN Status: REG CLI Study: Gastric Emptying Study Date of Exam: 02/02/24 Exam# [id number] Ordering Dr: Mi Gandhi [id number] CLINICAL: 53-year-old female with history of chronic nausea and early satiety. SEMI-SOLID PHASE 99m Tc SULFUR COLLOID GASTRIC EMPTYING STUDY COMPARISON: None available FINDINGS: The patient was administered 1.1 mCi of 99m Tc sulfur colloid mixed with oatmeal and consumed per os. Image acquisitions in the anterior-posterior projections were obtained for 60 minutes. There is prompt visualization of the stomach. There is no gastroesophageal reflux identified. First order kinetics are maintained throughout the duration of the acquisitions. The T ? linear fit was not calculable (> 150 minutes). (Normal: 12-56 minutes). NM/Gastric Emptying Study IMPRESSION: 1. ABNORMAL 99m Tc sulfur colloid semi-solid phase (oatmeal) gastric emptying imaging examination. A. There is delayed semi-solid phase gastric emptying compared to normal controls. (Marlys rocha al, J Nucl Med Tech 38: 186, 2010). Electronically Signed: Juan Stevenson DO at 10:47 EST , CC: FLYNN Gandhi; DIEGO VAUGHN Seo Team Lead: Signed Normal [facility] Calprotectin, Stoolon [address] 81 ug/g Normal 0-120 [facility] Comment on above: Result Comment: Conc entration Interpretation Follow-Up < 5 - 50 ug/g Normal None >50 -120 ug/g Borderline Re-evaluate in 4-6 weeks >120 ug/g Abnormal Repeat as clinically indicated Performed at: [address] [id number] Rail Flaw Detector Operator: Edenilson Benson MD, Phone: [phone] Performed By: #### L 7000.0700, M100.0605, L7000.0750 #### [facility] [address] [place], [place], [address] L7000.0750on 01-01-2024 P ELASTASE,FECA > 800 Normal >200 [facility] Comment on above: Result Comment: Resu lt Units: ug Elast./g Severe Pancreatic Insufficiency: <100 Moderate Pancreatic Insufficiency: 100 - 200 Normal: >200 Performed at: [address] [id number] Rail Flaw Detector Operator: Edenilson Benson MD, Phone: [phone] Performed By: #### L 7000.0700, M100.0605, L7000.0750 #### [facility] [address] [place], [place], [address] Stool Lactoferrin/WBCon 12-18 WBCST Normal Reference Ran ge = Negative Fecal WBC Lactoferrin Negative: No Fecal WBC Lactoferrin present Normal [facility] Comment on above: Performed By: #### L 7000.0700, M100.0605, L7000.0750 #### [facility] [address] [place], [address] ANCAon 12-26-2023 Atypical pANCA <1:20 Normal Neg:<1:20 [facility] Comment on above: Order Comment: N Result Comment: The atypical pANCA pattern has been observed in a significant percentage of patients with ulcerative colitis, primary sclerosing cholangitis and autoimmune hepatitis. Performed at: [address] [id number] Rail Flaw Detector Operator: Blayne Dalal PhD, Phone: [phone] Performed at: [address] [id number] Rail Flaw Detector Operator: Edenilson Benson MD, Phone: [phone] Performed By: #### L 7000.0700, M100.0605, L7000.0750 #### [facility] [address] [place], [address] Cytoplasmic Ab <1:20 Normal Neg:<1:20 [facility] Comment on above: Order Comment: N Performed By: #### L 7000.0700, M100.0605, L7000.0750 #### [facility] [address] [place], [address] Perinuclear Ab. <1:20 Normal Neg:<1:20 [facility] Comment on above: Order Comment: N Result Comment: The presence of positive fluorescence exhibiting P-ANCA or C-ANCA patterns alone is not specific for the diagnosis of Eagle's Granulomatosis (WG) or microscopic polyangiitis. Decisions about treatment should not be based solely on ANCA IFA results. The International ANCA Group Consensus recommends follow up testing of positive sera with both AR- 3 and MPO-ANCA enzyme immunoassays. As many as 5% serum samples are positive only by EIA. Ref. AM J Clin Pathol 1999;111:507-513. Performed By: #### L 7000.0700, M100.0605, L7000.0750 #### [facility] [address] [place], [address] Celiac Disease Profileon ENDOMYSIAL IGA Negative Normal Negative [facility] Comment on above: Order Comment: N Performed By: #### L 7000.0700, M100.0605, L7000.0750 #### [facility] [address] [place], [address] tTG IGA <2 Normal 0-3 [facility] Comment on above: Order Comment: N Result Comment: Nega tive 0 - 3 Weak Positive 4 - 10 Positive >10 Tissue Transglutaminase (tTG) has been identified as the endomysial antigen. Studies have demonstr- ated that endomysial IgA antibodies have over 99% specificity for gluten sensitive enteropathy. Performed By: #### L 7000.0700, M100.0605, L7000.0750 #### [facility] [address] [place], [address] ROGER + Protein Elect, Serumon 12-26-2023 Albumin [Mass/Vol] 3.9 g/dL Normal 2.9-4.4 [facility] Comment on above: Order Comment: N Performed By: #### L 7000.0700, M100.0605, L7000.0750 #### [facility] [address] [place], [address] Albumin/Globulin [Mass ratio] 1.4 {ratio} Normal 0.7-1.7 [facility] Comment on above: Order Comment: N Performed By: #### L 7000.0700, M100.0605, L7000.0750 #### [facility] [address] [place], [address] BNCZG-5-XHXN 0.2 g/dL Normal 0.0-0.4 [facility] Comment on above: Order Comment: N Performed By: #### L 7000.0700, M100.0605, L7000.0750 #### [facility] [address] [place], [address] CYWOB-5-MBXI 0.7 g/dL Normal 0.4-1.0 [facility] Comment on above: Order Comment: N Performed By: #### L 7000.0700, M100.0605, L7000.0750 #### [facility] [address] [place], [address] BETA GLOBULIN 1.0 g/dL Normal 0.7-1.3 [facility] Comment on above: Order Comment: N Performed By: #### L 7000.0700, M100.0605, L7000.0750 #### [facility] [address] [place], [address] GAMMA GLOBULIN 1.0 g/dL Normal 0.4-1.8 [facility] Comment on above: Order Comment: N Performed By: #### L 7000.0700, M100.0605, L7000.0750 #### [facility] [address] [place], [address] Globulin (S) [Mass/Vol] 2.9 g/dL Normal 2.2-3.9 [facility] Comment on above: Order Comment: N Performed By: #### L 7000.0700, M100.0605, L7000.0750 #### [facility] [address] [place], [address] ROGER RESULT,S Comment Normal . [facility] Comment on above: Order Comment: N Result Comment: No m onoclonality detected. Performed By: #### L 7000.0700, M100.0605, L7000.0750 #### [facility] [address] [place], [address] IMMUNOGLOB A QN 177 mg/dL Normal 87-352 [facility] Comment on above: Order Comment: N Performed By: #### L 7000.0700, M100.0605, L7000.0750 #### [facility] [address] [place], [address] IMMUNOGLOB G QN 1069 mg/dL Normal 586-1602 [facility] Comment on above: Order Comment: N Performed By: #### L 7000.0700, M100.0605, L7000.0750 #### [facility] [address] [place], [address] IMMUNOGLOB M QN 80 mg/dL Normal 26-217 [facility] Comment on above: Order Comment: N Performed By: #### L 7000.0700, M100.0605, L7000.0750 #### [facility] [address] [place], [address] M-Chidi Not Observed Normal Not Observed [facility] Comment on above: Order Comment: N Performed By: #### L 7000.0700, M100.0605, L7000.0750 #### [facility] [address] [place], [address] NOTE: Comment Normal . [facility] Comment on above: Order Comment: N Result Comment: Prot ein electrophoresis scan will follow via computer, mail, or director plans delivery. Performed By: #### L 7000.0700, M100.0605, L7000.0750 #### [facility] [address] [place], [address] Protein [Mass/Vol] 6.8 g/dL Normal 6.0-8.5 [facility] Comment on above: Order Comment: N Performed By: #### L 7000.0700, M100.0605, L7000.0750 #### [facility] [address] [place], [address] Immunoglobulins G/A/M/Gus IMMUNOGLOB E QN 29 IU/mL Normal 6-495 [facility] Comment on above: Order Comment: N Performed By: #### L 7000.0700, M100.0605, L7000.0750 #### [facility] [address] [place], [address] L2100.0000on 12-26-2023 ACCA 0 units Normal 0-90 [facility] Comment on above: Order Comment: N Result Comment: Nega tive: <80 Equivocal: 80-90 Positive: >90 Performed By: #### L 7000.0700, M100.0605, L7000.0750 #### [facility] [address] [place], [address] ALCA 55 units Normal 0-60 [facility] Comment on above: Order Comment: N Result Comment: Nega tive:<55 Equivocal: 55-60 Positive: >60 Performed By: #### L 7000.0700, M100.0605, L7000.0750 #### [facility] [address] [place], [address] AMCA 241 units High 0-100 [facility] Comment on above: Order Comment: N Result Comment: Nega tive: <90 Equivocal: 90-100 Positive: >100 This test was developed and its performance characteristics determined by [facility]. It has not been cleared or approved by the Food and Drug Administration. The FDA has determined that such clearance or approval is not necessary. Performed By: #### L 7000.0700, M100.0605, L7000.0750 #### [facility] [address] [place], [address] Atypical pANCA Negative Normal Negative [facility] Comment on above: Order Comment: N Performed By: #### L 7000.0700, M100.0605, L7000.0750 #### [facility] [address] [place], [address] COMMENT Comment Abnormal . [facility] Comment on above: Order Comment: N Result Comment: Sugg estive of Crohn's Disease. Pattern is not conclusive for disease behavior risk stratification. Performed By: #### L 7000.0700, M100.0605, L7000.0750 #### [facility] [address] [place], [address] Aurelio 28 units Normal 0-50 [facility] Comment on above: Order Comment: N Result Comment: Nega tive: <45 Equivocal: 45-50 Positive: >50 Performed By: #### L 7000.0700, M100.0605, L7000.0750 #### [facility] [address] [place], [address] DARIN Comprehensive Panelon DARIN TABLE Comment Normal . [facility] Comment on above: Result Comment: Auto antibody Disease Association Condition Frequency --------- Antinuclear Antibody, SLE, mixed connective Direct (DARIN-D) tissue diseases --------- dsDNA SLE 40 - 60% --------- Chromatin Drug induced SLE 90% SLE 48 - 97% --------- SSA (Ro) SLE 25 - 35% Sjogren's Syndrome 40 - 70% Lupus 100% --------- SSB (La) SLE 10% Sjogren's Syndrome 30% --------- Sm (anti-Gil) SLE 15 - 30% --------- DOCUMENT PREPARER MICROFILMING Mixed Connective Tissue Disease 95% (U1 nRNP, SLE 30 - 50% anti-ribonucleoprotein) Polymyositis and/or Dermatomyositis 20% --------- Scl-70 (antiDNA Scleroderma (diffuse) 20 - 35% topoisomerase) Crest 13% --------- Deanna-1 Polymyositis and/or Dermatomyositis 20 - 40% --------- Centromere B Scleroderma - Crest variant 80% Performed By: #### L 7000.0700, M100.0605, L7000.0750 #### [facility] [address] [place], [address] ANTI-CENT B AB <0.2 Normal 0.0-0.9 [facility] Comment on above: Performed By: #### L 7000.0700, M100.0605, L7000.0750 #### [facility] [address] [place], [address] ANTI-DNA (DS)AB <1 Normal 0-9 [facility] Comment on above: Result Comment: Nega tive <5 Equivocal 5 - 9 Positive >9 Performed By: #### L 7000.0700, M100.0605, L7000.0750 #### [facility] [address] [place], [address] ANTI-DEANNA-1 <0.2 Normal 0.0-0.9 [facility] Comment on above: Performed By: #### L 7000.0700, M100.0605, L7000.0750 #### [facility] [address] [place], [address] ANTI-SS-A < 0.2 Normal 0.0-0.9 [facility] Comment on above: Performed By: #### L 7000.0700, M100.0605, L7000.0750 #### [facility] [address] [place], [address] ANTI-SS-B < 0.2 Normal 0.0-0.9 [facility] Comment on above: Performed By: #### L 7000.0700, M100.0605, L7000.0750 #### [facility] [address] [place], [address] ANTICHROMATIN 0.4 AI Normal 0.0-0.9 [facility] Comment on above: Performed By: #### L 7000.0700, M100.0605, L7000.0750 #### [facility] [address] [place], [address] ANTISCLERODERM <0.2 Normal 0.0-0.9 [facility] Comment on above: Performed By: #### L 7000.0700, M100.0605, L7000.0750 #### [facility] [address] [place], [address] DOCUMENT PREPARER MICROFILMING Ab <0.2 Normal 0.0-0.9 [facility] Comment on above: Performed By: #### L 7000.0700, M100.0605, L7000.0750 #### [facility] [address] [place], [address] GIL Ab <0.2 Normal 0.0-0.9 [facility] Comment on above: Performed By: #### L 7000.0700, M100.0605, L7000.0750 #### [facility] [address] [place], [address] L5500.0550on 12-25-2023 BEEF <0.10 Normal Class 0 [facility] Comment on above: Performed By: #### L 7000.0700, M100.0605, L7000.0750 #### [facility] [address] [place], [address] CHOCOLATE <0.10 Normal Class 0 [facility] Comment on above: Performed By: #### L 7000.0700, M100.0605, L7000.0750 #### [facility] [address] [place], [address] CODFISH <0.10 Normal Class 0 [facility] Comment on above: Performed By: #### L 7000.0700, M100.0605, L7000.0750 #### [facility] [address] [place], [address] COMMENT Comment Normal . [facility] Comment on above: Result Comment: Dasha adam of Specific IgE Class Description of Class ----- < 0.10 0 Negative 0.10 - 0.31 0/I Equivocal/Low 0.32 - 0.55 I Low 0.56 - 1.40 II Moderate 1.41 - 3.90 III High 3.91 - 19.00 IV Very High 19.01 - 100.00 V Very High >100.00 Very High Performed By: #### L 7000.0700, M100.0605, L7000.0750 #### [facility] [address] [place], [address] CORN <0.10 Normal Class 0 [facility] Comment on above: Performed By: #### L 7000.0700, M100.0605, L7000.0750 #### [facility] [address] [place], [address] EGG, WHOLE 0.21 kU/L Abnormal Class 0/I [facility] Comment on above: Result Comment: Perf ormed at: - [facility] [address] [id number] Rail Flaw Detector Operator: Blayne Dalal PhD, Phone: [phone] Performed at: - [facility] [id number] Rail Flaw Detector Operator: Edenilson Benson MD, Phone: [phone] Performed By: #### L 7000.0700, M100.0605, L7000.0750 #### [facility] [address] [place], [place], [facility] MILK (COW) <0.10 Normal Class 0 [facility] Comment on above: Performed By: #### L 7000.0700, M100.0605, L7000.0750 #### [facility] [address] [place], [address] MUSSELS <0.10 Normal Class 0 [facility] Comment on above: Performed By: #### L 7000.0700, M100.0605, L7000.0750 #### [facility] [address] [place], [address] PEANUT 0.11 kU/L Abnormal Class 0/I [facility] Comment on above: Performed By: #### L 7000.0700, M100.0605, L7000.0750 #### [facility] [address] [place], [address] PORK <0.10 Normal Class 0 [facility] Comment on above: Performed By: #### L 7000.0700, M100.0605, L7000.0750 #### [facility] [address] [place], [address] SALMON <0.10 Normal Class 0 [facility] Comment on above: Performed By: #### L 7000.0700, M100.0605, L7000.0750 #### [facility] [address] [place], [address] SHRIMP <0.10 Normal Class 0 [facility] Comment on above: Performed By: #### L 7000.0700, M100.0605, L7000.0750 #### [facility] [address] [place], [address] SOYBEAN <0.10 Normal Class 0 [facility] Comment on above: Performed By: #### L 7000.0700, M100.0605, L7000.0750 #### [facility] [address] [place], [address] TUNA <0.10 Normal Class 0 [facility] Comment on above: Performed By: #### L 7000.0700, M100.0605, L7000.0750 #### [facility] [facility] [address] [place], [address] WHEAT <0.10 Normal Class 0 [facility] Comment on above: Performed By: #### L 7000.0700, M100.0605, L7000.0750 #### [facility] [address] [place], [address] CBC W/Diff, Automatedon 10-0 -2023 Absolute Lymph 1.05 X10 3/uL Normal 0.83-4.51 [facility] Comment on above: Performed By: #### L 3410.2400, L501.48366, L2100.0000, L100.0100, L500.4050, L501.9520, L3100.5440, L3100.3425, L101.9900, L5500.0550, L504.2610, L3200.1100, L506.0400, L3300.1200, L501.6710 #### [facility] [address] [facility] [place], [address] Absolute Neut 2.9 X10 3/uL Normal 2.0-7.7 [facility] Comment on above: Performed By: #### L 3410.2400, L501.22254, L2100.0000, L100.0100, L500.4050, L501.9520, L3100.5440, L3100.3425, L101.9900, L5500.0550, L504.2610, L3200.1100, L506.0400, L3300.1200, L501.6710 #### [facility] [address] [facility] [place], [place], [id number] [phone] Basophils/100 WBC (Bld) 1.0 % Normal 0-1 [facility] Comment on above: Performed By: #### L 3410.2400, L501.18785, L2100.0000, L100.0100, L500.4050, L501.9520, L3100.5440, L3100.3425, L101.9900, L5500.0550, L504.2610, L3200.1100, L506.0400, L3300.1200, L501.6710 #### [facility] [address] [place], [address] Eosinophils/100 WBC (Bld) 5.2 % High 0-5 [facility] Comment on above: Performed By: #### L 3410.2400, L501.92526, L2100.0000, L100.0100, L500.4050, L501.9520, L3100.5440, L3100.3425, L101.9900, L5500.0550, L504.2610, L3200.1100, L506.0400, L3300.1200, L501.6710 #### [facility] [address] [place], [place], [id number] Erythrocyte distribution width (RBC) [Ratio] 12.8 % Normal 11.6-14.6 [facility] Comment on above: Performed By: #### L 3410.2400, L501.43958, L2100.0000, L100.0100, L500.4050, L501.9520, L3100.5440, L3100.3425, L101.9900, L5500.0550, L504.2610, L3200.1100, L506.0400, L3300.1200, L501.6710 #### [facility] [address] [place], [address] Hematocrit (Bld) [Volume fraction] 41.7 % Normal 37-47 [facility] Comment on above: Performed By: #### L 3410.2400, L501.69426, L2100.0000, L100.0100, L500.4050, L501.9520, L3100.5440, L3100.3425, L101.9900, L5500.0550, L504.2610, L3200.1100, L506.0400, L3300.1200, L501.6710 #### [facility] [address] [place], [address] Hemoglobin (Bld) [Mass/Vol] 13.7 g/dL Normal 12.0-15.0 [facility] Comment on above: Performed By: #### L 3410.2400, L501.82952, L2100.0000, L100.0100, L500.4050, L501.9520, L3100.5440, L3100.3425, L101.9900, L5500.0550, L504.2610, L3200.1100, L506.0400, L3300.1200, L501.6710 #### [facility] [address] [place], [address] IG% 0.800 Normal 0.0-0.9 [facility] Comment on above: Result Comment: IG% - Immature Granulocytes (promyelocytes, myelocytes and metamyelocytes) > 1% indicates that a LEFT SHIFT is Present. Performed By: #### L 3410.2400, L501.79596, L2100.0000, L100.0100, L500.4050, L501.9520, L3100.5440, L3100.3425, L101.9900, L5500.0550, L504.2610, L3200.1100, L506.0400, L3300.1200, L501.6710 #### [facility] [address] [facility] [place], [address] Lymphocytes/100 WBC (Bld) 22.0 % Normal 19-41 [facility] Comment on above: Performed By: #### L 3410.2400, L501.92799, L2100.0000, L100.0100, L500.4050, L501.9520, L3100.5440, L3100.3425, L101.9900, L5500.0550, L504.2610, L3200.1100, L506.0400, L3300.1200, L501.6710 #### [facility] [address] [facility] [place], [address] MCH (RBC) [Entitic mass] 29.1 pg Normal 27.0-32.0 [facility] Comment on above: Performed By: #### L 3410.2400, L501.88641, L2100.0000, L100.0100, L500.4050, L501.9520, L3100.5440, L3100.3425, L101.9900, L5500.0550, L504.2610, L3200.1100, L506.0400, L3300.1200, L501.6710 #### [facility] [address] [place], [address] MCHC (RBC) [Mass/Vol] 32.9 g/dL Normal 32-36 [facility] Comment on above: Performed By: #### L 3410.2400, L501.85646, L2100.0000, L100.0100, L500.4050, L501.9520, L3100.5440, L3100.3425, L101.9900, L5500.0550, L504.2610, L3200.1100, L506.0400, L3300.1200, L501.6710 #### [facility] [address] [place], [address] MCV (RBC) [Entitic vol] 88.5 fL Normal 81-99 [facility] Comment on above: Performed By: #### L 3410.2400, L501.43928, L2100.0000, L100.0100, L500.4050, L501.9520, L3100.5440, L3100.3425, L101.9900, L5500.0550, L504.2610, L3200.1100, L506.0400, L3300.1200, L501.6710 #### [facility] [address] [place], [address] Monocytes/100 WBC (Bld) 9.4 % Normal 0-10 [facility] Comment on above: Performed By: #### L 3410.2400, L501.11016, L2100.0000, L100.0100, L500.4050, L501.9520, L3100.5440, L3100.3425, L101.9900, L5500.0550, L504.2610, L3200.1100, L506.0400, L3300.1200, L501.6710 #### [facility] [address] [place], [address] Neutrophils/100 WBC (Bld) 61.6 % Normal 47-70 [facility] Comment on above: Performed By: #### L 3410.2400, L501.69375, L2100.0000, L100.0100, L500.4050, L501.9520, L3100.5440, L3100.3425, L101.9900, L5500.0550, L504.2610, L3200.1100, L506.0400, L3300.1200, L501.6710 #### [facility] [address] [facility] [place], [address] Nucleated RBC (Bld) [#/Vol] 0 10*3/uL Normal 0-5 [facility] Comment on above: Performed By: #### L 3410.2400, L501.93410, L2100.0000, L100.0100, L500.4050, L501.9520, L3100.5440, L3100.3425, L101.9900, L5500.0550, L504.2610, L3200.1100, L506.0400, L3300.1200, L501.6710 #### [facility] [address] [place], [place], [phone] (262) Platelet mean volume (Bld) [Entitic vol] 9.4 fL Normal 6.2-12.0 [facility] Comment on above: Performed By: #### L 3410.2400, L501.35659, L2100.0000, L100.0100, L500.4050, L501.9520, L3100.5440, L3100.3425, L101.9900, L5500.0550, L504.2610, L3200.1100, L506.0400, L3300.1200, L501.6710 #### [facility] [address] [facility] [place], [address] Platelets (Bld) [#/Vol] 239 10*3/uL Normal 150-450 [facility] Comment on above: Performed By: #### L 3410.2400, L501.52550, L2100.0000, L100.0100, L500.4050, L501.9520, L3100.5440, L3100.3425, L101.9900, L5500.0550, L504.2610, L3200.1100, L506.0400, L3300.1200, L501.6710 #### [facility] [address] [place], [address] RBC (Bld) [#/Vol] 4.71 10*6/uL Normal 4.2-5.4 [facility] Comment on above: Performed By: #### L 3410.2400, L501.12300, L2100.0000, L100.0100, L500.4050, L501.9520, L3100.5440, L3100.3425, L101.9900, L5500.0550, L504.2610, L3200.1100, L506.0400, L3300.1200, L501.6710 #### [facility] [address] [place], [place], [id number] (773) RDW SD 41.8 fl Normal 35.1-43.9 [facility] Comment on above: Performed By: #### L 3410.2400, L501.10771, L2100.0000, L100.0100, L500.4050, L501.9520, L3100.5440, L3100.3425, L101.9900, L5500.0550, L504.2610, L3200.1100, L506.0400, L3300.1200, L501.6710 #### [facility] [address] [place], [address] WBC (Bld) [#/Vol] 4.8 10*3/uL Normal 4.4-11.0 [facility] Comment on above: Performed By: #### L 3410.2400, L501.30616, L2100.0000, L100.0100, L500.4050, L501.9520, L3100.5440, L3100.3425, L101.9900, L5500.0550, L504.2610, L3200.1100, L506.0400, L3300.1200, L501.6710 #### [facility] [address] [place], [place], [id number] CRPon 12-22-2023 C-REACTIVE PROT 4.27 mg/L High 0.0-3.0 [facility] Comment on above: Order Comment: 1 Result Comment: C-Re active Protein (CRP) provides useful information for the diagnosis, therapy and monitoring of inflammatory processes and associated diseases. For the evaluation of Relative Risk for Cardiovascular Disease, a High Sensitivity CRP (HSCRP) should be ordered. Performed By: #### L 3410.2400, L501.27341, L2100.0000, L100.0100, L500.4050, L501.9520, L3100.5440, L3100.3425, L101.9900, L5500.0550, L504.2610, L3200.1100, L506.0400, L3300.1200, L501.6710 #### [facility] [address] [facility] [place], [address] Comprehensive Metabolic Prof ilon 12-22-2023 Albumin [Mass/Vol] 3.5 g/dL Normal 3.2-5.0 [facility] Comment on above: Order Comment: 1 Performed By: #### L 3410.2400, L501.91070, L2100.0000, L100.0100, L500.4050, L501.9520, L3100.5440, L3100.3425, L101.9900, L5500.0550, L504.2610, L3200.1100, L506.0400, L3300.1200, L501.6710 #### [facility] [address] [facility] [place], [place], [id number] Albumin/Globulin [Mass ratio] 0.9 {ratio} Normal 0.9-2.4 [facility] Comment on above: Order Comment: 1 Performed By: #### L 3410.2400, L501.78031, L2100.0000, L100.0100, L500.4050, L501.9520, L3100.5440, L3100.3425, L101.9900, L5500.0550, L504.2610, L3200.1100, L506.0400, L3300.1200, L501.6710 #### [facility] [address] [place], [place], [id number] ALK P 71 U/L Normal 45-117 [facility] Comment on above: Order Comment: 1 Performed By: #### L 3410.2400, L501.45785, L2100.0000, L100.0100, L500.4050, L501.9520, L3100.5440, L3100.3425, L101.9900, L5500.0550, L504.2610, L3200.1100, L506.0400, L3300.1200, L501.6710 #### [facility] [address] [place], [place], [id number] ALT [Catalytic activity/Vol] 41 U/L Normal 13-56 [facility] Comment on above: Order Comment: 1 Performed By: #### L 3410.2400, L501.15709, L2100.0000, L100.0100, L500.4050, L501.9520, L3100.5440, L3100.3425, L101.9900, L5500.0550, L504.2610, L3200.1100, L506.0400, L3300.1200, L501.6710 #### [facility] [address] [place], [address] AST [Catalytic activity/Vol] 26 U/L Normal 15-37 [facility] Comment on above: Order Comment: 1 Performed By: #### L 3410.2400, L501.56023, L2100.0000, L100.0100, L500.4050, L501.9520, L3100.5440, L3100.3425, L101.9900, L5500.0550, L504.2610, L3200.1100, L506.0400, L3300.1200, L501.6710 #### [facility] [address] [place], [address] (752) Bilirubin [Mass/Vol] 0.30 mg/dL Normal 0.20-1.00 [facility] Comment on above: Order Comment: 1 Result Comment: For patients on eltrombopag therapy, use of Dimension [place] TBIL is not recommended. Performed By: #### L 3410.2400, L501.68823, L2100.0000, L100.0100, L500.4050, L501.9520, L3100.5440, L3100.3425, L101.9900, L5500.0550, L504.2610, L3200.1100, L506.0400, L3300.1200, L501.6710 #### [facility] [address] [place], [address] (593) BUN/CRE 12.3 RATIO Normal 10-20 [facility] Comment on above: Order Comment: 1 Performed By: #### L 3410.2400, L501.29446, L2100.0000, L100.0100, L500.4050, L501.9520, L3100.5440, L3100.3425, L101.9900, L5500.0550, L504.2610, L3200.1100, L506.0400, L3300.1200, L501.6710 #### [facility] [address] [place], [address] CA,Total 9.5 mg/dL Normal 8.5-10.1 [facility] Comment on above: Order Comment: 1 Performed By: #### L 3410.2400, L501.24180, L2100.0000, L100.0100, L500.4050, L501.9520, L3100.5440, L3100.3425, L101.9900, L5500.0550, L504.2610, L3200.1100, L506.0400, L3300.1200, L501.6710 #### [facility] [address] [place], [address] Chloride [Moles/Vol] 111 mmol/L High 98-107 [facility] Comment on above: Order Comment: 1 Performed By: #### L 3410.2400, L501.12536, L2100.0000, L100.0100, L500.4050, L501.9520, L3100.5440, L3100.3425, L101.9900, L5500.0550, L504.2610, L3200.1100, L506.0400, L3300.1200, L501.6710 #### [facility] [address] [place], [address] (489) CO2 [Moles/Vol] 29.0 mmol/L Normal 21.0-32.0 [facility] Comment on above: Order Comment: 1 Performed By: #### L 3410.2400, L501.79231, L2100.0000, L100.0100, L500.4050, L501.9520, L3100.5440, L3100.3425, L101.9900, L5500.0550, L504.2610, L3200.1100, L506.0400, L3300.1200, L501.6710 #### [facility] [address] [place], [address] Creatinine [Mass/Vol] 0.90 mg/dL Normal 0.55-1.02 [facility] Comment on above: Order Comment: 1 Result Comment: The validity of the calculated GFR GFRAA in patients over 70 years has not been determined. Clinical correlation is essential. Performed By: #### L 3410.2400, L501.75136, L2100.0000, L100.0100, L500.4050, L501.9520, L3100.5440, L3100.3425, L101.9900, L5500.0550, L504.2610, L3200.1100, L506.0400, L3300.1200, L501.6710 #### [facility] [address] [place], [address] (827) EST GFR - AA 85 mL/min Normal >60 [facility] Comment on above: Order Comment: 1 Result Comment: Afri can [place] GFR Calc Performed By: #### L 3410.2400, L501.69510, L2100.0000, L100.0100, L500.4050, L501.9520, L3100.5440, L3100.3425, L101.9900, L5500.0550, L504.2610, L3200.1100, L506.0400, L3300.1200, L501.6710 #### [facility] [address] [place], [address] GAP 2 Low 5-15 [facility] Comment on above: Order Comment: 1 Performed By: #### L 3410.2400, L501.04510, L2100.0000, L100.0100, L500.4050, L501.9520, L3100.5440, L3100.3425, L101.9900, L5500.0550, L504.2610, L3200.1100, L506.0400, L3300.1200, L501.6710 #### [facility] [address] [place], [address] GFR/1.73 sq M.predicted among non-blacks MDRD (S/P/Bld) [Vol rate/Area] 70 mL/min/{1.73_m2} Normal >60 [facility] Comment on above: Order Comment: 1 Result Comment: Non- GFR Calc Performed By: #### L 3410.2400, L501.89722, L2100.0000, L100.0100, L500.4050, L501.9520, L3100.5440, L3100.3425, L101.9900, L5500.0550, L504.2610, L3200.1100, L506.0400, L3300.1200, L501.6710 #### [facility] [address] [place], [address] Globulin (S) [Mass/Vol] 3.7 g/dL Normal 2.2-4.2 [facility] Comment on above: Order Comment: 1 Performed By: #### L 3410.2400, L501.75193, L2100.0000, L100.0100, L500.4050, L501.9520, L3100.5440, L3100.3425, L101.9900, L5500.0550, L504.2610, L3200.1100, L506.0400, L3300.1200, L501.6710 #### [facility] [address] [place], [address] Glucose [Mass/Vol] 68 mg/dL Low 74-106 [facility] Comment on above: Order Comment: 1 Performed By: #### L 3410.2400, L501.95080, L2100.0000, L100.0100, L500.4050, L501.9520, L3100.5440, L3100.3425, L101.9900, L5500.0550, L504.2610, L3200.1100, L506.0400, L3300.1200, L501.6710 #### [facility] [address] [place], [address] Potassium [Moles/Vol] 4.2 mmol/L Normal 3.5-5.1 [facility] Comment on above: Order Comment: 1 Performed By: #### L 3410.2400, L501.51385, L2100.0000, L100.0100, L500.4050, L501.9520, L3100.5440, L3100.3425, L101.9900, L5500.0550, L504.2610, L3200.1100, L506.0400, L3300.1200, L501.6710 #### [facility] [address] [place], [address] Sodium [Moles/Vol] 141 mmol/L Normal 136-145 [facility] Comment on above: Order Comment: 1 Performed By: #### L 3410.2400, L501.20709, L2100.0000, L100.0100, L500.4050, L501.9520, L3100.5440, L3100.3425, L101.9900, L5500.0550, L504.2610, L3200.1100, L506.0400, L3300.1200, L501.6710 #### [facility] [address] [place], [address] T PROT 7.2 g/dL Normal 6.4-8.2 [facility] Comment on above: Order Comment: 1 Performed By: #### L 3410.2400, L501.45485, L2100.0000, L100.0100, L500.4050, L501.9520, L3100.5440, L3100.3425, L101.9900, L5500.0550, L504.2610, L3200.1100, L506.0400, L3300.1200, L501.6710 #### [facility] [address] [place], [address] Urea nitrogen [Mass/Vol] 11 mg/dL Normal 7-18 [facility] Comment on above: Order Comment: 1 Performed By: #### L 3410.2400, L501.88596, L2100.0000, L100.0100, L500.4050, L501.9520, L3100.5440, L3100.3425, L101.9900, L5500.0550, L504.2610, L3200.1100, L506.0400, L3300.1200, L501.6710 #### [facility] [address] [place], [address] Erythrocyte Sed Rateon 12-21 SED RATE 8 mm/hr Normal 0-30 [facility] Comment on above: Performed By: #### L 3410.2400, L501.02524, L2100.0000, L100.0100, L500.4050, L501.9520, L3100.5440, L3100.3425, L101.9900, L5500.0550, L504.2610, L3200.1100, L506.0400, L3300.1200, L501.6710 #### [facility] [address] [place], [address] Free T3on 12-22-2023 Free T3 [Mass/Vol] 2.5 pg/mL Normal 2.18-3.98 [facility] Comment on above: Order Comment: 1 Performed By: #### L 7000.0700, M100.0605, L7000.0750 #### [facility] [address] [place], [address] Gastroenterology Visit Repor ton 12-22-2023 Gastroenterology Visit Report [facility] [address] [place] [address] OFFICE VISIT Date of Service: 12/22/23 MR#: [id number] Acct: [id number] Name: CHACHA CONTRERAS Rep #: [id number] : 1970 Provider: FLYNN jimenez Age/Sex: 53/F Location: [email or web address] Status: Signed Intake Vital Signs 05/10/23 05:51 Height 5 ft 3 in Intake Visit Reasons: Acid reflux Chief Complaint: Nausea Allergies cephalexin Allergy (Verified 12/21/23 07:49) Hives topiramate (From Topamax) Adverse Reaction (Intermediate, Verified 12/21/23 07:49) headaches/dizziness Medications ???Medication ???Instructions ???Recorded ???Confirmed ???Type diazepam 5 mg tablet 5 mg PO Q6H PRN 12/06/22 12/21/23 History fluticasone propionate 50 1 spray intranasal BID PRN 12/07/22 12/21/23 History mcg/actuation nasal spray,suspension coenzyme Q10 100 mg tablet 100 mg PO DAILY 03/03/23 12/21/23 History duloxetine 60 mg capsule,delayed 60 mg PO DAILY 03/03/23 12/21/23 History release zolpidem 6.25 mg tablet,extended 6.25 mg PO QHS PRN 03/03/23 12/22/23 History release,multiphase (Ambien CR) ondansetron 4 mg disintegrating 4 mg PO TID PRN nausea and 05/10/23 12/21/23 Rx tablet vomiting #21 tabs ascorbic acid (vitamin C) 500 mg 500 mg PO QDAY 12/21/23 12/21/23 History tablet calcium carbonate 1,200 mg PO TID 12/21/23 12/21/23 History riboflavin (vitamin B2) 100 mg 100 mg PO QDAY 12/21/23 12/21/23 History tablet rimegepant 75 mg disintegrating 75 mg PO ONCE PRN 12/21/23 12/21/23 History tablet prochlorperazine maleate 5 mg 5 mg PO BID PRN nausea and 12/22/23 12/22/23 Rx tablet vomiting #20 tabs rabeprazole 20 mg tablet,delayed 20 mg PO QDAY 12/22/23 12/22/23 History release rifaximin 550 mg tablet 550 mg PO TID IBS 2 weeks #42 tabs 12/22/23 12/22/23 Rx PFSH Medical History Fibromyalgia Essential (primary) hypertension Esophagitis Duodenitis without mention of hemorrhage Sleep apnea Hx of spinal stenosis Chronic vertigo Vestibular migraine Surgical History History of uterine fibroid ( 04/2010) Family History Mother Hypertension Grandfather Heart disease Grandmother Heart disease Social History Smoking Status: Never smoker alcohol intake: never substance use type: does not use caffeine: Yes (energy drinks) Type: other HPI HPI Chief Complaint: Nausea Details: CHACHA CONTRERAS, is a 53 F who presents to the office today for establishment with [facility] for complaints of increasing nausea and abdominal pain. She reports daily nausea and eats small meals due to early satiety and bloated feeling. She states that she avoids gluten due to it triggering headaches and migraines. Denies other food sensitivities that she's aware of. She reports having had an EGD this August 2023 and was told she has a small floating hiatal hernia and GERD. She was prescribed rabeprazole but has noticed that is much less effective now fo reducing heartburn. She reports her last colonoscopy was July 2022 where they only found a rectal fissure. She reports daily sm incomplete BMs, complete evacuation occurs every 1-3 days with hematochezia rarely. She denies difficulty chewing, swallowing, vomiting, and melena. She denies fever, chills, drinking from new water source, or recent travel. ROS Const Constitutional: Positive for anorexia, fatigue and headache(s); No fever(s) or weight change Eyes Eyes: No change in vision ENT ENT: Positive for headache(s); No abnormal hearing or difficulty swallowing Cardio Cardiology: Positive for leg pain with exertion; No chest pain at rest or chest pain with exertion Gastro GI: Positive for abdominal pain, bloating, change in bowel habits, constipation, diarrhea, heartburn, excessive flatus and nausea/dyspepsia; No belching, change in stool character, coffee ground emesis, cramping, difficulty swallowing, feeling full early, incontinent of stools, Vomiting blood/hematemesis, Blood in stool, loose stools, Black,tarry stools, pain with swallowing, vomiting or other Genitourinary-Female: No difficulty urinating Musc Musculoskeletal: Positive for joint pain, back pain, muscle cramps, numbness, stiffness, tingling, Arthritis, restless legs and leg pain with exertion Skin Skin: Positive for dry skin; No yellowing of the eye or itchy eyes Neuro Neurology: Positive for headache(s), numbness, tingling and restless legs; No abnormal hearing Psych Psychiatric: No anxiety, No depression and Positive for hyperactivity Endo Endocrine: Positive for fatigue and heat intolerance; No cold intolerance or weight change Aller/Imm (more content not included)... Normal [facility] LDHon 12-22-2023 LDH 181 U/L Normal 84-246 [facility] Comment on above: Order Comment: 1 Performed By: #### L 7000.0700, M100.0605, L7000.0750 #### [facility] [address] [place], [address] T4 Free Directon 12-22-2023 T4 FREE DIRECT 0.85 ng/dL Normal 0.76-1.46 [facility] Comment on above: Order Comment: 1 Performed By: #### L 7000.0700, M100.0605, L7000.0750 #### [facility] [address] [place], [place], [address] Thyroid Stim Hormone (TSH)on 12-22-2023 TSH 0.722 uIU/mL Normal 0.358-3.74 0 [facility] Comment on above: Order Comment: 1 Performed By: #### L [id number], M100.0605, [id number] #### [facility] [address] [place], [place], [address] .GFRon 05-26-2023 GFR 83 ml/min/1.73sqm Normal [facility] ([place]) Comment on above: Result Comment: GFR Population mean for , Non- Americans Ages 20-29 = 116 mL/min/1.73 sq.m. Ages 30-39 = 107 mL/min/1.73 sq.m. Ages 40-49 = 99 mL/min/1.73 sq.m. Ages 50-59 = 93 mL/min/1.73 sq.m. Ages 60-69 = 85 mL/min/1.73 sq.m. Ages 70+ = 75 mL/min/1.73 sq.m. Chronic Kidney Disease: Less than 60 mL/min/1.73 square meters End Stage Renal Disease: Less than 15 mL/min/1.73 square meters Performed By: #### G FR, BMP, LIPID #### [place] [address] [address] GFR Non- 68 ml/min/1.73sqm Normal [facility] ([place]) Comment on above: Result Comment: GFR Population mean for , Non- Americans Ages 20-29 = 116 mL/min/1.73 sq.m. Ages 30-39 = 107 mL/min/1.73 sq.m. Ages 40-49 = 99 mL/min/1.73 sq.m. Ages 50-59 = 93 mL/min/1.73 sq.m. Ages 60-69 = 85 mL/min/1.73 sq.m. Ages 70+ = 75 mL/min/1.73 sq.m. Chronic Kidney Disease: Less than 60 mL/min/1.73 square meters End Stage Renal Disease: Less than 15 mL/min/1.73 square meters Performed By: #### G FR, BMP, LIPID #### [address] [address] BMPon 05-26-2023 BUN/Creatinine Ratio 16 ratio Normal 7-27 [facility] ([place]) Comment on above: Performed By: #### G FR, BMP, LIPID #### [address] [address] Calcium [Mass/Vol] 9.0 mg/dL Normal 8.4-10.2 [facility] ([place]) Comment on above: Performed By: #### G FR, BMP, LIPID #### [address] [address] Chloride [Moles/Vol] 106 mmol/L Normal 98-107 [facility] ([place]) Comment on above: Performed By: #### G FR, BMP, LIPID #### [address] [address] CO2 [Moles/Vol] 27 mmol/L Normal 22-29 [facility] ([place]) Comment on above: Performed By: #### G FR, BMP, LIPID #### [address] [address] Creatinine [Mass/Vol] 0.87 mg/dL Normal 0.55-1.02 [facility] ([place]) Comment on above: Performed By: #### G FR, BMP, LIPID #### [address] [address] Electrolyte Balance 10.0 mEq/L Normal 4.0-15.0 [facility] ([place]) Comment on above: Performed By: #### G FR, BMP, LIPID #### [address] [address] Glucose [Mass/Vol] 89 mg/dL Normal 70-105 [facility] ([place]) Comment on above: Performed By: #### G FR, BMP, LIPID #### [address] [address] Potassium [Moles/Vol] 4.5 mmol/L Normal 3.5-5.1 [facility] ([place]) Comment on above: Performed By: #### G FR, BMP, LIPID #### [address] [address] Sodium [Moles/Vol] 143 mmol/L Normal 136-145 [facility] ([place]) Comment on above: Performed By: #### G FR, BMP, LIPID #### [address] [address] Urea nitrogen [Mass/Vol] 14 mg/dL Normal 7-18 [facility] ([place]) Comment on above: Performed By: #### Wendi [place], BMP, LIPID #### [address] [address] LIPIDon 05-26-2023 Cholesterol [Mass/Vol] 199 mg/dL Normal 0-200 [facility] ([place]) Comment on above: Result Comment: Chol esterol Reference Interval: Less than 200 Desirable 200-239 Borderline high risk 240 and above High risk Performed By: #### G FR, BMP, LIPID #### [address] [address] Cholesterol in HDL [Mass/Vol] 71 mg/dL High 40-60 [facility] ([place]) Comment on above: Performed By: #### G FR, BMP, LIPID #### [address] [address] Cholesterol in LDL [Mass/Vol] 118 mg/dL Normal 0-130 [facility] ([place]) Comment on above: Performed By: #### G FR, BMP, LIPID #### [address] [address] Triglyceride [Mass/Vol] 48 mg/dL Normal 0-150 [facility] ([place]) Comment on above: Result Comment: Trig lyceride Reference Interval: Less than 150 Normal 150-199 Borderline high risk 200-499 High risk 500 or higher Very high risk Performed By: #### G FR, BMP, LIPID #### Mate[place] [address] [address] Absolute lymphocyte countOrd ered By: Jerzy Miller on 05-10-2023 Lymphocytes Auto (Unsp spec) [#/Vol] 1.27 10*3/uL 0.83-4.51 [facility] Automated lymphocyte count a s percentage of total leukocytesOrdered By: Jerzy Miller on 05-10-2023 Lymphocytes/100 WBC Auto (Unsp spec) 26.1 % 19-41 [facility] Basophil percentageOrdered B y: Jerzy Miller on 05-10-2023 Basophil percentage 0 SEEN /hpf 0-5 [facility] Basophils/100 WBC (Bld) 1.0 % 0-1 [facility] Bilirubin [Mass/Vol] 0.50 mg/dL 0.20-1.00 [facility] Comment on above: For patients on eltr ombopag therapy, use of Dimension [place] TBIL is not recommended. Chloride [Moles/Vol] 110 mmol/L 98-107 [facility] Eosinophils/100 WBC (Bld) 3.9 % 0-5 [facility] Glucose [Mass/Vol] 92 mg/dL 74-106 [facility] Hemoglobin (Bld) [Mass/Vol] 15.1 g/dL 12.0-15.0 [facility] Monocytes/100 WBC (Bld) 7.8 % 0-10 [facility] Neutrophils (Bld) [#/Vol] 3.0 10*3/uL 2.0-7.7 [facility] Neutrophils/100 WBC (Bld) 61.0 % 47-70 [facility] Potassium [Moles/Vol] 3.8 mmol/L 3.5-5.1 [facility] Comment on above: Slight Hemolysis, Re sult may be falsely increased. Protein [Mass/Vol] 7.6 g/dL 6.4-8.2 [facility] Sodium [Moles/Vol] 143 mmol/L 136-145 [facility] WBC (Bld) [#/Vol] 4.9 10*3/uL 4.4-11.0 [facility] Bilirubin Test strip Ql (U)O rdered By: Jerzy Miller on 05-10-2023 Bilirubin Ql (U) Negative Negative [facility] Determination of erythrocyte mean corpuscular volume (MCV)Ordered By: Jerzy Miller on 05-10-2023 MCV (RBC) [Entitic vol] 88.1 fL 81-99 [facility] Direct bilirubinOrdered By: Jerzy Miller on 05-10-2023 Bilirubin.direct [Mass/Vol] 0.12 mg/dL 0.00-0.30 [facility] Erythrocyte distribution wid th ratioOrdered By: Jerzy Miller on 05-10-2023 Erythrocyte distribution width (RBC) [Ratio] 13.6 % 11.6-14.6 [facility] Erythrocyte distribution wid th standard deviationOrdered By: Jerzy Miller on 05-10-2023 Erythrocyte distribution width (RBC) [Entitic vol] 43.8 fL 35.1-43.9 [facility] Hematocrit Auto (Bld) [Volum e fraction]Ordered By: Jerzy Miller on 05-10-2023 Hematocrit (Bld) [Volume fraction] 46.6 % 37-47 [facility] Immature granulocytes/100 WB C Auto (Bld)Ordered By: Jerzy Miller on 05-10-2023 Immature granulocytes/100 WBC (Bld) 0.200 % 0.0-0.9 [facility] Comment on above: IG% - Immature Granu locytes (promyelocytes, myelocytes and metamyelocytes) > 1% indicates that a LEFT SHIFT is Present. Ketones Test strip Ql (U)Ord ered By: Jerzy Miller on 05-10-2023 Ketones Ql (U) Negative Negative [facility] Laboratory - Chemistry and C hemistry - challengeOrdered By: Jerzy Miller on 05-10-2023 ALP [Catalytic activity/Vol] 69 U/L 45-117 [facility] ALT [Catalytic activity/Vol] 35 U/L 13-56 [facility] CO2 [Moles/Vol] 26.0 mmol/L 21.0-32.0 [facility] Globulin (S) [Mass/Vol] 3.8 g/dL 2.2-4.2 [facility] Lipase [Catalytic activity/Vol] 33 U/L 13-75 [facility] Comment on above: Please note:LIPASE r evised reference range effective 22. New Lipase methodology. Expected to produce lower values than the previous assay method. NEW Reference Range: 13 - 75 U/L Urea nitrogen/Creatinine [Mass ratio] 12.0 mg/mg 10-20 [facility] Laboratory - Hematology and Cell countsOrdered By: Jerzy Miller on 05-10-2023 MCH (RBC) [Entitic mass] 28.5 pg 27.0-32.0 [facility] MCHC (RBC) [Mass/Vol] 32.4 g/dL 32-36 [facility] Nucleated RBC/100 WBC (Bld) [Ratio] 0 % 0-5 [facility] Platelet mean volume (Bld) [Entitic vol] 9.6 fL 6.2-12.0 [facility] Platelets (Bld) [#/Vol] 252 10*3/uL 150-450 [facility] Mucus LM Ql (Urine sed)Order ed By: Jerzy Miller on 05-10-2023 Mucus Ql (Urine sed) RARE /hpf [facility] Nitrite Test strip Ql (U)Ord ered By: Jerzy Miller on 05-10-2023 Nitrite Ql (U) Negative Negative [facility] No Panel InformationOrdered By: Jerzy Miller on 05-10-2023 Urine RBC 0 SEEN /hpf 0-5 [facility] Estimated Creatinine Clearance Calc 63.64 ml/min [facility] Estimated GFR (MDRD) Amer 68 mL/min >60 [facility] Comment on above: GFR Calc Estimated GFR (MDRD) Non-Af Amer 57 mL/min >60 [facility] Comment on above: Non- GFR Calc Protein Test strip Ql (U)Ord ered By: Jerzy Miller on 05-10-2023 Protein Ql (U) Negative Negative [facility] RBC Auto (Bld) [#/Vol]Ordere d By: Jerzy Miller on 05-10-2023 RBC (Bld) [#/Vol] 5.29 10*6/uL 4.2-5.4 [facility] Serum or plasma calcium veronica urement (mass/volume)Ordered By: Jerzy Miller on 05-10-2023 Calcium [Mass/Vol] 10.1 mg/dL 8.5-10.1 [facility] Serum or plasma creatinine m easurement (mass/volume)Ordered By: Jerzy Miller on 05-10-2023 Creatinine [Mass/Vol] 1.08 mg/dL 0.55-1.02 [facility] Comment on above: The validity of the calculated GFR & GFRAA in patients over 70 years has not been determined. Clinical correlation is essential. Serum or plasma urea nitroge n measurement (mass/volume)Ordered By: Jerzy Miller on 05-10-2023 Urea nitrogen [Mass/Vol] 13 mg/dL 7-18 [facility] Squamous epithelial cells de tection in urine sediment by light microscopyOrdered By: Jerzy Miller on 05-10-2023 Epithelial cells.squamous LM Ql (Urine sed) 0-5 SEEN /hpf 5-10 [facility] Thin prep Papanicolaou smear with manual screeningOrdered By: Jerzy Miller on 05-10-2023 Thin prep Papanicolaou smear with manual screening 3.8 g/dL 3.2-5.0 [facility] Thin prep Papanicolaou smear with manual screening 27 U/L 15-37 [facility] Comment on above: Slight Hemolysis, Re sult may be falsely increased. Thin prep Papanicolaou smear with manual screening 7 5-15 [facility] Urine blood detectionOrdered By: Jerzy Miller on 05-10-2023 RBC Ql (U) Negative Negative [facility] Urine clarityOrdered By: Roman Miller on 05-10-2023 Clarity (U) Clear Clear [facility] Urine color determinationOrd ered By: Jerzy Miller on 05-10-2023 Color (U) Yellow Yellow [facility] Urine glucose detectionOrder ed By: Jerzy Miller on 05-10-2023 Glucose Ql (U) Normal mg/dl Normal [facility] Urine leukocyte esterase det ection by dipstickOrdered By: Jerzy Miller on 05-10-2023 Leukocyte esterase Test strip Ql (U) Negative Negative [facility] Urine pHOrdered By: Jerzy hsu on 05-10-2023 pH (U) 8.0 [pH] 5.0 - 8.0 [facility] Urine sediment bacteria coun t by microscopy (number/high power field)Ordered By: Jerzy Miller on 05-10-2023 Bacteria LM.HPF (Urine sed) [#/Area] RARE /hpf None Seen [facility] Urine specific gravity measu rementOrdered By: Jerzy Miller on 05-10-2023 Specific gravity (U) [Rel density] 1.010 1.002-1.03 0 [facility] Urine urobilinogen measureme ntOrdered By: Jerzy Miller on 05-10-2023 Urobilinogen Ql (U) Normal mg/dl Normal [facility] Absolute lymphocyte countOrd ered By: ED PROVIDER on 12-12-2022 Lymphocytes Auto (Unsp spec) [#/Vol] 1.58 10*3/uL 0.83-4.51 [facility] Basophil percentageOrdered B y: Spike Ernestine on 12-12-2022 Bilirubin [Mass/Vol] 0.30 mg/dL 0.20-1.00 [facility] Comment on above: For patients on eltr ombopag therapy, use of Dimension [place] TBIL is not recommended. Protein [Mass/Vol] 7.5 g/dL 6.4-8.2 [facility] Chloride [Moles/Vol] 107 mmol/L 98-107 [facility] Glucose [Mass/Vol] 95 mg/dL 74-106 [facility] Potassium [Moles/Vol] 4.7 mmol/L 3.5-5.1 [facility] Comment on above: Moderate Hemolysis, Result may be falsely increased. Sodium [Moles/Vol] 139 mmol/L 136-145 [facility] Basophil percentageOrdered B y: ED PROVIDER on 12-12-2022 Basophils/100 WBC (Bld) 0.8 % 0-1 [facility] Eosinophils/100 WBC (Bld) 4.1 % 0-5 [facility] Neutrophils (Bld) [#/Vol] 3.9 10*3/uL 2.0-7.7 [facility] Neutrophils/100 WBC (Bld) 61.0 % 47-70 [facility] WBC (Bld) [#/Vol] 6.3 10*3/uL 4.4-11.0 [facility] Blood erythrocytes count (nu mber/volume)Ordered By: ED PROVIDER on 12-12-2022 RBC (Bld) [#/Vol] 4.66 10*6/uL 4.2-5.4 [facility] Blood hemoglobin measurement (mass/volume)Ordered By: ED PROVIDER on 12-12-2022 Hemoglobin (Bld) [Mass/Vol] 13.3 g/dL 12.0-15.0 [facility] Blood lymphocytes/100 leukoc ytesOrdered By: ED PROVIDER on 12-12-2022 Lymphocytes/100 WBC (Bld) 25.0 % 19-41 [facility] Blood monocytes/100 leukocyt esOrdered By: ED PROVIDER on 12-12-2022 Monocytes/100 WBC (Bld) 8.8 % 0-10 [facility] Blood platelet mean volumeOr dered By: ED PROVIDER on 12-12-2022 Platelet mean volume (Bld) [Entitic vol] 9.5 fL 6.2-12.0 [facility] Determination of erythrocyte mean corpuscular volume (MCV)Ordered By: ED PROVIDER on 12-12-2022 MCV (RBC) [Entitic vol] 88.4 fL 81-99 [facility] Direct bilirubinOrdered By: Spike Sinha on 12-12-2022 Bilirubin.direct [Mass/Vol] 0.10 mg/dL 0.00-0.30 [facility] Hematocrit Auto (Bld) [Volum e fraction]Ordered By: ED PROVIDER on 12-12-2022 Hematocrit (Bld) [Volume fraction] 41.2 % 37-47 [facility] Laboratory - Chemistry and C hemistry - challengeOrdered By: Spike Sinha on 12-12-2022 ALP [Catalytic activity/Vol] 73 U/L 45-117 [facility] ALT [Catalytic activity/Vol] 30 U/L 13-56 [facility] Globulin (S) [Mass/Vol] 3.7 g/dL 2.2-4.2 [facility] Lipase [Catalytic activity/Vol] 34 U/L 13-75 [facility] Comment on above: Please note:LIPASE r evised reference range effective 23. New Lipase methodology. Expected to produce lower values than the previous assay method. NEW Reference Range: 13 - 75 U/L CO2 [Moles/Vol] 28.0 mmol/L 21.0-32.0 [facility] Urea nitrogen/Creatinine [Mass ratio] 24.2 mg/mg 10-20 [facility] Laboratory - Hematology and Cell countsOrdered By: ED PROVIDER on 12-12-2022 Erythrocyte distribution width (RBC) [Entitic vol] 42.8 fL 35.1-43.9 [facility] Erythrocyte distribution width (RBC) [Ratio] 13.3 % 11.6-14.6 [facility] Immature granulocytes/100 WBC (Bld) 0.300 % 0.0-0.9 [facility] Comment on above: IG% - Immature Granu locytes (promyelocytes, myelocytes and metamyelocytes) > 1% indicates that a LEFT SHIFT is Present. MCH (RBC) [Entitic mass] 28.5 pg 27.0-32.0 [facility] Nucleated RBC/100 WBC (Bld) [Ratio] 0 % 0-5 [facility] MCHC Auto (RBC) [Mass/Vol]Or dered By: ED PROVIDER on 12-12-2022 MCHC (RBC) [Mass/Vol] 32.3 g/dL 32-36 [facility] No Panel InformationOrdered By: Spike Sinha on 12-12-2022 Troponin I High Sensitivity 4 pg/mL 3.0-54.0 [facility] Comment on above: Please Note: New Marie t Units and Gender Specific Reference Ranges. For more information see Policy Stat Procedure [place] High Sensitivity Troponin (TNIH) and attachments. Estimated Creatinine Clearance Calc 57.95 ml/min [facility] Estimated GFR (MDRD) Amer 79 mL/min >60 [facility] Comment on above: GFR Calc Estimated GFR (MDRD) Non-Af Amer 66 mL/min >60 [facility] Comment on above: Non- GFR Calc Platelets bldOrdered By: ED PROVIDER on 12-12-2022 Platelets (Bld) [#/Vol] 253 10*3/uL 150-450 [facility] Serum or plasma albumin veronica urement (mass/volume)Ordered By: Spike Sinha on 12-12-2022 Albumin [Mass/Vol] 3.8 g/dL 3.2-5.0 [facility] Serum or plasma calcium veronica urement (mass/volume)Ordered By: Spike Sinha on 12-12-2022 Calcium [Mass/Vol] 9.1 mg/dL 8.5-10.1 [facility] Serum or plasma creatinine m easurement (mass/volume)Ordered By: Spike Sinha on 12-12-2022 Creatinine [Mass/Vol] 0.95 mg/dL 0.55-1.02 [facility] Comment on above: The validity of the calculated GFR & GFRAA in patients over 70 years has not been determined. Clinical correlation is essential. Serum or plasma urea nitroge n measurement (mass/volume)Ordered By: Spike Sinha on 12-12-2022 Urea nitrogen [Mass/Vol] 23 mg/dL 10-04 [facility] Thin prep Papanicolaou smear with manual screeningOrdered By: Spike Sinha on 12-12-2022 Thin prep Papanicolaou smear with manual screening 18 U/L 1537 [facility] Thin prep Papanicolaou smear with manual screening 4 5-15 [facility] LABORATORYOrdered By: SYSTEM SYSTEM on 05-07-2022 Albumin BCP dye [Mass/Vol] 4.0 G/dL Invalid Interpretation Code 3.5 - 5.0 G/dL AO ADM SS Albumin/Globulin [Mass ratio] 1.2 {ratio} Invalid Interpretation Code 1.1 - 2.5 ratio AO ADM SS ALP [Catalytic activity/Vol] 76 U/L Invalid Interpretation Code 40 - 135 U/L AO ADM SS ALT With P-5'-P [Catalytic activity/Vol] 23 U/L Invalid Interpretation Code 14 - 59 U/L AO ADM SS Amylase [Catalytic activity/Vol] 67 U/L Invalid Interpretation Code 25 - 115 U/L AO ADM SS AST With P-5'-P [Catalytic activity/Vol] 19 U/L Invalid Interpretation Code 10 - 40 U/L AO ADM SS Bilirubin [Mass/Vol] 0.5 mg/dL Invalid Interpretation Code 0.2 - 1.0 mg/dL AO ADM SS Calcium [Mass/Vol] 9.2 mg/dL Invalid Interpretation Code 8.4 - 10.2 mg/dL AO ADM SS Chloride [Moles/Vol] 105 mmol/L Invalid Interpretation Code 98 - 107 mmol/L AO ADM SS CO2 [Moles/Vol] 29 mmol/L Invalid Interpretation Code 22 - 29 mmol/L AO ADM SS Creatinine [Mass/Vol] 0.94 mg/dL Invalid Interpretation Code 0.55 - 1.02 mg/dL AO ADM SS Electrolyte Balance 6.0 mEq/L Invalid Interpretation Code 4.0 - 15.0 mEq/L AO ADM SS GFR 76 ml/min/1.73sqm Invalid Interpretation Code AO Chemistry S GFR Non- 63 ml/min/1.73sqm Invalid Interpretation Code AO Chemistry S Globulin 3.3 G/dL Invalid Interpretation Code AO ADM SS Glucose [Mass/Vol] 88 mg/dL Invalid Interpretation Code 70 - 105 mg/dL AO ADM SS Lipase [Catalytic activity/Vol] 33 U/L Invalid Interpretation Code 16 - 77 U/L AO ADM SS Potassium [Moles/Vol] 4.4 mmol/L Invalid Interpretation Code 3.5 - 5.1 mmol/L AO ADM SS Protein [Mass/Vol] 7.3 G/dL Invalid Interpretation Code 6.4 - 8.2 G/dL AO ADM SS Sodium [Moles/Vol] 140 mmol/L Invalid Interpretation Code 136 - 145 mmol/L AO ADM SS TSH Qn 0.39 m[IU]/L Invalid Interpretation Code 0.36 - 3.74 mcIU/mL AO ADM SS Urea nitrogen [Mass/Vol] 16 mg/dL Invalid Interpretation Code 7 - 18 mg/dL AO ADM SS Urea nitrogen/Creatinine [Mass ratio] 17 ratio Invalid Interpretation Code 7 - 27 ratio AO ADM SS LABORATORYOrdered By: Mica Newby on 05-07-2022 Cholesterol [Mass/Vol] 184 mg/dL Invalid Interpretation Code 0 - 200 mg/dL AO ADM SS Cholesterol in HDL [Mass/Vol] 70 mg/dL Invalid Interpretation Code 40 - 60 mg/dL AO ADM SS Cholesterol in LDL [Mass/Vol] 102 mg/dL Invalid Interpretation Code 0 - 130 mg/dL AO ADM SS Triglyceride [Mass/Vol] 61 mg/dL Invalid Interpretation Code 0 - 150 mg/dL AO ADM SS COLONOSCOPY SCREENINGon 07-18 [facility] LABORATORYOrdered By: Darrell Livingston on 05-22-2021 Albumin BCP dye [Mass/Vol] 3.9 G/dL Invalid Interpretation Code 3.5 - 5.0 G/dL AO ADM SS Albumin/Globulin [Mass ratio] 1.3 {ratio} Invalid Interpretation Code 1.1 - 2.5 ratio AO ADM SS ALP [Catalytic activity/Vol] 63 U/L Invalid Interpretation Code 40 - 135 U/L AO ADM SS ALT With P-5'-P [Catalytic activity/Vol] 31 U/L Invalid Interpretation Code 14 - 59 U/L AO ADM SS AST With P-5'-P [Catalytic activity/Vol] 20 U/L Invalid Interpretation Code 10 - 40 U/L AO ADM SS Bilirubin [Mass/Vol] 0.5 mg/dL Invalid Interpretation Code 0.2 - 1.0 mg/dL AO ADM SS Calcium [Mass/Vol] 8.9 mg/dL Invalid Interpretation Code 8.4 - 10.2 mg/dL AO ADM SS Chloride [Moles/Vol] 106 mmol/L Invalid Interpretation Code 98 - 107 mmol/L AO ADM SS Cholesterol [Mass/Vol] 176 mg/dL Invalid Interpretation Code 0 - 200 mg/dL AO ADM SS Cholesterol in HDL [Mass/Vol] 64 mg/dL Invalid Interpretation Code 40 - 60 mg/dL AO ADM SS Cholesterol in LDL [Mass/Vol] 97 mg/dL Invalid Interpretation Code 0 - 130 mg/dL AO ADM SS CO2 [Moles/Vol] 27 mmol/L Invalid Interpretation Code 22 - 29 mmol/L AO ADM SS Creatinine [Mass/Vol] 0.78 mg/dL Invalid Interpretation Code 0.55 - 1.02 mg/dL AO ADM SS Electrolyte Balance 10.0 mEq/L Invalid Interpretation Code 4.0 - 15.0 mEq/L AO ADM SS Free T4 [Mass/Vol] 0.96 ng/dL Invalid Interpretation Code 0.76 - 1.46 ng/dL AO ADM SS Globulin 2.9 G/dL Invalid Interpretation Code AO ADM SS Glucose [Mass/Vol] 78 mg/dL Invalid Interpretation Code 70 - 105 mg/dL AO ADM SS Potassium [Moles/Vol] 4.1 mmol/L Invalid Interpretation Code 3.5 - 5.1 mmol/L AO ADM SS Protein [Mass/Vol] 6.8 G/dL Invalid Interpretation Code 6.4 - 8.2 G/dL AO ADM SS Sodium [Moles/Vol] 143 mmol/L Invalid Interpretation Code 136 - 145 mmol/L AO ADM SS Triglyceride [Mass/Vol] 74 mg/dL Invalid Interpretation Code 0 - 150 mg/dL AO ADM SS TSH Qn 1.03 m[IU]/L Invalid Interpretation Code 0.36 - 3.74 mcIU/mL AO ADM SS Urea nitrogen [Mass/Vol] 16 mg/dL Invalid Interpretation Code 7 - 18 mg/dL AO ADM SS Urea nitrogen/Creatinine [Mass ratio] 21 ratio Invalid Interpretation Code 7 - 27 ratio AO ADM SS LABORATORYOrdered By: SYSTEM SYSTEM on 05-22-2021 GFR 95 ml/min/1.73sqm Invalid Interpretation Code AO Chemistry S GFR Non- 78 ml/min/1.73sqm Invalid Interpretation Code AO Chemistry S Vital Signs Date Time Vital Sign Value Performing Clinician Facility 11-22-2024 14:53-0400 Body height 161.9 cm Luba Monroe PA-C Work Phone: [facility] 11-22-2024 14:53-0400 Body mass index (BMI) [Ratio] 34.1 kg/m2 Luba Monroe PA-C Work Phone: [facility] 11-22-2024 14:53-0400 Body weight 89.4 kg Luba Monroe PA-C Work Phone: [facility] 11-22-2024 14:53-0400 Diastolic blood pressure 79 mm[Hg] Luba Monroe PA-C Work Phone: [facility] 11-22-2024 14:53-0400 Heart rate 100 /min Luba Monroe PA-C Work Phone: [facility] 11-22-2024 14:53-0400 SaO2% (BldA) [Mass fraction] 98 % Luba Monroe PA-C Work Phone: [facility] 11-22-2024 14:53-0400 Systolic blood pressure 116 mm[Hg] Luba Monroe PA-C Work Phone: [facility] 08-16-2024 09:23-0400 Body height 161.3 cm Manisha Gasca APRN.CNP Work Phone: [facility] 08-16-2024 09:23-0400 Body mass index (BMI) [Ratio] 33.83 kg/m2 Manisha Gasca APRN.ADVICE NURSE Work Phone: [facility] 08-16-2024 09:23-0400 Body weight 88 kg Manisha Gasca APRN.ADVICE NURSE Work Phone: [facility] 08-16-2024 09:23-0400 Diastolic blood pressure 88 mm[Hg] Manisha Gasca APRN.ADVICE NURSE Work Phone: [facility] 08-16-2024 09:23-0400 Systolic blood pressure 134 mm[Hg] Manisha Gasca APRN.ADVICE NURSE Work Phone: [facility] 10-06-2023 11:09-0400 Body mass index (BMI) [Ratio] 34.21 kg/m2 Luba Queener PA-C Work Phone: [facility] 10-06-2023 11:09-0400 Body weight 87.6 kg Luba Gastoner PA-C Work Phone: [facility] 10-06-2023 11:09-0400 Diastolic blood pressure 84 mm[Hg] Luba Queener PA-C Work Phone: [facility] 10-06-2023 11:09-0400 Heart rate 89 /min Luba Queener PA-C Work Phone: [facility] 10-06-2023 11:09-0400 Respiratory rate 16 /min Luba Queener PA-C Work Phone: [facility] 10-06-2023 11:09-0400 SaO2% (BldA) [Mass fraction] 100 % Luba Queener PA-C Work Phone: [facility] 10-06-2023 11:09-0400 Systolic blood pressure 132 mm[Hg] Luba Queener PA-C Work Phone: [facility] 05-26-2023 10:35-0500 Body weight 86.91 kg Reina Montoya APRN.ADVICE NURSE Work Phone: [facility] 05-26-2023 10:35-0500 Diastolic blood pressure 70 mm[Hg] Reina Lindsay CUSTOMER CARE SPECIALIST.ADVICE NURSE Work Phone: [facility] 05-26-2023 10:35-0500 Systolic blood pressure 120 mm[Hg] Reina Jeanteresa CUSTOMER CARE SPECIALIST.ADVICE NURSE [facility] Phone: [facility] [facility] 05-10-2023 09:18-0500 Body temperature 97.5 [degF] ENAMEL BURNER-C Demi Candyns ENAMEL BURNER Work Phone: [facility] 05-10-2023 09:18-0500 Diastolic blood pressure 73 mm[Hg] ENAMEL BURNER-C Demi Seffens ENAMEL BURNER Work Phone: [facility] 05-10-2023 09:18-0500 Heart rate 79 /min ENAMEL BURNER-C Demi Seffens ENAMEL BURNER Work Phone: [facility] 05-10-2023 09:18-0500 Respiratory rate 18 /min ENAMEL BURNER-C Demi Seffens ENAMEL BURNER Work Phone: [facility] 05-10-2023 09:18-0500 SaO2% (BldA) [Mass fraction] 99 % ENAMEL BURNER-C Demi Seffens ENAMEL BURNER Work Phone: [facility] 05-10-2023 09:18-0500 Systolic blood pressure 119 mm[Hg] ENAMEL BURNER-C Demi Seffens ENAMEL BURNER Work Phone: [facility] 05-10-2023 05:51-0500 Body height 160.02 cm ENAMEL BURNER-C Demi Seffens ENAMEL BURNER Work Phone: [facility] 05-10-2023 05:51-0500 Body mass index (BMI) [Ratio] 33.9 kg/m2 ENAMEL BURNER-C Demi Seffens ENAMEL BURNER Work Phone: [facility] 05-10-2023 05:51-0500 Body weight 86.8 kg ENAMEL BURNER-C Demi Seffens ENAMEL BURNER Work Phone: [facility] 03-03-2023 08:53-0500 Body height 160.02 cm ENAMEL BURNER-C Demi Seffens ENAMEL BURNER Work Phone: [facility] 03-03-2023 08:53-0500 Body mass index (BMI) [Ratio] 33.3 kg/m2 ENAMEL BURNER-C Demi Seffens ENAMEL BURNER Work Phone: [facility] 03-03-2023 08:53-0500 Body weight 85.27 kg ENAMEL BURNER-C Demi Seffens ENAMEL BURNER Work Phone: [facility] 03-03-2023 08:53-0500 Diastolic blood pressure 74 mm[Hg] ENAMEL BURNER-C Demi Seffens ENAMEL BURNER Work Phone: [facility] 03-03-2023 08:53-0500 Heart rate 86 /min ENAMEL BURNER-C Demi Seffens ENAMEL BURNER Work Phone: [facility] 03-03-2023 08:53-0500 Respiratory rate 16 /min ENAMEL BURNER-C Demi Seffens ENAMEL BURNER Work Phone: [facility] 03-03-2023 08:53-0500 Systolic blood pressure 104 mm[Hg] ENAMEL BURNER-C Demi Seffens ENAMEL BURNER Work Phone: [facility] 12-13-2022 01:19-0400 Diastolic blood pressure 85 mm[Hg] ENAMEL BURNER-C Demi Seffens ENAMEL BURNER Work Phone: [facility] 12-13-2022 01:19-0400 Heart rate 88 /min ENAMEL BURNER-C Demi Seffens ENAMEL BURNER Work Phone: [facility] 12-13-2022 01:19-0400 Respiratory rate 19 /min ENAMEL BURNER-C Demi Seffens ENAMEL BURNER Work Phone: [facility] 12-13-2022 01:19-0400 SaO2% (BldA) [Mass fraction] 98 % ENAMEL BURNER-C Demi Seffens ENAMEL BURNER Work Phone: [facility] 12-13-2022 01:19-0400 Systolic blood pressure 119 mm[Hg] ENAMEL BURNER-C Demi Seffens ENAMEL BURNER Work Phone: [facility] 12-12-2022 20:14-0400 Body height 160.02 cm ENAMEL BURNER-C Demi Seffens ENAMEL BURNER Work Phone: [facility] 12-12-2022 20:14-0400 Body mass index (BMI) [Ratio] 30.9 kg/m2 ENAMEL BURNER-C Demi Seffens ENAMEL BURNER Work Phone: [facility] 12-12-2022 20:14-0400 Body temperature 97.3 [degF] ENAMEL BURNER-C Demi Seffens ENAMEL BURNER Work Phone: [facility] 12-12-2022 20:14-0400 Body weight 79.37 kg ENAMEL BURNER-C Demi Seffens ENAMEL BURNER Work Phone: [facility] 12-07-2022 09:03-0400 Body mass index (BMI) [Ratio] 31.8 kg/m2 ENAMEL BURNER-C Demi Seffens ENAMEL BURNER Work Phone: [facility] 12-07-2022 09:03-0400 Body weight 81.64 kg ENAMEL BURNER-C Demi Seffens ENAMEL BURNER Work Phone: [facility] 12-07-2022 09:03-0400 Diastolic blood pressure 84 mm[Hg] ENAMEL BURNER-C Demi Seffens ENAMEL BURNER Work Phone: [facility] 12-07-2022 09:03-0400 Heart rate 92 /min ENAMEL BURNER-C Demi Seffens ENAMEL BURNER Work Phone: [facility] 12-07-2022 09:03-0400 Respiratory rate 20 /min ENAMEL BURNER-C Demi Seffens ENAMEL BURNER Work Phone: [facility] 12-07-2022 09:03-0400 Systolic blood pressure 115 mm[Hg] ENAMEL BURNER-C Demi Seffens ENAMEL BURNER Work Phone: [facility] 11-16-2022 11:08-0400 Body weight 79.38 kg Luba HUNTC Work Phone: [facility] 11-16-2022 11:08-0400 Diastolic blood pressure 77 mm[Hg] Lubaluisa Gastonget PA-C Work Phone: [facility] 11-16-2022 11:08-0400 Heart rate 94 /min Lubaluisa Gastonget PA-C Work Phone: [facility] 11-16-2022 11:08-0400 Respiratory rate 16 /min Lubaluisa Gastonget PA-C Work Phone: [facility] 11-16-2022 11:08-0400 SaO2% (BldA) [Mass fraction] 99 % Lubaluisa Gastonget PA-C Work Phone: [facility] 11-16-2022 11:08-0400 Systolic blood pressure 111 mm[Hg] Luba get PA-C Work Phone: [facility] 10-05-2022 17:03-0400 Body height 160.02 cm [facility] 10-05-2022 17:03-0400 Body mass index (BMI) [Ratio] 31.4 kg/m2 [facility] 10-05-2022 17:03-0400 Body temperature 97.8 [degF] [facility] 10-05-2022 17:03-0400 Body weight 80.6 kg [facility] 10-05-2022 17:03-0400 Diastolic blood pressure 95 mm[Hg] [facility] 10-05-2022 17:03-0400 Heart rate 113 /min [facility] 10-05-2022 17:03-0400 Respiratory rate 17 /min [facility] 10-05-2022 17:03-0400 SaO2% (BldA) [Mass fraction] 99 % [facility] 10-05-2022 17:03-0400 Systolic blood pressure 140 mm[Hg] [facility] 07-27-2022 12:19-0400 Body weight 79.38 kg Lubaluisa Gastonget PA-C Work Phone: [facility] 07-27-2022 12:19-0400 Diastolic blood pressure 88 mm[Hg] Luba Queener PA-C Work Phone: [facility] 07-27-2022 12:19-0400 Heart rate 92 /min Luba Queener PA-C Work Phone: [facility] 07-27-2022 12:19-0400 Respiratory rate 18 /min Luba Queener PA-C Work Phone: [facility] 07-27-2022 12:19-0400 SaO2% (BldA) [Mass fraction] 99 % Luba Queener PA-C Work Phone: [facility] 07-27-2022 12:19-0400 Systolic blood pressure 132 mm[Hg] Luba Queener PA-C Work Phone: [facility] 05-31-2022 10:39-0400 Body temperature 98.29 [degF] Luba Queener PA-C Work Phone: [facility] 05-31-2022 10:39-0400 Body weight 81.38 kg Luba Queener PA-C Work Phone: [facility] 05-31-2022 10:39-0400 Diastolic blood pressure 82 mm[Hg] Luba Queener PA-C Work Phone: [facility] 05-31-2022 10:39-0400 Heart rate 93 /min Luba Queener PA-C Work Phone: [facility] 05-31-2022 10:39-0400 Respiratory rate 18 /min Luba Queener PA-C Work Phone: [facility] 05-31-2022 10:39-0400 SaO2% (BldA) [Mass fraction] 99 % Luba Queener PA-C Work Phone: [facility] 05-31-2022 10:39-0400 Systolic blood pressure 113 mm[Hg] Luba Queener PA-C Work Phone: [facility] 05-18-2022 09:31-0500 Body temperature 98.49 [degF] Luba Queener PA-C Work Phone: [facility] 05-18-2022 09:31-0500 Body weight 82.1 kg Luba Monroe PA-C Work Phone: [facility] 05-18-2022 09:31-0500 Respiratory rate 18 /min Luba Monroe PA-C Work Phone: [facility] 05-18-2022 09:31-0500 SaO2% (BldA) [Mass fraction] 98 % Luba Monroe PA-C Work Phone: [facility] 04-12-2022 14:30-0500 Body height 160.02 cm [facility] 04-12-2022 14:30-0500 Body weight 82.1 kg [facility] 03-01-2022 14:05-0500 Body height 160.02 cm [facility] Work Phone: 03-01-2022 14:05-0500 Body weight 83.91 kg [facility] 02-07-2022 15:45-0500 Body height 160.02 cm [facility] Work Phone: 02-07-2022 15:45-0500 Body weight 84.54 kg [facility] 01-24-2022 11:55-0500 Body height 160.02 cm [facility] Work Phone: 01-24-2022 11:55-0500 Body weight 86.36 kg [facility] Work Phone: 01-03-2022 11:43-0400 Body height 160.02 cm [facility] Work Phone: 01-03-2022 11:43-0400 Body weight 87.9 kg [facility] 12-15-2021 17:34-0400 Body height 160.02 cm [facility] Work Phone: 12-15-2021 17:34-0400 Body weight 89.17 kg [facility] Work Phone: 07-30-2021 09:10-0400 Diastolic blood pressure 74 mm[Hg] Alicia Guerrero MD Work Phone: [facility] 07-30-2021 09:10-0400 Heart rate 57 /min Alicia Guerrero MD Work Phone: [facility] 07-30-2021 09:10-0400 Respiratory rate 16 /min Alicia Guerrero MD Work Phone: [facility] 07-30-2021 09:10-0400 SaO2% (BldA) [Mass fraction] 97 % Alicia Guerrero MD Work Phone: [facility] 07-30-2021 09:10-0400 Systolic blood pressure 111 mm[Hg] Alicia Guerrero MD Work Phone: [facility] 07-30-2021 07:39-0400 Body temperature 97.7 [degF] Alicia Guerrero MD Work Phone: [facility] 07-30-2021 07:39-0400 Body weight 88.5 kg Alicia Guerrero MD Work Phone: [facility] Encounters Encounter Date Encounter Type Care Provider Facility Start: 11-22-2024 End: 11-22-2024 Patient encounter procedure Luba GRADY-Jacques Work Phone: Neurology Comment on above: Migraine without aur a and without status migrainosus, not intractable (Primary Dx); Vestibular migraine; Lightheadedness; Dizziness Start: 11-22-2024 End: 11-22-2024 ambulatory LUBA MONROE Facility:[facility] Start: 11-22-2024 End: 11-22-2024 Telephone encounter Luba GRADY-C Work Phone: Neurology Start: 11-15-2024 End: 11-15-2024 Telephone encounter Luba GRADY-C Work Phone: Neurology Comment on above: Patient Update Start: 10-17-2024 End: 10-22-2024 Refill Luba GRADY-C Work Phone: Neurology Comment on above: Refill Request Start: 10-16-2024 End: 10-16-2024 ambulatory Luba Monroe PA-C Work Phone: Neurology Comment on above: Paperwork Start: 08-30-2024 End: 10-30-2024 Follow-up encounter Rouladanuta VerdinHussainlowell CARABALLO Work Phone: OB/Gynecology Start: 08-30-2024 ambulatory MANISHA GASCA Facility:[facility] Start: 08-30-2024 End: 08-30-2024 [facility] Start: 08-30-2024 End: 08-30-2024 Subsequent hospital visit by physician Screen Mammo [facility] W[facility] Mammogram Comment on above: Encounter for gyneco logical examination (general) (routine) without abnormal findings [Z01.419] Start: 08-27-2024 End: 08-27-2024 ambulatory BRI MAST CUSTOMER CARE SPECIALIST-ADVICE NURSE Facility:[facility] Start: 08-27-2024 End: 08-27-2024 Patient encounter procedure BRI MAST CUSTOMER CARE SPECIALIST-ADVICE NURSE [facility] Start: 08-16-2024 End: 08-16-2024 Patient encounter procedure Manisha Gasca APRN.CNP Work Phone: OB/Gynecology Comment on above: Encounter for gyneco logical examination (general) (routine) without abnormal findings (Primary Dx); Vaginal atrophy; Encounter for screening mammogram for breast cancer Start: 08-16-2024 End: 08-16-2024 Patient encounter status Manisha Gasca APRN.CNP Work Phone: [facility] Start: 08-16-2024 End: 08-16-2024 ambulatory MANISHA GASCA Facility:[facility] Start: 08-16-2024 Encounter for gynecological examination (general) (routine) without abnormal findings MANISHA GASCA [facility] Start: 06-24-2024 End: 06-25-2024 Refill Luba Monroe PA-C Work Phone: Neurology Comment on above: Refill Request Start: 06-21-2024 End: 06-21-2024 ambulatory Mi Gandhi Facility:[facility] Start: 06-14-2024 End: 10-09-2024 Refill Manisha Gasca APRN.ADVICE NURSE Work Phone: OB/Gynecology Comment on above: Refill Request Start: 04-19-2024 End: 04-23-2024 ambulatory Luba Gastoner PA-C Work Phone: Neurology Comment on above: FMLA Paperwork Start: 03-27-2024 End: 03-27-2024 Refill Luba Gastoner PA-C Work Phone: Neurology Comment on above: Refill Request Start: 02-29-2024 End: 02-29-2024 ambulatory Fabian Friend Facility:[facility] Start: 02-09-2024 ambulatory BRI MAST Facility:[facility] Start: 02-09-2024 End: 02-09-2024 ambulatory BRI MAST Facility:[facility] Start: 02-02-2024 End: 02-02-2024 ambulatory [facility] Facility:[facility] Start: 12-29-2023 End: 12-29-2023 ambulatory BRI MAST Facility:[facility] Start: 12-22-2023 End: 12-22-2023 ambulatory Mi Gandhi Facility:[facility] Start: 12-22-2023 End: 12-22-2023 ambulatory BRI MAST Facility:[facility] Start: 12-08-2023 End: 12-08-2023 Refill Luba Gastoner PA-C Work Phone: Neurology Comment on above: Refill Request Start: 10-19-2023 Refill Luba Gastone r PA-C Work Phone: Neurology Comment on above: Refill Request Respirator Start: 10-16-2023 ambulatory Luba Queene r PA-C Work Phone: Neurology Comment on above: Paperwork Start: 10-09-2023 ambulatory Luba Queene r PA-C Work Phone: Neurology Comment on above: FMLA paperwork Start: 10-06-2023 End: 10-06-2023 Patient encounter procedure Luba Gastoner PA-C Work Phone: Neurology Comment on above: Vestibular migraine (Primary Dx); Lightheaded; Positional lightheadedness; Chronic migraine without aura without status migrainosus, not intractable Start: 10-03-2023 Telephone encounter Luba Ginger smith PA-C Work Phone: Neurology Comment on above: Appointment Start: 08-05-2023 Refill Luba Nimco GRADY-Jacques Work Phone: Neurology Comment on above: Refill Request Start: 06-08-2023 Refill Luba Gastonghada GRADY-C Work Phone: Neurology Comment on above: Refill Request Start: 05-29-2023 Documentation procedure Mammog quentin Coordinator [facility] Start: 05-29-2023 Letter encounter Mammography Coordinator [facility] Department Start: 05-26-2023 End: 05-31-2023 ambulatory BRI MAST CUSTOMER CARE SPECIALIST-ADVICE NURSE Facility:[facility] Start: 05-26-2023 End: 05-31-2023 Encounter for general adult medical examination without abnormal findings BRI MAST CUSTOMER CARE SPECIALIST-ADVICE NURSE Facility:[facility] Start: 05-26-2023 End: 05-26-2023 Patient encounter procedure Reina Lindsay CUSTOMER CARE SPECIALIST.ADVICE NURSE Work Phone: OB/Gynecology Comment on above: Genitourinary syndro me of menopause (Primary Dx); Elissa glabrata infection Start: 05-26-2023 End: 05-26-2023 Subsequent hospital visit by physician Screen Mammo [facility] Wstr Mammogram Comment on above: Encounter for screen ing mammogram for breast cancer [Z12.31] Start: 05-10-2023 End: 05-10-2023 Emergency department patient visit ENAMEL BURNER-C Demi Ortiz NP Work Phone: [facility]-Emergency Department Work Phone: Start: 05-03-2023 ambulatory Luba GRADY-Jacques Work Phone: Neurology Comment on above: FMLA Start: 03-03-2023 End: 03-03-2023 ambulatory ENAMEL BURNER-C Demi Ortiz ENAMEL BURNER Work Phone: [facility] Work Phone: Start: 03-03-2023 End: 03-03-2023 Patient encounter procedure ENAMEL BURNER-C Demi Ortiz ENAMEL BURNER Work Phone: [facility] Work Phone: Start: 03-03-2023 End: 03-03-2023 Patient encounter procedure ENAMEL BURNER-C Demijuan Ortiz ENAMEL BURNER Work Phone: [facility] Work Phone: Start: 02-10-2023 Refill Luba hartmann PA-C Work Phone: Neurology Comment on above: Refill Request Start: 01-09-2023 Non-patient / Non-visit ENAMEL BURNER-C C tashia Ortiz ENAMEL BURNER Work Phone: [facility] Work Phone: Start: 01-06-2023 Non-patient / Non-visit ENAMEL BURNER-C C tashia Ortiz ENAMEL BURNER Work Phone: [facility] Start: 01-06-2023 End: 01-06-2023 ambulatory ENAMEL BURNER-C Demi Ortiz ENAMEL BURNER Work Phone: [facility] Work Phone: Start: 01-06-2023 End: 01-06-2023 Patient encounter procedure ENAMEL BURNER-C Demijuan Ortiz ENAMEL BURNER Work Phone: [facility]-Cardiovascul [facility] Services Work Phone: Start: 12-23-2022 Telephone encounter Gurdeep Torrez RN NOC Comment on above: Follow Up Phone Call (All Clear) Start: 12-12-2022 End: 12-13-2022 Emergency department patient visit ENAMEL BURNER-C Demi Ortiz ENAMEL BURNER Work Phone: [facility]-Emergency Department Work Phone: Start: 12-07-2022 End: 12-07-2022 Patient encounter procedure ENAMEL BURNER-C Demi Candyns ENAMEL BURNER Work Phone: [facility] Work Phone: Start: 12-06-2022 Non-patient / Non-visit ENAMEL BURNER-Jacques Ortiz NP Work Phone: [facility] Work Phone: Start: 11-16-2022 End: 11-16-2022 Patient encounter procedure Luba Monroe PA-C Work Phone: Neurology Comment on above: Vestibular migraine (Primary Dx); Lightheaded; Positional lightheadedness; Chronic migraine without aura without status migrainosus, not intractable Start: 10-19-2022 Telephone encounter Luba tiptonner PA-C Work Phone: Neurology Comment on above: Patient Update Start: 10-05-2022 End: 10-05-2022 Emergency department patient visit [facility]Emergency [facility] Work Phone: Start: 10-05-2022 Refill Luba Gastone r PA-C Work Phone: Neurology Comment on above: Refill Request Start: 09-27-2022 Telephone encounter Luba tiptonner PA-C Work Phone: Neurology Comment on above: Appointment Start: 09-16-2022 End: 09-16-2022 ambulatory [facility] Facility:[facility] Start: 09-14-2022 Telephone encounter Luba tiptonner PA-C Work Phone: Neurology Comment on above: Respirator Clearance Start: 08-19-2022 Telephone encounter Luba Miles eener PA-C Work Phone: Neurology Comment on above: Forms Start: 07-27-2022 End: 07-27-2022 Patient encounter procedure Luba Monroe PA-C Work Phone: Neurology Comment on above: Postural dizziness w ith presyncope (Primary Dx) Start: 07-19-2022 ambulatory Luba Rinaldi r PA-C Work Phone: Neurology Comment on above: Cymbalta Start: 04-14-2023 Registered Recurring [facility] Work Phone: Start: 06-02-2022 ambulatory Luba hartmann PA-C Work Phone: Neurology Comment on above: FMLA or short term Short term disabilit y Start: 06-01-2022 ambulatory Luba hartmann PA-C Work Phone: Neurology Comment on above: Vestibular battery t esting Physical therapy Start: 05-31-2022 ambulatory Luba hartmann PA-C Work Phone: Neurology Comment on above: Work chemicals Start: 05-31-2022 End: 05-31-2022 Patient encounter procedure Luba GRADY-C Work Phone: Neurology Comment on above: Vestibular migraine (Primary Dx); Chronic migraine without aura without status migrainosus, not intractable Start: 05-27-2022 End: 08-23-2022 Physical therapy management LUBA MONROE [facility] Start: 05-25-2022 Telephone encounter Luba smith PA-C Work Phone: Neurology Comment on above: Patient Update; Do ent Question Start: 05-20-2022 Telephone encounter Luba smith PA-C Work Phone: Neurology Comment on above: Received Outside [facility] Records (Transfer disc to chart.) Start: 05-18-2022 End: 05-18-2022 Patient encounter procedure Luba GRADY-C Work Phone: Neurology Comment on above: Dizziness (Primary D x); Nausea; Cervicalgia; Chronic migraine without aura without status migrainosus, not intractable Start: 05-10-2022 End: 05-10-2022 Patient encounter procedure DEMI ORTIZ CUSTOMER CARE SPECIALIST-ADVICE NURSE [facility] Start: 05-07-2022 End: 05-07-2022 Patient encounter procedure DEMI ORTIZ CUSTOMER CARE SPECIALIST-ADVICE NURSE [facility] Start: 05-07-2022 End: 05-07-2022 Patient encounter procedure DEMI ORTIZ CUSTOMER CARE SPECIALIST-ADVICE NURSE [facility] Start: 04-12-2022 End: 04-19-2022 ambulatory [facility] Work Phone: Start: 04-12-2022 End: 04-19-2022 Discharged Recurring [facility]Nutritional Services Start: 03-01-2022 End: 03-19-2022 ambulatory [facility] Work Phone: Start: 03-01-2022 End: 03-19-2022 Discharged Recurring [facility] Start: 02-07-2022 End: 02-16-2022 ambulatory [facility] Work Phone: Start: 02-07-2022 End: 02-16-2022 Discharged Recurring [facility] Start: 01-26-2022 End: 01-26-2022 ambulatory [facility] Work Phone: Start: 01-26-2022 End: 01-26-2022 Patient encounter procedure [facility] Start: 01-24-2022 Registered Recurring [facility] Start: 01-03-2022 End: 01-17-2022 ambulatory [facility] Work Phone: Start: 01-03-2022 End: 01-17-2022 Discharged Recurring [facility] Start: 12-15-2021 End: 12-17-2021 ambulatory [facility] Work Phone: Start: 12-15-2021 End: 12-17-2021 Discharged Recurring [facility] Start: 07-30-2021 End: 07-30-2021 Subsequent hospital visit by physician Alicia Guerrero MD Work Phone: Ambulatory Surgery Comment on above: Special screening fo r malignant neoplasms, colon [Z12.11] Start: 06-15-2021 End: 06-15-2021 ambulatory Marly Walker PT Work Phone: [facility] Comment on above: Stress incontinence (Primary Dx); Cystocele, midline Start: 06-11-2021 End: 06-11-2021 ambulatory Marly Walker PT Work Phone: [facility] Comment on above: Stress incontinence (Primary Dx); Cystocele, midline Start: 05-22-2021 End: 05-22-2021 Patient encounter procedure DEMIJUAN ORTIZ CUSTOMER CARE SPECIALIST-ADVICE NURSE [facility] Procedures Date Procedure Procedure Detail Performing Clinician Start: 08-30-2024 Screening digital br east tomosynthesis bi Manisha Gasca APRN.ADVICE NURSE Work Phone: Start: 05-10-2023 US scan of gallbladder ENAMEL BURNER-C Demi Angel ENAMEL BURNER Work Phone: Start: 03-03-2023 X-ray of cervical spine ENAMEL BURNER-C Demi freya ENAMEL BURNER Work Phone: Start: 12-12-2022 CT of pelvis with contrast ENAMEL BURNER-C Demi freya ENAMEL BURNER Work Phone: Start: 12-12-2022 CT of abdomen with contrast ENAMEL BURNER-C Demi freya ENAMEL BURNER Work Phone: Start: 12-12-2022 Plain chest X-ray ENAMEL BURNER-C Demi freya ENAMEL BURNER Work Phone: Start: 01-26-2022 Plain x-ray of pelvi s and lower extremity Start: 01-26-2022 X-ray of lumbosacral spine Start: 07-30-2021 Colon ca scrn not hi rsk ind Manisha Gasca APRN.ADVICE NURSE Work Phone: Start: 07-30-2021 Colonoscopy Alicia Guerrero MD Work Phone: Start: 04-26-2021 Mammography Marly pressley PT Work Phone: Start: 11-25-2011 Lipid 1996 panel - S idalia or Plasma Roisin Torrez RN Start: 03-20-2010 Leiomyoma, no ICD-O subtype (morphologic abnormality) DEMI ORTIZ CUSTOMER CARE SPECIALIST-ADVICE NURSE Start: 06-23-2008 Colonoscopy Marly pressley PT Work Phone: Colonoscopy BRI MAST APR N-ADVICE NURSE Comment on above: 2022 Mammography BRI MAST APR N-ADVICE NURSE Comment on above: 05/26/2023 Microscopic examinat ion of cervical Papanicolaou smear and Human papillomavirus deoxyribonucleic acid detection cotesting BRI MAST CUSTOMER CARE SPECIALIST-ADVICE NURSE Comment on above: 03/2023 Vaccine refused by patient Blanche ne refused by patient LUBA MONROE Plan of Treatment Date Care Activity Detail Author Start: 07-31-2031 Colonoscopy COLONOSCOPY [facility] Start: 07-31-2031 COLORECTAL CANCER SCREENING COLORECTAL CANCER SCREENING [facility] Start: 07-31-2031 Screening for malign ant neoplasm of colon [facility] Start: 04-26-2026 HPV TESTING HPV TESTING [facility] Start: 04-26-2026 PAP TESTING PAP TESTING [facility] Start: 04-26-2026 Screening for malign ant neoplasm of cervix [facility] Start: 12-15-2025 Diabetes Screening Diabetes Screenin g [facility] Start: 08-30-2025 Screening for malign ant neoplasm of breast Mammogram Screening [facility] Start: 08-19-2025 End: 08-19-2025 Patient encounter procedure 08/19/2025 9:30 AM EDT Office Visit OB/Gynecology [address] [place] [address] Manisha Gasca CUSTOMER CARE SPECIALIST.ADVICE NURSE [address] [place] [address] annual OB/Gynecology Comment on above: annual Start: 02-25-2025 End: 02-25-2025 Patient encounter procedure 02/25/2025 10:30 AM EST Office Visit Neurology [address] [place] [id number] Luba Monroe PA-C [address] [place], [place] [address] 3 Month Follow Up Neurology Comment on above: 3 Month Follow Up Start: 11-29-2024 End: 11-29-2024 Patient encounter procedure 11/29/2024 4:00 PM EDT Office Visit Neurology [address] [place] [address] [place] [id number] Luba Monroe PA-C [address] [place], [place] [id number] follow up Neurology Comment on above: follow up Start: 11-19-2024 End: 11-19-2024 Patient encounter procedure 11/19/2024 4:00 PM EDT Office Visit Neurology [address] [place], [place] [address] Luba Monroe PA-C [address] [place] [address] follow up Neurology Comment on above: follow up Start: 11-18-2024 Influenza vaccination [facility] Start: 07-12-2024 End: 07-12-2024 Patient encounter procedure 07/12/2024 2:30 PM EDT Office Visit OB/Gynecology [address] [place] [address] Manisha Gasca APRN.ADVICE NURSE [address] [place] [address] annual OB/Gynecology Comment on above: annual Start: 05-25-2024 Screening for malign ant neoplasm of breast Mammogram Screening [facility] Start: 11-19-2023 Covid-19 Vaccine ( season) Covid-19 Vaccine ( season) [facility] Start: 11-19-2023 Covid-19 Vaccine ( season) Covid-19 Vaccine ( season) [facility] Start: 11-19-2023 Influenza vaccination [facility] Start: 10-06-2023 End: 10-06-2023 Patient encounter procedure Neurology Comment on above: Six month follow up Patient informed abo ut location change Six month follow up Start: 05-10-2023 [facility] Start: 03-20-2023 Behavioral Health Screening Behavioral Health Screening [facility] Start: 03-20-2023 [facility] Start: 12-12-2022 [facility] Start: 11-18-2022 Covid-19 Vaccine ( season) Covid-19 Vaccine () [facility] Start: 11-18-2022 Influenza vaccination [facility] Start: 07-30-2022 Colonoscopy COLONOSCOPY [facility] Start: 07-30-2022 COLORECTAL CANCER SCREENING COLORECTAL CANCER SCREENING [facility] Start: 04-26-2022 Mammography [facility] Start: 04-26-2022 Screening for malign ant neoplasm of breast Mammogram Screening [facility] Start: 03-20-2022 DEPRESSION [facility]MENT [facility] Start: 11-18-2021 Influenza vaccination [facility] Start: 2020 Pneumococcal Vaccine : 50+ (1 of 1 - PCV) Pneumococcal Vaccine: 50+ (1 of 1 - PCV) [facility] Start: 2020 SHINGRIX VACCINE (1 of 2) SHINGRIX VACCINE (1 of 2) [facility] Start: 11-18-2020 Influenza vaccination INFLUENZA (#1) [facility] Start: 11-24-2016 Lipid 1996 panel - S idalia or Plasma Lipid Screening [facility] Start: 11-24-2016 Lipid panel Lipid Screening [facility] Start: 11-24-2016 LIPID SCREEN LIPID SCREEN [facility] Start: 12-21-2015 COLOGUARD (FIT-DNA) COLOGUARD (FIT-D NA) [facility] Start: 12-21-2015 Colonoscopy COLONOSCOPY [facility] Start: 12-21-2015 COLORECTAL CANCER SCREENING COLORECTAL CANCER SCREENING [facility] Start: 12-21-[address] COLONOGRAPHY [facility] Start: 12-21-2015 DIABETES SCREEN DIABETES SCREEN [facility] Start: 12-21-2015 FECAL OCCULT BLOOD FECAL OCCULT BLOO D [facility] Start: 12-21-2015 Screening for malign ant neoplasm of colon [facility] Start: 12-21-2015 SIGMOIDOSCOPY SIGMOIDOSCOPY [facility] Start: 1989 Hepatitis B Vaccine (1 of 3 - 19+ 3-dose series) Hepatitis B Vaccine (1 of 3 - 19+ 3-dose series) [facility] Start: 1989 Urine microalbumin profile [facility] Start: 1988 Anxiety Screening Anxiety Screening [facility] Start: 1988 Depression Screening Depression Scre ening [facility] Start: 1988 HEPATITIS C SCREENING HEPATITIS C SC [facility] Start: 1988 Hepatitis C screening Hepatitis C Sc [facility] Start: 1988 HIV SCREENING HIV SCREENING [facility] Start: 1988 HIV screening HIV Screening [facility] Start: 1982 Adult depression screening assessment DEPRESSION SCREENING [facility] Start: 12-21-1975 COVID-19 VACCINE (#1) COVID-19 VACCI NE (#1) [facility] Start: 12-21-1975 COVID-19 VACCINE (1) COVID-19 VACCIN E (1) [facility] Start: 06-21-1971 COVID-19 VACCINE (#1) COVID-19 VACCI NE (#1) [facility] Start: 1970 HEPATITIS B (1 of 3 - 3-dose series) HEPATITIS B (1 of 3 - 3-dose series) [facility] Start: 1970 Hepatitis B Vaccine (1 of 3 - 3-dose series) Hepatitis B Vaccine (1 of 3 - 3-dose series) [facility] Cardiovascular funct ion eval w/tilt table w/mntr TILT TABLE EVALUATION Cardiology Routine Postural dizziness with presyncope Ordered: 07/27/2022 [facility] Work Phone: Comment on above: Ordered: 07/27/2022 End: 09-15-2025 DBT Breast - bilateral screening [facility] SCREENING [facility] [place] Radiology Routine Encounter for gynecological examination (general) (routine) without abnormal findings Encounter for screening mammogram for breast cancer 1 Occurrences starting 08/16/2024 until 09/15/2025 [facility] Work Phone: Comment on above: 1 Occurrences starti ng 08/16/2024 until 09/15/2025 MG Breast Screening [facility] SCREENIN G Radiology Routine Encounter for screening mammogram for breast cancer 05/26/2023 10:29 AM EST [facility] Work Phone: Patient Education [facility] Work Phone: Patient referral [facility] Work Phone: [facility] Payers Date Payer Category Payer Self-pay [id number] 2020 Private Health Insurance RAVINDRA MCGRAW OAP [id number] 2020-Present [phone] [address] [place] [address] Open Access [id number] 2020 Private Health Insurance [id number] 2020 Private Health Insurance [id number] 2015 Private Health Insurance [facility] [id number] 1970 Unknown [id number] 1970 Unknown [id number] Unknown [id number] Unknown [id number] Unknown [id number] Unknown [id number] Unknown [id number] Unknown [id number] 462 Unknown [id number] 462 Unknown [id number] Social History Date Type Detail Facility Start: 05-10-2021 End: 05-18-2022 Never smoked tobacco (finding) [facility] Sex Assigned At [facility] Start: 04-26-2021 End: 11-22-2024 Alcohol intake Current non-drinker of alcohol (finding) [facility] Start: 09-10-2015 History SDOH Alcohol Comment Non-drinker [facility] Start: 1970 Sex Assigned At Not on file [facility] Start: 05-22-2021 End: 07-30-2021 Exposure to SARS-CoV-2 (event) Not sure [facility] Work Phone: Start: 03-26-2021 End: 05-10-2023 Tobacco smoking status NHIS Unknown if ever smoked [facility] Start: 1970 Sex Assigned At Female [facility] Start: 05-18-2022 Tobacco use and exposure Smokeless tobacco non-user [facility] Start: 07-27-2022 End: 12-13-2022 History of Social function [facility] Start: 07-27-2022 End: 12-13-2022 Tobacco use panel [facility] Start: 02-19-2012 Adult Depression Screening Assessment 4 [facility] How hard is it for y ou to pay for the very basics like food, housing, medical care, and heating Not very hard [facility] (I/We) worried wheth er (my/our) food would run out before (I/we) got money to buy more. Never true [facility] In the past 12 month s, was there a time when you were not able to pay the mortgage or rent on time? No [facility] Start: 10-24-2016 Sex Female (finding) [facility] Functional Status Date Assessment Result Facility 12-15-2022 Are you deaf, or do you have serious difficulty hearing No 12/15/2022 12:16 PM EDT Shruthi Savage RN No [facility] 12-15-2022 Are you blind, or do you have serious difficulty seeing, even when wearing glasses No 12/15/2022 12:16 PM EDT Shruthi Savage RN No [facility] 12-15-2022 Do you have serious difficulty walking or climbing stairs No 12/15/2022 12:16 PM EDT Shruthi Savage RN [facility] 12-15-2022 Do you have difficul ty dressing or bathing No 12/15/2022 12:16 PM EDT Shruthi Savage RN [facility] 12-15-2022 Because of a physica l, mental, or emotional condition, do you have difficulty doing errands alone such as visiting a physician's office or shopping No 12/15/2022 12:16 PM EDT Shruthi Savage RN [facility] 05-27-2022 Functional Status Home Living Ad ditional [...] UE's Reflexes1+ bilat biceps and triceps Other: [facility] Mental Status Date Assessment Result Facility 12-15-2022 Because of a physica l, mental, or emotional condition, do you have serious difficulty concentrating, remembering, or making decisions No 12/15/2022 12:16 PM EDT Shruthi Savage RN No [facility] 12-12-2022 Cognitive function Voice/Name [facility] Work Phone: 10-05-2022 Cognitive function Level Of Cons ciousness Awake;Alert;Appropriate;Fol lows Commands [facility] Work Phone: Clinical Notes 06-11-2021 to 11-22-2024 Telephone Encounter - Luba Monroe PA-C - 11/22/2024 4:09 PM EDTTelephone Encounter - Luba Monroe PA-C - 11/22/2024 4:09 PM EDTPatient InstructionsPatient Instructions Note Date & Type Note Facility 11-22-2024 Telephone encounter Note Accomodation forms filled out, please have sent to pt on [employer] and scanned. [facility] 11-22-2024 Miscellaneous Notes Accomodation forms filled out, please have sent to pt on [employer] and scanned. documented in this encounter [facility] 11-22-2024 Instructions Luba Monroe PA-C - 11/22/2024 3:21 PM EDT Continue with cymbalta 60mg daily and will add Qulipta 60mg daily for prevention of migraine Take nurtec 75mg with start of headache Follow up in 3-6 months documented in this encounter [facility] 11-22-2024 Note HNO ID: [id number] Author: LUBA MONROE PA-C Service: ? Author Type: Physician Manager Rental Type: Progress Notes Filed: 11/22/2024 15:34 Note Text: [facility] Follow up CC: Headache Follow up Last Visit: 10/06/23 ASSESSMENT/PLAN: 1. Vestibular migraine - ICD9: 346.80, ICD10: G43.809 (primary diagnosis) 2. Lightheaded - ICD9: 780.4, ICD10: R42 3. Positional lightheadedness - ICD9: 780.4, ICD10: R42 4. Chronic migraine without aura without status migrainosus, not intractable - ICD9: 346.70, ICD10: G43.709 Patient stable, getting a few to up to 5 migraines a month, tolerating the cymbalta 60mg well. Did not feel gabapentin was helpful, stopped this. Taking nurtec as needed with good relief. No new symptoms or concerns, needs FMLA every 6 months but has not had to use it this year. Will continue with current regimen and follow up annually, sooner if needed. Plan: All options for treatment discussed. Preventative:Cymbalta 60mg Abortive: Nurtec 75mg Follow-up: 1 year Today: PT is here for headache/migraine follow up. Noting feeling like she is going to pass out on 11/15/24 and having worsening vestibular sxs. Last seen on 10/06/23 for vestibular migraine. On cymbalta 60mg and nurtec. Getting 5 mild episodes a month. Since last visit headaches have worsened. Getting at least 8 migraines a month, using all of her Nurtec monthly. Also notes that she is getting episodic dizziness throughout the day as well. Describes a lightheaded dizzy feeling when she is working and moves too quickly. Will also come on at rest,, driving, watching television or walking. Typically lasts seconds but can occur multiple times throughout the day. Has gotten worse over the last few months, no known trigger that she can think of, no no reason this is gotten worse. Has tried Nurtec for it and does not seem to help. Not necessarily associate with any other symptom. Current Headache treatment Preventative: cymbalta 60mg Abortive: nurtec 75mg Medications effective? yes # of doses of abortive medications per month: 8 Total headache days per month: 8 per month Total headache attacks per month: 8 per month Headache free days: Yes but not free of symptoms. Duration of attacks: 60 min with nurtec Severity of headaches? Mild to moderate Location: all over. Aura: None Accompanying symptoms: photophobia, phonophobia, vertigo. . Quality:sharp and dull. Worse with activity: Yes Pain today: 0/10 Triggers: bright lights, odors, sleep- too little, fasting/hunger, and dehydration. . Prodrome:none. Tobacco Use: No. Alcohol Use: No Caffeine:Yes: 20 ounce bottle a week Prior Therapies Topamax Cymbalta Imitrex Gabapentin Maxalt Nurtec The patient's prior records were reviewed including [...] without mention of hemorrhage Esophagitis, unspecified Fibroids Gastroparesis GERD (gastroesophageal reflux disease) Irregular menstrual bleeding Menopausal and postmenopausal disorder Menopause Other malaise and fatigue fibramyalgia Sleep apnea Vestibular migraine PAST SURGICAL HISTORY Procedure Laterality Date COLONOSCOPY 07/30/2021 repeat in 10 years COLONOSCOPY FLX DX W/COLLJ SPEC WHEN PFRMD 06/23/2008 COLONOSCOPY SCREENING 2023 normal - repeat in [address] [facility] EMBOLIZATION UTERINE FIBROID 03/20/2010 ENDOMETRIAL BIOPSY 12/01/2009 Irregular Menstrual Bleeding and Fibroids ESOPHAGOGASTRODUODENOSCOPY TRANSORAL DIAGNOSTIC 05/24/2012 EGD ALLERGIES Allergen Reactions Cephalexin GI Upset cramping in stomach Tolerates piperacillin-tazobactam Topamax [Topiramate] Other: See Comments Intense dizziness Current Medications: DULoxetine DR (CYMBALTA) 60 mg capsule Take 1 capsule by mouth once daily. rimegepant (NURTEC ODT) 75 mg disintegrating tablet Take 1 tablet by mouth once daily as needed. metoclopramide HCl (REGLAN) 5 mg tablet Take 5 mg by mouth. estradiol (ESTRACE) 0.01 % (0.1 mg/gram) vaginal cream Use 1 g vaginally two times a week. RABEprazole (ACIPHEX) 20 mg tablet TAKE 1 TABLET BY MOUTH BEFORE EVENING MEAL DAILY CPAP daily at bedtime. coenzyme Q10 (COENZYME Q-10) 100 mg cap capsule Take 100 mg by mouth once daily. riboflavin, vitamin B2, (VITAMIN B2) 100 mg tab Take 100 mg by mouth twice daily. calcium carbonate (CALTRATE) 600 mg calcium (1,500 mg) tab Take 1,200 mg by mouth. Ca carb-Ca gluc-Mg ox-Mg gluco (CALCIUM MAGNESIUM) 500 mg calcium -250 mg tab Ta (more content not included)... [facility] 11-22-2024 History of Presen t illness Narrative Images from the original note were not included. [facility] Follow up CC: Headache Follow up Last Visit: 10/06/23 ASSESSMENT/PLAN: 1. Vestibular migraine - ICD9: 346.80, ICD10: G43.809 (primary diagnosis) 2. Lightheaded - ICD9: 780.4, ICD10: R42 3. Positional lightheadedness - ICD9: 780.4, ICD10: R42 4. Chronic migraine without aura without status migrainosus, not intractable - ICD9: 346.70, ICD10: G43.709 Patient stable, getting a few to up to 5 migraines a month, tolerating the cymbalta 60mg well. Did not feel gabapentin was helpful, stopped this. Taking nurtec as needed with good relief. No new symptoms or concerns, needs FMLA every 6 months but has not had to use it this year. Will continue with current regimen and follow up annually, sooner if needed. Plan: All options for treatment discussed. Preventative:Cymbalta 60mg Abortive: Nurtec 75mg Follow-up: 1 year Today: PT is here for headache/migraine follow up. Noting feeling like she is going to pass out on 11/15/24 and having worsening vestibular sxs. Last seen on 10/06/23 for vestibular migraine. On cymbalta 60mg and nurtec. Getting 5 mild episodes a month. Since last visit headaches have worsened. Getting at least 8 migraines a month, using all of her Nurtec monthly. Also notes that she is getting episodic dizziness throughout the day as well. Describes a lightheaded dizzy feeling when she is working and moves too quickly. Will also come on at rest,, driving, watching television or walking. Typically lasts seconds but can occur multiple times throughout the day. Has gotten worse over the last few months, no known trigger that she can think of, no no reason this is gotten worse. Has tried Nurtec for it and does not seem to help. Not necessarily associate with any other symptom. Current Headache treatment Preventative: cymbalta 60mg Abortive: nurtec 75mg Medications effective? yes # of doses of abortive medications per month: 8 Total headache days per month: 8 per month Total headache attacks per month: 8 per month Headache free days: Yes but not free of symptoms. Duration of attacks: 60 min with nurtec Severity of headaches? Mild to moderate Location: all over. Aura: None Accompanying symptoms: photophobia, phonophobia, vertigo. . Quality:sharp and dull. Worse with activity: Yes Pain today: 0/10 Triggers: bright lights, odors, sleep- too little, fasting/hunger, and dehydration. . Prodrome:none. Tobacco Use: No. Alcohol Use: No Caffeine:Yes: 20 ounce bottle a week Prior Therapies Topamax Cymbalta Imitrex Gabapentin Maxalt Nurtec The patient's prior records were reviewed including [...] without mention of hemorrhage Esophagitis, unspecified Fibroids Gastroparesis GERD (gastroesophageal reflux disease) Irregular menstrual bleeding Menopausal and postmenopausal disorder Menopause Other malaise and fatigue fibramyalgia Sleep apnea Vestibular migraine PAST SURGICAL HISTORY Procedure Laterality Date COLONOSCOPY 07/30/2021 repeat in 10 years COLONOSCOPY FLX DX W/COLLJ SPEC WHEN PFRMD 06/23/2008 COLONOSCOPY SCREENING 2023 normal - repeat in [address] M[facility] EMBOLIZATION UTERINE FIBROID 03/20/2010 ENDOMETRIAL BIOPSY 12/01/2009 Irregular Menstrual Bleeding and Fibroids ESOPHAGOGASTRODUODENOSCOPY TRANSORAL DIAGNOSTIC 05/24/2012 EGD ALLERGIES Allergen Reactions Cephalexin GI Upset cramping in stomach Tolerates piperacillin-tazobactam Topamax [Topiramate] Other: See Comments Intense dizziness Current Medications: DULoxetine DR (CYMBALTA) 60 mg capsule Take 1 capsule by mouth once daily. rimegepant (NURTEC ODT) 75 mg disintegrating tablet Take 1 tablet by mouth once daily as needed. metoclopramide HCl (REGLAN) 5 mg tablet Take 5 mg by mouth. estradiol (ESTRACE) 0.01 % (0.1 mg/gram) vaginal cream Use 1 g vaginally two times a week. RABEprazole (ACIPHEX) 20 mg tablet TAKE 1 TABLET BY MOUTH BEFORE EVENING MEAL DAILY CPAP daily at bedtime. coenzyme Q10 (COENZYME Q-10) 100 mg cap [...] Take by mouth. 500 mg at night loratadine (CLARITIN) 10 mg tablet Take 10 mg by mouth as needed. Studies to Review: No New Health Issues: No New Social History: No New Family History: No REVIEW OF SYSTEMS: GENERAL:No weight loss, malaise or fevers. HEENT:no [...] polyuria, polydipsia NEUROLOGIC:See HPI PHYSICAL EXAMINATION: BP 116/79 Pulse 100 Ht 161.9 cm (5' 3.75) Wt 89.4 kg (197 lb 1.5 oz) LMP 01/08/2018 SpO2 98% BMI 34.10 kg/m General: well appearing, in no acute distress, alert, HEENT: Normocephalic/atraumatic., Skin: Color, texture, turgor normal. No rashes or lesions, Lungs: Breathing comfortably, Neurological Examination: Cognition: The patient is [...] are intact and symmetric bilaterally. Normal gait. Impression: ASSESSMENT/PLAN: 1. Migraine without aura and without status migrainosus, not intractable - ICD9: 346.10, ICD10: G43.009 (primary diagnosis) 2. Vestibular migraine - ICD9: 346.80, ICD10: G43.809 3. Lightheadedness - ICD9: 780.4, ICD10: R42 4. Dizziness - ICD9: 780.4, ICD10: R42 Patient with worsening migraines since last appointment a year ago. Getting at least 8 migraines a month, notes that she is using a ball of her Nurtec although it still effective abortive for her. Compliant with Cymbalta 60 mg daily. Also notes that she is getting worsening episodes of dizziness that last for few seconds, occur multiple times throughout the day and not necessarily associated with headache. Notes that she has had this before and originally was improved with taking the Cymbalta. Exam is otherwise reassuring, no signs of peripheral etiology on exam, not triggered by turning her head or certain positions and not associate with any other symptoms. Unclear etiology for this dizziness, due to worsening headaches as well will trial additional preventative. Has tried topiramate and gabapentin in the past, is currently on Cymbalta. Do not feel blood pressure medications are appropriate due to low blood pressures. Discussed Qulipta versus injectables and patient would like to try Qulipta. Will try Qulipta 60 mg daily for prevention of migraine, should this not benefit her episodes of dizziness may consider further workup including vestibular battery testing. Patient agreeable to treatment plan of care at this time, questions were answered. Patient to follow-up in 3 to 6 months. Plan: All options for treatment discussed. Preventative: Cymbalta 60 mg, Qulipta 60 mg Abortive: Nurtec 75 mg Follow-up: 3 months I spent a total of 30 minutes on the date of the service which included preparing to see the patient, [id number] patient care, completing clinical documentation, obtaining and/or reviewing separately obtained history, performing a medically appropriate examination, counseling and educating the patient/family/caregiver, and ordering medications, tests, or procedures. Luba Monroe PA-C General Neurology [address] [place]. [address] Appointment: [phone] documented in this encounter [facility] 11-15-2024 Telephone encounter Note Notified patient of provider's message and placed her on wait list. Patient voiced understanding. Britni Weller LPN [facility] 11-15-2024 Miscellaneous Notes Notified patient of provider's message and placed her on wait list. Patient voiced understanding. Britni Weller LPN Patient calls and states that she has been having issues where she feels like she is going to pass out. Patient states that she is having issues with her vestibular. Patient states that this is happening more frequently (every day) and it does not matter what she is doing it will happen. Patient has appointment with provider on 11/29 but she is not sure she can wait that long. Please review and advise, Vita Barry RN documented in this encounter [facility] 11-15-2024 Telephone encounter Note Patient calls and states that she has been having issues where she feels like she is going to pass out. Patient states that she is having issues with her vestibular. Patient states that this is happening more frequently (every day) and it does not matter what she is doing it will happen. Patient has appointment with provider on 11/29 but she is not sure she can wait that long. Please review and advise, Vita Barry RN [facility] 10-21-2024 Telephone encounter Note Prescription Refill Information The patient has been identified by name and date of : Yes Caregiver verified no other encounters exist for this prescription request: Yes Caregiver confirmed with patient/requestor that no other refills are due, in the near future, with this provider at this time: Yes The last office visit in the department: 10/06/23 Does the patient have a future office visit with this provider/department: Yes 11/29/24 Requested Prescriptions Pending Prescriptions Disp Refills DULoxetine DR (CYMBALTA) 60 mg capsule 30 capsule 11 Sig: Take 1 capsule by mouth once daily. rimegepant (NURTEC ODT) 75 mg disintegrating tablet 8 tablet 2 Sig: Take 1 tablet by mouth once daily as needed. Estella Reece LPN October 21, 2024 11:49 AM [facility] 10-21-2024 Miscellaneous Notes Prescription Refill Information The patient has been identified by name and date of : Yes Caregiver verified no other encounters exist for this prescription request: Yes Caregiver confirmed with patient/requestor that no other refills are due, in the near future, with this provider at this time: Yes The last office visit in the department: 10/06/23 Does the patient have a future office visit with this provider/department: Yes 11/29/24 Requested Prescriptions Pending Prescriptions Disp Refills DULoxetine DR (CYMBALTA) 60 mg capsule 30 capsule 11 Sig: Take 1 capsule by mouth once daily. rimegepant (NURTEC ODT) 75 mg disintegrating tablet 8 tablet 2 Sig: Take 1 tablet by mouth once daily as needed. Estella Reece LPN October 21, 2024 11:49 AM documented in this encounter [facility] 10-16-2024 Telephone encounter Note Paperwork received and placed at provider desk for review. [facility] 10-16-2024 Miscellaneous Notes Paperwork received and placed at provider desk for review. Phoned patient to inquire about paperwork and she reported her dropped off to the [facility]. She reports she has to have it filled out by 10/18/24.Advised her would route to [facility]. Britni Weller LPN documented in this encounter [facility] 10-16-2024 Telephone encounter Note Phoned patient to inquire about paperwork and she reported her dropped off to the [facility]. She reports she has to have it filled out by 10/18/24.Advised her would route to [facility]. Britni Weller LPN [facility] 08-30-2024 History of Presen t illness Narrative Radiology Service Progress Note PATIENT NAME: Chacha Contreras DATE OF SERVICE: August 30, 2024 TIME: 8:41 AM PATIENT IDENTITY VERIFICATION COMPLETED USING TWO (2) IDENTIFIERS: Name and Date of confirmed by patient verbally. FALL SCREENING: Has the patient had 2 falls in the last year or 1 fall with injury or currently using an Ambulatory Assistive Device (Walker, Cane, Wheelchair, Crutches, etc.)? No PATIENT GENDER DATA: Assigned female at . status: : No status: NO. PATIENT RELEVANT IMPLANT DATA REVIEWED: Not Applicable PATIENT PRESENTS WITH AN IMPLANTABLE OR ATTACHED POLITICAL SCIENTIST: No RADIOLOGY DEPARTMENT: Mammography PERIPHERAL IV DATA: Not applicable SIGNED BY: RT Matt(Keisha) August 30, 2024 8:41 AM documented in this encounter [facility] 08-30-2024 Note HNO ID: [id number] Author: LAURYN PAGAN RT(R) Service: ? Author Type: Technologist Type: Progress Notes Filed: 08/30/2024 08:41 Note Text: Radiology Service Progress Note PATIENT NAME: Chacha Contreras DATE OF SERVICE: August 30, 2024 TIME: 8:41 AM PATIENT IDENTITY VERIFICATION COMPLETED USING TWO (2) IDENTIFIERS: Name and Date of confirmed by patient verbally. FALL SCREENING: Has the patient had 2 falls in the last year or 1 fall with injury or currently using an Ambulatory Assistive Device (Walker, Cane, Wheelchair, Crutches, etc.)? No PATIENT GENDER DATA: Assigned female at . status: : No status: NO. PATIENT RELEVANT IMPLANT DATA REVIEWED: Not Applicable PATIENT PRESENTS WITH AN IMPLANTABLE OR ATTACHED POLITICAL SCIENTIST: No RADIOLOGY DEPARTMENT: Mammography PERIPHERAL IV DATA: Not applicable SIGNED BY: RT Matt(Keisha) August 30, 2024 8:41 AM [facility] 08-16-2024 Note HNO ID: [id number] Author: MANISHA GASCA APRN.ADVICE NURSE Service: ? Author Type: Nurse Practitioner Type: Progress Notes Filed: 08/16/2024 10:03 Note Text: Mysql Developer offered: Patient declinesGigi Burnham is a 53 year old who presents for an annual gynecologic exam without complaints. Postmenopausal: Yes since age 48 HRT use: No. Last Pap: 04/26/2021 normal HPV: 04/26/2021 negative History of abnormal pap: Yes 2014 ASCUS Last mammogram: 2023 normal History of abnormal mammogram: No Sexually active: Yes Patient concerns for STD exposure: No. Time with current partner: 34 years Pain with intercourse: No Postcoital bleeding: No Hot flashes: Yes, mild occasional Night sweats: No Vaginal dryness: Yes, with SI, uses Estrace cream Documentation from previous visit of 04/26/2021 was copied and pasted, documentation has been reviewed and edited as necessary for today's visit. 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 History Comments: Sexual Activity: Yes; Male; HAD VASECTOMY Contraception: Vasectomy PAST MEDICAL HISTORY Diagnosis Date Abdominal pain, left upper quadrant Duodenitis without mention of hemorrhage Esophagitis, unspecified Fibroids Gastroparesis GERD (gastroesophageal reflux disease) Irregular menstrual bleeding Menopausal and postmenopausal disorder Menopause Other malaise and fatigue fibramyalgia Sleep apnea Vestibular migraine PAST SURGICAL HISTORY Procedure Laterality Date COLONOSCOPY 07/30/2021 repeat in 10 years COLONOSCOPY FLX DX W/COLLJ SPEC WHEN PFRMD 06/23/2008 EMBOLIZATION UTERINE FIBROID 03/20/2010 ENDOMETRIAL BIOPSY 12/01/2009 Irregular Menstrual Bleeding and Fibroids ESOPHAGOGASTRODUODENOSCOPY TRANSORAL DIAGNOSTIC 05/24/2012 EGD FAMILY HISTORY Problem Relation Age of Onset Hyperlipidemia Mother Dementia Mother Alzheimer's Disease Mother No Known Problems Father Diabetes Sister Obstructive Sleep Apnea Sister other (micro vascular) Sister Obstructive Sleep Apnea Brother Stroke Maternal Grandmother Hyperlipidemia Maternal Grandmother other (Heart disease) Maternal Grandmother other (Cancer - other) Maternal Grandmother Hypertension Maternal Grandfather Cancer Paternal Grandfather BONE No Known Problems Daughter No Known Problems Son SOCIAL HISTORY Social History Tobacco Use Smoking status: Never Smokeless tobacco: Never Vaping Use Vaping status: Never Used Substance Use Topics Alcohol use: No Comment: Non-drinker Drug use: No REVIEW OF SYSTEMS Abdomen: No abdominal pain, nausea, vomiting, diarrhea, or constipation. No bloating, early satiety, indigestion, or increased flatulence. Bladder: No dysuria, gross hematuria, urinary frequency, urinary urgency, or incontinence Breast: No breast lumps, nipple d/c, overlying skin changes, redness or skin retraction Allergies and current medication updated:Yes SENSITIVE EXAM: The sensitive examination was discussed with the Patient or Patient's Authorized Game Designer. As applicable, any other physician, advance practice provider, medical student, or other health professional student that will be observing or involved in the sensitive examination for educational or training purposes was discussed with the Patient or Authorized Game Designer. The Patient or Authorized Game Designer has agreed to proceed with the sensitive examination. (Sensitive examination includes inspection and/or palpation of the breasts, pelvis, prostate and anorectal regions). EXAM: BP 134/88 Ht 5' 3.5 (1.61m) Wt 194 lb (88.0kg) LMP 01/08/2018 BMI 33.82 kg/(m2). GENERAL: pleasant, female in no apparent [...] external genitalia normal, normal Bartholin's glands, urethra, Kapowsin's glands, no vulvar lesions, no cervical lesions, physiologic discharge present, normal appearing perineal body and perianal region BIMANUAL: uterus normal size, shape and consistency, no adnexal masses, and non-tender RECTOVAGINAL: deferred. NEURO: alert and oriented x3,exam grossly non-focal EXTREMITIES: normal ASSESSMENT/PLAN: 1) Health maintenance: Pap/HPV up to date. Mammogram ordered Mammogram up to date Nutrition, exercise and routine health maintenance exams reviewed. Calcium/Vitamin D supplementation information provided. Colon cancer screening: up (more content not included)... [facility] 08-16-2024 History of Presen t illness Narrative Mysql Developer offered: Patient declines. Chacha is a 53 year old who presents for an annual gynecologic exam without complaints. Postmenopausal: Yes since age 48 HRT use: No. Last Pap: 04/26/2021 normal HPV: 04/26/2021 negative History of abnormal pap: Yes 2014 ASCUS Last mammogram: 2023 normal History of abnormal mammogram: No Sexually active: Yes Patient concerns for STD exposure: No. Time with current partner: 34 years Pain with intercourse: No Postcoital bleeding: No Hot flashes: Yes, mild occasional Night sweats: No Vaginal dryness: Yes, with SI, uses Estrace cream Documentation from previous visit of 04/26/2021 was copied and pasted, documentation has been reviewed and edited as necessary for today's visit. 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 History Comments: Sexual Activity: Yes; Male; HAD VASECTOMY Contraception: Vasectomy PAST MEDICAL HISTORY Diagnosis Date Abdominal pain, left upper quadrant Duodenitis without mention of hemorrhage Esophagitis, unspecified Fibroids Gastroparesis GERD (gastroesophageal reflux disease) Irregular menstrual bleeding Menopausal and postmenopausal disorder Menopause Other malaise and fatigue fibramyalgia Sleep apnea Vestibular migraine PAST SURGICAL HISTORY Procedure Laterality Date COLONOSCOPY 07/30/2021 repeat in 10 years COLONOSCOPY FLX DX W/COLLJ SPEC WHEN PFRMD 06/23/2008 EMBOLIZATION UTERINE FIBROID 03/20/2010 ENDOMETRIAL BIOPSY 12/01/2009 Irregular Menstrual Bleeding and Fibroids ESOPHAGOGASTRODUODENOSCOPY TRANSORAL DIAGNOSTIC 05/24/2012 EGD FAMILY HISTORY Problem Relation Age of Onset Hyperlipidemia Mother Dementia Mother Alzheimer's Disease Mother No Known Problems Father Diabetes Sister Obstructive Sleep Apnea Sister other (micro vascular) Sister Obstructive Sleep Apnea Brother Stroke Maternal Grandmother Hyperlipidemia Maternal Grandmother other (Heart disease) Maternal Grandmother other (Cancer - other) Maternal Grandmother Hypertension Maternal Grandfather Cancer Paternal Grandfather BONE No Known Problems Daughter No Known Problems Son SOCIAL HISTORY Social History Tobacco Use Smoking status: Never Smokeless tobacco: Never Vaping Use Vaping status: Never Used Substance Use Topics Alcohol use: No Comment: Non-drinker Drug use: No REVIEW OF SYSTEMS Abdomen: No abdominal pain, nausea, vomiting, diarrhea, or constipation. No bloating, early satiety, indigestion, or increased flatulence. Bladder: No dysuria, gross hematuria, urinary frequency, urinary urgency, or incontinence Breast: No breast lumps, nipple d/c, overlying skin changes, redness or skin retraction Allergies and current medication updated:Yes SENSITIVE EXAM: The sensitive examination was discussed with the Patient or Patient's Authorized Game Designer. As applicable, any other physician, advance practice provider, medical student, or other health professional student that will be observing or involved in the sensitive examination for educational or training purposes was discussed with the Patient or Authorized Game Designer. The Patient or Authorized Game Designer has agreed to proceed with the sensitive examination. (Sensitive examination includes inspection and/or palpation of the breasts, pelvis, prostate and anorectal regions). EXAM: BP 134/88 Ht 5' 3.5 (1.61m) Wt 194 lb (88.0kg) LMP 01/08/2018 BMI 33.82 kg/(m^2). GENERAL: pleasant, female in no apparent distress [...] external genitalia normal, normal Bartholin's glands, urethra, Kapowsin's glands, no vulvar lesions, no cervical lesions, physiologic discharge present, normal appearing perineal body and perianal region BIMANUAL: uterus normal size, shape and consistency, no adnexal masses, and non-tender RECTOVAGINAL: deferred. NEURO: alert and oriented x3,exam grossly non-focal EXTREMITIES: normal ASSESSMENT/PLAN: 1) Health maintenance: Pap/HPV up to date. Mammogram ordered Mammogram up to date Nutrition, exercise and routine health maintenance exams reviewed. Calcium/Vitamin D supplementation information provided. Colon cancer screening: up to date with screening 2) Follow up one year or sooner as needed Manisha Gasca APRN.ADVICE NURSE documented in this encounter [facility] 06-24-2024 Telephone encounter Note Prescription Refill Information The patient has been identified by name and date of : Yes Caregiver verified no other encounters exist for this prescription request: Yes The last office visit in the department: 10/06/23 Impression: ASSESSMENT/PLAN: 1. Vestibular migraine - ICD9: 346.80, ICD10: G43.809 (primary diagnosis) 2. Lightheaded - ICD9: 780.4, ICD10: R42 3. Positional lightheadedness - ICD9: 780.4, ICD10: R42 4. Chronic migraine without aura without status migrainosus, not intractable - ICD9: 346.70, ICD10: G43.709 Patient stable, getting a few to up to 5 migraines a month, tolerating the cymbalta 60mg well. Did not feel gabapentin was helpful, stopped this. Taking nurtec as needed with good relief. No new symptoms or concerns, needs FMLA every 6 months but has not had to use it this year. Will continue with current regimen and follow up annually, sooner if needed. Plan: All options for treatment discussed. Preventative:Cymbalta 60mg Abortive: Nurtec 75mg Follow-up: 1 year I spent a total of 30 minutes on the date of the service which included preparing to see the patient, [id number] patient care, completing clinical documentation, obtaining and/or reviewing separately obtained history, performing a medically appropriate examination, and counseling and educating the patient/family/caregiver. Luba Monroe PA-C Does the patient have a future office visit with this provider/department: No Requested Prescriptions Pending Prescriptions Disp Refills rimegepant (NURTEC ODT) 75 mg disintegrating tablet 8 tablet 2 Sig: Take 1 tablet by mouth once daily as needed. Theresa Marrero LPN June 24, 2024 11:22 AM [facility] 06-24-2024 Miscellaneous Notes Prescription Refill Information The patient has been identified by name and date of : Yes Caregiver verified no other encounters exist for this prescription request: Yes The last office visit in the department: 10/06/23 Impression: ASSESSMENT/PLAN: 1. Vestibular migraine - ICD9: 346.80, ICD10: G43.809 (primary diagnosis) 2. Lightheaded - ICD9: 780.4, ICD10: R42 3. Positional lightheadedness - ICD9: 780.4, ICD10: R42 4. Chronic migraine without aura without status migrainosus, not intractable - ICD9: 346.70, ICD10: G43.709 Patient stable, getting a few to up to 5 migraines a month, tolerating the cymbalta 60mg well. Did not feel gabapentin was helpful, stopped this. Taking nurtec as needed with good relief. No new symptoms or concerns, needs FMLA every 6 months but has not had to use it this year. Will continue with current regimen and follow up annually, sooner if needed. Plan: All options for treatment discussed. Preventative:Cymbalta 60mg Abortive: Nurtec 75mg Follow-up: 1 year I spent a total of 30 minutes on the date of the service which included preparing to see the patient, [id number] patient care, completing clinical documentation, obtaining and/or reviewing separately obtained history, performing a medically appropriate examination, and counseling and educating the patient/family/caregiver. Luba Monroe PA-C Does the patient have a future office visit with this provider/department: No Requested Prescriptions Pending Prescriptions Disp Refills rimegepant (NURTEC ODT) 75 mg disintegrating tablet 8 tablet 2 Sig: Take 1 tablet by mouth once daily as needed. Theresa Marrero LPN June 24, 2024 11:22 AM documented in this encounter [facility] 06-14-2024 Telephone encounter Note Prescription Refill Information The patient has been identified by name and date of : Yes Caregiver verified no other encounters exist for this prescription request: Yes Caregiver confirmed with patient/requestor that no other refills are due, in the near future, with this provider at this time: Yes The last office visit in the department: 05/26/23 Does the patient have a future office visit with this provider/department: Yes 07/12/24 Requested Prescriptions Pending Prescriptions Disp Refills estradiol (ESTRACE) 0.01 % (0.1 mg/gram) vaginal cream 42.5 g 4 Sig: Use 1 g vaginally once daily. Use daily for 2 weeks. Then twice a week. Octavia Valenzuela June 14, 2024 4:09 PM [facility] 06-14-2024 Miscellaneous Notes Prescription Refill Information The patient has been identified by name and date of : Yes Caregiver verified no other encounters exist for this prescription request: Yes Caregiver confirmed with patient/requestor that no other refills are due, in the near future, with this provider at this time: Yes The last office visit in the department: 05/26/23 Does the patient have a future office visit with this provider/department: Yes 07/12/24 Requested Prescriptions Pending Prescriptions Disp Refills estradiol (ESTRACE) 0.01 % (0.1 mg/gram) vaginal cream 42.5 g 4 Sig: Use 1 g vaginally once daily. Use daily for 2 weeks. Then twice a week. Octavia Valenzuela June 14, 2024 4:09 PM documented in this encounter [facility] 03-27-2024 Telephone encounter Note Prescription Refill Information The patient has been identified by name and date of : Yes Caregiver verified no other encounters exist for this prescription request: Yes The last office visit in the department: 10/06/23 Impression: ASSESSMENT/PLAN: 1. Vestibular migraine - ICD9: 346.80, ICD10: G43.809 (primary diagnosis) 2. Lightheaded - ICD9: 780.4, ICD10: R42 3. Positional lightheadedness - ICD9: 780.4, ICD10: R42 4. Chronic migraine without aura without status migrainosus, not intractable - ICD9: 346.70, ICD10: G43.709 Patient stable, getting a few to up to 5 migraines a month, tolerating the cymbalta 60mg well. Did not feel gabapentin was helpful, stopped this. Taking nurtec as needed with good relief. No new symptoms or concerns, needs FMLA every 6 months but has not had to use it this year. Will continue with current regimen and follow up annually, sooner if needed. Plan: All options for treatment discussed. Preventative:Cymbalta 60mg Abortive: Nurtec 75mg Follow-up: 1 year Does the patient have a future office visit with this provider/department: No Requested Prescriptions Pending Prescriptions Disp Refills rimegepant (NURTEC ODT) 75 mg disintegrating tablet 8 tablet 2 Sig: Take 1 tablet by mouth once daily as needed. Theresa Marrero LPN March 27, 2024 8:08 AM [facility] 03-27-2024 Miscellaneous Notes Prescription Refill Information The patient has been identified by name and date of : Yes Caregiver verified no other encounters exist for this prescription request: Yes The last office visit in the department: 10/06/23 Impression: ASSESSMENT/PLAN: 1. Vestibular migraine - ICD9: 346.80, ICD10: G43.809 (primary diagnosis) 2. Lightheaded - ICD9: 780.4, ICD10: R42 3. Positional lightheadedness - ICD9: 780.4, ICD10: R42 4. Chronic migraine without aura without status migrainosus, not intractable - ICD9: 346.70, ICD10: G43.709 Patient stable, getting a few to up to 5 migraines a month, tolerating the cymbalta 60mg well. Did not feel gabapentin was helpful, stopped this. Taking nurtec as needed with good relief. No new symptoms or concerns, needs FMLA every 6 months but has not had to use it this year. Will continue with current regimen and follow up annually, sooner if needed. Plan: All options for treatment discussed. Preventative:Cymbalta 60mg Abortive: Nurtec 75mg Follow-up: 1 year Does the patient have a future office visit with this provider/department: No Requested Prescriptions Pending Prescriptions Disp Refills rimegepant (NURTEC ODT) 75 mg disintegrating tablet 8 tablet 2 Sig: Take 1 tablet by mouth once daily as needed. Theresa Marrero LPN March 27, 2024 8:08 AM documented in this encounter [facility] 02-09-2024 Note [facility] Medical Records Department [address] [place] [address] History Physical Exam 02/09/24 0644 MR#: [id number] Acct: [id number] Name: CHACHA CONTRERAS Rep #: [id number] : 1970 53 From: Fabian Friend PCP: DIEGO VAUGHN Status:[facility] Location: [place] [address] History and Physical Date of Admission: 02/09/24 CHACHA CONTRERAS, is a 53 F who presents to the office today for establishment with [facility] for complaints of increasing nausea and abdominal pain. She reports daily nausea and eats small meals due to early satiety and bloated feeling. She states that she avoids gluten due to it triggering headaches and migraines. Denies other food sensitivities that she's aware of. She reports having had an EGD this August 2023 and was told she has a small floating hiatal hernia and GERD. She was prescribed rabeprazole but has noticed that is much less effective now fo reducing heartburn. She reports her last colonoscopy was July 2022 where they only found a rectal fissure. She reports daily sm incomplete BMs, complete evacuation occurs every 1-3 days with hematochezia rarely. She denies difficulty chewing, swallowing, vomiting, and melena. She denies fever, chills, drinking from new water source, or recent travel. ROS Const Constitutional: Positive for anorexia, fatigue and headache(s); No fever(s) or weight change Eyes Eyes: No change in vision ENT ENT: Positive for headache(s); No abnormal hearing or difficulty swallowing Cardio Cardiology: Positive for leg pain with exertion; No chest pain at rest or chest pain with exertion Gastro GI: Positive for abdominal pain, bloating, change in bowel habits, constipation, diarrhea, heartburn, excessive flatus and nausea/dyspepsia; No belching, change in stool character, coffee ground emesis, cramping, difficulty swallowing, feeling full early, incontinent of stools, Vomiting blood/hematemesis, Blood in stool, loose stools, Black,tarry stools, pain with swallowing, vomiting or other Genitourinary-Female: No difficulty urinating Musc Musculoskeletal: Positive for joint pain, back pain, muscle cramps, numbness, stiffness, tingling, Arthritis, restless legs and leg pain with exertion Skin Skin: Positive for dry skin; No yellowing of the eye or itchy eyes Neuro Neurology: Positive for headache(s), numbness, tingling and restless legs; No abnormal hearing Psych Psychiatric: No anxiety, No depression and Positive for hyperactivity Endo Endocrine: Positive for fatigue and heat intolerance; No cold intolerance or weight change Aller/Imm Allergy/Immunologic: Positive for food intolerance (gluten); No itchy eyes Herson/Lymp Hematologic/Lymphatic: Positive for easy bruising; No easy bleeding Exam Const General: cooperative, healthy appearing, comfortable and no acute distress Nutritional Appearance: overweight Orientation: alert HENMT Head: normal to inspection Ears: hearing grossly normal bilaterally Nose: external nose normal Face and sinus: normal facial exam and face symmetric Eyes General: appearance normal, both eyes and all related structures Sclera: sclerae normal Neck Neck: normal visual inspection and full ROM Neck mass: No Chest Chest palpation inspection: normal inspection of the chest Resp Effort Inspection: normal respiratory effort, able to speak in complete sentences and symmetric chest movement Skin General: no rashes or lesions noted Neuro General: patient alert, patient awake and patient oriented x3 Cognition: normal cognition Speech: speech normal Gait: normal gait Extrem General: full ROM Psych Appearance: well kempt Mental Status: mental status grossly normal Mood: congruent mood Affect: normal affect Speech and Movement: speech and movement normal Attitude: cooperative Thought Process: normal Assessment and Plan Assessment and Plan (1) Gastroesophageal reflux disease: Status: Acute Qualifiers: Esophagitis presence: without esophagitis Qualified Code(s): K21.9 - Gastro-esophageal reflux disease without esophagitis Plan: CHACHA CONTRERAS, is a 53 F who presents to the office today for establishment with [facility] for complaints of increasing nausea and abdominal pain. Differential diagnoses include: GERD, gastric motility dysfunction, colonic motility dysfunction, SIBO, IBS, IBD, celiac disease, food allergies. * GET for early satiety and increasing heartburn * blood for IBS/D, thyroid * stool for enzymes, inflammatory markers * continue rabeprazole * add prochlorperazine 5mg PO BID PRN breakthrough nausea following ondansetron * call with results * office follow-up in 6 months(2) IBS (irritable bowel syndrome): Status: Acute Qualifiers: Irritable bowel syndrome type: with both diarrhea and constipation Qualified Code(s): K58.2 - Mixed irritable bowel syndrome Orders (more content not included)... [facility] 12-08-2023 Telephone encounter Note Prescription Refill Information The patient has been identified by name and date of : Yes Caregiver verified no other encounters exist for this prescription request: Yes Caregiver confirmed with patient/requestor that no other refills are due, in the near future, with this provider at this time: Yes The last office visit in the department: 10/06/23 MQ Does the patient have a future office visit with this provider/department: No Requested Prescriptions Pending Prescriptions Disp Refills rimegepant (NURTEC ODT) 75 mg disintegrating tablet 8 tablet 2 Sig: Take 1 tablet by mouth once daily as needed. Isadora Wharton LPN December 08, 2023 4:12 PM [facility] 12-08-2023 Miscellaneous Notes Prescription Refill Information The patient has been identified by name and date of : Yes Caregiver verified no other encounters exist for this prescription request: Yes Caregiver confirmed with patient/requestor that no other refills are due, in the near future, with this provider at this time: Yes The last office visit in the department: 10/06/23 MQ Does the patient have a future office visit with this provider/department: No Requested Prescriptions Pending Prescriptions Disp Refills rimegepant (NURTEC ODT) 75 mg disintegrating tablet 8 tablet 2 Sig: Take 1 tablet by mouth once daily as needed. Isadora Wharton LPN December 08, 2023 4:12 PM documented in this encounter [facility] 10-19-2023 Telephone encounter Note Prescription Refill Information The patient has been identified by name and date of : Yes Caregiver verified no other encounters exist for this prescription request: Yes Caregiver confirmed with patient/requestor that no other refills are due, in the near future, with this provider at this time: Yes The last office visit in the department: 10/06/23 MQ Does the patient have a future office visit with this provider/department: No Requested Prescriptions Pending Prescriptions Disp Refills DULoxetine (CYMBALTA) 60 mg capsule 30 capsule 3 Sig: Take 1 capsule by mouth once daily. Isadora Wharton LPN October 19, 2023 11:10 AM [facility] 10-19-2023 Miscellaneous Notes Prescription Refill Information The patient has been identified by name and date of : Yes Caregiver verified no other encounters exist for this prescription request: Yes Caregiver confirmed with patient/requestor that no other refills are due, in the near future, with this provider at this time: Yes The last office visit in the department: 10/06/23 MQ Does the patient have a future office visit with this provider/department: No Requested Prescriptions Pending Prescriptions Disp Refills DULoxetine (CYMBALTA) 60 mg capsule 30 capsule 3 Sig: Take 1 capsule by mouth once daily. Isadora Wharton LPN October 19, 2023 11:10 AM documented in this encounter [facility] 10-06-2023 Instructions Luba Monroe PA-C - 10/06/2023 11:26 AM EDT No changes in regimen today, continue with cymbalta 60mg daily and nurtec with onset of headache Follow up annually or sooner if needed documented in this encounter [facility] 10-06-2023 History of Presen t illness Narrative Images from the original note were not included. [facility] Follow up CC: Headache Follow up Last Visit: 04/14/23 ASSESSMENT/PLAN: 1. Migraine without aura and without status migrainosus, not intractable - ICD9: 346.10, ICD10: G43.009 (primary diagnosis) 2. Vestibular migraine - ICD9: 346.80, ICD10: G43.809 Patient with continued improvement in her headaches. Currently on Cymbalta 60 mg and feels this has the best benefit for her. Did try taking gabapentin during the day and found that it made her dizzy throughout the day and is only taking it at night, gabapentin 100 mg and does feel it helps her night headaches. No new symptoms since last appointment. Does note that she was admitted for gastric perforation due to NSAID use and is significantly limited this. Was prescribed Maxalt without any benefit and abortive relief. Has tried both Imitrex and Maxalt and neither were significantly beneficial. Will try Nurtec 75 mg for rescue. Unsure of benefit with gabapentin, would like to try stopping this medication to see if her headaches worsen. Also notes an illumination diet has significantly benefited her as well and is trying to decrease her dairy intake next week. Still endorsing daily motion sickness while driving, but this is not associated with headaches. Takes yaw and Dramamine as needed. No new symptoms that would warrant additional workup at this time. Patient agreeable to treatment plan of care at this time, all questions were answered. Patient to follow-up in 4 to 5 months or sooner should any symptoms change or worsen. Plan: All options for treatment discussed. Preventative: Cymbalta 60 mg Abortive: Nurtec 75 mg Follow-up: 4 months Today: Patient is here for headache/migraine follow up. Last seen on 04/04/23 for migraines. 2 migraines a month on cymbalta 60mg, gabapentin 100mg at night. Started nurtec for rescue. Since last visit headaches have been stable. Seems to be triggered by gluten and other foods, no new symptoms or concerns. She is not running out of her rescue every month, and nurtec seems to be a reliable abortive. Still getting occasional motion sickness in the car daily but otherwise well controlled. Current Headache treatment Preventative: Cymbalta 60mg, Abortive: nurtec 75mg Medications effective? yes # of doses of abortive medications per month: 6 Total headache days per month: 5 per month Total headache attacks per month: 5 per month Length: 15 min to hours. Severity of headaches? Mild to moderate Location: moves all over. Some tightness in the left shoulders Aura: None Accompanying symptoms: photophobia, phonophobia, vertigo. Quality:sharp and dull. Worse with activity: Yes Pain today: 0/10 Triggers: bright lights, odors, sleep- too little, fasting/hunger, and dehydration. Prodrome:none. Tobacco Use: No. Alcohol Use: No Caffeine:Yes: 20 ounce bottle a week Water- 80 ounces a day Prior Therapies Topamax Cymbalta Imitrex Gabapentin Maxalt Nurtec The patient's prior records were reviewed including [...] without mention of hemorrhage Esophagitis, unspecified Fibroids Irregular menstrual bleeding Menopausal and postmenopausal disorder Menopause Other malaise and fatigue fibramyalgia Sleep apnea Vestibular migraine PAST SURGICAL HISTORY Procedure Laterality Date COLONOSCOPY 07/30/2021 repeat in 10 years COLONOSCOPY FLX DX W/COLLJ SPEC WHEN PFRMD 06/23/2008 EMBOLIZATION UTERINE FIBROID 03/20/2010 ENDOMETRIAL BIOPSY 12/01/2009 Irregular Menstrual Bleeding and Fibroids ESOPHAGOGASTRODUODENOSCOPY TRANSORAL DIAGNOSTIC 05/24/2012 EGD ALLERGIES Allergen Reactions Cephalexin GI Upset cramping in stomach Tolerates piperacillin-tazobactam Topamax [Topiramate] Other: See Comments Intense dizziness Current Medications: rimegepant (NURTEC ODT) 75 mg disintegrating tablet Take 1 tablet by mouth once daily as needed. DULoxetine (CYMBALTA) 60 mg capsule Take 1 capsule by mouth once daily. CPAP daily at bedtime. estradiol (ESTRACE) 0.01 % (0.1 mg/gram) vaginal cream Use 1 g vaginally once daily. Use daily for 2 weeks. Then twice a week. gabapentin (NEURONTIN) 100 mg capsule Take 1 capsule by mouth as directed for 90 days. coenzyme Q10 (COENZYME Q-10) 100 mg cap [...] Take by mouth. 500 mg at night loratadine (CLARITIN) 10 mg tablet Take 10 mg by mouth as needed. Studies to Review: No New Health Issues: No New Social History: No New Family History: No REVIEW OF SYSTEMS: Sleep: stable, Mood: normal, Energy: Normal - stable, Stress: [...] intolerance, polyuria, polydipsia NEUROLOGIC:See HPI PHYSICAL EXAMINATION: [facility] 01/08/2018 General: well appearing, in no acute distress, [...] follow several step commands Cranial Nerves: Pupils normal in size Extraocular movements are grossly intact Good saccades and pursuits No nystagmus Hearing intact Good upgaze Visual santiago are full to confrontation. Facial, motor exam is symmetric Equal v1,V2, V3 Tongue is in midline. No tongue fasciculation. Palate is upgoing bilaterally SCM and trapezius are full. Shoulder shrug intact Normal tone and strength. Normal coordination. Normal gait. Impression: ASSESSMENT/PLAN: 1. Vestibular migraine - ICD9: 346.80, ICD10: G43.809 (primary diagnosis) 2. Lightheaded - ICD9: 780.4, ICD10: R42 3. Positional lightheadedness - ICD9: 780.4, ICD10: R42 4. Chronic migraine without aura without status migrainosus, not intractable - ICD9: 346.70, ICD10: G43.709 Patient stable, getting a few to up to 5 migraines a month, tolerating the cymbalta 60mg well. Did not feel gabapentin was helpful, stopped this. Taking nurtec as needed with good relief. No new symptoms or concerns, needs FMLA every 6 months but has not had to use it this year. Will continue with current regimen and follow up annually, sooner if needed. Plan: All options for treatment discussed. Preventative:Cymbalta 60mg Abortive: Nurtec 75mg Follow-up: 1 year I spent a total of 30 minutes on the date of the service which included preparing to see the patient, [id number] patient care, completing clinical documentation, obtaining and/or reviewing separately obtained history, performing a medically appropriate examination, and counseling and educating the patient/family/caregiver. Luba Monroe PA-C General Neurology [address] [place] [address]. [id number] Appointment: [phone] documented in this encounter [facility] 10-03-2023 Telephone encounter Note Patient read mychart message [facility] 10-03-2023 Miscellaneous Notes Patient read mychart message 10/05 [facility] appt switched to [facility] location. 1st attempt to notify pt, sent [facility] message and LVM. documented in this encounter [facility] 10-03-2023 Telephone encounter Note 10/05 appt switched to [facility] location. 1st attempt to notify pt, sent [facility] message and LVM. [facility] 08-07-2023 Telephone encounter Note JESS 04/14/23 with MQ NOV 10/06/23 with MQ Refill 04/14/23 with qty: 8 and 2 refills LANG Aparicio Assessment/Plan ASSESSMENT/PLAN: 1. Migraine without aura and without status migrainosus, not intractable - ICD9: 346.10, ICD10: G43.009 (primary diagnosis) 2. Vestibular migraine - ICD9: 346.80, ICD10: G43.809 Patient with continued improvement in her headaches. Currently on Cymbalta 60 mg and feels this has the best benefit for her. Did try taking gabapentin during the day and found that it made her dizzy throughout the day and is only taking it at night, gabapentin 100 mg and does feel it helps her night headaches. No new symptoms since last appointment. Does note that she was admitted for gastric perforation due to NSAID use and is significantly limited this. Was prescribed Maxalt without any benefit and abortive relief. Has tried both Imitrex and Maxalt and neither were significantly beneficial. Will try Nurtec 75 mg for rescue. Unsure of benefit with gabapentin, would like to try stopping this medication to see if her headaches worsen. Also notes an illumination diet has significantly benefited her as well and is trying to decrease her dairy intake next week. Still endorsing daily motion sickness while driving, but this is not associated with headaches. Takes yaw and Dramamine as needed. No new symptoms that would warrant additional workup at this time. Patient agreeable to treatment plan of care at this time, all questions were answered. Patient to follow-up in 4 to 5 months or sooner should any symptoms change or worsen. Plan: All options for treatment discussed. Preventative: Cymbalta 60 mg Abortive: Nurtec 75 mg Follow-up: 4 months [facility] 08-07-2023 Miscellaneous Notes JESS 04/14/23 with MQ NOV 10/06/23 with MQ Refill 04/14/23 with qty: 8 and 2 refills LANG Aparicio Assessment/Plan ASSESSMENT/PLAN: 1. Migraine without aura and without status migrainosus, not intractable - ICD9: 346.10, ICD10: G43.009 (primary diagnosis) 2. Vestibular migraine - ICD9: 346.80, ICD10: G43.809 Patient with continued improvement in her headaches. Currently on Cymbalta 60 mg and feels this has the best benefit for her. Did try taking gabapentin during the day and found that it made her dizzy throughout the day and is only taking it at night, gabapentin 100 mg and does feel it helps her night headaches. No new symptoms since last appointment. Does note that she was admitted for gastric perforation due to NSAID use and is significantly limited this. Was prescribed Maxalt without any benefit and abortive relief. Has tried both Imitrex and Maxalt and neither were significantly beneficial. Will try Nurtec 75 mg for rescue. Unsure of benefit with gabapentin, would like to try stopping this medication to see if her headaches worsen. Also notes an illumination diet has significantly benefited her as well and is trying to decrease her dairy intake next week. Still endorsing daily motion sickness while driving, but this is not associated with headaches. Takes yaw and Dramamine as needed. No new symptoms that would warrant additional workup at this time. Patient agreeable to treatment plan of care at this time, all questions were answered. Patient to follow-up in 4 to 5 months or sooner should any symptoms change or worsen. Plan: All options for treatment discussed. Preventative: Cymbalta 60 mg Abortive: Nurtec 75 mg Follow-up: 4 months documented in this encounter [facility] 06-08-2023 Miscellaneous Notes Images from the original note were not included. Patient has been identified by name and date of : Yes Requested Prescriptions Pending Prescriptions Disp Refills DULoxetine (CYMBALTA) 60 mg capsule 30 capsule 3 Sig: Take 1 capsule by mouth once daily. Cymbalta 04/14/2023 qty 30 w 3 r/f Last OV 04/14/2023 Next OV 10/06/2023 Impression: ASSESSMENT/PLAN: 1. Migraine without aura and without status migrainosus, not intractable - ICD9: 346.10, ICD10: G43.009 (primary diagnosis) 2. Vestibular migraine - ICD9: 346.80, ICD10: G43.809 Patient with continued improvement in her headaches. Currently on Cymbalta 60 mg and feels this has the best benefit for her. Did try taking gabapentin during the day and found that it made her dizzy throughout the day and is only taking it at night, gabapentin 100 mg and does feel it helps her night headaches. No new symptoms since last appointment. Does note that she was admitted for gastric perforation due to NSAID use and is significantly limited this. Was prescribed Maxalt without any benefit and abortive relief. Has tried both Imitrex and Maxalt and neither were significantly beneficial. Will try Nurtec 75 mg for rescue. Unsure of benefit with gabapentin, would like to try stopping this medication to see if her headaches worsen. Also notes an illumination diet has significantly benefited her as well and is trying to decrease her dairy intake next week. Still endorsing daily motion sickness while driving, but this is not associated with headaches. Takes yaw and Dramamine as needed. No new symptoms that would warrant additional workup at this time. Patient agreeable to treatment plan of care at this time, all questions were answered. Patient to follow-up in 4 to 5 months or sooner should any symptoms change or worsen. Plan: All options for treatment discussed. Preventative: Cymbalta 60 mg Abortive: Nurtec 75 mg Follow-up: 4 months I spent a total of 30 minutes on the date of the service which included preparing to see the patient, [id number] patient care, completing clinical documentation, obtaining and/or reviewing separately obtained history, performing a medically appropriate examination, counseling and educating the patient/family/caregiver, and ordering medications, tests, or procedures. Luba Monroe PA-C General Neurology [address] [place] [address]. [id number] Appointment: [phone] Note Details Other Notes Nursing Note from Cristina Vargas MA Instructions Return in about 5 months (around 09/13/2023). Continue Cymbalta 60mg daily Stop gabapentin (if things get worse, start back up) Stop maxalt and start nurtec 75 mg with onset of headache Follow up in 4-5 months Kenna Ji LPN documented in this encounter [facility] 05-29-2023 Miscellaneous Notes May 30, 2023 PID: [id number] Chacha Contreras [address] [place] [address] Dear Ms. Contreras, We are pleased to inform you that the results of your recent breast imaging exam on 05/26/2023 are normal. Early detection of cancer is very important. We also understand recommendations regarding breast cancer screening are controversial. Please discuss with your primary care provider which strategy is best for you and whether a mammogram is right for you. Your imaging studies and report will be kept on file at [facility] as part of your permanent medical record and are available for your continuing care. Thank you for allowing us to help in meeting your health care needs. Sincerely, Dr. Mitchell Interpreting Radiologist [facility] (Normal over 40) documented in this encounter [facility] 05-26-2023 History of Presen t illness Narrative Mysql Developer offered: Patient declines. Chacha Contreras is a 52 year old female who presents for a follow up of vaginal itching and burning. HPI: Chacha reported vaginal burning/itching after intercourse with her annual exam in March. This had been going on for several months. She tested positive for elissa glabrata and was treated with vaginal boric acid. She also started vaginal estrogen cream for atrophy. She reports that she is feeling much better. No pain or burning after intercourse. Occasional burning after washing with Zest soap. OB History T0 L2 SAB0 IAB0 Ectopic0 Multiple0 Live Births0 [employer] History LMP: 01/08/2018, Postmenopausal Age at Menarche: Age at First : Age at Menopause: [employer] History Comments: Sexual Activity: Yes; Male; HAD VASECTOMY Contraception: Vasectomy PAST MEDICAL HISTORY Diagnosis Date Abdominal pain, left upper quadrant Duodenitis without mention of hemorrhage Esophagitis, unspecified Fibroids Irregular menstrual bleeding Menopausal and postmenopausal disorder Menopause Other malaise and fatigue fibramyalgia Sleep apnea Vestibular migraine PAST SURGICAL HISTORY Procedure Laterality Date COLONOSCOPY 07/30/2021 repeat in 10 years COLONOSCOPY FLX DX W/COLLJ SPEC WHEN PFRMD 06/23/2008 EMBOLIZATION UTERINE FIBROID 03/20/2010 ENDOMETRIAL BIOPSY 12/01/2009 Irregular Menstrual Bleeding and Fibroids ESOPHAGOGASTRODUODENOSCOPY TRANSORAL DIAGNOSTIC 05/24/2012 EGD FAMILY HISTORY Problem Relation Age of Onset Hyperlipidemia Mother Dementia Mother No Known Problems Father Diabetes Sister Obstructive Sleep Apnea Sister Obstructive Sleep Apnea Brother Stroke Maternal Grandmother Hyperlipidemia Maternal Grandmother other (Heart disease) Maternal Grandmother other (Cancer - other) Maternal Grandmother Hypertension Maternal Grandfather Cancer Paternal Grandfather BONE No Known Problems Daughter No Known Problems Son Social History Tobacco Use Smoking status: Never Smokeless tobacco: Never Vaping Use Vaping Use: Never used Substance Use Topics Alcohol use: No Comment: Non-drinker Drug use: No Current Outpatient Medications Medication Sig CPAP daily at bedtime. estradiol (ESTRACE) 0.01 % (0.1 mg/gram) vaginal cream Use 1 g vaginally once daily. Use daily for 2 weeks. Then twice a week. rimegepant (NURTEC ODT) 75 mg disintegrating tablet Take 1 tablet by mouth once daily as needed. DULoxetine (CYMBALTA) 60 mg capsule [...] Take by mouth. 500 mg at night loratadine (CLARITIN) 10 mg tablet Take 10 mg by mouth as needed. gabapentin (NEURONTIN) 100 mg capsule Take 1 capsule by mouth as directed for 90 days. No current facility-administered medications for this visit. Allergies As of Date: 05/26/2023 Allergen Noted Reaction CEPHALEXIN 02/20/2008 GI Upset TOPAMAX [TOPIRAMATE] 12/13/2022 Other: See Comments Fully Assessed 05/26/2023 REVIEW OF SYSTEMS Abdomen: No bloating, early satiety, indigestion, or increased flatulence. No abdominal pain, nausea, vomiting, diarrhea, or constipation. Bladder: No dysuria, gross hematuria, urinary frequency, urinary urgency, or incontinence. Breast: No breast lumps, nipple d/c, overlying skin changes, redness or skin retraction. Expanded ROS: N/A Allergies and current medication updated:Yes EXAM: BP 120/70 Wt 191 lb 9.6 oz (86.9kg) LMP 01/08/2018 GENERAL: pleasant, female in no apparent distress HEENT: Normocephalic, atraumatic, mucus membranes moist, and no lesions PELVIC: external genitalia normal, normal Bartholin's glands, urethra, Kapowsin's glands, no vulvar lesions, no cervical lesions, good vaginal support, physiologic discharge present, normal appearing perineal body and perianal region + atrophy improved BIMANUAL: deferred NEURO: alert and oriented x3,exam grossly non-focal EXTREMITIES: normal ASSESSMENT AND PLAN: 1. Genitourinary syndrome of menopause - ICD9: 627.8, ICD10: N95.8 (primary diagnosis) - Atrophy improved - Continue estrogen cream - Pain has much improved. Only feels occasional burning and just after washing. She is using Zest soap. Recommend [employer] or a neutral/hypoallergenic soap for washing. 2. Elissa glabrata infection - ICD9: 112.9, ICD10: B37.9 - Resolved with boric acid use To notify if symptoms occur again. RTO for annual exams or sooner as needed. Reina Montoya APRN.CNP Medical Decision Making: Problems: Minimal: Self-limited or minor problem Risk: Low: Low risk from testing/treatment Moderate: Drug management Medical Decision Making Level: 2 - Straightforward documented in this encounter [facility] 05-26-2023 History of Presen t illness Narrative Radiology Service Progress Note PATIENT NAME: Chacha Contreras DATE OF SERVICE: May 26, 2023 TIME: 10:30 AM PATIENT IDENTITY VERIFICATION COMPLETED USING TWO (2) IDENTIFIERS: Name and Date of confirmed by patient verbally. FALL SCREENING: Has the patient had 2 falls in the last year or 1 fall with injury or currently using an Ambulatory Assistive Device (Walker, Cane, Wheelchair, Crutches, etc.)? No PATIENT GENDER DATA: Female. status: : No status: NO. PATIENT RELEVANT IMPLANT DATA REVIEWED: Not Applicable PATIENT PRESENTS WITH AN IMPLANTABLE OR ATTACHED POLITICAL SCIENTIST: No RADIOLOGY DEPARTMENT: Mammography PERIPHERAL IV DATA: Not applicable SIGNED BY: Ricky Tolbert May 26, 2023 10:30 AM documented in this encounter [facility] 05-10-2023 Discharge summary Note Date/Time May 10, 2023 7:10am [facility] Medical Records Department [address] [place] [address] Emergency Department Summary 05/10/23 MR#: [id number] Acct: [id number] Name: CHACHA CONTRERAS Rep #:[id number] : 1970 52 From: Jerzy Miller DO PCP: DIEGO VAUGHN Status:REG ER Location: ED HPI History of Present Illness Chief Complaint: Abd Pain Informant: patient and family Narrative Narrative: Patient is a 52-year-old female with past medical history of hypertension fibromyalgia and vestibular migraine. She states over the past few years she has had intermittent bouts of abdominal pain with nausea and has had her gallbladder worked up with ultrasounds and HIDA scans that have not revealed anyobvious cause of her symptoms. She states over the past 5 days she has been having increasing right upper quadrant midepigastric discomfort with worsening nausea. She states that the medication she takes to normally control her symptoms is no longer functioning and therefore the worsening symptoms comes in for evaluation. She states despite the severe nausea she is not having bouts ofvomiting. She also denies any sick symptoms such as fevers or chills dysuria ordiarrhea [facility] Medical History Chronic vertigo Duodenitis without mention of hemorrhage Esophagitis Essential (primary) hypertension Fibromyalgia Hx of spinal stenosis Sleep apnea Vestibular migraine Home Medications calcium carbonate 600 mg calcium (1,500 mg) tablet 1,200 mg PO DAILY 12/06/22 [History Last Taken Unknown] diazepam 5 mg tablet 5 mg PO Q6H PRN 12/06/22 [History Last Taken Unknown] riboflavin (vitamin B2) 100 mg tablet 100 mg PO BID 12/06/22 [History Last Taken Unknown] fluticasone propionate 50 mcg/actuation nasal spray,suspension 1 spray intranasal BID PRN 12/07/22 [History Last Taken Unknown] coenzyme Q10 100 mg tablet 100 mg PO DAILY 03/03/23 [History Last Taken Unknown] duloxetine 60 mg capsule,delayed release 60 mg PO DAILY 03/03/23 [History Last Taken Unknown] gabapentin 100 mg capsule 100 mg PO QHS 03/03/23 [History Last Taken Unknown] rizatriptan 10 mg tablet 10 mg PO ONCE PRN 03/03/23 [History Last Taken Unknown] zolpidem 6.25 mg tablet,extended release,multiphase (Ambien CR) 6.25 mg PO QHS PRN 03/03/23 [History Last Taken Unknown] ondansetron 4 mg disintegrating tablet 4 mg PO TID PRN nausea and vomiting #21 tabs 05/10/23 [Rx Last Taken Unknown] Allergy/AdvReac Type Severity Reaction Status Date / Time cephalexin Allergy Hives Verified 05/10/23 05:50 topiramate [From Topamax] AdvReac Intermediate headaches/d Verified 05/10/23 05:50 izziness Family History Mother Hypertension Grandfather Heart disease Grandmother Heart disease Surgical History History of uterine fibroid (~04/2010) Social History Smoking Status: Never smoker alcohol intake: never substance use type: does not use caffeine: Yes (energy drinks) Type: other ROS ROS ED Constitutional Constitutional ED: Denies chills or fever(s) Eyes Eyes: Denies change in vision ENT ENT ED: Denies rhinorrhea or sore throat Cardiovascular Cardiovascular: Denies chest pain Respiratory/Chest Respiratory/Chest: Denies cough or dyspnea Gastrointestinal Gastrointestinal: Reports abdominal pain and nausea; Denies diarrhea or vomiting Genitourinary Genitourinary ED: Denies dysuria or hematuria Musculoskeletal Musculoskeletal: Denies back pain or myalgias Integumentary Denies rash Neurologic Neurologic: Reports headache(s) Hematologic/Lymphatic Hematologic/Lymphatic: Denies easy bleeding or easy bruising EXAM Physical Exam Const Vital Signs: 05/10/23 05:51 05/10/23 05:53 Temperature 98.3 F 98.3 F Temperature Source Oral Oral Pulse Rate 107 H 110 H Respiratory Rate 16 19 H Blood Pressure 142/85 H 142/85 H Blood Pressure Mean 104 104 Pulse Ox 99 99 Oxygen Delivery Method Room Air Room Air Positive well nourished, well developed and obese General Appearance ED: well developed; Negative for pallor Nutritional Appearance: obese HEENT Reports moist mucous membranes HEENT Narrative: No signs of infection noted in the posterior pharynx No airway edema or compromise Eyes PERRL and EOMs intact bilaterally General Eye ED: Negative for scleral icterus Neck supple Neck Narrative: No nuchal rigidity or meningeal signs noted Resp normal respiratory effort and clear to auscultation bilaterally Cardio regular rhythm Rate: tachycardic and other Other Details: Tachycardic rate with regular rhythm. No murmurs rubs or gallops noted Radial and carotid pulses equal and symmetric GI non-distended GI Narrative: Abdomen is soft and nondistended with hyperactive bowel sounds. There is pain on palpation in the midepigastric and right upper quadrant region but greatest inthe right upper quadrant. There is slight guarding at the site but negative Lepe sign. No pulsatile mass Auscultation: hyperactive bowel sounds Palpation: soft Back/Spine no CVA tenderness Extremity normal to inspection Neuro oriented x3, CN's II-XII intact bilaterally and no sensory deficits noted Sensorium / Orientation: alert Motor Exam: strength 5/5 throughout Psych mental status grossly normal Skin no rashes or lesions noted and skin turgor normal General Skin Exam: Negative for jaundice or pallor MDM MDM MDM Narrative Medical decision making narrative: Patient arrived to the ER mildly hypertensive otherwise with stable vitals. Shereported intermittent abdominal discomfort and nausea for the past 5 days. Demential diagnosis is for biliary colic versus acute cholecystitis versus pancreatitis versus gastritis versus ileus versus gastroenteritis. As patient denies any sick symptoms concern for viral infection is low and I do not feel the need for influenza or COVID swab. Basic labs to be obtained to check for elevation to the lipase concerning for pancreatitis for potential UTI/pyelonephritis or blood for potential kidney stone. Laboratory studies revealed no elevation to the white count and liver enzymes are normal and lipaseis normal as well going against pancreatitis. Patient is urine sample also shows no sign of infection and there is no blood present suggest kidney stone. After treatment with morphine and Zofran IV hydration the patient reported feeling better and had improvement and near resolution of symptoms. The ultrasound of her right upper quadrant revealed no signs of gallbladder wall thickening gallstones polyp or acute cholecystitis. Therefore at this time withoverall negative workup stable vitals and improvement of symptoms I do not feel there is need for emergent general surgery consult. Patient can be discharged with symptomatic care and can follow-up with family doctor to discuss further outpatient testing such as repeat HIDA scan versus abdominal MRI versus referralto GI or general surgeon. History & Record Review Discussion w/independent historian: Patient Lab Data Attestation: I reviewed the patient's lab results. Labs: Laboratory Results - last 24 hr 05/10/23 05/10/23 06:04 06:54 WBC 4.9 RBC 5.29 Hgb 15.1 H Hct 46.6 MCV 88.1 MCH 28.5 MCHC 32.4 RDW Std Deviation 43.8 RDW Coeff of Jaylen 13.6 Plt Count 252 MPV 9.6 Immature Gran % (Auto) 0.200 Neut % (Auto) 61.0 Lymph % (Auto) 26.1 [place] % (Auto) 7.8 Eos % (Auto) 3.9 Baso % (Auto) 1.0 Absolute Neuts (auto) 3.0 Absolute Lymphs (auto) 1.27 Nucleated RBC % 0 Sodium 143 Potassium 3.8 Chloride 110 H Carbon Dioxide 26.0 Anion Gap 7 BUN 13 Creatinine 1.08 H Estim Creat Clear Calc 63.64 Est GFR (MDRD) Af Amer 68 Est GFR (MDRD) Non-Af 57 L BUN/Creatinine Ratio 12.0 Glucose 92 Calcium 10.1 Total Bilirubin 0.50 Direct Bilirubin 0.12 AST 27 ALT 35 Alkaline Phosphatase 69 Total Protein 7.6 Albumin 3.8 Globulin 3.8 Lipase 33 Urine Color Yellow Urine Clarity Clear Urine pH 8.0 Ur Specific [place] 1.010 Urine Protein Negative Urine Glucose (UA) Normal Urine Ketones Negative Urine Occult Blood Negative Urine Nitrite Negative Urine Bilirubin Negative Urine Urobilinogen Normal Ur Leukocyte Esterase Negative Urine RBC 0 SEEN Urine WBC 0 SEEN Ur Squamous Epith Cells 0-5 SEEN Urine Bacteria RARE Urine Mucus RARE Discharge Plan Triage Chief Complaint: Abd Pain ED Provider: Jerzy Miller Dx/Rx/DC Orders Clinical Impression: Intermittent right upper quadrant abdominal pain, Nausea Instructions: ED Abdominal Pain Unkn Cause Fem Prescriptions: New ondansetron 4 mg tablet,disintegrating 4 mg PO TID PRN (Reason: nausea and vomiting) Qty: 21 1RF No Action gabapentin 100 mg capsule 100 mg PO QHS diazepam 5 mg tablet 5 mg PO Q6H PRN riboflavin (vitamin B2) 100 mg tablet 100 mg PO BID calcium carbonate 600 mg calcium (1,500 mg) tablet 1,200 mg PO DAILY fluticasone propionate 50 mcg/actuation spray,suspension 1 spray intranasal BID PRN zolpidem [Ambien CR] 6.25 mg tablet,ext release multiphase 6.25 mg PO QHS PRN coenzyme Q10 100 mg tablet 100 mg PO DAILY duloxetine 60 mg capsule,delayed release(DR/EC) 60 mg PO DAILY rizatriptan 10 mg tablet 10 mg PO ONCE PRN Stand Alone Forms: ED Work / School Excuse Primary Care Provider: BRI ANGELA Referrals: BRI ANGELA CRNP [Primary Care Provider] - Activity Restrictions/Additional Instructions: Please follow-up with your family doctor to discuss potential repeat outpatient HIDA scan testing versus abdominal MRI or referral to a GI doctor or general surgeon to further assess the cause of your symptoms. You may take both the Phenergan which was called in later today and or the Zofran as needed for improved nausea control. Disposition Disposition: Home, Self Care What to do if you have Problems For any increased pain, shortness of breath, bleeding, nausea or vomiting, chestpain, or any unexpected problems, contact your Primary Care Provider. Call [facility] ([phone]) or report to the closest Emergency Room. Call 911 if necessary. 05/10/23 0820 <Electronically signed by Jerzy Miller DO> Cosigner Signature (if applicable): CC: DIEGO VAUGHN ~ Signed [facility] Work Phone: 1(225) 569-374902-20-2024 Miscellaneous Notes* Telephone Encounter - Isadora Wharton LPN - 05/09/2023 3:54 PM EST No documentation received at this time. Isadora Wharton LPN documented in this encounterHenry [facility]11-27-2023 Miscellaneous Notes* Telephone Encounter - Isadora Wharton LPN - 02/13/2023 10:57 AM EST JESS 11/16/22 with MQ NOV 04/14/23 with MQ Refill 10/05/22 with qty: 30 and 3 refills Isadora Wharton LPN [facility] Assessment/Plan ASSESSMENT/PLAN: 1. Vestibular migraine - ICD9: 346.80, ICD10: G43.809 (primary diagnosis) 2. Chronic migraine without aura without status migrainosus, not intractable - ICD9: 346.70, ICD10:G43.709 Patient notes continued improvement with her headaches, about 4-8 headaches a month. Usually well controlled with Imitrex or Excedrin. However, primary concern today is worsening of her motion sickness especially when driving. States that the Cymbalta was originally very effective in managing this,but it seems to be worsening to the [...] side effects and patient is agreeable we willcontinue Cymbalta 60 mg as well. Regarding abortive [...] time, all questions were answered. Patient to follow-upin 4 months or sooner should any symptoms change or worsen. Luba Monroe PA-C documented in this encounterHenry [facility]10-06-2023 Miscellaneous Notes* Telephone Encounter - Gurdeep Torrez RN - 12/23/2022 10:07 AM EDT PATIENT INFORMATION Record ID: [id number] [facility] Kamas: Digestive Disease Kamas Attending: [facility]: General Surgery INSTRUCTIONS SN to remind patient of appointment date, time, location All Clear All Clear SURVEY INFORMATION Medical/Nurse Manager Rental: Gurdeep Torrez 1. Your discharge instructions are [...] symptoms? (Standard Question) No documented in this encounterHenry [facility] Hospital08-30-2023 Instructions* Patient Instructions* Luba Monroe PA-C - 11/16/2022 11:44 AM EDT Start taking Gabapentin 100mg three times a day along with cymbalta 60mg for symptoms Take imitrex as needed (let me know if you want to switch) Consult to cardiology Follow up in 4 months documented in this encounterHenry [facility] Hospital08-30-2023 History of Present illness Narrative* Luba Monroe PA-C - 11/16/2022 11:03 AM EDT Images from the original note were not included. [facility] Neu[facility] Follow up CC: Headache [...] hormonal issue or external trigger. Patient also takingImitrex as needed for headache, but states that she does not want a waste it so she waits until theheadache has progressed and is severe. Patient has not yet been on Cymbalta for 3 months, discussedcontinue this medication for at least 3 months [...] when she does take it she does notget full benefit and will increase to 100 [...] the head and neck was without any signsof occlusion or stenosis. Instructed patient to continue [...] Takes Imitrex and this usually helps, but whenit does not she takes Excedrin. No new [...] -250 mg tab Take by mouth. 500 mgat night SUMAtriptan (IMITREX) 100 mg tablet Take [...] pain. SKIN:Negative for lesions, rash, and itching. HEMATOLOGIC/LYMPHATIC/IMMUNOLOGIC:Negative for prolonged bleeding, bruising easily or swollen [...] status migrainosus, not intractable - ICD9: 346.70, ICD10:G43.709 Patient notes continued improvement with her headaches, about 4-8 headaches a month. Usually well controlled with Imitrex or Excedrin. However, primary concern today is worsening of her motion sickness especially when driving. States that the Cymbalta was originally very effective in managing this,but it seems to be worsening to the [...] side effects and patient is agreeable we willcontinue Cymbalta 60 mg as well. Regarding abortive [...] time, all questions were answered. Patient to follow-upin 4 months or sooner should any symptoms change or worsen. Luba Monroe PA-C Plan: All options for treatment discussed. Preventative:Cymbalta and Gabapentin Abortive: Imitrex Follow-up: 4 months I spent a total of 40 minutes on the date of the service which included preparing to see the patient, [id number] patient care, completing clinical documentation, obtaining and/or reviewing separately obtained history, performing a medically appropriate examination, counseling and educating the pat ient/family/caregiver, and ordering medications, tests, or procedures. Luab Monroe PA-C General Neurology [address] [place] [address]. [id number] Appointment: [phone] documented in this encounterHenry County Hospital08-02-2023 Miscellaneous Notes* Telephone Encounter - Isadora Wharton LPN - 10/19/2022 3:39 PM EDT message sent to pt to let her know she can come to the office to pick her forms up from -October 20. Isadora Wharton LPN documented in this encounterHenry [facility] Hospital07-19-2023 Miscellaneous Notes* Telephone Encounter - Isadora WhartonLANG - 10/05/2022 1:13 PM EDT JESS 07/27/22 with MQ NOV 11/16/22 with [...] hormonal issue or external trigger. Patient also takingImitrex as needed for headache, but states that she does not want a waste it so she waits until theheadache has progressed and is severe. Patient has not yet been on Cymbalta for 3 months, discussedcontinue this medication for at least 3 months [...] when she does take it she does notget full benefit and will increase to 100 [...] the head and neck was without any signsof occlusion or stenosis. Instructed patient to continue [...] mg Follow-up: 3 months documented in this [facility]07-11-2023 Miscellaneous Notes* Telephone Encounter - Manisha Toribio - 09/27/2022 1:39 PM EDT The provider's template changed. The patient needs to come in 15 minutes sooner than she was scheduled. The appointment was changed and is correct. Left the patient a voice message and sent [employer] message about the time change. documented in this [facility]06-28-2023 Miscellaneous Notes* Telephone Encounter - Vera Valiente - 09/14/2022 2:38 PM EDT Respirator form completed and faxed to [facility]. Sent for scanning. documented in this [facility]06-06-2023 Miscellaneous Notes* Telephone Encounter - Isadora Wharton LPN - 08/23/2022 4:33 PM EDT Form completed and faxed back to number provided. Isadora Wharton LPN * Telephone Encounter - WYATT Gardner - 08/19/2022 11:17 AM EDT Type of form: Physical Therapy Orders Form received via fax When form is completed, Fax form to Mateo Wilcox at [phone] Form has been forwarded to Physician Desk: SAE Pedroza OCCA documented in this [facility]05-10-2023 Instructions* Patient Instructions* Luba Monroe PA-C - 07/27/2022 1:12 PM EDT Tilt table test Increase imitrex to 100mg, take with ONSET of headache When feeling light headed find seating or pull arms and legs together, keep up water intake, increase salt, compression stocking. Follow up in three months documented in this encounterHenry County Hospital05-10-2023 History of Present illness Narrative* Luba Monroe PA-C - 07/27/2022 12:40 PM EDT Images from the original note were not included. [facility] Follow up CC: Headache Follow up Last Visit: 05/31/22 ASSESSMENT/PLAN: 1. Vestibular migraine - ICD9: 346.80, ICD10: G43.809 (primary diagnosis) 2. Chronic migraine without aura without status migrainosus, not intractable - ICD9: 346.70, ICD10:G43.709 Patient with persistent vestibular migraines. At last appointment, started Topamax, but patient didnot tolerate this well and had severe brain [...] change or worsen. We will fill out [facility] paperwork. Luba Monroe PA-C Today: Patient is here for headache/migraine follow up. Since last visit headaches have significantly improved. Patient states that her dizziness and headaches have significantly improved since starting Cymbalta, titrating up to 60 mg. States that her dizziness has fully resolved, and she now only suffers from8-12 migraines a month. Headaches are associated with photophobia, phonophobia, osmophobia, nausea and neck pain. Had tried and failed physical therapy in the past, still doing at home exercises withmild to moderate improvement. Still, believes that most of her headaches start from the neck, very in locations. No side effects with the medications, but notes that after about 3 weeks with each newbottle of Cymbalta, she has more dizziness and believes its not working as well. Patient is not menstruating, does have occasional hot flashes. Patient also endorsing some episodes of lightheadedness, this is a new. States that she feels as ifshe is going to pass out, this only [...] hour to all day Severity of headaches? 3-02/26 Location: move all over. Aura: None Accompanying [...] -250 mg tab Take by mouth. 500 mgat night SUMAtriptan (IMITREX) 50 mg tablet Take [...] pain. SKIN:Negative for lesions, rash, and itching. HEMATOLOGIC/LYMPHATIC/IMMUNOLOGIC:Negative for prolonged bleeding, bruising easily or swollen [...] hormonal issue or external trigger. Patient also takingImitrex as needed for headache, but states that she does not want a waste it so she waits until theheadache has progressed and is severe. Patient has not yet been on Cymbalta for 3 months, discussedcontinue this medication for at least 3 months [...] when she does take it she does notget full benefit and will increase to 100 [...] the head and neck was without any signsof occlusion or stenosis. Instructed patient to continue [...] which included preparing to see the patient, [id number] patient care, completing clinical documentation, obtaining and/or reviewing separately obtained history, performing a medically appropriate examination, counseling and educating the pat ient/family/caregiver, and ordering medications, tests, or procedures. Luba Monroe PA-C General Neurology [address] [place] [address]. [id number] Appointment: [phone] documented in this encounterHenry County Hospital05-03-2023 Miscellaneous Notes* Telephone Encounter - Manisha Da Silva Pss - 07/20/2022 10:44 AM EDT Spoke with the patient and scheduled an appointment with the provider. * Telephone Encounter - Isadora Wharton LPN - 07/20/2022 9:07 AM EDT Will offer appointment to pt for next week to discuss. Isadora Wharton LPN * Telephone Encounter - Isadora Wharton LPN - 07/20/2022 9:05 AM EDT Please see other TC dated 07-19-22. Isadora Wharton LPN documented in this encounterHenry County Hospital03-17-2023 Miscellaneous Notes* Telephone Encounter - ELISA Gardner - 06/03/2022 9:50 AM EDT [facility] returned call and provided fax [phone]. OV notes faxed as requested and patient notified through . ELISA Gardner * Telephone Encounter - ELISA Gardner - 06/03/2022 9:22 AM EDT TC to [facility] to get fax number to send OV notes. Left VM to return call. Will wait for return call. ELISA Gardner documented in this encounterHenry [facility] Hospital03-16-2023 Miscellaneous Notes* Telephone Encounter - Steph Stallworth LPN - 06/02/2022 1:41 PM EDT Orders sent to [facility] per patients request. Steph Stallworth LPN documented in this encounterHenry [facility] Hospital03-15-2023 Miscellaneous Notes* Telephone Encounter - Isadora Wharton LPN - 06/01/2022 12:41 PM EDT [employer] message sent to pt regarding questions about tests. Vestibular test order sent to [facility]. Isadora Wharton LPN documented in this [facility]03-14-2023 Instructions* Patient Instructions* Luba Monroe PA-C - 05/31/2022 10:54 AM EDT Preventative: Start Cymbalta 30 mg daily for 4 weeks then 60 mg daily, common side effects that mayoccur are nausea, sleepiness, headache, and sometimes paradoxically depression. Abortive: Sumatriptan 50mg take with the start of your symptoms (can take up to two pills in one day, no more than 10 doses in a month) Vestibular battery testing Follow up in 3 months documented in this encounterHenry County Hospital03-14-2023 History of Present illness Narrative* Luba Monroe PA-C - 05/31/2022 10:35 AM EDT ESTABLISHED PATIENT VISIT Last visit: 05/18/22 Assessment [...] of migraines, headaches have worsened and are approximatelypresents with lightheaded exacerbations 50% of the time. Also associated with nausea. Triggers for e xacerbations are similar to migrainous triggers including bright [...] headaches and vestibular symptoms, including magnesium, B2, co- Q10. Discussed common side effects of the supplements, patient and agree and understand this. Discussed abortive therapies including Benadryl, meclizine and patient will try this. Did discuss the use of benzodiazepines, patient deferred this at this time because she does notwant to be too fatigued to work. Patient also with some nausea, no history of heart rhythm abnormality, will prescribe Zofran to take as needed for nausea. Additionally, patient with increase in her migraine headaches, headaches stemming from the neck andradiating forward. Patient notes some musculoskeletal pain, will [...] disturbance, mood disorder and recent psychosocial stressors. HEMATOLOGIC/LYMPHATIC/IMMUNOLOGIC:Negative for prolonged bleeding, bruising easily or swollen [...] dysarthria; comprehension, naming, repetition intact. Short and mcc memory intact. CN: PERRL, EOMI and with [...] status migrainosus, not intractable - ICD9: 346.70, ICD10:G43.709 Patient with persistent vestibular migraines. At last appointment, started Topamax, but patient didnot tolerate this well and had severe brain [...] change or worsen. We will fill out [facility] paperwork. Luba Monroe PA-C I spent a total of 30 minutes on the date of the service which included preparing to see the patient, [id number] patient care, completing clinical documentation, obtaining and/or reviewing separately obtained history, performing a medically appropriate examination, counseling and educating the pat ient/family/caregiver, and ordering medications, tests, or procedures. This document has been created with the use of voice recognition technology. It may contain inaccuracies: (e.g. misspellings, inaccurate syntax or word sense) that have escaped review. documented in this encounterHenry County Hospital03-08-2023 Miscellaneous Notes* Telephone Encounter - ELISA Gardner - 05/25/2022 4:43 PM EST Brain fog is a common side effect of topiramate, patient can stop this medication if not toleratedand we can discuss other medication options at follow up appointment. Thank you. TC back to patient who verbalizes understanding and will stop taking the Topamax. Pt now scheduled for OV with provider in soonest available appointment. ELISA Gardner * Telephone Encounter - ELISA Gardner - 05/25/2022 2:48 PM EST TC to patient to give providers message [...] other options. Please advise. Thank you. ELISA Hernandez * Telephone Encounter - Bailey Díaz RN - 05/25/2022 10:18 AM EST Please call patient and let her know [...] the nausea and brain fog. She was alsoasking if this goes beyond FMLA is there anything the provider could do or write, so she wouldn't lose her job. Please call and advise. Bailey Díaz RN * Telephone Encounter - Bailey Díaz RN - 05/25/2022 9:11 AM EST Pt called in and reports she was diagnosed with vestibular migraines. She states she has started all the medications and supplements the provider told her to and she feels not different.She reports she started the Magnesium , started the Tramadol and another med Monday. She states she stillfeels nauseous and has the headache. She states [...] Please call and advise. documented in this encounterHenry [facility]23 Miscellaneous Notes* Telephone Encounter - Isadora Wharton LPN - 05/20/2022 4:57 PM EST Received disc in office for transfer of images to chart 05/20/22. Will forward via blue envelope to [facility] radiology ATTN: Kacie. Please send back to patient's home by mail. Isadora Wharton LPN documented in this encounterHenry County Hospital03-01-2023 Instructions* Patient Instructions* Luba Monroe PA-C - 05/18/2022 10:15 AM EST Preventative: Topiramate taper noted below Topamax Dosing Schedule Take at bedtime Increase dose every 2 weeks until goal dose of 100 mg Stop at any dose that reasonably treats headache Week 1-2: 25 mg each evening (1 tab) Week 3-4: 50 mg each evening (2 tabs) Week 5-6: 75 mg each evening (3 tabs) ACCOUNT DEVELOPMENT ASSOCIATE NEW SCRIPT 100 mg each evening (1 [...] medication to start working well and 2-3 monthsat the appropriate dose before deciding if it will be useful or not. If it is not helping at all bythis time, then we will discuss other medications to try. Supplements may take 3-6 months until yousee full effect. Natural supplements: Magnesium Oxide 500 [...] supplementation of 400-750 mg. Three trials found 40-90%average headache reduction when used as a preventative. Magnesium also demonstrated the benefit in menstrually related migraine. Magnesium is part of the messenger system in the serotonin cascade andit is a good muscle relaxant. It is [...] side effects, although this could be helpful forthose with constipation. Magnesium oxide is also well [...] trials showed significant improvement in over half ofmigraine sufferers. The supplement is found in bread, cereal, milk, meat, and poultry. Most Americans get more riboflavin than the recommended daily allowance, however riboflavin deficiency is not necessary for the supplements to help prevent headache. Feverfew: Feverfew is a common garden herb [place] and popular in [facility] as a treatment for disorders typically controlled [...] You will know if you are food sensitiveif you get a headache consistently 20 minutes [...] pepperoni, Pickled wong Pods of broad kiran (Croatian beans, [place]er pea pods, French (rebeka) beans, yang and navy beans Ripe avocado, ripe banana Yeast extracts or active yeast preparations such as Walker's or Teddy's (commercial bakes goodsare permitted) Tomato based foods, pizza (lasagna, etc.) [...] Strenuous Exercise High Altitude Location New Move Day Physical Illness Oversleep/Not enough sleep Weather changes Light: Photophobia or light sesnitivity treatment involves a balance between desensitization and reduction in overly strong input. Use dark polarized glasses outside, but not inside. Avoid bright or fluorescent light, but do not dim environment to the point that going into a normally lit room hurts. Consider FL- 41 tint lenses, which reduce the most irritating wavelengths without blocking too muchlight. These can be obtained at Peek@Us.[employer] or [employer]: see list above. 2. Limit use of acute treatments (gmde-efi-mfizxya medications, triptans, etc.) to no more than [...] and quiet environment. Relax and reduce stress. Bebxtec9Lnmya is a free ke that can instruct you on some simple relaxtionand breathing techniques. Http://SmartHabitat is a free website that provides teaching [...] the need for medications. Counseling for pain ma nagement, where patients learn to function and ignore/minimize their pain, seems to work very well. 9. Recommend changing family's attention and focus away from patient's headaches. Instead, emphasize daily activities. If first question of day is 'How are your headaches/Do you have a headache today?', then patient will constantly think about headaches, thus making them worse. Goal is to re-directattention away from headaches, toward daily activities and other distractions. 10. Helpful Websites: www.AmericanHeadacheSociety.org www.migrainetrust.org www.headaches.org www.migraine.org.uk www.achenet.org 11. HEADACHE EXPECTATIONS: There are many types of headaches, and only a rare few in which complete relief can be expected. Ingeneral, there is no cure for headache, especially migraine based headaches. There is nothing available that completely prevents headaches from occurring, breaking through, or having periodic flare-ups and fluctuations. Regardless of what you are using on a daily basis for prevention, episodic heada ches should still be expected, and periods where frequency may escalate and fluctuate are unavoidable. There is no quick fix for most headaches. Furthermore, the longer you have had high frequency headaches (such as chronic daily headache), the longer it will likely take to expect any improvement. In fact, some people will never improve, regardless of how many medications or other treatments we try.Our treatment strategy is to evaluate for possible causes of your headache, although testing is usually always normal, even in cases of daily continuous headaches for years. Most types of headache such as migraine are electrical brain disorders (similar to how epilepsy is an electrical brain disorders). Therefore, there is no testing that will reveal this dysfunctional electrical circuitry suchon MRI, or other testing. We try to [...] We can not predict if or when exac tly you will respond to a treatment that we provide. Preventive headache medications take 4-6 weeks to start working, and 2-3 months to see full effect,assuming you reach an effective dose. Therefore, calling or messaging frequently because you have aheadache flare prior to the 3 month jamin is unlikely to change anything, and unfortunately there isnothing available that will expedite this, so please try to avoid this. Our recommendation will gene rally be to give it adequate time first. [...] and will be handling your phone calls, [employer] Messages and inquiries, if any. Unless explicitly told otherwise at the time of your office visit, your study results and ensuing treatment plans will be released via Synovex and discussed during your follow-up appointment. MyChart: Please ask the schedulers to give you an activation code. The main way of communication isby [email or web address] rather than phone lines, so if you have not signed up, please do so. Synovex is also theway that you can review your labs and testing. We are not able to contact everyone to tell them results are normal. If you do not hear back from us regarding testing you have had, it should be considered normal or within normal range. If you have any questions about the results, you are free to message us. [employer] is meant for simple questions regarding medications, possible side effects, or other simplestraight forward questions in limited sentences, rather than multiple paragraphs of discussion. Synovex is not meant for, or efficient for these complex questions, extensive questions, extensive medication adjustments, complex new symptoms or concerns. These issues beyond simple questions require afollow up visit with myself, one of our physician assistants, nurse practitioners, or a Virtual Visit via computer or smart phone, as detailed further down. Refills: Please pay attention to when your refills will need to be renewed. Due to the volume of phone callsdaily, this could potentially take a few days, [...] do not comment on most testing on dotSyntax in a message or commentary unless there [...] center for syncope, autonomic dysfunction, general neurology, headachecare, neuromuscular disease, and other related conditions, seeing patients from across the world, we do not have the resource of time or staffing to address inquiries for accommodations. As such, we do not provide or complete requests for work accommodations, FMLA, disability, or other such forms. We recommend seeking guidance through your primary care provider for these requests. We are happy toprovide our office notes from your visits and other tests or evaluations performed through our clinic, which can be made available upon request to assist you with this process. documented in this encounterHenry County Hospital03-01-2023 History of Present illness Narrative* Luba Monroe PA-C - 05/18/2022 9:22 AM EST Images from the original note were not included. Neurology Outpatient Clinic Date: May 18, 2022 Patient Name: Chacha Contreras Referring provider: Demi Ortiz NP [address] [place] [address] Consult requested for dizziness by Demi Ortiz CNP. Recommendations will be communicated via shared medical record or US mail. Primary provider: Demi Ortiz NP [address] [place] [address] Reason for Evaluation: Dizziness Subjective HPI Chacha Contreras is a 51 year old right-handed female with history of esophagitis who presents for evaluation of dizziness. Demi Ortiz NP, CUSTOMER CARE SPECIALIST.ROSIO is the PCP and referring provider. Chart review: Patient with chronic dizziness, treated with vestibular therapy, no relief. Recently started on Topiramate 25mg. Patient presents for evaluation of dizziness onset April 09 2022. This has been continuous, will fluctuate in nature. She describes the sensation as an unsteadiness, lightheadedness however with nopresyncope, syncope. She notes that she had vertigo [...] few minutes to many hours. 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 Patient drinks 60 ounces of water a day, drinks less than 8 ounces of coffee in a day. Denies any substance use, no alcohol use. Do you have to be up to have the dizziness or can you have the dizziness when seated or lying down?Any position Do you feel like things are [...] HPI. Otherwise a 10-point ROS was completed andwas negative. 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 Gait: Patient's gait is normal, [...] of migraines, headaches have worsened and are approximatelypresents with lightheaded exacerbations 50% of the time. Also associated with nausea. Triggers for e xacerbations are similar to migrainous triggers including bright [...] headaches and vestibular symptoms, including magnesium, B2, co- Q10. Discussed common side effects of the supplements, patient and agree and understand this. Discussed abortive therapies including Benadryl, meclizine and patient will try this. Did discuss the use of benzodiazepines, patient deferred this at this time because she does notwant to be too fatigued to work. Patient also with some nausea, no history of heart rhythm abnormality, will prescribe Zofran to take as needed for nausea. Additionally, patient with increase in her migraine headaches, headaches stemming from the neck andradiating forward. Patient notes some musculoskeletal pain, will [...] by mouth once daily as needed for nausea/vomiting(for nausea.). Cervicalgia - CONSULT TO PHYSICAL THERAPY; [...] which included preparing to see the patient, [id number]-[id number]-ryot patient care, completing clinical documentation, obtaining and/or reviewing separately obtained history, performing a medically appropriate examination, counseling and educating the pat ient/family/caregiver, and ordering medications, tests, or procedures. Luba Monroe PA-C [facility] This document has been created with the use of voice recognition technology. It may contain inaccuracies: (e.g. misspellings, inaccurate syntax or word sense) that have escaped review. documented in this encounterHenry County Hospital05-13-2022 Nurse Note* Estella Macias RN - 07/30/2021 8:50 AM EDT Pt received in PACU. Pt slightly drowsy, but awake. Denies pain or nausea. Abd soft and non distended. Estella Macias RN documented in this encounterHenry County Hospital05-13-2022 History and physical note * Alicia Guerrero MD - 07/30/2021 8:15 AM EDT UPDATED PROCEDURAL SEDATION HISTORY AND PHYSICAL EXAMINATION SERVICE DATE: 07/30/2021 SERVICE TIME: 8:22 PHYSICAL EXAM MUST BE COMPLETED ON ADMISSION PROCEDURE: colonoscopy, possible biopsies Procedure Indications: screening for colon cancer The History and Physical (completed in the past 30 days) has been reviewed and the patient has beenexamined. The contents accurately reflect the patient's condition [...] DATE: July 30, 2021 TIME: 8:23 AM * Alicia Guerrero MD - 07/30/2021 8:15 AM EDT HISTORY AND PHYSICAL Chacha Contreras 1970 REFERRING PHYSICIAN: Manisha Gasca APRN.ADVICE NURSE CHIEF COMPLAINT: No chief complaint on file. [...] nourished, well hydrated in no acute distress. Thepatient is oriented to time, place, and person. [...] such as liver/spleen, perforation of the GI tract,inability to complete the procedure, complications of anesthesia, etc. the patient understands. The patient was offered a surgery/procedure at a [facility] facility. The provider and patient have discussed in detail the risk of exposure to and/or potential harm posed by the COVID-19 viruswith having a surgery/procedure at this time versus the risk of delaying the surgery/procedure. It is not possible to know either the risk of delaying the surgery or procedure or chance of getting aninfection with perfect accuracy, but a joint decision was made between the patient and the providerto proceed at this time with the scheduled surgery/procedure. The patient wishes to proceed. I have answered all questions to the patient s satisfaction and the patient has no further questions. Alicia Guerrero MD documented in this encounterHenry County Hospital03-29-2022 History of Present illness Narrative* Marly Aaron, PT - 06/15/2021 10:56 AM EDT Episode Visit Count: 4 Therapist That Will Oversee The Plan Of Care: Marly Walker Start of Care Date: 05/21/21 Onset Date: 05/21/16 Patient Identified by Name and Date of : Yes REHABILITATION AND SPORTS THERAPY PHYSICAL THERAPY TREATMENT NOTE ASSESSMENT: Chacha Contrreas tolerated the session with no issues. She demonstrated improvements inability to empty bladder. The patient will continue [...] 42 Marly Walker PT documented in this encounterHenry County Hospital03-25-2022 History of Present illness Narrative* Marly Walker PT - 06/11/2021 10:27 AM EDT Episode Visit Count: 3 Therapist That Will [...] OF FUNCTION: Pelvic Floor Incomplete emptying: Sometimes (better) Urgency: No Daytime Frequency (hours): 4 TREATMENT: [...] 39 Marly Walker PT documented in this encounterHenry [facility] HospitalEvaluation + Plan note Future Appointments Appointment Date:08/09/2021 09:00:00 AM Scheduled Provider:DEMI ORTIZ Location:[facility] Appointment Type:PC OV Follow Up Diagnostic Tests Pending * Cortisol Drawn in AM 05/22/21 [facility] Evaluation + Plan note Future Appointments Appointment Date:05/16/2022 09:00:00 AM Scheduled Provider:DEMI ORTIZ Location:[facility] Appointment Type:PC Wellness Annual Future Scheduled Tests Radiology* MRA Head w/ + w/o Contrast 05/06/22 * MRA Neck w/ + w/o Contrast 05/06/22 * MRI Brain w/ + w/o Contrast 05/06/22 [facility] Evaluation + Plan note Future Appointments Appointment Date:05/16/2022 09:00:00 AM Scheduled Provider:DEMI ORTIZ Location:[facility] Appointment Type:PC Wellness Annual [facility] Evaluation + Plan note Future Appointments Appointment Date:01/06/2023 10:30:00 AM Scheduled Provider:DEMI ORTIZ Location:[facility] Appointment Type:PC OV Follow Up [facility] [employer]Lead[employer] note* Diagnosis Stress incontinence- Primary Female stress incontinence Cystocele, midline documented in this encounter [facility] note* Diagnosis Stress incontinence- Primary Female stress incontinence Cystocele, midline documented in this encounter [facility] note* Diagnosis Special screening for malignant neoplasms, colon documented in this encounter [facility] noteNo assessment information availableWAdena Health System Work Phone: evaluation note* Diagnosis Dizziness- Primary Dizziness and giddiness Nausea Nausea alone Cervicalgia Chronic migraine without aura without status migrainosus, not intractable Chronic migraine without aura, without mention of intractable migraine without mention of status migrainosus [facility]* Diagnosis Vestibular migraine- Primary Chronic migraine without aura without status migrainosus, not intractable Chronic migraine without aura, without mention of intractable migraine without mention of status migrainosus documented [facility] this [facility]* Diagnosis Postural dizziness with presyncope- Primary documented [facility] this [facility]* Diagnosis Vestibular migraine- Primary Lightheaded Dizziness and giddiness Positional lightheadedness Dizziness and giddiness Chronic migraine without aura without status migrainosus, not intractable Chronic migraine without aura, without mention of intractable migraine without mention of status migrainosus documented [facility] this [facility]* Diagnosis Onset Date Resolution Status Pre-syncope chronic Vestibular migraine [facility] Work Phone: evaluation note* Diagnosis Onset Date Resolution Status Pre-syncope chronic Vestibular migraine chronic Pre-syncope chronic Vestibular migraine [facility] Work Phone: evaluation note* Diagnosis 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 infection Candidiasis of unspecified site documented in this encounter [facility] note* Diagnosis Encounter for screening mammogram for breast cancer documented in this encounter [facility]* Diagnosis Vestibular migraine- Primary Lightheaded Dizziness and giddiness Positional lightheadedness Dizziness and giddiness Chronic migraine without aura without status migrainosus, not intractable Chronic migraine without aura, without mention of intractable migraine without mention of status migrainosus documented [facility] this [facility]* Diagnosis Pneumoperitoneum of unknown etiology- Primary Other specified disorder of peritoneum Migraine Migraine, unspecified, without mention of intractable migraine without mention of status migrainosus Dade grade B esophagitis Duodenitis Duodenitis without mention of hemorrhage Migraine without aura and without status migrainosus, not intractable- Primary Migraine without aura, without mention of intractable migraine without mention of status migrainosus Vestibular migraine documented in this encounter [facility]* Diagnosis Pneumoperitoneum of unknown etiology- Primary Other specified disorder of peritoneum Migraine Migraine, unspecified, without mention of intractable migraine without mention of status migrainosus Dade grade B esophagitis Duodenitis Duodenitis without mention of hemorrhage Encounter for gynecological examination (general) (routine) without abnormal findings- Primary Vaginal atrophy Postmenopausal atrophic vaginitis Encounter for screening mammogram for breast cancer documented [facility] this [facility]* Diagnosis Pneumoperitoneum of unknown etiology- Primary Other specified disorder of peritoneum Migraine Migraine, unspecified, without mention of intractable migraine without mention of status migrainosus Dade grade B esophagitis Duodenitis Duodenitis without mention of hemorrhage Encounter for gynecological examination (general) (routine) without abnormal findings Encounter for screening mammogram for breast cancer documented in this encounter [facility]* Diagnosis Pneumoperitoneum of unknown etiology- Primary Other specified disorder of peritoneum Migraine Migraine, unspecified, without mention of intractable migraine without mention of status migrainosus Dade grade B esophagitis Duodenitis Duodenitis without mention of hemorrhage Vaginal itching Pruritus of genital organs Vaginal burning Other specified symptom associated with female genital organs Vaginal atrophy Postmenopausal atrophic vaginitis documented in this [facility]* Diagnosis Pneumoperitoneum of unknown etiology- Primary Other specified disorder of peritoneum Migraine Migraine, unspecified, without mention of intractable migraine without mention of status migrainosus Dade grade B esophagitis Duodenitis Duodenitis without mention of hemorrhage Migraine without aura and without status migrainosus, not intractable Migraine without aura, without mention of intractable migraine without mention of status migrainosus Vestibular migraine documented [facility] this [facility]* Diagnosis Pneumoperitoneum of unknown etiology- Primary Other specified disorder of peritoneum Migraine Migraine, unspecified, without mention of intractable migraine without mention of status migrainosus Dade grade B esophagitis Duodenitis Duodenitis without mention of hemorrhage Migraine without aura and without status migrainosus, not intractable- Primary Migraine without aura, without mention of intractable migraine without mention of status migrainosus Vestibular migraine Lightheadedness Dizziness and giddiness Dizziness Dizziness and giddiness [facility] N[facility] No data available for this section [facility] Discharge instructions No data available for this section [facility] Discharge instructions Additional Instructions Please follow-up with your family doctor to discuss potential repeat outpatient HIDA scan testing versus abdominal MRI or referral to a GI doctor or general surgeon to further assess the cause of your symptoms. You may take both the Phenergan which was called in later today and or the Zofran as needed for improved nausea control.[facility] Work Phone: Progress note No data available for this section [facility] Reason for referral (narrative)* Outpatient Procedure (Routine) - Closed Specialty Diagnoses / Procedures Referred By Contobey t Referred To Contact [facility] Diagnoses Special screening for malignant neoplasms, colon Procedures COLONOSCOPY SCREENING COLONOSCOPY FLX DX W/COLLJ SPEC WHEN PFRMManisha Avila APRN.CNP [address] [place] [address] [facility] [address] [place] [address] Referral ID Status Reason Start Date Expiration Date V isits Requested Visits Authorized [id number] Closed Auto-Generate d Referral 04/26/2021 04/26/2022 [address] [facility] for visit Narrative* Outpatient Procedure (Routine) - Closed Specialty Diagnoses / Procedures Referred By Josias muse Referred To Contact [facility] Diagnoses Special screening for malignant neoplasms, colon Procedures COLONOSCOPY SCREENING COLONOSCOPY FLX DX W/COLLJ SPEC WHEN Manisha Chávez APRN.ADVICE NURSE [address] [place] [address] [facility] [address] [place] [address] Referral ID Status Reason Start Date Expiration Date V isits Requested Visits Authorized [id number] Closed Auto-Generate d Referral 04/26/2021 04/26/2022 [address] [facility] for visit Narrative* Diagnostic Procedure Only (Routine) - Closed Specialty Diagnoses / Procedures Referred By Josias muse Referred To Contact [facility] Diagnoses Encounter for screening mammogram for breast cancer Procedures DEMARIO SCREENING SCREENING MAMMOGRAPHY BI 2-VIEW BREAST INC CAD Reina Montoya, CUSTOMER CARE SPECIALIST.ADVICE NURSE [address] [place] [address] [facility] [address] [place] [address] Referral ID Status Reason Start Date Expiration Date V isits Requested Visits Authorized [id number] Closed Auto-Generate d Referral 04/14/2023 05/13/2024 [address] [facility] for visit Narrative* Diagnostic Procedure Only (Routine) - Closed Specialty Diagnoses / Procedures Referred By Josias muse Referred To Contact [facility] Diagnoses Encounter for gynecological examination (general) (routine) without abnormal findings Encounter for screening mammogram for breast cancer Procedures DEMARIO SCREENING W [place] SCREENING DIGITAL BREAST TOMOSYNTHESIS BI SCREENING MAMMOGRAPHY BI 2-VIEW BREAST INC CAD Manisha Gasca, CUSTOMER CARE SPECIALIST.ADVICE NURSE [address] [place] [address] Phone: tel: fax: [facility] [address] [place] [address] Referral ID Status Reason Start Date Expiration Date V isits Requested Visits Authorized [id number] Closed Auto-Generate d Referral 08/16/2024 09/15/2025 1 1 [facility] Medications Administered Section Inactive Administered Medications [...] FoundDocuments on File Type Date Recorded 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 Advance Directive(s) 07/30/2021 7:23 AM Advance Directive(s) 07/12/2021 7:20 PM Advance Directive Response Recorded Date/ Time Living Will No March 26 2 11:11pm Power of Storage Administrator No March 26, 022 11:11pm Advance Directive Response Recorded Date/ Time Living Will No March 26 2 10:11pm Power of Storage Administrator No March 26, 022 10:11pm Advance Directive Response Recorded Date/ Time Living Will No October 05, 2022 5:02pm Power of Storage Administrator No October 05 5:02pm Advance Directive Response Recorded Date/ Time Living Will No December 12, 2022 9:03pm Power of Storage Administrator No November 9:03pm Advance Directive Response Recorded Date/ Time Living Will No December 12, 2022 8:03pm Power of Storage Administrator No November 8:03pm Advance Directive Response Recorded Date/ Time Living Will No May 10, 5:53am Power of Storage Administrator No May 10, 2023 5:53am Chief Complaint and Reason for Visit Chief Complaint OBESITY Chief Complaint OBESITY OBESITY Chief Complaint OBESITY OBESITY OBESITY HIP AND SPINE XRAY Chief Complaint OBESITY OBESITY HIP AND SPINE XRAY OBESITY Chief Complaint OBESITY OBESITY HIP AND SPINE XRAY OBESITY OBESITY Chief Complaint OBESITY HIP AND SPINE XRAY OBESITY OBESITY OBESITY Chief Complaint DD RX HERE migraine Chief Complaint migraine Chief Complaint migraine Amb Documentation EST / HX OF MIGRAINES (SELF) CP Syncope and collapse Amb Documentation Reason for Visit Pre-syncope Vestibular migraine Chief Complaint Amb Documentation EST / HX OF MIGRAINES (SELF) CP Syncope and collapse Amb Documentation 3 M FU CERVICAL PAIN Reason for Visit Pre-syncope Vestibular migraine Pre-syncope Vestibular migraine Chief Complaint 3 M FU CERVICAL PAIN ABD PAIN Reason for Visit Pre-syncope Vestibular migraine Reason for Referral Specialty Diagnoses / Procedures Referred By Josias muse Referred To Contact [facility] Diagnoses Lightheaded Positional lightheadedness Procedures CONSULT TO CARDIOLOGY OFFICE/OUTPATIENT [facility] MDM 60-74 MINUTES Luba Monroe PA-C [address] [place] [address] Referral ID Status Reason Start Date Expiration Date Visits Requested Visits Authorized [id number] Authorized PCP Requested Referral 11/16/2022 11/16/2023 1 1 Specialty Diagnoses / Procedures Referred By Josias muse Referred To Contact [facility] Diagnoses Cervicalgia Procedures CONSULT TO PHYSICAL THERAPY PHYSICAL THERAPY EVALUATION HIGH COMPLEX 45 MINS Luba Monroe PA-C [address] [place] [address] [facility] [address] [place] [address] Referral ID Status Reason Start Date Expiration Date Visits Requested Visits Authorized [id number] Pending Review Auto-Generat ed Referral 05/18/2022 05/18/2023 1 1 Summary Purpose Family History No Family History Records Found Relationship Condition Age at Onset Recorded Date/T chuy mother Hypertension Unknown grandfather Cardiac disease Unknown grandmother Cardiac disease Unknown Additional Source Comments Source Comments (unrecognize d section and content) In the event this informatio n is protected by the Federal Confidentiality of Alcohol and Drug Abuse Patient Records regulations: The Federal rules restrict any use of the information to criminally investigate or prosecute any alcohol or drug abuse patient.[facility] the event this information is protected by the Federal Confidentiality of Alcohol and Drug Abuse Patient Records regulations: The Federal rules restrict any use of the information to criminally investigate or prosecute any alcohol or drug abuse patient.[facility]In the event this information is protected by the Federal Confidentiality of Alcohol and Drug Abuse Patient Records regulations: The Federal rules restrict any use of the information to criminally investigate or prosecute any alcohol or drug abuse patient.[facility]In the event this information is protected by the Federal Confidentiality of Alcohol and Drug Abuse Patient Records regulations: The Federal rules restrict any use of the information to criminally investigate or prosecute any alcohol or drug abuse patient.[facility]In the event this information is protected by the Federal Confidentiality of Alcohol and Drug Abuse Patient Records regulations: The Federal rules restrict any use of the information to criminally investigate or prosecute any alcohol or drug abuse patient.[facility] HospitalIn the event this information is protected by the Federal Confidentiality of Alcohol and Drug Abuse Patient Records regulations: The Federal rules restrict any use of the information to criminally investigate or prosecute any alcohol or drug abuse patient.[facility] HospitalIn the event this information is protected by the Federal Confidentiality of Alcohol and Drug Abuse Patient Records regulations: The Federal rules restrict any use of the information to criminally investigate or prosecute any alcohol or drug abuse patient.[facility] HospitalIn the event this information is protected by the Federal Confidentiality of Alcohol and Drug Abuse Patient Records regulations: The Federal rules restrict any use of the information to criminally investigate or prosecute any alcohol or drug abuse patient.[facility]In the event this information is protected by the Federal Confidentiality of Alcohol and Drug Abuse Patient Records regulations: The Federal rules restrict any use of the information to criminally investigate or prosecute any alcohol or drug abuse patient.[facility] HospitalIn the event this information is protected by the Federal Confidentiality of Alcohol and Drug Abuse Patient Records regulations: The Federal rules restrict any use of the information to criminally investigate or prosecute any alcohol or drug abuse patient.[facility] HospitalIn the event this information is protected by the Federal Confidentiality of Alcohol and Drug Abuse Patient Records regulations: The Federal rules restrict any use of the information to criminally investigate or prosecute any alcohol or drug abuse patient.[facility] HospitalIn the event this information is protected by the Federal Confidentiality of Alcohol and Drug Abuse Patient Records regulations: The Federal rules restrict any use of the information to criminally investigate or prosecute any alcohol or drug abuse patient.[facility] HospitalIn the event this information is protected by the Federal Confidentiality of Alcohol and Drug Abuse Patient Records regulations: The Federal rules restrict any use of the information to criminally investigate or prosecute any alcohol or drug abuse patient.[facility] HospitalIn the event this information is protected by the Federal Confidentiality of Alcohol and Drug Abuse Patient Records regulations: The Federal rules restrict any use of the information to criminally investigate or prosecute any alcohol or drug abuse patient.[facility] HospitalIn the event this information is protected by the Federal Confidentiality of Alcohol and Drug Abuse Patient Records regulations: The Federal rules restrict any use of the information to criminally investigate or prosecute any alcohol or drug abuse patient.[facility] HospitalIn the event this information is protected by the Federal Confidentiality of Alcohol and Drug Abuse Patient Records regulations: The Federal rules restrict any use of the information to criminally investigate or prosecute any alcohol or drug abuse patient.[facility] HospitalIn the event this information is protected by the Federal Confidentiality of Alcohol and Drug Abuse Patient Records regulations: The Federal rules restrict any use of the information to criminally investigate or prosecute any alcohol or drug abuse patient.[facility] HospitalIn the event this information is protected by the Federal Confidentiality of Alcohol and Drug Abuse Patient Records regulations: The Federal rules restrict any use of the information to criminally investigate or prosecute any alcohol or drug abuse patient.[facility] HospitalIn the event this information is protected by the Federal Confidentiality of Alcohol and Drug Abuse Patient Records regulations: The Federal rules restrict any use of the information to criminally investigate or prosecute any alcohol or drug abuse patient.[facility] HospitalIn the event this information is protected by the Federal Confidentiality of Alcohol and Drug Abuse Patient Records regulations: The Federal rules restrict any use of the information to criminally investigate or prosecute any alcohol or drug abuse patient.[facility] HospitalIn the event this information is protected by the Federal Confidentiality of Alcohol and Drug Abuse Patient Records regulations: The Federal rules restrict any use of the information to criminally investigate or prosecute any alcohol or drug abuse patient.[facility] HospitalIn the event this information is protected by the Federal Confidentiality of Alcohol and Drug Abuse Patient Records regulations: The Federal rules restrict any use of the information to criminally investigate or prosecute any alcohol or drug abuse patient.[facility] HospitalIn the event this information is protected by the Federal Confidentiality of Alcohol and Drug Abuse Patient Records regulations: The Federal rules restrict any use of the information to criminally investigate or prosecute any alcohol or drug abuse patient.[facility] HospitalIn the event this information is protected by the Federal Confidentiality of Alcohol and Drug Abuse Patient Records regulations: The Federal rules restrict any use of the information to criminally investigate or prosecute any alcohol or drug abuse patient.[facility] HospitalIn the event this information is protected by the Federal Confidentiality of Alcohol and Drug Abuse Patient Records regulations: The Federal rules restrict any use of the information to criminally investigate or prosecute any alcohol or drug abuse patient.[facility] HospitalIn the event this information is protected by the Federal Confidentiality of Alcohol and Drug Abuse Patient Records regulations: The Federal rules restrict any use of the information to criminally investigate or prosecute any alcohol or drug abuse patient.[facility] HospitalIn the event this information is protected by the Federal Confidentiality of Alcohol and Drug Abuse Patient Records regulations: The Federal rules restrict any use of the information to criminally investigate or prosecute any alcohol or drug abuse patient.[facility] HospitalIn the event this information is protected by the Federal Confidentiality of Alcohol and Drug Abuse Patient Records regulations: The Federal rules restrict any use of the information to criminally investigate or prosecute any alcohol or drug abuse patient.[facility] HospitalIn the event this information is protected by the Federal Confidentiality of Alcohol and Drug Abuse Patient Records regulations: The Federal rules restrict any use of the information to criminally investigate or prosecute any alcohol or drug abuse patient.[facility] HospitalIn the event this information is protected by the Federal Confidentiality of Alcohol and Drug Abuse Patient Records regulations: The Federal rules restrict any use of the information to criminally investigate or prosecute any alcohol or drug abuse patient.[facility] HospitalIn the event this information is protected by the Federal Confidentiality of Alcohol and Drug Abuse Patient Records regulations: The Federal rules restrict any use of the information to criminally investigate or prosecute any alcohol or drug abuse patient.[facility] HospitalIn the event this information is protected by the Federal Confidentiality of Alcohol and Drug Abuse Patient Records regulations: The Federal rules restrict any use of the information to criminally investigate or prosecute any alcohol or drug abuse patient.[facility] HospitalIn the event this information is protected by the Federal Confidentiality of Alcohol and Drug Abuse Patient Records regulations: The Federal rules restrict any use of the information to criminally investigate or prosecute any alcohol or drug abuse patient.[facility] HospitalIn the event this information is protected by the Federal Confidentiality of Alcohol and Drug Abuse Patient Records regulations: The Federal rules restrict any use of the information to criminally investigate or prosecute any alcohol or drug abuse patient.[facility] HospitalIn the event this information is protected by the Federal Confidentiality of Alcohol and Drug Abuse Patient Records regulations: The Federal rules restrict any use of the information to criminally investigate or prosecute any alcohol or drug abuse patient.[facility] HospitalIn the event this information is protected by the Federal Confidentiality of Alcohol and Drug Abuse Patient Records regulations: The Federal rules restrict any use of the information to criminally investigate or prosecute any alcohol or drug abuse patient.[facility] HospitalIn the event this information is protected by the Federal Confidentiality of Alcohol and Drug Abuse Patient Records regulations: The Federal rules restrict any use of the information to criminally investigate or prosecute any alcohol or drug abuse patient.[facility] HospitalIn the event this information is protected by the Federal Confidentiality of Alcohol and Drug Abuse Patient Records regulations: The Federal rules restrict any use of the information to criminally investigate or prosecute any alcohol or drug abuse patient.[facility] HospitalIn the event this information is protected by the Federal Confidentiality of Alcohol and Drug Abuse Patient Records regulations: The Federal rules restrict any use of the information to criminally investigate or prosecute any alcohol or drug abuse patient.[facility] HospitalIn the event this information is protected by the Federal Confidentiality of Alcohol and Drug Abuse Patient Records regulations: The Federal rules restrict any use of the information to criminally investigate or prosecute any alcohol or drug abuse patient.[facility] HospitalIn the event this information is protected by the Federal Confidentiality of Alcohol and Drug Abuse Patient Records regulations: The Federal rules restrict any use of the information to criminally investigate or prosecute any alcohol or drug abuse patient.[facility] HospitalIn the event this information is protected by the Federal Confidentiality of Alcohol and Drug Abuse Patient Records regulations: The Federal rules restrict any use of the information to criminally investigate or prosecute any alcohol or drug abuse patient.[facility] HospitalIn the event this information is protected by the Federal Confidentiality of Alcohol and Drug Abuse Patient Records regulations: The Federal rules restrict any use of the information to criminally investigate or prosecute any alcohol or drug abuse patient.[facility] HospitalIn the event this information is protected by the Federal Confidentiality of Alcohol and Drug Abuse Patient Records regulations: The Federal rules restrict any use of the information to criminally investigate or prosecute any alcohol or drug abuse patient.[facility] HospitalIn the event this information is protected by the Federal Confidentiality of Alcohol and Drug Abuse Patient Records regulations: The Federal rules restrict any use of the information to criminally investigate or prosecute any alcohol or drug abuse patient.[facility] HospitalIn the event this information is protected by the Federal Confidentiality of Alcohol and Drug Abuse Patient Records regulations: The Federal rules restrict any use of the information to criminally investigate or prosecute any alcohol or drug abuse patient.[facility] HospitalIn the event this information is protected by the Federal Confidentiality of Alcohol and Drug Abuse Patient Records regulations: The Federal rules restrict any use of the information to criminally investigate or prosecute any alcohol or drug abuse patient.[facility] HospitalIn the event this information is protected by the Federal Confidentiality of Alcohol and Drug Abuse Patient Records regulations: The Federal rules restrict any use of the information to criminally investigate or prosecute any alcohol or drug abuse patient.[facility] Reason for Visit (unrecogniz ed section and content) Reason Comments Physical Therapy Specialty Diagnoses / Procedures Referred By Contac t Referred To Contact [facility] Diagnoses Stress incontinence Cystocele, midline Procedures CONSULT TO PHYSICAL THERAPY PHYSICAL THERAPY EVALUATION HIGH COMPLEX 45 MINS Manisha Gasca, CYNTHIA.ADVICE NURSE [address] [place] [address] [facility] [address] [place] [id number] Referral ID Status Reason Start Date Expiration Date Visits Requested Visits Authorized [id number] Authorized Auto-Generat ed Referral 03/20/2021 03/19/2022 20 [...] Comments Follow Up Phone Call All Clear Reason Onset Date Comments Refill Request 06/08/2023 Reason Onset Date Comments Refill Request 08/05/2023 Reason Comments Follow Up 6 month follow up. S kyleigh things are going well. Reason Onset Date Comments Refill Request 10/19/2023 Reason Onset Date Comments Refill Request 12/08/2023 Reason Onset Date Comments Refill Request 02/10/2023 Reason Onset Date Comments Refill Request 03/27/2024 Reason Onset Date Comments Refill Request 06/24/2024 Reason Comments Well Woman Reason Onset Date Comments Refill Request 06/14/2024 Reason Onset Date Comments Refill Request 10/17/2024 Reason Comments Follow Up Migraines Care Teams (unrecognized sec tion and content) Team Status: Active Member Role Status Dates Demi Ortiz ENAMEL BURNER, ENAMEL BURNER-C Primary Care Provider Active Team Status: Inactive Member Role Status Dates Demi Ortiz ENAMEL BURNER, ENAMEL BURNER-C Primary Care Provider Active Dr. Karla Doherty MD Attending Provider, Emergency Provider Active Team Status: Active Member Role Status Dates Demi Ortiz ENAMEL BURNER, ENAMEL BURNER-C Primary Care Provider Active MIGUEL A PEDROZA Attending Provider, Referring Pro vider Active Team Status: Inactive Member Role Status Dates Demi Ortiz ENAMEL BURNER, ENAMEL BURNER-C Primary Care Provider Active Dr. Karla Doherty MD Emergency Provider Active Electronic Development Technician Relationship Specialty Start Date End Date Manisha Parks [address] [facility] [address] [place] [address] PCP - General 06/18/03 Electronic Development Technician Relationship Specialty Start Date End Date Manisha Parks [address] [facility] [address] [place], [place] [address] PCP - General 06/18/03 Electronic Development Technician Relationship Specialty Start Date End Date Manisha Parks [address] [facility] [address] [place] [address] PCP - General 06/18/03 Team Status: Inactive Member Role Status Dates Demi Ortiz ENAMEL BURNER, ENAMEL BURNER-C Primary Care Pr ovider, Attending Provider, Referring Provider Active Electronic Development Technician Relationship Specialty Start Date End Date Demi Ortiz APRN.[address] [address] PCP - General Family Medicine 05/17/22 Electronic Development Technician Relationship Specialty Start Date End Date Demi Ortiz APRN.[address] [address] PCP - General Family Medicine 05/17/22 Electronic Development Technician Relationship Specialty Start Date End Date Demi Ortiz APRN.[address] [address] PCP - General Family Medicine 05/17/22 Electronic Development Technician Relationship Specialty Start Date End Date Deim Ortiz APRN.[address] [address] PCP - General Family Medicine 05/17/22 Electronic Development Technician Relationship Specialty Start Date End Date Demi Ortiz APRN.[address] [address] PCP - General Family Medicine 05/17/22 Electronic Development Technician Relationship Specialty Start Date End Date Demi Ortiz APRN.[address] [address] PCP - General Family Medicine 05/17/22 Electronic Development Technician Relationship Specialty Start Date End Date Demi Ortiz APRN.[address] [address] PCP - General Family Medicine 05/17/22 Electronic Development Technician Relationship Specialty Start Date End Date Demi Ortiz APRN.[address] [address] (Fax) PCP - General Family Medicine 05/17/22 Electronic Development Technician Relationship Specialty Start Date End Date Demi Ortiz APRN.ADVICE NURSE [address] [place] [address] PCP - General Family Medicine 05/17/22 Electronic Development Technician Relationship Specialty Start Date End Date Demi Ortiz APRN.ADVICE NURSE [address] [place] [address] PCP - General Family Medicine 05/17/22 Electronic Development Technician Relationship Specialty Start Date End Date Demi Ortiz APRN.ADVICE NURSE [address] [place] [address] PCP - General Family Medicine 05/17/22 Electronic Development Technician Relationship Specialty Start Date End Date Demi Ortiz APRN.ADVICE NURSE [address] [place] [address] PCP - General Family Medicine 05/17/22 Electronic Development Technician Relationship Specialty Start Date End Date Demi Ortiz CUSTOMER CARE SPECIALIST.ADVICE NURSE [address] [place] [address] PCP - General Family Medicine 05/17/22 Electronic Development Technician Relationship Specialty Start Date End Date Demi Ortiz, CUSTOMER CARE SPECIALIST.ADVICE NURSE [address] [place] [address] PCP - General Family Medicine 05/17/22 Team Status: Inactive Member Role Status Dates Demi Ortiz ENAMEL BURNER, ENAMEL BURNER-C Primary Care Provider, Referr ing Provider Active Dr. Daniel Trotter MD Attending Provider Active Team Status: Active Member Role Status Dates Demi Ortiz ENAMEL BURNER, ENAMEL BURNER-C Primary Care Provider Active Alis Foster , RN Attending Provider Active Team Status: Active Member Role Status Dates Demi Ortiz ENAMEL BURNER, ENAMEL BURNER-C Primary Care Provider Active Dr. Daniel Trotter MD Attending Provider Active Team Status: Active Member Role Status Dates Demi Ortiz ENAMEL BURNER, ENAMEL BURNER-C Primary Care Provider Active Eli Toure ENAMEL BURNER, ENAMEL BURNER-C Attending Provider Active Team Status: Inactive Member Role Status Dates Demi Ortiz ENAMEL BURNER, ENAMEL BURNER-C Primary Care Provider Active Dr. Spike Sinha DO Attending Provider, Emergency P josemanuel Active Team Status: Inactive Member Role Status Dates Demi Ortiz ENAMEL BURNER, ENAMEL BURNER-C Primary Care Provider Active Dr. Daniel Trotter MD Attending Provider, Referring Pr ovider Active Team Status: Active Member Role Status Dates BRI MAST , MANAGER OF CARE Primary Care Provider Active Team Status: Inactive Member Role Status Dates Demi Ortiz ENAMEL BURNER, ENAMEL BURNER-C Referring Provider Active Rodolfo Jenkins ENAMEL BURNER, ENAMEL BURNER-C Attending Provider Active BRI MAST , MANAGER OF CARE Primary Care Provider Active Team Status: Active Member Role Status Dates Demi Ortiz ENAMEL BURNER, ENAMEL BURNER-C Primary Care Provider Active Dr. Daniel Trotter MD Attending Provider, Referring Pr ovider Active Team Status: Inactive Member Role Status Dates BRI MAST , MANAGER OF CARE Primary Care Provider Active NP. Monique Arenas Attending Provider, Referring Provid er Active Team Status: Inactive Member Role Status Dates BRI MAST , MANAGER OF CARE Primary Care Provider Active Dr. Jerzy Miller , Emergency Provider Active Electronic Development Technician Relationship Specialty Start Date End Date Megan Ortize, CUSTOMER CARE SPECIALIST.ADVICE NURSE [address] [place] [address] PCP - General Family Medicine 05/17/22 Electronic Development Technician Relationship Specialty Start Date End Date Esme Ortizsie, CUSTOMER CARE SPECIALIST.ADVICE NURSE [address] [place] [address] PCP - General Family Medicine 05/17/22 Electronic Development Technician Relationship Specialty Start Date End Date Esme Ortizsie, CUSTOMER CARE SPECIALIST.ADVICE NURSE [address] [place] [address] PCP - General Family Medicine 05/17/22 Electronic Development Technician Relationship Specialty Start Date End Date Demi Ortiz, CUSTOMER CARE SPECIALIST.ADVICE NURSE [address] [place] [address] PCP - General Family Medicine 05/17/22 Electronic Development Technician Relationship Specialty Start Date End Date Demi Ortiz, CUSTOMER CARE SPECIALIST.ADVICE NURSE [address] [place] [address] PCP - General Family Medicine 05/17/22 Electronic Development Technician Relationship Specialty Start Date End Date Demi Ortiz, CUSTOMER CARE SPECIALIST.ADVICE NURSE [address] [place] [address] PCP - General Family Medicine 05/17/22 Electronic Development Technician Relationship Specialty Start Date End Date Demi Ortiz, CUSTOMER CARE SPECIALIST.ADVICE NURSE [address] [place] [address] PCP - General Family Medicine 05/17/22 Electronic Development Technician Relationship Specialty Start Date End Date Demi Ortiz, CUSTOMER CARE SPECIALIST.ADVICE NURSE [address] [place] [address] PCP - General Family Medicine 05/17/22 Electronic Development Technician Relationship Specialty Start Date End Date Demi Ortiz, CUSTOMER CARE SPECIALIST.ADVICE NURSE [address] [place] [address] PCP - General Family Medicine 05/17/22 Electronic Development Technician Relationship Specialty Start Date End Date Demi Ortiz, CUSTOMER CARE SPECIALIST.ADVICE NURSE [address] [place] [address] PCP - General Family Medicine 05/17/22 Electronic Development Technician Relationship Specialty Start Date End Date Demi Ortiz, CUSTOMER CARE SPECIALIST.ADVICE NURSE [address] [place] [address] PCP - General Family Medicine 05/17/22 Electronic Development Technician Relationship Specialty Start Date End Date Demi Ortiz, CUSTOMER CARE SPECIALIST.ADVICE NURSE [address] [place] [address] PCP - General Family Medicine 05/17/22 Electronic Development Technician Relationship Specialty Start Date End Date Demi Ortiz, CUSTOMER CARE SPECIALIST.ADVICE NURSE [address] [place] [address] PCP - General Family Medicine 05/17/22 Electronic Development Technician Relationship Specialty Start Date End Date Demi Ortiz, CUSTOMER CARE SPECIALIST.ADVICE NURSE [address] [place] [address] PCP - General Family Medicine 05/17/22 Electronic Development Technician Relationship Specialty Start Date End Date Demi Ortiz, CUSTOMER CARE SPECIALIST.ADVICE NURSE [address] [place] [address] PCP - General Family Medicine 05/17/22 Electronic Development Technician Relationship Specialty Start Date End Date Demi Ortiz, CUSTOMER CARE SPECIALIST.ADVICE NURSE [address] [place] [address] PCP - General Family Medicine 05/17/22 Electronic Development Technician Relationship Specialty Start Date End Date Demi Ortiz APRN.ADVICE NURSE [address] [place] [address] PCP - General Family Medicine 05/17/22 Electronic Development Technician Relationship Specialty Start Date End Date Demi Ortiz APRN.ADVICE NURSE [address] [place] [address] PCP - General Family Medicine 05/17/22 Electronic Development Technician Relationship Specialty Start Date End Date Demi Ortiz APRN.ADVICE NURSE [address] [place] [address] PCP - General Family Medicine 05/17/22 Electronic Development Technician Relationship Specialty Start Date End Date Demi Ortiz APRN.ADVICE NURSE [address] [place] [address] PCP - General Family Medicine 05/17/22 Goals (unrecognized section and content) Goals may be documented in a n alternate section Care Team (unrecognized sect ion and content) Care Team Personnel Name: DEMI ORTIZ CUSTOMER CARE SPECIALIST-ADVICE NURSE Position: P4 Advanced Practice Nurse Member Role: Primary Care Physician Address: Address: [address] [place] [address]- Care Team Related Persons Name: EYAL CONTRERAS Care Team Personnel Name: DEMI ORTIZ CUSTOMER CARE SPECIALIST-ADVICE NURSE Position: P4 Advanced Practice Nurse Member Role: Primary Care Physician Address: Address: [address] [place] [address]- Care Team Related Persons Name: EYAL CONTRERAS Care Team Personnel Name: DEMI ORTIZ CYNTHIA-ADVICE NURSE Position: P4 Advanced [employer] Comp[employer] Inspector Member Role: Primary Care Physician Address: Address: [address] [facility] [place] [address]- Care Team Related Persons Name: GANGA, DAN INFORMATION SOURCE (unrecogn ized section and content) DATE CREATED AUTHOR 09/17/2022 [facility] DATE CREATED AUTHOR AUTHOR'S ORGANIZ ATION 06/03/2023 [facility] ([place]) DATE CREATED AUTHOR AUTHOR'S ORGANIZ ATION 06/23/2024 [facility] DATE CREATED AUTHOR AUTHOR'S ORGANIZ ATION 08/28/2024 [facility] DATE CREATED AUTHOR AUTHOR'S ORGANIZ ATION 11/24/2024 [facility] FOR RECORDS PERTAINING TO PATIENTS WHO ARE [...] BE BASED ON THE PRIMARY CLINICAL RECORDS. [facility]. provides no warranty or guarantee of the accuracy or completeness of information in this document.
--- NOTE | 2025-02-01 07:34 | MRI_ITS ---
PROCEDURE: SPINE CERVICAL (ROUTINE) 02/01/2025 REASON FOR EXAM: OTHER CERVICAL DISC DEGENERATION TECHNIQUE: Procedure Code: MRISPC Modality: MR Procedure: SPINE CERVICAL (ROUTINE) Multiplanar and multisequence images were obtained without IV contrast administration. COMPARISON: Cervical spine x-ray 03/03/2023 FINDINGS: Vertebrae: Cervical vertebral body heights are preserved. Bone marrow signal is unremarkable. Alignment: Normal. No spondylolisthesis. Spinal Cord: Cervical spinal cord is of normal size and signal intensities. Structures at the foramen magnum are unremarkable. C2-3: Facet joints arthropathy. No significant foraminal or canal stenosis. C3-4: Facet joint arthropathy. No significant foraminal or canal stenosis. C4-5: No significant foraminal or canal stenosis. C5-6: Disc desiccation. Disc osteophyte complex. Uncovertebral hypertrophy. Mild bilateral foramina stenosis. Mild canal stenosis. C6-7: Disc desiccation. Disc bulge. No significant foraminal or canal stenosis. C7-T1: No significant foraminal or canal stenosis. MRI/Spine Cervical (Routine) IMPRESSION: Mild degenerate changes of the cervical spine predominantly at C5-C6 skip adames Reading Location: [facility]
== END | disposition home or self-care (01) ==
LOC: MRI 07:16
PROVIDERS: PCP Nurse Practitioner Adult Health; Referring Provider Anesthesiology Pain Medicine; Visit Provider Anesthesiology Pain Medicine
DX: M50.30 Other cervical disc degeneration, unspecified cervical region (principal)
CPT/HCPCS: 72141